=== PATIENT | female | born 1960 | race African-American/Black ===

== ENCOUNTER 2019-08-17 11:27 | Inpatient (IN) | payer MEDICARE, OTHER ==
--- NOTE | 2019-08-17 12:10 | RAD ---
RADIOGRAPH CHEST 1 VIEW: DATE: 08/17/2019 HISTORY: 59-year-old female with altered mental status. Concern for aspiration. Hyperglycemia. FINDINGS: The visualized lung lehman are clear. The cardiomediastinal silhouette and hilar shadows are normal. The lateral costophrenic angles are sharp. The osseous structures appear normal. There is no pneumothorax. IMPRESSION: Negative.
[2019-08-17] MEDS ORDERED: Ondansetron PF 4 MG/2 ML Vial ONE (12:14)
[2019-08-17] MEDS ORDERED: Insulin Regular 300 UNITS/3 ML VIAL ONE ×3 (12:14→12:45)
[2019-08-17] MEDS ORDERED: Insulin Regular 300 UNITS/3 ML VIAL SC SCH (12:30)
[2019-08-17 12:45] LABS: Bilirubin Negative (Negative); Blood, Urine 3+ (Negative); Clarity Clear (Clear); Glucose, Urine (Dipstick) Greater than 1000 mg/dL (Negative); Leukocyte Negative Leu/uL (Negative); Nitrite Negative (Negative); Protein, Urine (Dipstick) 10 mg/dL (Neg-Trace); RBC/HPF Greater than 50 HPF (0-3); Squamous Epithelial 0-3 HPF (0-3); Urobilinogen Normal mg/dL (Less than 2)
[2019-08-17 12:52] LABS: Mean Corpuscular HGB CONC 31.6 g/dL (32.0-36.0); Mean Corpuscular Hemoglobin 21.8 pg (27.0-31.0); Mean Corpuscular Volume 68.8 fL (78.0-98.0); Platelet Count 276 thou/uL (130-400); RBC Distribution Width 19.4 % (11.5-14.5); Red Blood Cell (RBC) Count 5.06 mill/uL (4.20-5.40); White Blood Cell (WBC) Count 8.2 thou/uL (4.8-10.8)
[2019-08-17 12:56] LABS: Bacteria/HPF 1+ HPF (None Seen)
[2019-08-17 13:00] LABS: ALT (SGPT) 10 U/L (8-55); AST (SGOT) 10 U/L (5-34); Albumin 4.1 g/dL (3.5-5.0); Alkaline Phosphatase 126 U/L (40-110); Anion Gap 19 mmol/L (10-20); BUN (Urea Nitrogen) 13 mg/dL (9.8-20.1); Bilirubin, Total 0.3 mg/dL (0.2-1.2); Calc. Creatinine Clearance 0 mL/min (70-130); Calcium 8.7 mg/dL (7.8-10.44); Carbon Dioxide 27 mmol/L (22-29); Chloride 99 mmol/L (98-107); Estimated GFR-MDRD 45; Globulin 3.8 g/dL (2.4-3.5); Lipase 6 U/L (8-78); Magnesium 2.2 mg/dL (1.6-2.6); Phosphorus 4.1 mg/dL (2.3-4.7); Potassium 4.5 mmol/L (3.5-5.1); Protein, Total 7.9 g/dL (6.0-8.3); Sodium 140 mmol/L (136-145)
[2019-08-17 13:04] LABS: Glucose 623 mg/dL (70-105)
[2019-08-17 13:08] LABS: #Lymphocytes 1.4 thou/uL (1.20-3.40); #Monocytes 0.4 thou/uL (0.11-0.59); #Neutrophils 6.4 thou/uL (1.40-6.50); %Basophils 0.4 % (0.0-1.0); %Eosinophils 0.3 % (0.0-10.0); %Lymphocytes 16.7 % (21.0-51.0); %Neutrophils 77.5 % (42.0-75.0); Hypochromia SLIGHT = 6-15 cells (100X) (0-5/hpf); Large Platelets SLIGHT; Lymphocytes 8 % (21-51); MDiff Complete? YES; Microcytosis SLIGHT = 6-15 cells (100X) (0-5/hpf); Monocytes 7 % (0-10); Neutrophil 85 % (42-75); Platelet Morphology Comment Appears Adequate; Polychromasia SLIGHT = 2-3 cells (100X) (0-2/hpf)
[2019-08-17 13:22] LABS: Actual Bicarbonate (HCO3a) 22.7 mEq/L (22-28); Analyzer IN Cardio ER; Base Excess (BEa) -1.5 mEq/L (-2.0 to +3.0); CO2 Tension 36.3 mmHg (35.0-45.0); Calcium, Ionized 1.08 mmol/L (1.12-1.30); Carboxyhemoglobin (COHb) 0.4 gm% (0.0-3.0); Hemoglobin (Hb) 11.5 g/dL (12.0-16.0); O2 Tension (PaO2) 90.2 mmHg (80.0-100.0); Potassium - ABG Lab 4.04 mmol/L (3.70-5.30); pH, Arterial 7.41 (7.35-7.45)
[2019-08-17 13:23] LABS: ALV-art Gradient 14.155 (0-20); Puncture Site L.R.
[2019-08-17] MEDS ORDERED: Metoclopramide HCl 10 MG/2 ML VIAL ONE (13:53)
[2019-08-17] MEDS ORDERED: Acetaminophen 325 MG TAB PO PRN (14:55)
[2019-08-17] MEDS ORDERED: Senokot S 8.6-50 MG TAB PO PRN (14:55)
[2019-08-17] MEDS ORDERED: Dextrose 50% Abboject 50 ML SYRINGE SLOW IVP PRN (15:00)
[2019-08-17] MEDS ORDERED: Dextrose 5% in Water 1,000 ML IV PRN (15:00)
[2019-08-17] MEDS ORDERED: Ondansetron PF 4 MG/2 ML Vial IVP PRN (15:06)
[2019-08-17 15:45] LABS: Hemoglobin A1c Greater than 14.0 % (4.0-6.0)
--- NOTE | 2019-08-17 15:54 | HP ---
PRIMARY CARE PHYSICIAN: Dr. Polo in [place]. CHIEF COMPLAINT: High blood sugar, malaise, nausea, and vomiting. HISTORY OF PRESENT ILLNESS: Ms. Leon is a 59-year-old female, who reported to the emergency room today after being brought by ambulance for malaise x2 weeks, nausea and vomiting x1 week. The patient reports that she was seen in the ER in [place] on Sunday, blood glucose was 639, was just discharged with a viral infection and sent home. EMS reports her glucose today is in the 580s. Reports that she has recently started the metformin and has been on it for about a month and also complaining of a dry mouth and chills. Denies any fever. Denies any abdominal pain. Reports that her nausea is currently gone. Reports that she denied any diarrhea or constipation. Past medical history of hypertension, chronic bronchitis, hyperlipidemia, and then recent diagnosis of diabetes type 2. LABORATORY DATA: The patient's lab values; lipase 6, creatinine 1.43, glucose 623, beta hydroxybutyrate 1.97, GAP was 19. Sodium, potassium, chloride, and carbon dioxide are within normal limits. Urine with more than a 1000 glucose, ketones, blood, 4 to 6 white blood cells, and 1+ bacteria. This has been sent off for culture. The patient was given some Reglan, two doses of Novolin R insulin subcu, some 8 mg of Zofran, and 2 L of fluid and will be admitted to the medical unit for further management. PAST MEDICAL HISTORY: See HPI. PAST SURGICAL HISTORY: Eye surgery and . PSYCHIATRIC HISTORY: None. SOCIAL HISTORY: Lives at home with her family. Denies alcohol or drug use. No smoking history. FAMILY HISTORY: The patient reports family history of diabetes, hypertension, and cardiac disease. REVIEW OF SYSTEMS: The patient reviews chills. Reports nausea and vomiting. Reports intermittent abdominal pain which is resolved. Reports polydipsia. Reports general malaise. All systems are reviewed and are negative unless mentioned in the HPI. PHYSICAL EXAMINATION: VITAL SIGNS: Blood pressure 132/52, pulse is 86, respirations are 14, temperature is 98.4, and pO2 sats are 100% on room air. CONSTITUTIONAL: She is alert and oriented to person, place, and time. Appears nontoxic. HEENT: Head is atraumatic and normocephalic. Eyes, pupils are equally round and reactive to light. Extraocular muscles are intact. ENT; mucous membranes are dry. Teeth with poor dentition. NECK: Trachea is midline. No tenderness. RESPIRATORY/CHEST: Breath sounds are clear. No signs of respiratory distress. CARDIOVASCULAR: Heart rate, regular heart rate and rhythm. Heart sounds are normal. ABDOMEN: Nontender. Bowel sounds are heard. BACK: Normal range of motion. No CVA tenderness. EXTREMITIES: Upper extremity, normal range of motion. Motor strength is normal. Radial pulses are normal. Lower extremity, normal range of motion. Motor strength is normal. Pedal pulses are normal. No edema is noted. NEUROLOGIC: Alert. The patient is oriented to person, place, and time. Speech is normal. SKIN: Warm, dry, and normal in color. ALLERGIES: PENICILLINS. CURRENT MEDICATIONS: 1. Metformin 500 mg x2 b.i.d. 2. Glipizide 5 mg p.o. once a day. 3. Spironazide 25/25 once a day. 4. Atorvastatin 20 mg once a day. 5. Amlodipine 10 mg p.o. once a day. 6. Losartan 100 mg p.o. once a day. 7. Ferrous sulfate 325 mg p.o. once a day. ASSESSMENT/PLAN: 1. Hyperglycemia, 2 L of fluid were given in the ER. We will continue hydration, normal saline at 75 mL per hour, Accu-Chek before meals at bedtime; sliding scale, moderate for coverage, can change that to mild once blood sugars are under 200. Add Zofran as needed for nausea, [QAMARKER] has not been checked. The patient at home is on metformin and glipizide. We can consider restarting this once blood sugar is under better control. 2. History of hypertension. We will restart home medications. We will trend. 3. Hyperlipidemia. Restart home medications. 4. History of anemia. This appears stable. 5. Deep venous thrombosis and gastrointestinal prophylaxis have been started. 6. Hospital course dependent on clinical findings. Job ID: [id number]
[2019-08-17 16:20] VITALS: BMI 40.6
[2019-08-17] MEDS: HumaLOG 300 UNITS/3 ML VIAL SC PRN (17:17)
[2019-08-17] MEDS: Sodium Chloride 0.9% 1,000 ML IV SCH (17:20)
[2019-08-17] MEDS: Famotidine 20 MG TAB PO SCH (20:06)
[2019-08-17] MEDS: Insulin Glargine 15 UNITS in Pre-Filled Syringe 1 EACH SC SCH (21:22)
[2019-08-18] MEDS: Sodium Chloride 0.9% 1,000 ML IV SCH ×2 (04:30→18:05)
[2019-08-18 05:35] LABS: #Basophils 0.1 thou/uL (0.0-0.2); #Eosinphils 0.1 thou/uL (0.0-0.7); #Lymphocytes 2.3 thou/uL (1.20-3.40); #Monocytes 0.5 thou/uL (0.11-0.59); #Neutrophils 3.9 thou/uL (1.40-6.50); %Basophils 1.1 % (0.0-1.0); %Eosinophils 0.9 % (0.0-10.0); %Lymphocytes 33.5 % (21.0-51.0); %Monocytes 7.8 % (0.0-10.0); %Neutrophils 56.8 % (42.0-75.0); Hemoglobin 9.1 g/dL (12.0-16.0); Mean Corpuscular HGB CONC 30.9 g/dL (32.0-36.0); Mean Corpuscular Hemoglobin 21.5 pg (27.0-31.0); Mean Corpuscular Volume 69.6 fL (78.0-98.0); Mean Platelet Volume 7.8 fL (7.4-10.4); Platelet Count 218 thou/uL (130-400); RBC Distribution Width 18.9 % (11.5-14.5); Red Blood Cell (RBC) Count 4.23 mill/uL (4.20-5.40); White Blood Cell (WBC) Count 6.9 thou/uL (4.8-10.8)
[2019-08-18 05:54] LABS: ALT (SGPT) 9 U/L (8-55); AST (SGOT) 12 U/L (5-34); Albumin 3.4 g/dL (3.5-5.0); Alkaline Phosphatase 94 U/L (40-110); Anion Gap 11 mmol/L (10-20); BUN (Urea Nitrogen) 8 mg/dL (9.8-20.1); Bilirubin, Total 0.3 mg/dL (0.2-1.2); Calc. Creatinine Clearance 85 mL/min (70-130); Calcium 7.7 mg/dL (7.8-10.44); Carbon Dioxide 29 mmol/L (22-29); Chloride 106 mmol/L (98-107); Estimated GFR-MDRD 66; Globulin 3.2 g/dL (2.4-3.5); Glucose 164 mg/dL (70-105); Potassium 3.6 mmol/L (3.5-5.1); Protein, Total 6.6 g/dL (6.0-8.3); Sodium 142 mmol/L (136-145)
[2019-08-18] MEDS: Insulin Glargine 15 UNITS in Pre-Filled Syringe 1 EACH SC SCH ×3 (09:07→20:53)
[2019-08-18] MEDS: Losartan 25 MG TAB PO SCH (09:08)
[2019-08-18] MEDS: Famotidine 20 MG TAB PO SCH ×2 (09:08→20:51)
[2019-08-18 11:37] LABS: Bacteria/HPF Rare-Few HPF (None Seen); RBC/HPF Greater than 50 HPF (0-3); Renal Epithelial 0-3 HPF (None Seen); Transitional Epithelial 0-3 HPF (None Seen)
[2019-08-18] MEDS: HumaLOG 300 UNITS/3 ML VIAL SC PRN ×2 (12:09→16:42)
--- NOTE | 2019-08-18 12:10 | PDOC.HOSPP ---
- Subjective Encounter Date: 08/18/19 Encounter Time: 12:08 Subjective: confusing HX, claims blood in urine but sounds like vaginal bleeding post 2 procedures for vaginal bleeding - Objective Vital Signs & Weight: Vital Signs (12 hours) Temp Pulse Resp BP Pulse Ox 08/18/19 10:54 97.8 F 81 16 135/78 97 08/18/19 08:30 99 08/18/19 07:28 98.1 F 74 16 140/82 99 08/18/19 03:49 98.2 F 72 16 125/81 100 Weight Weight 201 lb 6.4 oz Result Diagrams: 08/18/19 04:55 08/18/19 04:55 Additional Labs: Accuchecks 08/18/19 08/17/19 08/17/19 05:34 20:47 16:02 POC Glucose 158 H 249 H 488 H 08/17/19 13:36 POC Glucose 518 H Hospitalist ROS - Medication Medications: Active Medications Generic Name Dose Route Start Last Admin Trade Name Freq PRN Reason Stop Dose Admin Famotidine 20 mg 08/17/19 21:00 08/18/19 09:08 Pepcid PO 20 mg BID AZALEA Administration Sodium Chloride 1,000 mls @ 75 mls/hr 08/17/19 15:00 08/18/19 04:30 Normal Saline 0.9% IV 1,000 mls .[id number] AZALEA Administration Insulin Glargine 15 units/ 0.15 mls @ 0 mls/hr 08/17/19 21:00 08/17/19 21:22 Miscellaneous Medication SC 0.15 mls HS AZALEA Administration Insulin Glargine 15 units/ 0.15 mls @ 0 mls/hr 08/18/19 09:00 08/18/19 09:07 Miscellaneous Medication SC 0.15 mls QAM AZALEA Administration Insulin Human Lispro 0 units 08/17/19 15:00 08/17/19 17:17 Humalog SC 10 unit .MODERATE SLIDING SC PRN Administration Moderate Correctional Scale Losartan Potassium 100 mg 08/18/19 09:00 08/18/19 09:08 Cozaar PO 100 mg DAILY AZALEA Administration Sodium Chloride 10 ml 08/17/19 14:55 08/18/19 09:09 Flush - Normal Saline IVF 10 ml Q12HR PRN Administration Saline Flush - Exam General Appearance: awake alert Neck: no JVD Heart: RRR, no murmur Respiratory: CTAB, no wheezes Gastrointestinal: soft, normal bowel sounds Extremities: 1+ LE edema Hosp A/P (1) Nausea & vomiting Code(s): R11.2 - NAUSEA WITH VOMITING, UNSPECIFIED Status: Acute Qualifiers: Vomiting Intractability: unspecified (2) Hematuria Code(s): R31.9 - HEMATURIA, UNSPECIFIED Status: Acute Qualifiers: Hematuria type: unspecified type Qualified Code(s): R31.9 - Hematuria, unspecified (3) DM (diabetes mellitus), type 2, uncontrolled Code(s): E11.65 - TYPE 2 DIABETES MELLITUS WITH HYPERGLYCEMIA Status: Acute Qualifiers: Glycemic state: with hyperglycemia Qualified Code(s): E11.65 - Type 2 diabetes mellitus with hyperglycemia (4) Hypertension Code(s): I10 - ESSENTIAL (PRIMARY) HYPERTENSION Status: Chronic Qualifiers: Hypertension type: essential hypertension Qualified Code(s): I10 - Essential (primary) hypertension - Plan cont accu/ss insulin needs good pelvic exam-SPORTS PHOTOGRAPHER consult
--- NOTE | 2019-08-18 15:24 | ULT ---
ULTRASOUND PELVIC ULTRASOUND TRANSVAGINAL DOPPLER DUPLEX: DATE: 08/18/2019 HISTORY: 59-year-old female with postmenopausal bleeding with anemia. TECHNIQUE: Transabdominal transducer and endovaginal transducer used to visualize intrapelvic contents with gee scale, color-flow, and spectral analysis. FINDINGS: Poor visualization of uterine body and fundus because of body habitus and enlargement of uterus. Uterus measures approximately 10.5 x 6.5 x 6 cm. Endometrial stripe poorly visualized. At mid body, it measures approximate 0.5 cm. At uterine fundus, the hod carrier has made a measurement of 2.8 cm (28 mm) is, but it is uncertain w hether this is actually the endometrial stripe or uterine fibroid, or endometrial tumor mass, or artifact. Right ovary: Not visualized. Left ovary: 2.4 x 1.7 x 1.8 cm with blood flow. No cyst. No free fluid in the cul-de-sac. Cervix: Endocervical canal is filled with heterogeneously moderately hyperechoic and hypoechoic mater ial, and thickened to 0.5 cm caliber. IMPRESSION: 1) enlarged uterus.. 2) poor visualization of uterine body and fundus. 3) probable blood clots within the endocervical canal. 4) right ovary not visualized.
--- NOTE | 2019-08-18 16:08 | PDOC.EVN ---
Event Note - Event Note Event Note: based on pelvic US report and blood clot soaked towel sent back with patient, problem is not hematuria bur Recurrent vag bleeding. Dr Salter in consult
[2019-08-18] MEDS: medroxyPROGESTERone Acetate 5 MG TAB PO SCH (20:52)
[2019-08-18] MEDS: Insulin Regular 300 UNITS/3 ML VIAL SC PRN (20:53)
--- NOTE | 2019-08-18 21:19 | CON ---
DATE OF CONSULTATION: 08/18/2019 TIME OF SERVICE: 2030 hours. REASON FOR CONSULTATION: Postmenopausal bleeding. ADDITIONAL ADMITTING PHYSICIAN: Mayra Garcia MD CONSULTING PHYSICIAN: Chadd Salter MD HISTORY OF PRESENT ILLNESS: Ms. Leon is a 59-year-old 8, para 8, who is status post BTL and has a long history of intermittent postmenopausal bleeding. She has been evaluated by Mayra Garcia prior to his in [place] in 2016, with endometrial biopsies x2 that were benign. She reports that she had D and C (possible hysteroscopy) by Dr. 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 She states that she was told it was not cancer and that her bleeding should not come back. She reports that she has had bleeding off and on, requiring 1-2 pads a day since approximately the 13 of August. She denies syncope. She is admitted with hyperglycemia. 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 MEDICAL HISTORY: Diabetes, hyperlipidemia, hypertension. SOCIAL HISTORY: Denies tobacco, alcohol, or IV drug abuse. FAMILY HISTORY: Noncontributory. REVIEW OF SYSTEMS: Noncontributory. MEDICATIONS: 1. Metformin. 2. Glipizide. 3. Spironazide. 4. Atorvastatin. 5. Amlodipine. 6. Losartan. 7. Ferrous sulfate. ALLERGIES: PENICILLINS. PHYSICAL EXAMINATION: GENERAL: Black female, no acute distress. VITAL SIGNS: Temperature 98.7, pulse 84, respirations 19, blood pressure 121/77. HEENT: Within normal limits. ABDOMEN: Soft and nontender. Pelvic exam is deferred. The patient is 4 feet 10 inches tall and greater than 200 pounds. No proper bed for pelvic exam is available in the hospital. LABORATORY DATA: Hematocrit is 29.4 with a normal white count. Base met is relatively within normal limits except for elevated glucoses. Cath UA was ordered by myself with greater than 50 rbc's per high-power field, 28 to 46 wbc's. The patient had urine culture, clean-catch performed on admission, which was greater than E coli sensitive to everything except ampicillin and ampicillin sulbactam. Ultrasound was performed with vaginal technique with the uterus measuring 10 x 6 x 6 cm. Endometrial stripe was poorly visualized. Radiologist read it as measuring 0.5 cm in the mid body of fundus. It might be up to 28 mm, but this may be an endometrial mass or artifact from vaginal bleeding. The right ovary is not visualized. Left adnexa was normal size. No free fluid was noted. In the cervical canal, there was hypoechoic material in 5 mm thickness consistent with passing blood. IMPRESSION: Probable urinary tract infection with hyperglycemia. Postmenopausal bleeding with morbid obesity with unlikely etiology being malignancy or premalignant condition considering recent sampling with benign findings. PLAN: 1. We will start patient on Provera 10 mg b.i.d. 2. We will schedule patient to have hysteroscopy with D and C by OB hospitalist in 1-2 days. Cystoscopy would not seem to be indicated with positive culture and positive blood. If blood persists, would consider first Urology evaluation. Exam under anesthesia will be performed at the time of hysteroscopy. 3. This plan will be communicated with Dr. Garcia, will defer treatment of positive urine culture to Internal Medicine Hospital Service. Job ID: [id number]
[2019-08-19] MEDS ORDERED: Morphine 2 MG/ML SYRINGE SLOW IVP SCH (04:45)
[2019-08-19] MEDS: HumaLOG 300 UNITS/3 ML VIAL SC PRN ×2 (05:12→18:13)
[2019-08-19] MEDS: Sodium Chloride 0.9% 1,000 ML IV SCH ×2 (06:10→20:10)
[2019-08-19] MEDS: medroxyPROGESTERone Acetate 5 MG TAB PO SCH ×2 (08:10→20:12)
[2019-08-19] MEDS: Insulin Glargine 15 UNITS in Pre-Filled Syringe 1 EACH SC SCH ×2 (08:10→20:13)
[2019-08-19] MEDS: Famotidine 20 MG TAB PO SCH ×2 (08:11→20:12)
[2019-08-19] MEDS: Losartan 25 MG TAB PO SCH (08:11)
--- NOTE | 2019-08-19 08:50 | PRG ---
DATE OF SERVICE: 08/19/2019 Ms. Leon is resting comfortably this morning. Bleeding is minimal by report. Progress note is noted in the chart from Internal Medicine hospitalist, so uncertain is if they are treating the patient for a UTI. Discussed with the patient plan. We will plan to proceed with hysteroscopy, D and C on Sunday, 08/20. Dr. Valladares will be aware of this. We will follow up those results at that time. Job ID: [id number]
[2019-08-19] MEDS ORDERED: Morphine 2 MG/ML SYRINGE SLOW IVP PRN (09:00)
--- NOTE | 2019-08-19 09:40 | PDOC.HOSPP ---
- Subjective Encounter Date: 08/19/19 Encounter Time: 09:38 Subjective: still with vaginal bleeding - Objective Vital Signs & Weight: Vital Signs (12 hours) Temp Pulse Resp BP BP Pulse Ox 08/19/19 08:00 100 08/19/19 07:58 98.7 F 72 16 106/69 100 08/19/19 05:05 110/65 Weight Admit Weight 201 lb 6.4 oz Weight 201 lb 6.4 oz I&O: 08/18/19 08/19/19 08/20/19 06:59 06:59 06:59 Intake Total 1150 240 Balance 1150 240 Result Diagrams: 08/18/19 04:55 08/18/19 04:55 Additional Labs: Accuchecks 08/19/19 08/18/19 08/18/19 04:32 19:51 16:04 POC Glucose 327 H 335 H 212 H 08/18/19 11:54 POC Glucose 346 H Hospitalist ROS - Medication Medications: Active Medications Generic Name Dose Route Start Last Admin Trade Name Freq PRN Reason Stop Dose Admin Acetaminophen 650 mg 08/17/19 14:55 08/19/19 03:50 Tylenol PO 650 mg Q4H PRN Administration Headache/Fever/Mild Pain (1-3) Famotidine 20 mg 08/17/19 21:00 08/19/19 08:11 Pepcid PO 20 mg BID AZALEA Administration Sodium Chloride 1,000 mls @ 75 mls/hr 08/17/19 15:00 08/19/19 06:10 Normal Saline 0.9% IV Not Given .[id number] AZALEA Insulin Glargine 15 units/ 0.15 mls @ 0 mls/hr 08/17/19 21:00 08/18/19 20:53 Miscellaneous Medication SC 0.15 mls HS AZALEA Administration Insulin Glargine 15 units/ 0.15 mls @ 0 mls/hr 08/18/19 09:00 08/19/19 08:10 Miscellaneous Medication SC 0.15 mls QAM AZALEA Administration Levofloxacin 500 mg/ Device 100 mls @ 100 mls/hr 08/18/19 17:30 08/18/19 18: 06 IVPB 100 mls ONCALL-OR AZALEA Administration Insulin Human Lispro 0 units 08/17/19 15:00 08/19/19 05:12 Humalog SC 8 unit .MODERATE SLIDING SC PRN Administration Moderate Correctional Scale Insulin Human Regular 0 units 08/17/19 15:00 08/18/19 20:53 Humulin R SC 4 unit .BEDTIME SLIDING SC PRN Administration Bedtime Correctional Scale Losartan Potassium 100 mg 08/18/19 09:00 08/19/19 08:11 Cozaar PO 100 mg DAILY AZALEA Administration Medroxyprogesterone Acetate 10 mg 08/18/19 21:00 08/19/19 08:10 Provera PO 10 mg BID AZALEA Administration Ondansetron HCl 4 mg 08/17/19 15:06 08/19/19 03:50 Zofran IVP 4 mg Q6H PRN Administration Nausea/Vomiting Sodium Chloride 10 ml 08/17/19 14:55 08/18/19 09:09 Flush - Normal Saline IVF 10 ml Q12HR PRN Administration Saline Flush - Exam Neck: no JVD Heart: RRR, no murmur Respiratory: CTAB Gastrointestinal: soft, normal bowel sounds Extremities: 1+ LE edema Hosp A/P (1) Nausea & vomiting Code(s): R11.2 - NAUSEA WITH VOMITING, UNSPECIFIED Status: Resolved Qualifiers: Vomiting Intractability: unspecified (2) Hematuria Code(s): R31.9 - HEMATURIA, UNSPECIFIED Status: Acute Qualifiers: Hematuria type: unspecified type Qualified Code(s): R31.9 - Hematuria, unspecified (3) DM (diabetes mellitus), type 2, uncontrolled Code(s): E11.65 - TYPE 2 DIABETES MELLITUS WITH HYPERGLYCEMIA Status: Acute Qualifiers: Glycemic state: with hyperglycemia Qualified Code(s): E11.65 - Type 2 diabetes mellitus with hyperglycemia (4) Hypertension Code(s): I10 - ESSENTIAL (PRIMARY) HYPERTENSION Status: Chronic Qualifiers: Hypertension type: essential hypertension Qualified Code(s): I10 - Essential (primary) hypertension (5) Vaginal bleeding Code(s): N93.9 - ABNORMAL UTERINE AND VAGINAL BLEEDING, UNSPECIFIED Status: Acute - Plan cont accu/ss insulin abn pelvic US, to have hysteroscopy tomorrow
[2019-08-19] MEDS: Insulin Regular 300 UNITS/3 ML VIAL SC PRN ×2 (11:40→20:14)
--- NOTE | 2019-08-19 14:59 | PDOC.EVN ---
Event Note - Event Note Event Note: Discussed with Dr. Salter this AM. Hysteroscopy scheduled for tommorrow at [address] Valladares. Pt. aware, reviewed info with her. All questions answered. Consent on chart. NPO post MN, order written
[2019-08-19] MEDS: Atorvastatin Calcium 20 MG TAB PO SCH (20:12)
[2019-08-19] MEDS ORDERED: cefTRIAXone\\ROCEPHIN 2 GM in Sodium Chloride 0.9% 100 ML IVPB SCH (22:30)
[2019-08-20 01:11] LABS: #Eosinphils 0.1 thou/uL (0.0-0.7); #Lymphocytes 2.1 thou/uL (1.20-3.40); #Monocytes 0.5 thou/uL (0.11-0.59); #Neutrophils 4.4 thou/uL (1.40-6.50); %Basophils 0.5 % (0.0-1.0); %Eosinophils 1.5 % (0.0-10.0); %Lymphocytes 28.8 % (21.0-51.0); %Monocytes 7.2 % (0.0-10.0); Hemoglobin 8.5 g/dL (12.0-16.0); Mean Corpuscular Hemoglobin 22.4 pg (27.0-31.0); Mean Corpuscular Volume 70.1 fL (78.0-98.0); Mean Platelet Volume 7.7 fL (7.4-10.4); Platelet Count 194 thou/uL (130-400); RBC Distribution Width 19.3 % (11.5-14.5); White Blood Cell (WBC) Count 7.1 thou/uL (4.8-10.8)
[2019-08-20 01:24] LABS: Anion Gap 9 mmol/L (10-20); BUN (Urea Nitrogen) 8 mg/dL (9.8-20.1); Calc. Creatinine Clearance 92 mL/min (70-130); Carbon Dioxide 26 mmol/L (22-29); Chloride 107 mmol/L (98-107); Estimated GFR-MDRD 73; Glucose 197 mg/dL (70-105); Sodium 138 mmol/L (136-145)
[2019-08-20 05:40] LABS: #Eosinphils 0.1 thou/uL (0.0-0.7); #Monocytes 0.5 thou/uL (0.11-0.59); #Neutrophils 4.1 thou/uL (1.40-6.50); %Basophils 0.7 % (0.0-1.0); %Eosinophils 2.2 % (0.0-10.0); %Lymphocytes 29.3 % (21.0-51.0); %Monocytes 7.2 % (0.0-10.0); %Neutrophils 60.7 % (42.0-75.0); Hemoglobin 8.4 g/dL (12.0-16.0); Mean Corpuscular HGB CONC 32.1 g/dL (32.0-36.0); Mean Corpuscular Hemoglobin 22.4 pg (27.0-31.0); Mean Platelet Volume 8.4 fL (7.4-10.4); Platelet Count 189 thou/uL (130-400); RBC Distribution Width 19.6 % (11.5-14.5); Red Blood Cell (RBC) Count 3.73 mill/uL (4.20-5.40); White Blood Cell (WBC) Count 6.8 thou/uL (4.8-10.8)
[2019-08-20 05:54] LABS: Anion Gap 8 mmol/L (10-20); BUN (Urea Nitrogen) 8 mg/dL (9.8-20.1); Calc. Creatinine Clearance 100 mL/min (70-130); Carbon Dioxide 26 mmol/L (22-29); Chloride 107 mmol/L (98-107); Estimated GFR-MDRD 81; Glucose 208 mg/dL (70-105); Potassium 3.6 mmol/L (3.5-5.1); Sodium 137 mmol/L (136-145)
[2019-08-20] MEDS: Famotidine 20 MG TAB PO SCH ×2 (08:23→20:30)
[2019-08-20] MEDS: Insulin Glargine 15 UNITS in Pre-Filled Syringe 1 EACH SC SCH ×2 (08:23→20:31)
[2019-08-20] MEDS: medroxyPROGESTERone Acetate 5 MG TAB PO SCH ×2 (08:24→20:31)
[2019-08-20] MEDS: Losartan 25 MG TAB PO SCH (08:24)
[2019-08-20] MEDS: Sodium Chloride 0.9% 1,000 ML IV SCH ×2 (10:25→20:31)
[2019-08-20] MEDS ORDERED: Ketorolac Tromethamine 30 MG/ML VIAL ONE (10:33)
[2019-08-20] MEDS ORDERED: Succinylcholine Chloride 20 MG/ML 10 ml SYRINGE FS ONE (10:33)
[2019-08-20] MEDS ORDERED: PROPOFOL 200 MG/20 ML VIAL ONE (10:33)
[2019-08-20] MEDS ORDERED: Lidocaine 1% PF 5 ML VIAL ONE (10:33)
[2019-08-20] MEDS ORDERED: Ondansetron PF 4 MG/2 ML Vial ONE ×2 (10:33→12:30)
[2019-08-20] MEDS ORDERED: Levofloxacin 500 mg/D5W 100 ml Premix Bag ONE (12:22)
[2019-08-20] MEDS ORDERED: Fentanyl 100 MCG/2 ML VIAL ONE (12:29)
[2019-08-20] MEDS ORDERED: Dexamethasone 20 MG/5 ML VIAL ONE (12:30)
[2019-08-20] MEDS ORDERED: PROPOFOL 20 ML ONE (13:01)
[2019-08-20] MEDS ORDERED: Promethazine HCl 25 MG/ML VIAL SLOW IVP PRN (13:47)
[2019-08-20] MEDS ORDERED: HYDROmorphone 2 MG/ML VIAL SLOW IVP PRN (13:47)
[2019-08-20] MEDS ORDERED: Promethazine HCl 25 MG/ML VIAL IM PRN (13:47)
[2019-08-20] MEDS ORDERED: PACU-Morphine 4MG/ML VIAL SLOW IVP PRN (13:47)
[2019-08-20] MEDS ORDERED: Morphine Sulfate 2 MG/ML SYRINGE SLOW IVP PRN (13:47)
[2019-08-20] MEDS ORDERED: Ondansetron HCl/PF 4 MG/2 ML Vial IVP PRN (13:47)
--- NOTE | 2019-08-20 15:49 | PDOC.HOSPP ---
- Subjective Encounter Date: 08/20/19 Encounter Time: 15:48 Subjective: no further vaginal bleeding - Objective Vital Signs & Weight: Vital Signs (12 hours) Temp Pulse Resp BP BP Pulse Ox 08/20/19 14:45 98.1 F 69 18 157/78 H 100 08/20/19 08:17 98.5 F 74 18 125/77 100 08/20/19 08:00 100 Weight Admit Weight 201 lb 6.4 oz Weight 201 lb 6.4 oz I&O: 08/19/19 08/20/19 08/21/19 06:59 06:59 06:59 Intake Total 1150 1497 Balance 1150 1497 Result Diagrams: 08/20/19 05:14 08/20/19 05:14 Additional Labs: Accuchecks 08/19/19 08/19/19 19:56 16:28 POC Glucose 268 H 325 H Hospitalist ROS - Medication Medications: Active Medications Generic Name Dose Route Start Last Admin Trade Name Freq PRN Reason Stop Dose Admin Acetaminophen 650 mg 08/17/19 14:55 08/19/19 03:50 Tylenol PO 650 mg Q4H PRN Administration Headache/Fever/Mild Pain (1-3) Atorvastatin Calcium 20 mg 08/19/19 21:00 08/19/19 20:12 Lipitor PO 20 mg HS AZALEA Administration Famotidine 20 mg 08/17/19 21:00 08/20/19 08:23 Pepcid PO Not Given BID AZALEA Sodium Chloride 1,000 mls @ 75 mls/hr 08/17/19 15:00 08/20/19 10:25 Normal Saline 0.9% IV Not Given .[id number] AZALEA Insulin Glargine 15 units/ 0.15 mls @ 0 mls/hr 08/17/19 21:00 08/19/19 20:13 Miscellaneous Medication SC 0.15 mls HS AZALEA Administration Insulin Glargine 15 units/ 0.15 mls @ 0 mls/hr 08/18/19 09:00 08/20/19 08:23 Miscellaneous Medication SC Not Given QAM AZALEA Levofloxacin 500 mg/ Device 100 mls @ 100 mls/hr 08/18/19 17:30 08/18/19 18: 06 IVPB 100 mls ONCALL-OR AZALEA Administration Levofloxacin 500 mg/ Device 100 mls @ 100 mls/hr 08/19/19 23:00 08/19/19 22: 52 IVPB 100 mls Q24HR AZALEA Administration Insulin Human Lispro 0 units 08/17/19 15:00 08/19/19 18:13 Humalog SC 8 unit .MODERATE SLIDING SC PRN Administration Moderate Correctional Scale Insulin Human Regular 0 units 08/17/19 15:00 08/19/19 20:14 Humulin R SC 3 unit .BEDTIME SLIDING SC PRN Administration Bedtime Correctional Scale Losartan Potassium 100 mg 08/18/19 09:00 08/20/19 08:24 Cozaar PO Not Given DAILY [facility] Medroxyprogesterone Acetate 10 mg 08/18/19 21:00 08/20/19 08:24 Provera PO Not Given BID [facility] Morphine Sulfate 2 mg 08/19/19 09:00 08/20/19 05:25 Morphine SLOW IVP 2 mg Q4H PRN Administration Pain Ondansetron HCl 4 mg 08/17/19 15:06 08/19/19 03:50 Zofran IVP 4 mg Q6H PRN Administration Nausea/Vomiting Sodium Chloride 10 ml 08/17/19 14:55 08/18/19 09:09 Flush - Normal Saline IVF 10 ml Q12HR PRN Administration Saline Flush - Exam General Appearance: awake alert Neck: no JVD Heart: RRR, no murmur Respiratory: negative: CTAB Gastrointestinal: soft, normal bowel sounds Extremities: 1+ LE edema Hosp A/P (1) Nausea & vomiting Code(s): R11.2 - NAUSEA WITH VOMITING, UNSPECIFIED Status: Resolved Qualifiers: Vomiting Intractability: unspecified (2) Hematuria Code(s): R31.9 - HEMATURIA, UNSPECIFIED Status: Acute Qualifiers: Hematuria type: unspecified type Qualified Code(s): R31.9 - Hematuria, unspecified (3) DM (diabetes mellitus), type 2, uncontrolled Code(s): E11.65 - TYPE 2 DIABETES MELLITUS WITH HYPERGLYCEMIA Status: Acute Qualifiers: Glycemic state: with hyperglycemia Qualified Code(s): E11.65 - Type 2 diabetes mellitus with hyperglycemia (4) Hypertension Code(s): I10 - ESSENTIAL (PRIMARY) HYPERTENSION Status: Chronic Qualifiers: Hypertension type: essential hypertension Qualified Code(s): I10 - Essential (primary) hypertension (5) Vaginal bleeding Code(s): N93.9 - ABNORMAL UTERINE AND VAGINAL BLEEDING, UNSPECIFIED Status: Acute - Plan post hysteroscopy- no report as yet Hg > 8 onlevaquin for YTI cont ACCU/ SS /LA insulin
[2019-08-20] MEDS: HumaLOG 300 UNITS/3 ML VIAL SC PRN ×2 (17:27→20:31)
--- NOTE | 2019-08-20 20:00 | OP ---
DATE OF PROCEDURE: 08/20/2019 PREOPERATIVE DIAGNOSIS: Postmenopausal bleeding. Uterine mass as seen by ultrasound with suspect of intrauterine endometrial component. POSTOPERATIVE DIAGNOSIS: Postmenopausal bleeding. Uterine mass as seen by ultrasound with suspect of intrauterine endometrial component. PROCEDURE PERFORMED: Diagnostic hysteroscopy with D and C. BLOOD LOSS: Less than 100 mL. COUNTS: Correct. COMPLICATIONS: None. SPECIMENS: Endometrial curettings to Pathology. FINDINGS: A fairly normal appearing endometrial cavity appropriately atrophic. There was an unusual sessile appearing possible lesion at the fundus that may have been the source of bleeding as there was a blood clot that seemed to be adhered to this area. DESCRIPTION OF PROCEDURE: Ms. Mayelin Leon was taken to the operating room, where she was placed under general anesthesia and prepared and draped in normal sterile fashion in [facility], in a dorsal lithotomy position. She was prepared and draped in normal sterile fashion. Attention was placed vaginally, where with the use of an operative speculum, the cervix was identified and grasped anteriorly with a single-tooth tenaculum. The cervix was sounded to 9 cm and found to be anteverted. The cervix was minimally dilated to accommodate a 0-degree hysteroscope with normal saline as the filling medium. The hysteroscope passed without difficulty into the uterine cavity. Immediately visible was a small clot that looked adherent to the fundal portion of the uterus. There were no polyps or any obvious lesions visible. At the fundus of the uterus, there was an area that appeared a little different than the rest, white, but with a striated appearance, no necrotic features. No visible vascularity or obvious features of concern. At this point, both tubal ostia were seen on the left and right. At this point, the hysteroscopic portion of the procedure was completed. A sharp curetting was performed with attention at the fundal region of the uterus. These endometrial curettings were collected and sent to Pathology for review. Once this was done, the single-tooth tenaculum was removed from the anterior lip of the cervix. This was noted to be hemostatic. The operative speculum was removed and the procedure was completed. The patient was taken out of lithotomy position and taken to recovery room in stable condition upon extubation. Job ID: [id number]
[2019-08-20] MEDS: Atorvastatin Calcium 20 MG TAB PO SCH (20:30)
[2019-08-21] MEDS: HumaLOG 300 UNITS/3 ML VIAL SC PRN (05:28)
[2019-08-21 06:09] LABS: #Eosinphils 0.1 thou/uL (0.0-0.7); #Lymphocytes 1.6 thou/uL (1.20-3.40); #Monocytes 0.5 thou/uL (0.11-0.59); #Neutrophils 4.8 thou/uL (1.40-6.50); %Basophils 0.4 % (0.0-1.0); %Eosinophils 1.4 % (0.0-10.0); %Lymphocytes 22.2 % (21.0-51.0); %Monocytes 7.4 % (0.0-10.0); %Neutrophils 68.7 % (42.0-75.0); Hemoglobin 8.6 g/dL (12.0-16.0); Mean Corpuscular HGB CONC 31.7 g/dL (32.0-36.0); Mean Corpuscular Hemoglobin 22.2 pg (27.0-31.0); Mean Corpuscular Volume 69.8 fL (78.0-98.0); Mean Platelet Volume 8.3 fL (7.4-10.4); Platelet Count 195 thou/uL (130-400); Red Blood Cell (RBC) Count 3.88 mill/uL (4.20-5.40); White Blood Cell (WBC) Count 7.1 thou/uL (4.8-10.8)
[2019-08-21 06:27] LABS: Anion Gap 9 mmol/L (10-20); BUN (Urea Nitrogen) 6 mg/dL (9.8-20.1); Calc. Creatinine Clearance 108 mL/min (70-130); Carbon Dioxide 25 mmol/L (22-29); Chloride 108 mmol/L (98-107); Estimated GFR-MDRD 88; Glucose 187 mg/dL (70-105); Potassium 4.2 mmol/L (3.5-5.1); Sodium 138 mmol/L (136-145)
--- NOTE | 2019-08-21 08:10 | PRG ---
DATE OF SERVICE: 08/21/2019 Ms. 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 Yesterday, the patient had a hysteroscopy and D and C for diagnosis. This morning, she reports she is feeling well and has no complaints and is not bleeding. We discussed where she would like to follow up for her results and she, although, lives out of town would like to come here and follow up with [facility] [place] for pathology results. I will be putting that information in her discharge planning. Otherwise, we will be signing off at this time. Job ID: [id number]
[2019-08-21] MEDS: Famotidine 20 MG TAB PO SCH (08:18)
[2019-08-21] MEDS: Insulin Glargine 15 UNITS in Pre-Filled Syringe 1 EACH SC SCH (08:18)
[2019-08-21] MEDS: medroxyPROGESTERone Acetate 5 MG TAB PO SCH (08:18)
[2019-08-21] MEDS: Losartan 25 MG TAB PO SCH (08:20)
--- NOTE | 2019-08-21 08:28 | DIS ---
DATE OF ADMISSION: 08/17/2019 DATE OF DISCHARGE: 08/21/2019 PRIMARY CARE PROVIDER: Dr. Omar Polo. FINAL DIAGNOSES: 1. Vaginal bleeding. 2. Diabetes mellitus, type 2. 3. Uncontrolled hypertension. 4. Dyslipidemia. 5. Urinary tract infection. 6. Anemia due to blood loss. DISCHARGE MEDICATIONS: 1. Provera 10 mg p.o. b.i.d. 2. Amlodipine 10 mg a day. 3. Atorvastatin 20 mg a day. 4. Cozaar 100 mg a day. 5. Levaquin 500 mg a day x7 days. 6. Lantus insulin 15 units subcu q.12 hours. ALLERGIES: TO PENICILLIN. DIET: Diabetic. PENDING AT THE TIME OF DISCHARGE: Pathology of endometrial scrapings. CODE STATUS: Full code status. HOSPITAL STATUS: The patient admitted to the [facility] through [facility] with diagnosis of gross hematuria, nausea, vomiting, and high blood sugar, blood sugars were noted to be in the 600 range, and a consult was obtained with gynecological hospitalist for confirmation whether the blood was from her urine or vaginal area. It was confirmed quickly that the bleeding was vaginal. She had a pelvic ultrasound which revealed enlarged uterus, clots in the endocervical canal. Her initial hemoglobin was 11.0, it dropped down to the 8.5 to 9 level and remained stable. Her urine culture did grow Escherichia coli, which resistant to ampicillin, but sensitive to cephalosporins. She was started on Omnicef. Subsequently, she had a hysteroscopy by Dr. Sammy Valladares. Scrapings of the uterus and a cervical biopsy were obtained, which were pending. The patient was started on insulin. Her blood sugars came down from 500 to 600 level, currently running 200 to 213. Her hemoglobin A1c was greater than 14. CONSULTATIONS: Gynecology, Dr. Chadd Salter. PROCEDURES: Hysteroscopy, Dr. Sammy Valladares. The patient is being discharged for followup with her primary care doctor for her diabetes. The Gynecologic Service here will follow up on her past specimen. She will also need to be referred to her clerk funeral detail for continuing care for her dysfunctional uterine bleeding and her Provera. Job ID: [id number]
[2019-08-21 10:52] VITALS: BP 159/84; TEMP 98
--- NOTE | 2019-08-22 06:04 | PDOC.EVN ---
Event Note - Event Note Event Note: OBGYN PATHOLOGY CHECK (Chart Check): Tissue samples negative. Will need OBGYN outpatient follow up
== END 2019-08-21 11:00 | disposition home or self-care (01) | DRG 744 ==
LOC: ERS 11:27 → T4-B 13:58
PROVIDERS: ADMIT Internal Medicine; ATTEND Internal Medicine
PROC: 0UDB8ZZ Extraction of Endometrium, Via Natural or Artificial Opening Endoscopic (ICD-10-PCS; principal; 2019-08-17)
DX: N95.0 Postmenopausal bleeding (principal); Z68.41 Body mass index [BMI] 40.0-44.9, adult; N39.0 Urinary tract infection, site not specified; D62 Acute posthemorrhagic anemia; N17.9 Acute kidney failure, unspecified; E11.65 Type 2 diabetes mellitus with hyperglycemia; R40.2412 Glasgow coma scale score 13-15, at arrival to emergency department; E78.5 Hyperlipidemia, unspecified; I10 Essential (primary) hypertension; E66.01 Morbid (severe) obesity due to excess calories; D50.0 Iron deficiency anemia secondary to blood loss (chronic); R31.0 Gross hematuria; B96.20 Unspecified Escherichia coli [E. coli] as the cause of diseases classified elsewhere
CPT/HCPCS: 36415; 36416; 71045; 76856; 80048; 80053; 81003; 81015; 82010; 82805; 83036; 83690; 83735; 84100; 84484; 85025; 87077; 87086; 87186; 88305; 93005; 96361; 96365; 96375; J1100; J1815; J1885; J1956; J2001; J2270; J2405; J2704; J2765; J3010

== ENCOUNTER 2020-11-09 06:08 | Inpatient (IN) | payer MEDICARE, OTHER ==
[2020-11-09] MEDS ORDERED: Succinylcholine 200 MG/10 ml SYRINGE FS ONE (06:38)
[2020-11-09] MEDS ORDERED: Fentanyl 100 MCG/2 ML VIAL ONE (07:10)
[2020-11-09] MEDS ORDERED: Fentanyl CADD 100 ML IV SCH (07:15)
[2020-11-09 07:24] LABS: Actual Bicarbonate (HCO3a) 9.5 mEq/L (22-28); Analyzer IN Cardio ER; Base Excess (BEa) -15.4 mEq/L (-2.0 to +3.0); Calcium, Ionized (arterial) 1.27 mmol/L (1.12-1.30); Carboxyhemoglobin (COHb) 0.3 gm% (0.0-3.0); Potassium - ABG Lab 3.45 mmol/L (3.70-5.30); pH, Arterial 7.26 (7.35-7.45)
[2020-11-09 07:34] LABS: ALV-art Gradient 142.175 mmHg (0-20); CO2 Tension 21.7 mmHg (35.0-45.0); O2 Tension (PaO2), arterial 543.7 mmHg (> 80.0); Puncture Site LRA
[2020-11-09 07:35] LABS: Base Excess-Venous -12.7 mmol/L (-2.0 to 3.0); Bicarbonate (HCO3v) 16.3 mmol/L (22.0-28.0); CO2 Tension (PvCO2) 47.4 mmHg (40.0-50.0); Chloride 123 mmol/L (98-107); Hemoglobin - Calc 16.2 g/dL (12.0-16.0); Potassium 4.6 mmol/L (3.5-5.1); Sodium 156 mmol/L (138-145); T. Carbon Dioxide 17.7 mmol/L (22.0-28.0); vO2 Saturation-calc 95.2 % (60.0-85.0)
[2020-11-09 07:38] LABS: Bilirubin Moderate (Negative); Blood, Urine Moderate (Negative); Glucose, Urine (Dipstick) >=1000 mg/dL (Negative); Ketone, Urine Trace mg/dL (Negative); Leukocyte Negative (Negative); Nitrite Negative (Negative); Protein, Urine (Dipstick) Negative (Neg-Trace); Specific Gravity, Urine 1.015 (1.005-1.030); Urobilinogen 0.2 mg/dL (Less than 2)
[2020-11-09 07:47] LABS: Clarity Cloudy (Clear)
[2020-11-09 07:52] LABS: ALT (SGPT) 19 U/L (8-55); AST (SGOT) 23 U/L (5-34); Albumin 4.2 g/dL (3.5-5.0); Alkaline Phosphatase 142 U/L (40-110); Anion Gap 41 mmol/L (10-20); BUN (Urea Nitrogen) 74 mg/dL (9.8-20.1); Bilirubin, Total 0.4 mg/dL (0.2-1.2); Calc. Creatinine Clearance 0 mL/min (70-130); Carbon Dioxide 12 mmol/L (22-29); Chloride 114 mmol/L (98-107); Globulin 3.9 g/dL (2.4-3.5); Glucose 1376 mg/dL (70-105); Magnesium 3.9 mg/dL (1.6-2.6); Potassium 4.3 mmol/L (3.5-5.1); Protein, Total 8.1 g/dL (6.0-8.3); Sodium 163 mmol/L (136-145)
[2020-11-09 07:53] LABS: WBC/HPF 0-3 HPF (0-3)
[2020-11-09 07:54] LABS: Bacteria/HPF Rare-Few HPF (None Seen); Yeast-Budding 3+ HPF (None Seen)
--- NOTE | 2020-11-09 07:57 | RAD ---
Exam: Chest one view HISTORY:Hyperglycemia. Status post intubation. Comparison: 08/17/2019 FINDINGS: Lines and tubes: There is evidence of endotracheal and nasogastric tube. Cardiac silhouette: Normal Aorta: Unremarkable Pulmonary vessels: Normal Costophrenic angles: Clear LUNGS: No masses or consolidation. Pneumothorax: None Osseous abnormalities: None IMPRESSION: No acute cardiopulmonary process. Interval placement of endotracheal and nasogastric tube s, appropriately position
[2020-11-09 08:09] LABS: CKMB 6.5 ng/mL (0-6.6)
[2020-11-09 08:10] LABS: Phosphorus 8.2 mg/dL (2.3-4.7)
[2020-11-09] MEDS ORDERED: HUMULIN R 100 UNITS in Sodium Chloride 0.9% 100 ML IVPB SCH (08:15)
[2020-11-09 08:20] LABS: #Eosinphils 0.1 thou/uL (0.0-0.7); #Lymphocytes 1.2 thou/uL (1.20-3.40); #Monocytes 0.3 thou/uL (0.11-0.59); %Eosinophils 0.4 % (0.0-10.0); %Lymphocytes 7.3 % (21.0-51.0); %Neutrophils 90.3 % (42.0-75.0); Hemoglobin 15.2 g/dL (12.0-16.0); Mean Corpuscular HGB CONC 30.4 g/dL (32.0-36.0); Mean Corpuscular Hemoglobin 25.9 pg (27.0-31.0); Mean Platelet Volume 13.4 fL (7.4-10.4); Platelet Count 195 thou/uL (130-400); RBC Distribution Width 14.8 % (11.5-14.5); Red Blood Cell (RBC) Count 5.87 mill/uL (4.20-5.40); White Blood Cell (WBC) Count 16.6 thou/uL (4.8-10.8)
--- NOTE | 2020-11-09 08:42 | PDOC.FPRHP ---
- History of Present Illness Chief Complaint: AMS History of Present Illness: This is a 60F presenting via EMS after her called them, reportedly because she was "acting funny". Per ED report, the pt was obtunded on EMS arrival. She is currently intubated. On evaluation, GCS of 9: no verbal response, positive withdrawal from pain, and spontaneous eye opening. ED Course: S/p initiation of DKA protocol, mIVF of NS at 500mL/h, and insulin drip at 9u/hr. - Allergies/Adverse Reactions Allergies Allergy/AdvReac Type Severity Reaction Status Date / Time Penicillins Allergy Verified 08/17/19 16:28 - Home Medications Medication Instructions Recorded Confirmed Type Atorvastatin Calcium 20 mg PO DAILY 08/17/19 11/09/20 History Losartan [Cozaar] 100 mg PO DAILY 08/17/19 11/09/20 History Insulin Glargine [Lantus Vial] 15 units SC HS #1 vial 08/21/19 11/09/20 Rx Insulin Glargine [Lantus Vial] 15 units SC QAM vial 08/21/19 11/09/20 Rx Amlodipine [Norvasc] 10 mg PO DAILY 11/09/20 11/09/20 History Dulaglutide [Trulicity] 0.75 mg SC Q7D 11/09/20 11/09/20 History Gabapentin 300 mg PO TID 11/09/20 11/09/20 History Spironolactone 50 mg PO DAILY 11/09/20 11/09/20 History glipiZIDE [Glucotrol XL] 5 mg PO DAILY 11/09/20 11/09/20 History metFORMIN [Glucophage] 1,000 mg PO BID 11/09/20 11/09/20 History - History PMHx: Per chart review, HLD, HTN, anemia, T2DM. Will corroborate with PSHx: Will contact to obtain details FHx: Same as above Social: Same as above - Review of Systems ROS unobtainable: due to endotracheal tube - Vital signs BP: 104/57, MAP: 73, Pulse: 60, Resp: 19, Temp: 95.4 (Criticore Temp), O2 sat: 100 on (Ventilator), End-Tidal CO2: 20 - Physical Exam Constitutional: NAD -HEENT: Pupils pinpoint and unreactive. No EOMI Heart: RRR, normal S1/S2, no murmurs/rubs/gallops Lungs: CTAB, no respiratory distress Abdomen: soft, no masses/distention Musculoskeletal: normal structure -Musculoskeletal: Spontaneous movements of arms/legs but none in response to commands. Withdraws from pain. Skin: good turgor, capillary refill <2 seconds FMR H&P: Results - Labs Result Diagrams: 11/09/20 08:08 11/09/20 09:44 Lab results: ABG: bicarb 9.5, pH 7.26, pCO2 21.7, pO2 543.7 VBG: pH 7.144, pCO2 47, pO2 99 Beta-HB 8.05 WBC 16.6 thou/uL (4.8-10.8) H 11/09/20 08:08 Hgb 15.2 g/dL (12.0-16.0) 11/09/20 08:08 Hct 49.9 % (36.0-47.0) H 11/09/20 08:08 MCV 85.0 fL (78.0-98.0) 11/09/20 08:08 Plt Count 195 thou/uL (130-400) 11/09/20 08:08 Neutrophils % 90.3 % (42.0-75.0) H 11/09/20 08:08 ABG pH 7.26 (7.35-7.45) L 11/09/20 07:15 ABG pCO2 21.7 mmHg (35.0-45.0) L* 11/09/20 07:15 ABG pO2 543.7 mmHg (> 80.0) H* 11/09/20 07:15 VBG pCO2 47.4 mmHg (40.0-50.0) 11/09/20 07:29 VBG pO2 99.4 mmHg (35.0-45.0) H 11/09/20 07:29 Sodium 163 mmol/L (136-145) H* 11/09/20 07:02 Potassium 4.3 mmol/L (3.5-5.1) 11/09/20 07:02 Chloride 114 mmol/L (98-107) H 11/09/20 07:02 Carbon Dioxide 12 mmol/L (22-29) L 11/09/20 07:02 BUN 74 mg/dL (9.8-20.1) H 11/09/20 07:02 Creatinine 5.26 mg/dL (0.6-1.1) H 11/09/20 07:02 Glucose 1376 mg/dL (70-105) H* 11/09/20 07:02 Lactic Acid 6.5 mmol/L (0.5-2.2) H* 11/09/20 08:08 Calcium 10.0 mg/dL (7.8-10.44) 11/09/20 07:02 Total Bilirubin 0.4 mg/dL (0.2-1.2) 11/09/20 07:02 AST 23 U/L (5-34) 11/09/20 07:02 ALT 19 U/L (8-55) 11/09/20 07:02 Alkaline Phosphatase 142 U/L (40-110) H 11/09/20 07:02 CK-MB (CK-2) 6.5 ng/mL (0-6.6) 11/09/20 07:02 Serum Total Protein 8.1 g/dL (6.0-8.3) 11/09/20 07:02 Albumin 4.2 g/dL (3.5-5.0) 11/09/20 07:02 Urine Ketones Trace mg/dL (Negative) A 11/09/20 07:11 Urine Blood Moderate (Negative) A 11/09/20 07:11 Urine Nitrite Negative (Negative) 11/09/20 07:11 Ur Leukocyte Esterase Negative (Negative) 11/09/20 07:11 Urine RBC 4-6 HPF (0-3) A 11/09/20 07:11 Urine WBC 0-3 HPF (0-3) 11/09/20 07:11 Urine Bacteria Rare-Few HPF (None Seen) 11/09/20 07:11 - Radiology Interpretation Chest x-ray Status: report reviewed by me (No acute cardiopulmonary process. ET tube in place) FMR H&P: A/P - Plan This is a 60F admitted for DKA. Acute encephalopathy likely 2/2 metabolic acidosis / DKA - Reportedly, pt obtunded on EMS arrival * Pt intubated 11/09. Admit to CCU - Glucose 1376 on arrival, BHB 8.05 - ABG, VBG on 11/09 c/w metabolic acidosis with resp compensation * ABG pH 7.26, pCO2 22, pO2 544, HCO3 9.5 * VBG pH 7.144, pCO2 47, pO2 99, HCO3 16 - Corrected Na 183, K 4.3, AG 57 - UA + for glucose >1000, trace ketones, 3+ yeast - DKA protocol initiated * Insulin gtt * Aggressive IVF * Electrolyte replacement * Q1h accu-checks, Q4h BMP - Nephro, Dr. Dover, consulted 11/09. Appreciate recs - A1c pending - Central line placement pending SIRS - LA 6.5 > trend - Hypothermic, elevated WBC - No clear source of infxn - Aggressive fluid resuscitation through DKA protocol - Vanc, Cefepime started in ED. Continue on transfer VÍCTOR - BUN 74. Cr 5.26 * On chart review, baseline Cr 0.9 - CrCl 16 - Aggressive fluid resuscitation. Monitor changes with BMPs Prolonged QT - EKG shows QTc 527 - Electrolyte imbalance a contributing factor - Avoid QT prolonging meds Elevated troponins - Resolved: 0.098 > 0.085 - CK-MB nml - EKG shows possible ant infarct of indeterminate age Hypothermia - T 95.2F, not rectal. Rectal T 98.3F - Bear hugger being used. Continue to monitor Urinary Yeast Infxn - 3+ yeast on UA, likely 2/2 uncontrolled DM - Started on fluconazole HTN - PMH per chart review - Call to verify hx and meds - Monitor vitals and address BP as needed HLD - PMH per chart review - Call to verify hx and meds Anemia - PMH per chart review - Hgb 15.2 on arrival, potentially 2/2 hemoconcentration from hypovolemia - Monitor with daily CBCs, especially in setting of aggressive fluid resuscitation - Goal is Hgb Lines: PIV, ET tube 11/09, kim catheter. Central line placement pending Antimicrobials: Vanc, Cefepime, Fluconazole IVF: per DKA protocol Diet: NPO GI Ppx: Protonix DVT Ppx: SCDs, Heparin Code: Full pending confirmation with PCP: Unknown Dispo: admit to CCU. Will likely place central line today. Continue DKA protocol. Follow nephro recs. Contact her to confirm PMH/meds, code status. FMR H&P: Upper Level - Pertinent history Patient is 60 yo F w/ PMHx of T2DM, HTN, anemia, and HLD presenting with for altered mental status. Not much history was able to be obtained since patient was intubated upon my arrival and not in room. - Pertinent findings VS: BP: 113/55, MAP: 76, Pulse: 64, Resp: 21, Temp: 96.1 (Criticore Temp), O2 sat: 100 on (Ventilator), End-Tidal CO2: 20, Time: 11/09/2020 09:45. PEx: Gen: intubated and sedated Neuro: GCS 9T (4E, 4M, 1V) HEENT: PERRLA Heart: RRR, no murmur Lungs: CTAB Extremities: warm, dry, no edema, DP pulses 2+ Abdomen: nondistended, bowel sounds active - Plan Date/Time: 11/09/20 0842 60 yo F admitted to CCU for DKA, lactic acidosis, and sepsis: Neuro - Acute encephalopathy likely 2/2 DKA: GCS 9T, intubated/sedated due to mental status on arrival CV - Hx of HTN: currently borderline hypotensive. Hold home BP meds. Consider central line if BPs decrease - Indeterminate troponin: trended, decreased Resp - Metabolic acidosis 2/2 w/ partial compensated respiratory alkalosis: respiratory rate improved w/ intubation - screening covid neg - intubated due to mental status. - ABG in AM GI/Nutrition - Diet: NPO, strict - GI ppx: protonix Renal/Fluids/Electrolytes - electrolyte replacement protocol - DKA protocol Endo - DKA: DKA protocol, patient profoundly hypernatremic after correction for blood glucose, continue aggressive rehydration w/ DKA protocol. BMP q4h. Glucose checks q1h. - Lactic acidosis: trend lactate ID/Heme - Sepsis, unknown source: treat w/ empiric abx as detailed below, elevated WBC, hypothermia, continue mirlande hugger - Candiduria: empirically treat, UA showing budding yeast - Hx of anemia: trend CBC - Heparin 5000 units SC TID for DVT ppx Abx - fluconazole 200mg IV loading dose followed by 100mg daily for candiduria - cefepime 2g given, continue 500 mg daily for renal dosing - vancomycin 1g given in ER, pharmacy to dose Code: FULL, needs to be confirmed with . IVF: DKA protocol DVT ppx: heparin GI ppx: protonix Tubes/Lines: PIV, ET tube (11/09), Kim (11/09) IVivian, PGY2, have evaluated this patient and agree with findings/plan as outlined by customer experience intern resident. Pertinent changes/additions are listed above. Addendum - Attending - Attending Attestation Date/Time: 11/09/20 2292 I personally evaluated the patient and discussed the management with Dr. Harika henderson the Er at time of admission. I agree with the History, Examination, Assessment and Plan documented above with any addition or exceptions noted below.
[2020-11-09 09:09] LABS: Platelet Morphology Comment Appears Adequate; RBC Morphology Normal
[2020-11-09] MEDS ORDERED: NS 0.9% w/ 20 MEQ KCL 1,000 ML IV PRN ×2 (09:34)
[2020-11-09] MEDS ORDERED: Electrolyte Replacement Protocol 1 EACH IVPB SCH (09:34)
[2020-11-09] MEDS ORDERED: D5 1/2 NS w/20 mEq KCL 1,000 ML IV PRN (09:34)
[2020-11-09] MEDS ORDERED: Dextrose 5 %-0.45 % NaCl 1,000 ML IV PRN (09:34)
[2020-11-09] MEDS ORDERED: Sodium Chloride 0.9% 1,000 ML IV PRN ×4 (09:34)
[2020-11-09] MEDS ORDERED: Ventilator Sedation Protocol 1 EACH FS SCH (09:45)
[2020-11-09] MEDS ORDERED: Cefepime 1 GM VIAL ONE (09:48)
[2020-11-09] MEDS ORDERED: Vancomycin 1 GM/200 ML BAG ONE (09:48)
[2020-11-09] MEDS ORDERED: Propofol BOLUS 1,000 MG/100 ML VIAL IV PRN (10:00)
[2020-11-09] MEDS ORDERED: DISCONTINUE PREVIOUS NARCOTIC PAIN MEDICATIONS AND BENZODIAZEPINES FS SCH (10:00)
[2020-11-09] MEDS ORDERED: Fentanyl BOLUS 250 ML IVPB PRN (10:00)
[2020-11-09] MEDS ORDERED: Morphine 2 MG/ML VIAL SLOW IVP PRN (10:00)
--- NOTE | 2020-11-09 10:18 | CON ---
DATE OF CONSULTATION: 11/09/2020 HISTORY OF PRESENT ILLNESS: Ms. Leon is a 60-year-old black female, admitted for DKA. According to her , the patient has not been feeling well. She was getting more confused at home. When she came at the ER, she was noted to be obtunded and was in acute respiratory failure. She was subsequently intubated and placed on ventilator support. She was also found to be severely hyperglycemic with DKA, and DKA protocol was started. We are being consulted for her acute kidney injury as well as hypernatremia. Further review of the chart here the patient shows to have increased fluid intake. Occasional nausea, but no overt vomiting. Based on the history, there was no associated fever or chills with this patient. REVIEW OF SYSTEMS: Not obtainable since the patient is intubated on ventilator support. HOME MEDICATIONS: Included, 1. Amlodipine 10 mg daily. 2. Atorvastatin 20 mg q.h.s. 3. Losartan 100 mg daily. 4. Glargine insulin 15 units at night and 15 units in the daytime. 5. Levaquin 500 mg daily x7 days. 6. Provera 10 mg p.o. b.i.d. PAST MEDICAL HISTORY: 1. Type 2 diabetes mellitus. 2. Hypertension. 3. Hyperlipidemia. PAST SURGICAL HISTORY: Includes a diagnostic hysteroscopy with D and C, status post eye surgery, status post section. SOCIAL HISTORY: The patient lives in [facility]. , lives with her , several children. Sedentary lifestyle. Currently, no smoking or alcohol intake. No drug abuse. No blood transfusion. ALLERGIES: PENICILLIN. TRAUMA: None. IMMUNIZATIONS: Up to date. HOSPITALIZATIONS: Please see past medical history. FAMILY HISTORY: No family history of ESRD. PHYSICAL EXAMINATION: VITAL SIGNS: Blood pressure is 110/70, heart rate 70. GENERAL: The patient is sedated, intubated, on ventilator support, obese. SKIN: Adequate turgor. HEENT: She has pinkish conjunctivae. Anicteric sclerae. No neck mass. No carotid bruits. No JVD. CHEST: No deformities. LUNGS: Clear breath sounds. No wheezing. No crackles. HEART: Normal sinus rhythm. No murmurs, no gallops, no rubs. ABDOMEN: Globular, soft, nontender. No masses. EXTREMITIES: No edema. No deformities. NEUROLOGICAL: The patient is sedated, intubated, on ventilator support. LABORATORY DATA: On November 09, 2020, 8:08 a.m., white count 16.6, hemoglobin 15.2. Sodium 163, potassium 4.3, chloride 114, carbon dioxide 12, BUN 74, creatinine 5.26, glucose 1376. Urinalysis was relatively benign. No pigmented granular cast. Chest x-ray, no CHF. ASSESSMENT AND PLAN: 1. Acute kidney injury with underlying diabetic ketoacidosis. Consider the possibility of a hemodynamically mediated renal dysfunction. Agree with aggressive volume repletion. The patient is being treated for diabetic ketoacidosis. I do not find any indication for any emergent dialysis with this patient. The patient is not volume overloaded and/or is not hyperkalemic. If no improvement in the next 24 to 48 hours, we can always consider dialysis with this patient. 2. Hypernatremia. Currently, on a DKA protocol. We will adjust fluid depending on what the serum sodium will be in the next few hours. Currently, she is on normal saline, which is relatively still hypotonic in comparison with her serum sodium of 163. 3. Diabetic ketoacidosis, currently on insulin drip and following a DKA protocol. Overall prognosis remains guarded. Thank you for the consult. We will continue to follow. Job ID: [id number]
[2020-11-09 10:20] LABS: Troponin I 0.085 ng/mL (< 0.028)
[2020-11-09 10:48] LABS: SARS-CoV-2 NAA Rapid Test Not Detected (NotDetected)
[2020-11-09 10:49] LABS: Magnesium 3.4 mg/dL (1.6-2.6)
[2020-11-09 10:52] LABS: BUN (Urea Nitrogen) 70 mg/dL (9.8-20.1); Calc. Creatinine Clearance 0 mL/min (70-130); Carbon Dioxide Less than 8 mmol/L (22-29); Chloride 125 mmol/L (98-107); Potassium 3.7 mmol/L (3.5-5.1); Sodium 162 mmol/L (136-145)
[2020-11-09] MEDS ORDERED: Heparin 1,000 UNITS/ML VIAL SLOW IVP SCH (11:15)
[2020-11-09 11:33] LABS: Lactic Acid 5.8 mmol/L (0.5-2.2)
[2020-11-09] MEDS ORDERED: VANCOMYCIN 1.75 GM/350 ML BAG 1.75 GM in Premix Bag 1 BAG IVPB SCH (11:45)
[2020-11-09] MEDS ORDERED: Fluconazole In NaCl,Iso-Osm 200 MG in Premix Bag 1 BAG IVPB SCH (11:45)
[2020-11-09 11:47] LABS: Glucose 1178 mg/dL (70-105)
[2020-11-09 13:30] LABS: Hemoglobin A1c Greater than 14.0 % (4.0-6.0)
[2020-11-09 13:41] LABS: Troponin I 0.123 ng/mL (< 0.028)
[2020-11-09 14:07] LABS: Anion Gap 29 mmol/L (10-20); BUN (Urea Nitrogen) 68 mg/dL (9.8-20.1); Calc. Creatinine Clearance 0 mL/min (70-130); Calcium 8.5 mg/dL (7.8-10.44); Carbon Dioxide 9 mmol/L (22-29); Chloride 134 mmol/L (98-107); Potassium 3.2 mmol/L (3.5-5.1); Sodium 169 mmol/L (136-145)
[2020-11-09 14:10] LABS: Glucose 763 mg/dL (70-105)
[2020-11-09] MEDS ORDERED: Sodium Bicarb 50 MEQ/50 ML Abboject 8.4% SYRINGE ONE ×2 (14:49→16:57)
[2020-11-09] MEDS: Heparin 5,000 UNITS/ML VIAL SC SCH ×2 (15:53→20:49)
[2020-11-09] MEDS ORDERED: Lactated Ringer's 1,000 ML IV SCH (16:45)
[2020-11-09 18:15] LABS: Anion Gap 24 mmol/L (10-20); BUN (Urea Nitrogen) 70 mg/dL (9.8-20.1); Calc. Creatinine Clearance 0 mL/min (70-130); Calcium 8.2 mg/dL (7.8-10.44); Carbon Dioxide 9 mmol/L (22-29); Chloride 135 mmol/L (98-107); Glucose 690 mg/dL (70-105); Potassium 3.3 mmol/L (3.5-5.1); Sodium 165 mmol/L (136-145)
[2020-11-09 19:39] LABS: Glucose 700 mg/dL (70-105)
[2020-11-09] MEDS: HUMULIN R 100 UNITS in Sodium Chloride 0.9% 100 ML IVPB SCH (20:48)
[2020-11-09] MEDS: Potassium Chloride 20 MEQ in Lactated Ringer's 1,000 ML IV SCH (20:49)
[2020-11-09 21:45] LABS: Glucose 546 mg/dL (70-105)
[2020-11-09] MEDS ORDERED: Potassium Chloride 40 MEQ in Sodium Chloride 0.9% 250 ML 250 ML IVPB SCH (22:00)
[2020-11-09 22:45] LABS: Anion Gap 20 mmol/L (10-20); BUN (Urea Nitrogen) 66 mg/dL (9.8-20.1); Calc. Creatinine Clearance 16 mL/min (70-130); Calcium 7.9 mg/dL (7.8-10.44); Carbon Dioxide 16 mmol/L (22-29); Chloride 135 mmol/L (98-107); Glucose 441 mg/dL (70-105); Potassium 2.9 mmol/L (3.5-5.1); Sodium 168 mmol/L (136-145)
[2020-11-09] MEDS ORDERED: Norepinephrine 8 MG/0.9% NS 250 ML ONE (23:20)
[2020-11-09] MEDS: Norepinephrine 8 MG/0.9% NS 250 ML IVPB SCH (23:30)
[2020-11-09] MEDS ORDERED: Potassium Bicarbonate/Cit Ac 20 MEQ TAB PER TUBE SCH (23:45)
[2020-11-10 00:43] LABS: Glucose 302 mg/dL (70-105)
[2020-11-10] MEDS ORDERED: Sodium Bicarbonate 150 MEQ in Dextrose 5% in Water 1,000 ML IV SCH (01:00)
[2020-11-10] MEDS ORDERED: Potassium Bicarbonate/Cit Ac 20 MEQ TAB PER TUBE SCH (01:00)
[2020-11-10] MEDS ORDERED: Fentanyl CADD 100 ML ONE ×2 (01:46→16:32)
[2020-11-10] MEDS: Fentanyl CADD 100 ML IV SCH (01:48)
[2020-11-10 02:23] LABS: Anion Gap 25 mmol/L (10-20); BUN (Urea Nitrogen) 69 mg/dL (9.8-20.1); Calc. Creatinine Clearance 17 mL/min (70-130); Calcium 7.8 mg/dL (7.8-10.44); Carbon Dioxide 18 mmol/L (22-29); Chloride 133 mmol/L (98-107); Glucose 261 mg/dL (70-105); Potassium 3.5 mmol/L (3.5-5.1); Sodium 172 mmol/L (136-145)
[2020-11-10] MEDS: Potassium Chloride 20 MEQ in Lactated Ringer's 1,000 ML IV SCH (02:32)
[2020-11-10] MEDS ORDERED: Dextrose 5% in Water 1,000 ML IV SCH ×2 (02:45→05:16)
[2020-11-10] MEDS ORDERED: Potassium Chloride 20 MEQ in Premix Bag 1 BAG IVPB SCH (03:00)
[2020-11-10 04:40] LABS: Phosphorus 1.2 mg/dL (2.3-4.7)
[2020-11-10 04:48] LABS: Band 10 % (5-11); Eosinophils 1 % (0-10); Hemoglobin 12.3 g/dL (12.0-16.0); Lymphocytes 13 % (21-51); MDiff Complete? YES; Mean Corpuscular Hemoglobin 26.4 pg (27.0-31.0); Mean Platelet Volume 12.8 fL (7.4-10.4); Monocytes 16 % (0-10); Neutrophil 60 % (42-75); Platelet Count 129 thou/uL (130-400); Platelet Morphology Comment Appears Adequate; RBC Distribution Width 14.5 % (11.5-14.5); RBC Morphology Normal; Red Blood Cell (RBC) Count 4.67 mill/uL (4.20-5.40); White Blood Cell (WBC) Count 15.5 thou/uL (4.8-10.8)
[2020-11-10 05:05] LABS: Potassium 3.5 mmol/L (3.5-5.1); Sodium 169 mmol/L (136-145)
[2020-11-10 05:06] LABS: Anion Gap 21 mmol/L (10-20); BUN (Urea Nitrogen) 69 mg/dL (9.8-20.1); Calc. Creatinine Clearance 17 mL/min (70-130); Calcium 7.7 mg/dL (7.8-10.44); Carbon Dioxide 19 mmol/L (22-29); Chloride 133 mmol/L (98-107); Glucose 204 mg/dL (70-105)
[2020-11-10] MEDS: Norepinephrine 8 MG/0.9% NS 250 ML IVPB SCH ×3 (05:36→16:41)
[2020-11-10] MEDS ORDERED: Potassium Phosphate 15 MMOL in Sodium Chloride 0.9% 250 ML 250 ML IVPB SCH ×2 (05:45→07:45)
[2020-11-10 07:05] LABS: Anion Gap 18 mmol/L (10-20); BUN (Urea Nitrogen) 65 mg/dL (9.8-20.1); Calc. Creatinine Clearance 16 mL/min (70-130); Calcium 7.5 mg/dL (7.8-10.44); Carbon Dioxide 21 mmol/L (22-29); Chloride 134 mmol/L (98-107); Glucose 162 mg/dL (70-105); Phosphorus 1.2 mg/dL (2.3-4.7); Potassium 3.7 mmol/L (3.5-5.1); Sodium 169 mmol/L (136-145)
--- NOTE | 2020-11-10 07:27 | PDOC.FM ---
- Subjective Subjective: Patient overnight received central line due to MAP drop to 50. Levophed started. Intubated and on fentanyl. - Objective MAR Reviewed: Yes Vital Signs & Weight: Vital Signs (12 hours) Temp Pulse Resp BP Pulse Ox 11/10/20 06:00 98.4 F 23 H 11/10/20 04:00 20 11/10/20 03:11 74 99/50 L 11/10/20 02:00 20 11/10/20 00:00 98.5 F 20 11/09/20 22:29 73 108/54 L 11/09/20 22:00 20 11/09/20 20:00 98.7 F 20 100 11/09/20 19:55 65 Weight Weight 91.7 kg Most Recent Monitor Data Heart Rate from ECG 80 NIBP 119/60 NIBP BP-Mean 79 Respiration from ECG 20 SpO2 97 I&O: 11/09/20 11/10/20 11/11/20 06:59 06:59 06:59 Intake Total 2802.5 Output Total 470 Balance 2332.5 Result Diagrams: 11/10/20 04:05 11/10/20 11:01 Phys Exam - Physical Examination Constitutional: NAD HEENT: PERRLA Respiratory: no wheezing, clear to auscultation bilateral Cardiovascular: RRR, no significant murmur Gastrointestinal: soft (withdraws to abdomen palpation of LLQ), positive bowel sounds Musculoskeletal: no edema, pulses present Neurological: moves all 4 limbs Skin: no rash Dx/Plan - Plan Plan: 60 yo F admitted to CCU for DKA, lactic acidosis, and sepsis: Neuro - Acute encephalopathy likely 2/2 DKA: GCS 9T, intubated and on fentanyl. CV - Wean levophed to MAP of 65 - Hx of HTN: hold home BP meds - Indeterminate troponin: trended, decreased Resp - Metabolic acidosis 2/2 w/ partial compensated respiratory alkalosis: respiratory rate improved w/ intubation - Vent : SIMV RR 12, Peep 5, FiO2 30%, Pressure support 10, TV 500, Peak pressure 25 - screening covid neg - intubated due to mental status. - Pulm consulted: appreciate recs. GI/Nutrition - Diet: NPO, strict - GI ppx: protonix - OG tube in place Renal/Fluids/Electrolytes - Hypernatremia: decrease sodium at rate of 0.5 mEq/hr - electrolyte replacement protocol: KPhos for low phosphorus - DKA protocol with the following changes: D5W at 130mL/hr due to free water deficit of 9.5 L. - Insulin gtt at 4 currently - continue to monitor urine output: <10cc/hr - BMP q2h and magnesium/phosphorus draw at 11 am I/Os: total in = 2.8 L, total out 470 mL mostly from black/watery gastric drainage. Fluid balance +2.3 L. Endo - DKA: improving, AG now 17. Continue insulin gtt - Lactic acidosis: lactate downtrended ID/Heme - Sepsis, unknown source: treat w/ empiric abx as detailed below, elevated WBC, hypothermia resolved - Candiduria: empirically treat, UA showing budding yeast - Hx of anemia: trend CBC - Heparin 5000 units SC TID for DVT ppx Abx - fluconazole 200mg IV loading dose given followed by 100mg daily for candiduria - cefepime 2g given, continue 500 mg daily for renal dosing - vancomycin 1g given in ER, pharmacy to dose - Blood & urine cultures pending Code: FULL, needs to be confirmed with . IVF: DKA protocol DVT ppx: heparin GI ppx: protonix Tubes/Lines: PIV, ET & OG tube (11/09), Mendez (11/09), R fem line (11/10) Discussed plan with Dr. Beyer, attending and Dr. Ramirez, Pulm. Addendum - Attending - Attending Attestation Date/Time: 11/10/20 1228 I personally evaluated the patient and discussed the management with Dr. Ellis. I agree with the History, Examination, Assessment and Plan documented above with any addition or exceptions noted below.
[2020-11-10] MEDS: HUMULIN R 100 UNITS in Sodium Chloride 0.9% 100 ML IVPB SCH (08:12)
[2020-11-10] MEDS: Pantoprazole 40 MG VIAL IVP SCH (08:43)
[2020-11-10] MEDS: Heparin 5,000 UNITS/ML VIAL SC SCH ×3 (08:43→22:29)
--- NOTE | 2020-11-10 08:49 | CON ---
DATE OF CONSULTATION: 11/10/2020 35 minutes of critical care time. REASON FOR CONSULTATION: Severe hypernatremia, respiratory failure requiring mechanical ventilation, hypotension. HISTORY OF THE PRESENT ILLNESS: Mayelin Leon is a 60-year-old female who was brought to the ER last night because she was "acting funny." On arrival, she was obtunded. She was intubated, I believe, secondary to poor mental status. She was found to be in DKA and also severely hypernatremic. She has been treated with an insulin drip and her blood sugar is now down to near normal. Unfortunately, her sodium remains quite high. PAST MEDICAL HISTORY: Hyperlipidemia, hypertension, anemia, type 2 diabetes mellitus. PAST SURGICAL HISTORY: She has had a colonoscopy. ALLERGIES: PENICILLIN. SOCIAL HISTORY: Lives in the [place] area. Does not smoke. Does not consume alcohol. Does not use illicit drugs. REVIEW OF SYSTEMS: Cannot be obtained. She is currently intubated and on mechanical ventilation. PHYSICAL EXAMINATION: VITAL SIGNS: Temperature 99.6, pulse 86, blood pressure 155/83, O2 saturation 98%. She is currently on Levophed drip at 20 mcg/minute. Her total intake since admission to the ICU has been 2802, output 470. HEENT: Unremarkable except for being intubated. NECK: No JVD. LUNGS: Clear to auscultation. CARDIAC: S1 and S2. Regular without murmur. ABDOMEN: Soft and nontender to palpation. EXTREMITIES: No clubbing, cyanosis, edema. NEUROLOGIC: She will open her eyes. She follows commands by squeezing with the right hand and moving her feet. She did not have any force when trying to squeeze with the left hand. Her x-ray shows clear lung lehman with a proper endotracheal tube placement. LABORATORY DATA: White blood cell count 15.5, hematocrit 37.3, and platelet count 129. PH is 7.14, pCO2 of 47, PO2 of 99, that is venous gas. Sodium 169, potassium 3.7, chloride 134, CO2 of 21, BUN 65, creatinine 5.6, glucose 162. Urinalysis showed glucosuria and ketones. Beta-hydroxybutyrate was 8.1. COVID test negative. ASSESSMENT: 1. Severe hypernatremia, probably related to severe free water deficit/volume depletion. 2. Diabetic ketoacidosis. 3. Altered mental status. 4. Hypotension, probably related to volume depletion. PLAN: The patient has at least 9 L free water deficit. She has been appropriately resuscitated with normal saline. She is being started on free water and D5W at about 130 mL/hour. This will replace her sodium at a rate of 0.5 mEq/hour. Her sodium will be monitored closely as not to decrease more than 6 mEq over 12 hours. We can wean the Levophed off as the volume status improves. She is on empiric antibiotics and cultures will be followed. Insulin be used to control her blood sugars. She is on heparin for DVT prophylaxis and Protonix for GI prophylaxis. Job ID: [id number]
[2020-11-10] MEDS: Fluconazole In NaCl,Iso-Osm 100 MG in Admixture Fee 1 EACH IVPB SCH (08:53)
[2020-11-10] MEDS ORDERED: FLU VACC QS2020-21(6MOS UP)/PF 60 MCG/0.5 ML SYRINGE IM ONE (09:00)
[2020-11-10 09:21] LABS: ALT (SGPT) 39 U/L (8-55); AST (SGOT) 127 U/L (5-34); Albumin 2.5 g/dL (3.5-5.0); Alkaline Phosphatase 104 U/L (40-110); Anion Gap 17 mmol/L (10-20); BUN (Urea Nitrogen) 66 mg/dL (9.8-20.1); Bilirubin, Total 0.3 mg/dL (0.2-1.2); Calc. Creatinine Clearance 16 mL/min (70-130); Calcium 7.3 mg/dL (7.8-10.44); Carbon Dioxide 21 mmol/L (22-29); Chloride 132 mmol/L (98-107); Globulin 2.9 g/dL (2.4-3.5); Glucose 170 mg/dL (70-105); Potassium 3.9 mmol/L (3.5-5.1); Protein, Total 5.4 g/dL (6.0-8.3); Sodium 166 mmol/L (136-145)
[2020-11-10] MEDS: Dextrose 5% in Water 1,000 ML IV SCH (09:26)
[2020-11-10 09:39] LABS: Lactic Acid 3.8 mmol/L (0.5-2.2)
[2020-11-10] MEDS: Cefepime 0.5 GM, Admixture Fee 1 EACH in Sodium Chloride 0.9% 100 ML IVPB SCH (09:45)
--- NOTE | 2020-11-10 09:50 | PRG ---
DATE OF SERVICE: 11/10/2020 SUBJECTIVE: Ms. Leon is a 60-year-old black female, who was admitted for DKA. At that time, she was noted to be in acute kidney injury. The presumptive diagnosis was that she may have a hemodynamically mediated renal dysfunction. Empiric volume repletion has been done. In addition, she was also noted to be hypernatremic. IV fluids are continually being changed, and currently, is on D5 water at 130 mL/hour. Serum sodium is minimally improved from a peak of 169 to a most recent value of 166. The concern is that the patient remains essentially anuric in the last 24 hours. I will be reviewing another urinalysis and urine chemistries with this patient. If I see evidence of acute tubular necrosis, we may need to consider initiating dialysis with this patient. For the moment, her potassium is acceptable and she is oxygenating well. OBJECTIVE: VITAL SIGNS: Blood pressure is 155/83, heart rate 86, respiratory rate 24, O2 saturation 98%, and temperature 99.6. GENERAL: The patient is sedated, intubated, on ventilator support, obese. SKIN: Adequate turgor. HEENT: She has pinkish conjunctivae. Anicteric sclerae. No neck mass. No carotid bruits. No JVD. CHEST: No deformities. LUNGS: Decreased breath sounds. HEART: Normal sinus rhythm. No murmur. No gallops. No rubs. ABDOMEN: Globular, soft, nontender. No masses. EXTREMITIES: No edema. No deformities. MEDICATIONS: Of November 10, 2020, were reviewed. LABORATORIES: Of November 10, 2020; white count 15.5, hemoglobin 12.3. Sodium 166, potassium 3.9, chloride 132, carbon dioxide 21, BUN 66, creatinine 5.28, GFR 10 mL/minute, calcium 7.3, AST 127, ALT 39, albumin is 2.5. Serologies, COVID-19 PCR negative. ASSESSMENT AND PLAN: 1. Acute kidney injury-on a presumptive basis of hemodynamically mediated renal dysfunction. Urinalysis yesterday was relatively benign with no evidence of pigmented granular casts to suggest acute tubular necrosis. However, the concern is she remains on the anuric side after IV hydration. We will review another urinalysis and urine chemistries with this patient. I have also ordered a renal ultrasound. We will start this patient also on albumin infusion 25 g IV q.6 for 4 doses. Depending on the results of the repeat urinalysis, we may end up initiating dialysis with this patient. For the moment, continue current management. 2. Hypernatremia, currently on D5 water and slowly improving. Job ID: [id number]
[2020-11-10] MEDS: Lorazepam 2 MG/ML VIAL SLOW IVP PRN ×2 (10:08→14:49)
--- NOTE | 2020-11-10 10:08 | ULT ---
Exam: Bilateral renal ultrasound HISTORY: Renal failure COMPARISON: None FINDINGS: Right kidney: Suboptimal evaluation the right kidney due to body habitus and bowel gas Right kidney measurements: Right kidney cannot be measured adequately Left kidney: Suboptimal evaluation of the left kidney due to body habitus and bowel gas Left kidney measurements: Left kidney cannot be measured adequately Urinary bladder: 76 ml. Normal mucosa. There is fluid in the bladder despite there being a Mendez cath eter IMPRESSION: Suboptimal evaluation
[2020-11-10 11:36] LABS: Bilirubin Negative (Negative); Blood, Urine 2+ (Negative); Clarity Extra Turbid (Clear); Glucose, Urine (Dipstick) Normal (Negative); Ketone, Urine Trace mg/dL (Negative); Leukocyte 250 Leu/uL (Negative); Nitrite Negative (Negative); Protein, Urine (Dipstick) 100 mg/dL (Neg-Trace); Specific Gravity, Urine 1.023 (1.002-1.036); Urobilinogen Normal mg/dL (Less than 2)
[2020-11-10 11:45] LABS: Magnesium 1.7 mg/dL (1.6-2.6); Phosphorus 3.9 mg/dL (2.3-4.7)
[2020-11-10 11:46] LABS: Squamous Epithelial 0-3 HPF (0-3)
[2020-11-10 11:47] LABS: Bacteria/HPF 2+ HPF (None Seen); Yeast-Budding 4+ HPF (None Seen)
[2020-11-10 12:16] LABS: Vancomycin, Random 28.3 ug/mL (See Comment)
[2020-11-10 12:33] LABS: Anion Gap 21 mmol/L (10-20); BUN (Urea Nitrogen) 66 mg/dL (9.8-20.1); Calc. Creatinine Clearance 17 mL/min (70-130); Carbon Dioxide 17 mmol/L (22-29); Chloride 132 mmol/L (98-107); Glucose 157 mg/dL (70-105); Potassium 4.2 mmol/L (3.5-5.1); Sodium 166 mmol/L (136-145)
[2020-11-10] MEDS ORDERED: Magnesium 2 GM/50 ML 2 GM in Premix Bag 1 BAG IVPB SCH (13:00)
[2020-11-10] MEDS ORDERED: Vancomycin 1 GM in Premix Bag 1 BAG IVPB SCH (13:00)
[2020-11-10 16:32] LABS: Anion Gap 21 mmol/L (10-20); BUN (Urea Nitrogen) 69 mg/dL (9.8-20.1); Calc. Creatinine Clearance 17 mL/min (70-130); Calcium 6.9 mg/dL (7.8-10.44); Carbon Dioxide 17 mmol/L (22-29); Glucose 187 mg/dL (70-105); Potassium 4.4 mmol/L (3.5-5.1)
[2020-11-10 16:34] LABS: Chloride 129 mmol/L (98-107); Sodium 163 mmol/L (136-145)
[2020-11-10 16:56] LABS: Anion Gap 23 mmol/L (10-20); BUN (Urea Nitrogen) 70 mg/dL (9.8-20.1); Calc. Creatinine Clearance 17 mL/min (70-130); Calcium 6.7 mg/dL (7.8-10.44); Carbon Dioxide 16 mmol/L (22-29); Chloride 128 mmol/L (98-107); Glucose 219 mg/dL (70-105); Potassium 4.5 mmol/L (3.5-5.1); Sodium 162 mmol/L (136-145)
--- NOTE | 2020-11-10 17:46 | PQF ---
CLINICAL DOCUMENTATION CLARIFICATION FORM: Dear Bradley vicente Date: 11/20/201719 Please exercise your independent, professional judgment in responding to the clarification form. Clinical indicators are provided on the bottom of this form for your review. Please check appropriate box(es): [ ] Acute Respiratory Failure. [ ] with hypoxia [ ] with hypercapnia [ ] Acute on chronic respiratory failure [ ] with hypoxia [ ] with hypercapnia [ ] Acute Respiratory Failure Due to : [ ] Chronic Respiratory failure only [ ] with hypoxia [ ] with hypercapnia [ ] Hypoxia [x] Other diagnosis : patient was intubated for acute encephalopathy and protection of her airway. [ ] Unable to determine Present on Admission [ ] Yes [ ] No [ ] Unable to determine For continuity of documentation, please document condition throughout progress notes and discharge summary. Thank You. To be completed by CDI/Coding staff for physician review: CLINICAL INDICATORS - SIGNS / SYMPTOMS / LABS/ RESULTS AND LOCATION IN MR 100% ventilator, temp 95.2 rectal Resp 25, bp 85/58// The patient is obtunded upon arrival to the ER, Final Dx: DKA, VÍCTOR, Respiratory Failure (ED Report) 11/[address], metabolic acidosis with Resp compensation ( H&P/Benavides) 11/09 11/09 ABG pCO2 21.7 11/09 ABG pO2 543.7 RISKS FACTORS / RESULTS AND LOCATION IN MR Sepsis, DKA (H&P/Benavides) 11/09 TREATMENT / RESULTS AND LOCATION IN MR Mechanical Ventilation (11/09 present) Pulmonology consult ( James)11/10 Thank you! CDS Signature: Harriet Mensah RN Phone #: [phone] Date: 11/10/208 This is a permanent part of the Medical Record [facility]
[2020-11-10] MEDS ORDERED: Albumin 5% 0 ML ONE (18:10)
[2020-11-10 20:57] LABS: Anion Gap 23 mmol/L (10-20); BUN (Urea Nitrogen) 71 mg/dL (9.8-20.1); Calc. Creatinine Clearance 17 mL/min (70-130); Calcium 6.3 mg/dL (7.8-10.44); Carbon Dioxide 14 mmol/L (22-29); Chloride 124 mmol/L (98-107); Glucose 357 mg/dL (70-105); Potassium 4.6 mmol/L (3.5-5.1); Sodium 156 mmol/L (136-145)
[2020-11-11 00:26] LABS: Anion Gap 23 mmol/L (10-20); BUN (Urea Nitrogen) 75 mg/dL (9.8-20.1); Calc. Creatinine Clearance 16 mL/min (70-130); Calcium 6.3 mg/dL (7.8-10.44); Carbon Dioxide 15 mmol/L (22-29); Chloride 125 mmol/L (98-107); Glucose 240 mg/dL (70-105); Potassium 4.2 mmol/L (3.5-5.1); Sodium 159 mmol/L (136-145)
[2020-11-11] MEDS: Dextrose 5% in Water 1,000 ML IV SCH ×2 (01:58→21:48)
[2020-11-11 04:17] LABS: Lactic Acid 3.4 mmol/L (0.5-2.2)
[2020-11-11 04:20] LABS: Band 29 % (5-11); Hemoglobin 11.1 g/dL (12.0-16.0); Lymphocytes 12 % (21-51); MDiff Complete? YES; Mean Corpuscular HGB CONC 32.5 g/dL (32.0-36.0); Mean Corpuscular Volume 79.8 fL (78.0-98.0); Mean Platelet Volume 9.8 fL (7.4-10.4); Metamyelocyte 3 % (0-0); Monocytes 6 % (0-10); Myelocyte 1 % (0-0); Neutrophil 49 % (42-75); Platelet Count 79 thou/uL (130-400); Platelet Morphology Comment Appears Decreased; RBC Distribution Width 14.7 % (11.5-14.5); Red Blood Cell (RBC) Count 4.29 mill/uL (4.20-5.40)
[2020-11-11 04:29] LABS: Anion Gap 21 mmol/L (10-20); BUN (Urea Nitrogen) 76 mg/dL (9.8-20.1); Calc. Creatinine Clearance 15 mL/min (70-130); Calcium 6.6 mg/dL (7.8-10.44); Carbon Dioxide 16 mmol/L (22-29); Chloride 124 mmol/L (98-107); Glucose 130 mg/dL (70-105); Potassium 4.1 mmol/L (3.5-5.1); Sodium 157 mmol/L (136-145)
[2020-11-11] MEDS ORDERED: Dextrose 5 %-0.45 % NaCl 1,000 ML IV SCH (04:45)
[2020-11-11] MEDS: HUMULIN R 100 UNITS in Sodium Chloride 0.9% 100 ML IVPB SCH (05:02)
--- NOTE | 2020-11-11 06:19 | PDOC.FM ---
- Subjective Subjective: Overnight, pt developed some vaginal bleeding and diarrhea. RN titrated insulin gtt off due to glucose. Sodium decreased slightly more rapidly than desired so D5w was stopped and D5 1/2 NS was started at 70mL/hr As a result, pt's urine output has decreased some - Objective MAR Reviewed: Yes Vital Signs & Weight: Vital Signs (12 hours) Temp Pulse Resp BP 11/11/20 06:00 20 11/11/20 04:00 25 H 11/11/20 02:56 87 102/58 L 11/11/20 02:00 24 H 11/11/20 00:00 99.1 F 24 H 11/10/20 22:23 89 106/57 L 11/10/20 22:00 26 H 11/10/20 19:00 99.2 F 11/10/20 18:39 95 116/58 L Weight Admit Weight 93.599 kg Weight 99.8 kg Most Recent Monitor Data Heart Rate from ECG 86 NIBP 128/93 NIBP BP-Mean 104 Respiration from ECG 22 SpO2 99 I&O: 11/09/20 11/10/20 11/11/20 06:59 06:59 06:59 Intake Total 2802.5 3821.7 Output Total 470 1147 Balance 2332.5 2674.7 Result Diagrams: 11/12/20 04:40 11/12/20 04:40 Phys Exam - Physical Examination Constitutional: NAD (does not follow commands, opens eyes to pain) HEENT: PERRLA Respiratory: no wheezing, clear to auscultation bilateral Cardiovascular: RRR, no significant murmur Gastrointestinal: soft (reacts to abdomen palpation) Musculoskeletal: no edema, pulses present Dx/Plan - Plan Plan: 60 yo F admitted to CCU for DKA, lactic acidosis, and sepsis: Neuro - Acute encephalopathy likely 2/2 DKA: GCS 7T (2E, 1V, 4M), intubated and on fentanyl. CV - Wean levophed to MAP of 65: Levophed now at 3 - Hx of HTN: hold home BP meds Resp - Metabolic acidosis 2/2 w/ partial compensated respiratory alkalosis: respiratory rate improved w/ intubation - Vent : SIMV RR 12, Peep 5, FiO2 26%, Pressure support 10, TV 500 - screening covid neg - Pulm consulted: appreciate recs. GI/Nutrition - Abdominal pain s/p colonoscopy: will proceed w/ CT w/ oral contrast today. - New onset diarrhea: liquid stools, rectal tube placed, cultures sent - Diet: NPO, strict - GI ppx: protonix - OG tube in place - black colored gastric contents 800mL out from OG tube; pause suctioning, Gastric sample sent for occult blood Renal/Fluids/Electrolytes - Hypernatremia: decrease sodium at rate of 0.5 mEq/hr - Insulin gtt discontinued, started moderate SSI - continue to monitor urine output - CMP at 1100 Endo - DKA: improving, AG now 17. D/C insulin gtt, start moderate SSI - Lactic acidosis: lactate downtrended, 3.4 this AM ID/Heme - Sepsis, unknown source: treat w/ empiric abx as detailed below, elevated WBC, hypothermia resolved - Diarrhea: cultures, viral tests, O&P sent. Rectal tube placed. CT abd/pelvis w/ oral contrast today - Candiduria: empirically treat, UA showing budding yeast - Hx of anemia: trend CBC - Vaginal bleeding: HIT score 4, 100% sensitivity with a score over 2. - D/c heparin, Fibrinogen, D-dimer, PTT, PT, INR and CMP ordered. Abx - fluconazole 200mg IV loading dose given followed by 100mg daily for candiduria - cefepime 2g given, continue 500 mg daily for renal dosing - vancomycin 1g given in ER, pharmacy to dose - Blood cultures NGTD - Urine culture showing yeast, sensitivity pending Code: FULL, confirmed w/ family yesterday. IVF: D5 1/2 NS at 70mls/hr DVT ppx: SCDs only, concern for HIT GI ppx: protonix Tubes/Lines: PIV, ET & OG tube (11/09), Mendez (11/09), R fem line (11/10), Rectal tube (11/10) Discussed plan with Dr. Beyer, attending and Dr. Ramirez, Pulm. Addendum - Attending - Attending Attestation Date/Time: 11/12/20713 I personally evaluated the patient and discussed the management with Dr. Ellis yesterday. I agree with the History, Examination, Assessment and Plan documented above with any addition or exceptions noted below.
[2020-11-11] MEDS ORDERED: Fentanyl CADD 100 ML ONE (06:30)
[2020-11-11] MEDS: Fentanyl CADD 100 ML IV SCH (06:43)
[2020-11-11 07:16] LABS: Anion Gap 25 mmol/L (10-20); BUN (Urea Nitrogen) 74 mg/dL (9.8-20.1); Calc. Creatinine Clearance 17 mL/min (70-130); Calcium 6.4 mg/dL (7.8-10.44); Carbon Dioxide 15 mmol/L (22-29); Chloride 121 mmol/L (98-107); Glucose 189 mg/dL (70-105); Potassium 5.3 mmol/L (3.5-5.1); Sodium 156 mmol/L (136-145)
[2020-11-11] MEDS ORDERED: Dextrose 50% Abboject 50 ML SYRINGE SLOW IVP PRN (08:30)
[2020-11-11] MEDS ORDERED: Dextrose 5% in Water 1,000 ML IV PRN (08:30)
[2020-11-11] MEDS ORDERED: HumaLOG 300 UNITS/3 ML VIAL SC PRN (08:30)
[2020-11-11 08:56] LABS: INR-International Normal Ratio 1.5; PTT 56.3 sec (22.9-36.1); Prothrombin Time 18.1 sec (12.0-14.7)
--- NOTE | 2020-11-11 08:56 | PRG ---
DATE OF SERVICE: 11/11/2020 35 minutes critical care time SUBJECTIVE: The patient remains intubated on mechanical ventilation. There have been no acute changes overnight. OBJECTIVE: VITAL SIGNS: Temperature 100, pulse 87, blood pressure 125/55, O2 saturation 99%. Levophed has been weaned down to 4 mcg. She is not quite as arousable as she should be, but she is on a fentanyl drip. Total intake for the last 24 hours 3821, output 1147. HEENT: Unremarkable. NECK: No JVD. LUNGS: Diminished breath sounds at bases. CARDIOVASCULAR: S1, S2. Regular. ABDOMEN: Mildly tender to superficial palpation. EXTREMITIES: No clubbing or cyanosis. Trace edema. LABORATORY DATA: White blood cell count 9, hematocrit 34.3, and platelet count 79 down from 195 at admission. She has 45% neutrophils, 29% bands. Sodium 156, potassium 5.3, chloride 121, CO2 of 15, BUN 74, creatinine 5.6, glucose 189. Chest x-ray today has not been done yet. ASSESSMENT: 1. Acute hypoxic respiratory failure, requiring mechanical ventilation. 2. Diabetic ketoacidosis, recent colonoscopy. 3. Probable sepsis syndrome. 4. Severe hypernatremia at the time of admission. PLAN: 1. Hypernatremia is being corrected at the appropriate rate. 2. The patient is being weaned off the insulin drip. We will check a CT of her abdomen today. 3. Follow up with ABG and chest x-ray. 4. We will follow. Job ID: [id number]
[2020-11-11] MEDS: Cefepime 0.5 GM, Admixture Fee 1 EACH in Sodium Chloride 0.9% 100 ML IVPB SCH (08:58)
[2020-11-11 09:04] LABS: D-Dimer Test 5.2 *mcg/mL (0.27-0.43)
[2020-11-11 09:38] LABS: Vancomycin, Random 21.4 ug/mL (See Comment)
[2020-11-11] MEDS ORDERED: SODIUM CHLORIDE 0.9% IVPB SCH (09:45)
[2020-11-11] MEDS ORDERED: ARGATROBAN IVPB SCH (09:45)
[2020-11-11] MEDS: Fluconazole In NaCl,Iso-Osm 100 MG in Admixture Fee 1 EACH IVPB SCH (10:03)
[2020-11-11] MEDS: Pantoprazole 40 MG VIAL IVP SCH (10:09)
[2020-11-11] MEDS ORDERED: Argatroban (ESRD) 250 MG in Sodium Chloride 0.9% 250 ML 250 ML IVPB SCH (10:15)
[2020-11-11] MEDS ORDERED: Argatroban (Non -ESRD) 250 MG in Sodium Chloride 0.9% 250 ML 250 ML IVPB SCH (10:15)
--- NOTE | 2020-11-11 11:05 | PRG ---
DATE OF SERVICE: 11/11/2020 SUBJECTIVE: Ms. Leon is a 60-year-old black female who was seen by the Renal Service for acute kidney injury. At that time, we felt she may have hemodynamically-mediated renal dysfunction. Renal function seems to be stabilizing, but relatively unimproved. Urine output is still much decreased. She is on the oliguric side. We will be giving another albumin infusion with this patient to see if I could further enhance or improve her renal function. OBJECTIVE: VITAL SIGNS: Blood pressure is 100/50, heart rate 78, respiratory rate 26. GENERAL: The patient is sedated, intubated on ventilator support, obese. HEENT: Pinkish conjunctivae. Anicteric sclerae. NECK: No neck mass. No carotid bruits. No JVD. CHEST: No deformities. LUNGS: Decreased breath sounds. HEART: Normal sinus rhythm. No murmur. No gallops. No rubs. ABDOMEN: Globular, soft, nontender. No masses. EXTREMITIES: No edema. No deformities. MEDICATIONS: On November 11, 2020, were reviewed. LABORATORY DATA: On November 11, 2020; white count 9, hemoglobin 11.1. Sodium 156, potassium 5.3, chloride 121, carbon dioxide 15, BUN 74, creatinine 5.66. Calcium 6.4. ASSESSMENT AND PLAN: 1. Acute kidney injury-consider hemodynamically-mediated renal dysfunction. Renal function is relatively unimproved, but not any worse. No indication for any dialytic intervention. Continue to observe. Continue albumin infusion at 25 g IV q.6 hours for another 4 doses. 2. Diabetic ketoacidosis, clinically improving. 3. Hypernatremia, much improved with current hypotonic solution. Job ID: [id number]
[2020-11-11 11:48] LABS: ALT (SGPT) 53 U/L (8-55); AST (SGOT) 168 U/L (5-34); Albumin 2.4 g/dL (3.5-5.0); Alkaline Phosphatase 104 U/L (40-110); Anion Gap 30 mmol/L (10-20); BUN (Urea Nitrogen) 79 mg/dL (9.8-20.1); Bilirubin, Total 0.6 mg/dL (0.2-1.2); Calc. Creatinine Clearance 15 mL/min (70-130); Calcium 6.1 mg/dL (7.8-10.44); Carbon Dioxide 10 mmol/L (22-29); Chloride 117 mmol/L (98-107); Globulin 2.7 g/dL (2.4-3.5); Glucose 303 mg/dL (70-105); Protein, Total 5.1 g/dL (6.0-8.3); Sodium 150 mmol/L (136-145)
[2020-11-11 11:53] LABS: Potassium 7.2 mmol/L (3.5-5.1)
--- NOTE | 2020-11-11 12:07 | CT ---
ABDOMEN CT WITHOUT CONTRAST PELVIC CT WITHOUT CONTRAST: HISTORY: Abdominal pain. Status post colonoscopy. COMPARISON: None. FINDINGS: Abdomen CT: Lung bases:Bibasilar opacities may represent atelectasis, pneumonia or aspiration. Heart size: Normal heart size. No significant pericardial fluid. Aorta: Normal caliber. No periaortic fat stranding. Solid organs: Limited evaluation of the solid organs by the absence of intravenous contrast. Grossly no solid organ abnormality. Lymph nodes: No gastrohepatic, retrocrural or periportal lymphadenopathy. Gallbladder: No CT evidence of cholecystitis. Mesentery: No mass, lymphadenopathy, free air or free fluid. Kidneys: Bilaterally, no hydronephrosis, nephrolithiasis or perinephric fat stranding. Bilateral uret ers have a normal caliber. No hydroureter, periureteral fat stranding or ureterolithiasis. Alimentary canal: There is a nasogastric tube terminating in the stomach. There appears to be old con trast in the esophagus. Gastric mucosa is unremarkable. Multiple normal caliber small bowel loops without evidence of mucosal abnormality. There does appear to be mucosal thickening and irregular muc osal appearance involving the distal ileum/terminal ileum. Ileocecal junction appears to be normal. Normal caliber appendix. There is fecal material and contrast in a nondistended, nondilated colon. Th ere is mild mucosal thickening of the colon which is felt to be due to inadequate distention. Occasional diverticulum, without evidence of diverticulitis. CT PELVIS: No mass, adenopathy, free air or free fluid. 6 exophytic partially calcified mass emanating from the left uterine fundus compatible with a serosal leiomyoma measuring 2.5 x 3.8 cm. There is also a hypodense mass occupying the majority of the uterus which may represent a leiomyoma measuring 5.6 x 6 .4 cm. Urinary bladder: Decompressed due to Mendez catheterization. Osseous structures: No lytic or blastic lesions. IMPRESSION: 1. Mild mucosal prominence involving the distal ileum and terminal ileum. Correlate for an infectious or inflammatory etiology. 2. Probable multiple uterine leiomyomas, incompletely evaluated. CHIEF OPERATOR consultation and pelvic MRI is r ecommended. 2. Bibasilar lung consolidation due to atelectasis, pneumonia or aspiration. Transcribed Date/Time: 11/11/2020 12:33 PM
[2020-11-11] MEDS: Dextrose 5 %-0.45 % NaCl 1,000 ML IV SCH ×3 (12:34→22:32)
[2020-11-11] MEDS: Norepinephrine 8 MG/0.9% NS 250 ML IVPB SCH ×2 (12:35→16:44)
[2020-11-11] MEDS: Albumin 25% 25 GM/100 ML BOT IVPB SCH ×3 (12:42→23:09)
[2020-11-11] MEDS: HumaLOG 300 UNITS/3 ML VIAL SC PRN ×2 (12:43→17:30)
[2020-11-11] MEDS ORDERED: Sodium Chloride 0.9% 1,000 ML IV SCH (12:45)
[2020-11-11] MEDS ORDERED: Calcium Gluc 4.6 MEQ/10 ML (100 MG/ML) SLOW IVP SCH ×2 (13:00→17:30)
[2020-11-11] MEDS ORDERED: Hydrocortisone Sod Succ/PF 100 mg/2 ml Vial IVP SCH (13:45)
[2020-11-11 13:50] LABS: BUN (Urea Nitrogen) 77 mg/dL (9.8-20.1); Calc. Creatinine Clearance 15 mL/min (70-130); Calcium 5.8 mg/dL (7.8-10.44); Carbon Dioxide Less than 8 mmol/L (22-29); Chloride 119 mmol/L (98-107); Glucose 287 mg/dL (70-105); Potassium 7.4 mmol/L (3.5-5.1); Sodium 150 mmol/L (136-145)
[2020-11-11 14:03] LABS: HBSAg Index 0.21 S/CO (0-0.99); Hep B Surf Ag Non-Reactive S/CO (NonReactive)
--- NOTE | 2020-11-11 14:14 | RAD ---
EXAM: Single view of the chest HISTORY: Central line placement COMPARISON: 11/09/2020 FINDINGS: Single view of the chest shows a normal sized cardiomediastinal silhouette. Bilateral pulmo nary vascular prominence is seen. There is a left subclavian central venous catheter with its tip in the superior vena cava. The endotracheal tube and NG tube are unchanged in position. No pneumothor ax is identified. There is no evidence of consolidation, mass, or pleural effusion. Degenerative changes are seen in the spine. IMPRESSION: Status post central line placement without evidence of complication.
--- NOTE | 2020-11-11 14:16 | PDOC.BPN ---
- Brief Progress Note Patient potassium 7.2. Called lab, sample not hemolyzed. Called Dr. Dover of nephrology. Recommended to give 1 amp calcium gluconate and to call surgery for placement of femoral dialysis catheter in preparation for dialysis. Consulted Dr. Williamson of Gen Surg for placement of dialysis access. Due to R femoral central line already in place, Dr. Williamson placed left subclavian central line, removed the R femoral line and replaced femoral line with the trialysis catheter. Stat labs repeated. Potassium 7.3. Due to emergent nature of the patient's condition, consent was implied. Called to update on patient status, placement of line and initiation of dialysis. agrees with plan of care and gave consent; however, RN was unable to witness consent. Discussed plan of care w/ design consultant Take Out Waitress Dr. Franco. She started stress dose hydrocortisone and added vasopressin for patient since the levophed was titrated up to 35. She also recommended starting anearobic coverage with metronidazole. We can give one more dose vancomycin after dialysis, but we are less likely dealing with a gram-positive skin/soft tissue organism. CT abd w/ PO contrast did not show any perforation s/p colonoscopy, although there were some very mild changes in the distal/terminal ileum not consistent with patient's abdominal pain on her left side.
[2020-11-11] MEDS ORDERED: metroNIDAZOLE 500 MG in Premix Bag 1 BAG IVPB SCH (14:30)
--- NOTE | 2020-11-11 15:08 | OP ---
DATE OF PROCEDURE: 11/11/2020 PREOPERATIVE DIAGNOSES: 1. Acute renal failure. 2. Acute respiratory failure. 3. Acute hyperkalemia. POSTOPERATIVE DIAGNOSES: 1. Acute renal failure. 2. Acute respiratory failure. 3. Acute hyperkalemia. PROCEDURES PERFORMED: 1. Placement of left subclavian triple-lumen central venous catheter. 2. Placement of right femoral triple-lumen Trialysis catheter for hemodialysis. INDICATIONS FOR PROCEDURE: A 60-year-old woman admitted in intensive care unit on mechanical ventilator support in acute renal and respiratory failure. The patient was found today with a potassium of 7. I was asked to place a dialysis catheter for hemodialysis. Additional intravenous access is needed for therapeutic interventions. DESCRIPTION OF PROCEDURE: Informed consent was obtained from the patient's power of attorney law clerk. The patient was placed in supine position. Left chest wall was sterilely prepped and draped in the usual fashion. The skin below the left clavicle was anesthetized with 1% lidocaine. Left subclavian vein was cannulated with an 18-gauge introducer needle, returning dark venous blood. Guidewire was passed through the needle and placed in the left subclavian vein without resistance. Needle was withdrawn over the guidewire. A stab incision was made adjacent to the guidewire using an 11 scalpel. A dilator was passed over the guidewire, dilating the subcutaneous tissues. Dilator was removed and a triple-lumen central venous catheter was advanced over the guidewire and placed in the left subclavian vein without resistance, stopping at the 18-cm wang. Guidewire was removed. Dark venous blood aspirated from all 3 ports, which were individually flushed with saline. Catheter was secured to anterior chest wall using 3-0 silk suture at 2 points. Sterile dressings were applied. The patient tolerated this procedure without any apparent complications. Chest x-ray will be ordered for line placement and to rule out pneumothorax. Attention was then directed to the right groin where there was recently placed femoral arterial catheter. The patient was in DIC and decision was made therefore to guidewire exchange the femoral access for Trialysis catheter. To achieve this, the right groin was sterilely prepped and draped in the usual fashion including the line. Stay sutures were excised. Guidewire was passed through the distal port and advanced into the right femoral vein without resistance. The triple-lumen access was removed over the guidewire. A dilator was passed over the guidewire, dilating the subcutaneous tissues. Dilator was removed and a triple-lumen Trialysis catheter was then advanced over the guidewire and placed in the right femoral vein without resistance down to the hub. Guidewire was removed. Dark venous blood was vigorously aspirated from all 3 ports, which were individually flushed first with saline followed by heparin. Catheter was secured to right groin using 3-0 nylon suture at 2 points. Sterile dressings were applied. The patient tolerated this procedure without any apparent complication and remained hemodynamically stable following completion of procedure. Job ID: [id number]
[2020-11-11] MEDS ORDERED: Heparin 10,000 UNITS/ 10 ML VIAL ONE (16:48)
[2020-11-11] MEDS: metroNIDAZOLE 500 MG in Premix Bag 1 BAG IVPB SCH (17:17)
[2020-11-11] MEDS: Lorazepam 2 MG/ML VIAL SLOW IVP PRN (18:30)
[2020-11-11] MEDS: Hydrocortisone Sod Succ/PF 100 mg/2 ml Vial IVP SCH (21:02)
[2020-11-12 00:44] LABS: ALT (SGPT) 290 U/L (8-55); AST (SGOT) 941 U/L (5-34); Albumin 3.3 g/dL (3.5-5.0); Alkaline Phosphatase 86 U/L (40-110); Anion Gap 24 mmol/L (10-20); BUN (Urea Nitrogen) 60 mg/dL (9.8-20.1); Bilirubin, Total 0.9 mg/dL (0.2-1.2); Calc. Creatinine Clearance 20 mL/min (70-130); Calcium 6.7 mg/dL (7.8-10.44); Carbon Dioxide 16 mmol/L (22-29); Chloride 110 mmol/L (98-107); Globulin 2.3 g/dL (2.4-3.5); Glucose 205 mg/dL (70-105); Potassium 6.3 mmol/L (3.5-5.1); Protein, Total 5.6 g/dL (6.0-8.3); Sodium 144 mmol/L (136-145)
[2020-11-12] MEDS ORDERED: Calcium Gluconate 4.6 MEQ in Sodium Chloride 0.9% 100 ML IVPB SCH (00:58)
[2020-11-12] MEDS ORDERED: Dextrose 50% Abboject 50 ML SYRINGE SLOW IVP SCH (01:15)
[2020-11-12] MEDS ORDERED: Insulin Regular 300 UNITS/3 ML VIAL IVP SCH (01:15)
[2020-11-12] MEDS: Hydrocortisone Sod Succ/PF 100 mg/2 ml Vial IVP SCH ×4 (01:17→20:06)
[2020-11-12] MEDS: Dextrose 5 %-0.45 % NaCl 1,000 ML IV SCH ×4 (04:48→22:53)
[2020-11-12] MEDS: Albumin 25% 25 GM/100 ML BOT IVPB SCH (05:02)
[2020-11-12] MEDS: metroNIDAZOLE 500 MG in Premix Bag 1 BAG IVPB SCH ×3 (05:03→22:09)
[2020-11-12 05:11] LABS: ALT (SGPT) 305 U/L (8-55); AST (SGOT) 830 U/L (5-34); Albumin 3.4 g/dL (3.5-5.0); Alkaline Phosphatase 93 U/L (40-110); Anion Gap 27 mmol/L (10-20); BUN (Urea Nitrogen) 65 mg/dL (9.8-20.1); Bilirubin, Total 1.1 mg/dL (0.2-1.2); Calc. Creatinine Clearance 19 mL/min (70-130); Calcium 6.8 mg/dL (7.8-10.44); Carbon Dioxide 13 mmol/L (22-29); Chloride 109 mmol/L (98-107); Globulin 2.3 g/dL (2.4-3.5); Glucose 290 mg/dL (70-105); Potassium 5.6 mmol/L (3.5-5.1); Protein, Total 5.7 g/dL (6.0-8.3); Sodium 143 mmol/L (136-145)
[2020-11-12] MEDS: HumaLOG 300 UNITS/3 ML VIAL SC PRN (05:12)
[2020-11-12 05:34] LABS: Band 25 % (5-11); Hemoglobin 9.1 g/dL (12.0-16.0); Lymphocytes 7 % (21-51); MDiff Complete? YES; Mean Corpuscular HGB CONC 32.5 g/dL (32.0-36.0); Mean Corpuscular Hemoglobin 24.7 pg (27.0-31.0); Mean Corpuscular Volume 76.2 fL (78.0-98.0); Mean Platelet Volume 13.6 fL (7.4-10.4); Metamyelocyte 4 % (0-0); Monocytes 3 % (0-10); Myelocyte 3 % (0-0); Neutrophil 58 % (42-75); Platelet Count 43 thou/uL (130-400); Platelet Morphology Comment Appears Decreased; RBC Distribution Width 14.3 % (11.5-14.5); Red Blood Cell (RBC) Count 3.66 mill/uL (4.20-5.40); White Blood Cell (WBC) Count 5.9 thou/uL (4.8-10.8)
--- NOTE | 2020-11-12 06:37 | PDOC.FM ---
- Subjective Subjective: Overnight patient had high potassium of 6.3. Given kayexylate, insulin, D50. Improved to 5.6 this AM. Concern patient had abnormal discharge or diarrhea from vagina. Otherwise, pressors are off since pt had art line placed and patient's BP is stable with MAP well above 65. - Objective MAR Reviewed: Yes Vital Signs & Weight: Vital Signs (12 hours) Pulse Resp BP Pulse Ox 11/12/20 06:32 76 120/61 98 11/12/20 06:00 27 H 11/12/20 04:00 24 H 11/12/20 03:01 76 170/75 H 11/12/20 02:00 19 11/12/20 00:02 73 101/54 L 11/12/20 00:00 19 11/11/20 22:00 18 11/11/20 20:00 16 99 11/11/20 18:48 88 98/56 L Weight Admit Weight 93.599 kg Weight 102.193 kg Most Recent Monitor Data Heart Rate from ECG 73 NIBP 120/61 NIBP BP-Mean 80 Respiration from ECG 19 SpO2 98 I&O: 11/10/20 11/11/20 11/12/20 06:59 06:59 06:59 Intake Total 2802.5 3821.7 2940 Output Total 470 1147 2420 Balance 2332.5 2674.7 520 Result Diagrams: 11/12/20 08:52 11/12/20 04:40 Radiology Reviewed by me: Yes (worsened CXR in LLL, decreased lung volumes) Radiology: awaiting official read from radiology Phys Exam - Physical Examination Constitutional: NAD (GCS 9T (4E-1V-4M)) HEENT: PERRLA Respiratory: no wheezing (coarse rhonchi over R lung lehman compared to L) Cardiovascular: RRR, no significant murmur Gastrointestinal: soft, non-tender, no distention continued diarrhea from rectal tube, rectal tube in place Skin: no rash Deviation from normal: only vaginal bleeding appeared to be coming from vagina Dx/Plan - Plan Plan: 60 yo F admitted to CCU for DKA, lactic acidosis, and sepsis: Neuro - Acute encephalopathy likely 2/2 DKA: GCS 9T (4E, 1V, 4M) off sedation. CV - currently off pressors - L femoral art line in place (11/11) - Hx of HTN: hold home BP meds Resp - Metabolic acidosis 11/02 w/ partial compensated respiratory alkalosis - ABG this AM: 7.42/CO2 20/O2 72/base excess -10 - Vent : SIMV RR 12--> 8 (after ABG), Peep 5, FiO2 26%-> 32% (after ABG), Pressure support 12, TV 500 - patient is taking spontaneous breaths with TV of 586 mL and breathing at a rate of 26 - screening covid neg - Pulm consulted: appreciate recs. GI/Nutrition - Abdominal pain s/p colonoscopy: minimal findings in distal/terminal ileum, pt not as reactive to abdominal palpation today. - New onset diarrhea: liquid stools, rectal tube placed. - Diet: NPO, strict. Discussed with dietary options for nutrition given 1L of gastric contents out. Consider TPN; should not affect dialysis per dietary. - GI ppx: protonix - OG tube in place - negative gastric occult blood - positive fecal occult blood. Renal/Fluids/Electrolytes - Hypernatremia: improved - continue to monitor urine output Endo - DKA: improving, moderate SSI. Repeat beta-hydroxybutyrate 3.13 today. - Lactic acidosis: lactate ID/Heme - Sepsis, unknown source: treat w/ empiric abx as detailed below - Diarrhea: cultures, viral tests, O&P sent. So far negative except +lactoferrin and + FOBT. Rectal tube placed. - Candiduria: treated w/ fluconazole - Microcytic anemia: ordered anemia labs, 2 point drop in hemoglobin from yesterday. Argatroban can cause decrease in hemoglobin and hematocrit. - Vaginal bleeding, setting of uterine mass: etiology fibroid vs endometrial cancer vs other. 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 Platelets decreased again today <50 - Repeat DIC labs also ordered today to trend. Abx - added anaerobic coverage of YOON 500mg q8hr yesterday - fluconazole 200mg IV loading dose given followed by 100mg daily for candiduria - cefepime 2g given, continue 500 mg daily for renal dosing - vancomycin 1g given in ER, pharmacy to dose- will d/c today. - Blood cultures NGTD - Urine culture showing yeast 75-100k cfu Code: FULL, confirmed w/ family. IVF: NS DVT ppx: SCDs, argatroban GI ppx: protonix Tubes/Lines: PIV, ET & OG tube (11/09), Mendez (11/09), R fem trialysis cath & L subclavian CVC (11/11), Rectal tube (11/10), L fem Art line (11/11) Discussed plan with Dr. Beyer, attending. Addendum - Attending - Attending Attestation Date/Time: 11/12/20 [id number] I personally evaluated the patient and discussed the management with Dr. Ellis. I agree with the History, Examination, Assessment and Plan documented above with any addition or exceptions noted below.
[2020-11-12 06:41] LABS: Base Excess (BEa) -9.9 mEq/L (-2.0 to +3.0); Calcium, Ionized (arterial) 0.84 mmol/L (1.12-1.30); Carboxyhemoglobin (COHb) 0.1 gm% (0.0-3.0); Hemoglobin (Hb) 9.1 g/dL (12.0-16.0); Potassium - ABG Lab 5.08 mmol/L (3.70-5.30); pH, Arterial 7.42 (7.35-7.45)
[2020-11-12 06:42] LABS: CO2 Tension 20.5 mmHg (35.0-45.0)
[2020-11-12 06:44] LABS: Puncture Site Arterial Line
[2020-11-12 06:45] LABS: ALV-art Gradient 87.755 mmHg (0-20)
--- NOTE | 2020-11-12 06:49 | OP ---
DATE OF PROCEDURE: 11/11/2020 INDICATION: hemodynamically unstable. ATTENDING PHYSICIAN: Dr. Williamson, present. CONSENT: Obtained prior to the procedure. Indication, risks, benefits were explained at length. PROCEDURE SUMMARY: Time-out was performed. The area was prepped and draped. Sterile gloves were applied. Left inguinal region was prepped using chlorhexidine scrub and draped in a sterile fashion. Femoral artery was identified. Palpating the femoral pulse throughout the procedure. The introducer needle was inserted in the femoral artery. Arterial blood was withdrawn. Syringe was removed and the guidewire was advanced through the needle into the femoral artery. The needle was exchanged over the wire, arterial catheter. The wire was removed. Catheter was secured to skin using sutures. The patient tolerated the procedure without any hemodynamic compromise. At the time of procedure completion, the catheter was connected to rn cardiac rehab, calibrated, appropriate waveform, blood pressure. ESTIMATED BLOOD LOSS: 2 mL. Job ID: [id number] MTDD
--- NOTE | 2020-11-12 09:02 | RAD ---
PORTABLE CHEST: Date: 11/12/2020 HISTORY: Pneumonia follow-up. COMPARISON: 11/09/2020. FINDINGS: ET tube and NG tube again noted. There is a new central line via the left subclavian with tip overlyi ng the upper SVC. Hazy bibasilar infiltrates, more prominent today. Some of this may represent atelectasis. Heart is mo re prominent, but is accentuated by this projection and position. Overall poor inspiration degrades e valuation. IMPRESSION: New hazy atelectasis or infiltrate in the right mid and lower lung when compared to yesterday's exam. POS: AGW
--- NOTE | 2020-11-12 09:15 | PRG ---
DATE OF SERVICE: 11/12/2020 35 minutes critical care time. SUBJECTIVE: The patient remains intubated on mechanical ventilation. She is not very responsive to stimulation. Sedation looks like it has not been on for several hours. OBJECTIVE: VITAL SIGNS: Temperature 99, pulse 69, blood pressure 116/55, intake 2540, output 2420. HEENT: Pupils look reactive. Oropharynx intubated. NECK: No JVD. LUNGS: Fairly clear anteriorly. CARDIOVASCULAR: S1, S2. Regular. ABDOMEN: Soft. EXTREMITIES: Edematous. IMAGING STUDIES: Her chest x-ray shows hilar infiltrate on the right. ET tube is in good position. LABORATORY DATA: Sodium 143, potassium 5.6, chloride 109, CO2 13, BUN 65, creatinine 4.9, glucose 290, AST 830, ALT 305. PH 7.42, pCO2 20, PO2 of 72 on SIMV rate of 12, tidal volume 500, PEEP of 5, pressure support 12, FiO2 26%. White blood cell count 5.9, hematocrit 27.9, and platelet count 43. ASSESSMENT: 1. Acute respiratory failure requiring mechanical ventilation. 2. Diabetic ketoacidosis, which seems to be resolved. 3. Acute renal failure. 4. Severe hyponatremia at time of admission, probably indicative of profound volume depletion. 5. Acute tubular necrosis. 6. Elevated LFTs, probably indicative of shock liver. Plan: We will start TPN. The patient is having diarrhea, so I am hesitant to give her tube feeds at this time. She has had C difficile testing, which was negative. 7. Developing thrombocytopenia and anemia. 8. Altered mental status. PLAN: 1. Check CT of the head. 2. Start TPN. 3. Would have lab check her smear to make sure she does not have schistocytes and we are not dealing with some kind of hemolysis syndrome such as TTP or hemolytic uremic syndrome. 4. Hemodialysis indicated. 5. Not weanable from the ventilator at this time. Job ID: [id number]
[2020-11-12 09:18] LABS: Fibrinogen 560 mg/dL (253-463)
[2020-11-12 09:19] LABS: INR-International Normal Ratio 1.8; PTT 37.6 sec (22.9-36.1); Platelet Count 42 thou/uL (130-400)
[2020-11-12] MEDS: Pantoprazole 40 MG VIAL IVP SCH (09:21)
[2020-11-12] MEDS: Cefepime 0.5 GM, Admixture Fee 1 EACH in Sodium Chloride 0.9% 100 ML IVPB SCH (09:24)
[2020-11-12 09:27] LABS: D-Dimer Test 12.22 *mcg/mL (0.27-0.43); Vancomycin, Random 16.8 ug/mL (See Comment)
[2020-11-12 09:30] LABS: Iron 36 ug/dL (50-170); Iron Binding Capacity, Total 86 mcg/dL (265-497); Transferrin, Serum 69 mg/dL (180-382)
[2020-11-12] MEDS: Fluconazole In NaCl,Iso-Osm 100 MG in Admixture Fee 1 EACH IVPB SCH (09:42)
[2020-11-12 09:52] LABS: Ferritin 1088.15 ng/mL (10-291)
[2020-11-12 09:54] LABS: Vitamin B12 Greater than 2000 pg/mL (211-911)
[2020-11-12 09:56] LABS: Hemoglobin 8.6 g/dL (12.0-16.0); Mean Corpuscular Hemoglobin 25.2 pg (27.0-31.0); Mean Corpuscular Volume 76.2 fL (78.0-98.0); Mean Platelet Volume 14.4 fL (7.4-10.4); Platelet Count 42 thou/uL (130-400); RBC Distribution Width 14.3 % (11.5-14.5); White Blood Cell (WBC) Count 6.1 thou/uL (4.8-10.8)
[2020-11-12 11:27] LABS: Band 36 % (5-11); Dohle Bodies SLIGHT; FSP-Qualitative ABNORMAL (Normal); Lymphocytes 16 % (21-51); MDiff Complete? YES; Microcytosis SLIGHT = 6-15 cells (100X) (0-5/hpf); Monocytes 5 % (0-10); Neutrophil 43 % (42-75); Nucleated RBC 1 % (0); Platelet Morphology Comment Appears Decreased; Polychromasia SLIGHT = 2-3 cells (100X) (0-2/hpf); Toxic Granulation SLIGHT
[2020-11-12 11:28] LABS: FSP-Semiquantitative >=40 & <80 mcg/mL (Less than 5)
--- NOTE | 2020-11-12 11:59 | PRG ---
DATE OF SERVICE: 11/12/2020 SUBJECTIVE: Ms. Leon is a 60-year-old, black female who was initially admitted for DKA. She was also found to be in acute kidney injury. At that time, we felt that she may simply have hemodynamically-mediated renal dysfunction. However, renal function remained unimproved in spite of volume repletion. In addition, she was noted yesterday to be more hyperkalemic, and for that reason, we initiated dialysis. She did undergo a 2-hour hemodialysis with fluid removal at that time. We removed 1 L of fluid. In addition, potassium is improved from a peak value of 7.4 to most recent value of 5.6. She is currently undergoing a 3-hour hemodialysis. Attempt to remove around 2 L of fluid as tolerated by the patient. A chest x-ray done today, November 12, 2020, showed infiltrate in right mid lower lung field. OBJECTIVE: VITAL SIGNS: Blood pressure is 134/66, heart rate 78, respiratory rate 20, O2 saturation 99%, temperature 99.1. GENERAL: The patient is sedated, intubated on ventilator support, obese. SKIN: Adequate turgor. HEENT: She has slightly pale conjunctivae, anicteric sclerae. NECK: No neck mass. No carotid bruits. No JVD. CHEST: No deformities. LUNGS: Decreased breath sounds. HEART: Normal sinus rhythm. No murmur. No gallops. No rubs. ABDOMEN: Globular, soft, nontender. No masses. EXTREMITIES: Positive for edema, but no deformities. MEDICATIONS: From November 12, 2020, was reviewed. LABORATORY DATA: November 12, 2020; white count 6.1, hemoglobin 8.6. Sodium 143, potassium 5.6, chloride 109, carbon dioxide 13, BUN 65, creatinine 4.9, GFR 11 mL/minute, calcium 6.8. AST 830, ALT 305. Ferritin 1088. LDH 1629. ASSESSMENT AND PLAN: 1. Acute kidney injury - initially we felt that this was a hemodynamically-mediated renal dysfunction. However, in spite of volume repletion, no improvement with the renal function. My suspicion she may have a superimposed acute tubular necrosis. We will continue daily dialysis. She is undergoing 3-hour hemodialysis today. In a.m., we will do a 4-hour hemodialysis and then place her on regular 3 times a week hemodialysis. 2. Borderline anemia. We will continue to observe. 3. Hyperkalemia, much improved. Most recent potassium 5.6. She is undergoing 3-hour hemodialysis. I do anticipate some normalization of her potassium. 4. Diabetic ketoacidosis, much improved. Overall prognosis remains guarded. Job ID: [id number]
--- NOTE | 2020-11-12 12:18 | PDOC.BPN ---
- Brief Progress Note Encounter Date: 11/12/20 Encounter Time: 12:15 Repeat coag panel showing elevated PT, INR, aPTT and increased D-dimer from yesterday. Fibrin degradation products also elevated concerning for DIC. Platelets now at 42. Meanwhile, HIT antibodies pending and patient has some dusky discoloration to her left toes. She has DP pulse 2+ bilaterally, skin is warm/dry. Patient is not getting any heparin with dialysis. Therefore, in order to avoid complications of potential thrombosis, we will reinitiate argatroban treatment.
[2020-11-12] MEDS ORDERED: SODIUM CHLORIDE 0.9% IVPB SCH (13:00)
[2020-11-12] MEDS ORDERED: ARGATROBAN IVPB SCH (13:00)
[2020-11-12] MEDS: HUMULIN R 100 UNITS in Sodium Chloride 0.9% 100 ML IVPB SCH ×2 (14:05→22:45)
[2020-11-12] MEDS: CALCIUM GLUCONATE IV SCH (14:06)
[2020-11-12] MEDS: [UNRECOGNIZED DRUG - OTHER] IV SCH (14:06)
[2020-11-12] MEDS: FAT EMULSION IV SCH (14:06)
[2020-11-12] MEDS: SODIUM ACETATE IV SCH (14:06)
--- NOTE | 2020-11-12 16:48 | CT ---
EXAM: CT brain without contrast HISTORY: Altered mental status COMPARISON: 04/25/2015 TECHNIQUE: Multiple contiguous axial images were obtained and a CT of the brain without contrast. FINDINGS: The brain is normal in morphology and attenuation without focal lesions or confluent areas of infarction. There is no evidence of hydrocephalus, intracranial hemorrhage, or extra-axial fluid collection. The calvarium and overlying soft tissues are unremarkable. The visualized paranasal sinuses and masto id air cells are well aerated. IMPRESSION: No evidence of acute intracranial abnormality
[2020-11-13 00:28] LABS: Anion Gap 17 mmol/L (10-20); BUN (Urea Nitrogen) 42 mg/dL (9.8-20.1); Calc. Creatinine Clearance 26 mL/min (70-130); Calcium 7.5 mg/dL (7.8-10.44); Carbon Dioxide 24 mmol/L (22-29); Chloride 102 mmol/L (98-107); Glucose 231 mg/dL (70-105); Potassium 3.3 mmol/L (3.5-5.1); Sodium 140 mmol/L (136-145)
--- NOTE | 2020-11-13 01:02 | PDOC.BPN ---
- Brief Progress Note Encounter Date: 11/13/20 Encounter Time: 12:55 BMP reveals AG 14. K 3.3 - will not replete at this time as she has severe kidney disease. D/C Insulin Drip. Give Lantus 20 U. Will check BG frequently as Lantus 20 U might not be adequate to prevent recurrent DKA. TPN continued.
[2020-11-13] MEDS ORDERED: Insulin Glargine 20 UNITS in Pre-Filled Syringe 1 EACH SC SCH (01:30)
[2020-11-13] MEDS: Hydrocortisone Sod Succ/PF 100 mg/2 ml Vial IVP SCH ×4 (02:02→20:35)
[2020-11-13 04:09] LABS: INR-International Normal Ratio 1.3; PTT 33.9 sec (22.9-36.1); Prothrombin Time 16.6 sec (12.0-14.7)
[2020-11-13 04:29] LABS: Anion Gap 21 mmol/L (10-20); Carbon Dioxide 22 mmol/L (22-29); Chloride 98 mmol/L (98-107); Potassium 3.8 mmol/L (3.5-5.1); Sodium 137 mmol/L (136-145)
[2020-11-13 04:30] LABS: ALT (SGPT) 269 U/L (8-55); AST (SGOT) 402 U/L (5-34); Albumin 3.2 g/dL (3.5-5.0); Alkaline Phosphatase 100 U/L (40-110); BUN (Urea Nitrogen) 50 mg/dL (9.8-20.1); Bilirubin, Total 0.9 mg/dL (0.2-1.2); Calc. Creatinine Clearance 25 mL/min (70-130); Calcium 7.7 mg/dL (7.8-10.44); Cholesterol 53 mg/dl (< 200 Desired); Globulin 2.4 g/dL (2.4-3.5); Glucose 340 mg/dL (70-105); HDL Cholesterol Less than 8 mg/dL (>60 Neg Risk); Magnesium 1.7 mg/dL (1.6-2.6); Protein, Total 5.6 g/dL (6.0-8.3); Triglycerides 176 mg/dL (Less than 150)
[2020-11-13 04:38] LABS: Phosphorus 1.9 mg/dL (2.3-4.7)
[2020-11-13 05:26] LABS: Hemoglobin 8.9 g/dL (12.0-16.0); Mean Corpuscular HGB CONC 33.2 g/dL (32.0-36.0); Mean Corpuscular Hemoglobin 25.3 pg (27.0-31.0); Mean Corpuscular Volume 76.3 fL (78.0-98.0); Platelet Count 37 thou/uL (130-400); RBC Distribution Width 13.9 % (11.5-14.5); White Blood Cell (WBC) Count 5.8 thou/uL (4.8-10.8)
[2020-11-13 05:27] LABS: Band 16 % (5-11); Lymphocytes 6 % (21-51); MDiff Complete? YES; Monocytes 10 % (0-10); Neutrophil 68 % (42-75); Platelet Morphology Comment Appears Decreased
[2020-11-13] MEDS: metroNIDAZOLE 500 MG in Premix Bag 1 BAG IVPB SCH ×3 (06:42→22:30)
[2020-11-13 07:16] LABS: Actual Bicarbonate (HCO3a) 18.6 mEq/L (22-28); Calcium, Ionized (arterial) 0.96 mmol/L (1.12-1.30); Carboxyhemoglobin (COHb) 0.3 gm% (0.0-3.0); Hemoglobin (Hb) 9.1 g/dL (12.0-16.0); O2 Tension (PaO2), arterial 95.5 mmHg (> 80.0); Potassium - ABG Lab 3.53 mmol/L (3.70-5.30); pH, Arterial 7.54 (7.35-7.45)
[2020-11-13 07:21] LABS: CO2 Tension 22.4 mmHg (35.0-45.0); Puncture Site Arterial Line
--- NOTE | 2020-11-13 08:01 | PDOC.FM ---
- Subjective Subjective: OVernight anion gap decreased to 14 and insulin drip was stopped, lantus 20u started. This morning nurse reports BG in 500s on accucheck. Nursing also resports bloody foul smelling discharge from vagina. - Objective Vital Signs & Weight: Vital Signs (12 hours) Pulse Pulse Ox 11/13/20 07:19 74 11/13/20 02:31 71 11/12/20 22:03 77 11/12/20 20:00 100 Weight Admit Weight 93.599 kg Weight 101.2 kg Most Recent Monitor Data Heart Rate from ECG 74 NIBP 158/62 NIBP BP-Mean 94 Respiration from ECG 28 SpO2 99 I&O: 11/12/20 11/13/20 11/14/20 06:59 06:59 06:59 Intake Total 2940 0 Output Total 2420 0 Balance 520 0 Result Diagrams: 11/13/20 03:40 11/13/20 03:40 Phys Exam - Physical Examination Constitutional: NAD HEENT: moist MMs, sclera anicteric diffuse bilat course breath sounds, no wheezing Cardiovascular: RRR, no significant murmur Gastrointestinal: soft, non-tender Musculoskeletal: no edema, pulses present sedated Skin: no rash, normal turgor Dx/Plan - Plan Plan: 60 yo F admitted to CCU for DKA, lactic acidosis, and sepsis: Neuro - Acute encephalopathy likely 2/2 DKA: GCS 9T (4E, 1V, 4M) off sedation. CV - currently off pressors - L femoral art line in place (11/11) - Hx of HTN: hold home BP meds Resp - Metabolic acidosis 2/2 w/ partial compensated respiratory alkalosis - Vent : SIMV RR 12--> 8 (after ABG), Peep 5, FiO2 26%-> 32% (after ABG), Pressure support 12, TV 500 - patient is taking spontaneous breaths with TV of 586 mL and breathing at a rate of 26 - screening covid neg - Pulm consulted: appreciate recs. GI/Nutrition - Abdominal pain s/p colonoscopy: minimal findings in distal/terminal ileum, pt not as reactive to abdominal palpation today. - New onset diarrhea: liquid stools, rectal tube placed. - Diet: NPO, strict. TPN started 11/12, pt on insulin drip - GI ppx: protonix - OG tube in place - negative gastric occult blood - positive fecal occult blood. Renal/Fluids/Electrolytes - Hypernatremia: resolved - continue to monitor urine output -nephro on board, dialysis per their mgmt Endo - DKA: improving, moderate SSI. Repeat beta-hydroxybutyrate 3.13 on 11/12. Gap decreased to 14 at midnight and insulin drip was stopped. Opened back up to 17 and BG in 500s this AM. * Restart insulin drip. Will likely need to continue until TPN is stopped. - Lactic acidosis: lactate ID/Heme - Sepsis, unknown source: treat w/ empiric abx as detailed below - Diarrhea: cultures, viral tests, O&P sent. So far negative except +lactoferrin and + FOBT. Rectal tube placed. - Candiduria: treated w/ fluconazole - Microcytic anemia: ordered anemia labs, 2 point drop in hemoglobin from yesterday. Argatroban can cause decrease in hemoglobin and hematocrit. - Vaginal bleeding, setting of uterine mass: etiology fibroid vs endometrial cancer vs other. 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 Platelets decreased again today <50 - Repeat DIC labs also ordered today to trend. - Pt already on appropriate antimicrobials for potential vaginal infection Abx - flagyl 500mg - fluconazole 200mg IV loading dose given followed by 100mg daily for candiduria - cefepime 2g given, continue 500 mg daily for renal dosing - vancomycin DCd, 11/09-11/12 - Blood cultures NGTD - Urine culture showing yeast 75-100k cfu Code: FULL, confirmed w/ family. IVF: NS DVT ppx: SCDs, argatroban GI ppx: protonix Tubes/Lines: PIV, ET & OG tube (11/09), Mendez (11/09), R fem trialysis cath & L subclavian CVC (11/11), Rectal tube (11/10), L fem Art line (11/11)
[2020-11-13] MEDS: Pantoprazole 40 MG VIAL IVP SCH (08:43)
--- NOTE | 2020-11-13 11:14 | RAD ---
CHEST 1 VIEW: Date: 11/13/2020 HISTORY: Follow-up pneumonia. COMPARISON: 11/12/2020. FINDINGS: NG tube, endotracheal tube, and left central lines are noted in place. Heart size is borderline. Insp iration is poor. There are some minimal linear and parenchymal changes in the left base. The hazy [place] changes in the right mid and lower chest seen on yesterday's study have improved. No significant new process. IMPRESSION: 1. Overall poor inspiration with borderline cardiomegaly. 2. Minimal horizontal linear and parenchymal change in the left base, probably some subsegmental ate lectasis. No evidence for confluent lobar pneumonia. Continue short-term follow-up. POS: RRE
[2020-11-13] MEDS: Lorazepam 2 MG/ML VIAL SLOW IVP PRN (11:20)
[2020-11-13] MEDS: Propofol 1,000 MG/100 ML VIAL IV PRN ×2 (11:27→18:22)
[2020-11-13] MEDS: Norepinephrine 8 MG/0.9% NS 250 ML IVPB SCH ×2 (12:02→18:19)
--- NOTE | 2020-11-13 12:27 | PRG ---
DATE OF SERVICE: 11/13/2020 SERVICE: Renal Medicine. SUBJECTIVE: Ms. Leon is a 60-year-old black female, who was initially admitted for DKA and was seen by the Renal Service for her acute kidney injury. We were treating her for a possible prerenal azotemia. However, this was unimproved in spite of volume repletion. In addition, she developed severe hyperkalemia. For that reason, hemodialysis has been initiated. My feeling she may have a superimposed acute tubular necrosis. She remains unimproved. Her mentation has not been improving. CT scan of the head was done, which showed no acute intracranial abnormality. She continues to remain intubated. She is currently undergoing hemodialysis today. OBJECTIVE: VITAL SIGNS: Blood pressure 131/65, heart rate 66, respiratory rate 25, O2 saturation 100%. GENERAL: The patient is unresponsive, intubated on ventilator support. SKIN: Adequate turgor. HEENT: Slightly pale conjunctivae. Anicteric sclerae. NECK: No neck mass. No carotid bruits. No JVD. CHEST: No deformities. LUNGS: Decreased breath sounds. HEART: Normal sinus rhythm. No murmurs, gallops, or rubs. ABDOMEN: Globular, soft, nontender. No masses. EXTREMITIES: Trace edema. MEDICATIONS: November 13, 2020, was reviewed. LABORATORY DATA: November 13, 2020; white count 5.8, hemoglobin 8.9. Sodium 137, potassium 3.8, chloride 98, carbon dioxide 22, BUN 50, creatinine 3.82, glucose 340, calcium 7.7, AST 402, ALT 269, phosphorus is 1.9. ASSESSMENT AND PLAN: 1. Acute kidney injury-most likely superimposed acute tubular necrosis, continuing hemodialysis regimen. We will do a 3-hour hemodialysis with fluid removal only as tolerated by the patient. 2. Mild hypophosphatemia. We will continue to observe recheck another phosphorus level in a.m. 3. Mental status change-most likely from metabolic encephalopathy. CT scan of the brain showed no acute intracranial abnormality. 4. Diabetic ketoacidosis much improved. 5. Hyperkalemia, resolved with hemodialysis. Overall, prognosis remains guarded. Job ID: [id number]
[2020-11-13] MEDS: HUMULIN R 100 UNITS in Sodium Chloride 0.9% 100 ML IVPB SCH ×2 (12:53→16:16)
--- NOTE | 2020-11-13 13:28 | PRG ---
DATE OF SERVICE: 11/13/2020 Please see the note from Dr. Snow, for which I agree. The patient was seen, evaluated, discussed, and examined with the residents by bedside. This is a 60-year-old with COPD, who came in with DKA and assumed septic shock, eventually was intubated and has been fairly stable since. Initially needed pressors, but is off pressors. Her platelets have dropped somewhat. May be she has developed a little bit of vaginitis despite antifungals and metronidazole. Sounds like all blood cultures have been negative so far, so she is stable on the ventilator. FiO2 was increased to 32%, is the only issue. Appreciate pulmonary's input obviously on her as well and critical care's input as well. I anticipate no major changes in the next 24 hours in her care plan. Job ID: [id number]
[2020-11-13 15:35] LABS: Anion Gap 21 mmol/L (10-20); BUN (Urea Nitrogen) 32 mg/dL (9.8-20.1); Calc. Creatinine Clearance 36 mL/min (70-130); Calcium 8.2 mg/dL (7.8-10.44); Carbon Dioxide 23 mmol/L (22-29); Chloride 100 mmol/L (98-107); Glucose 169 mg/dL (70-105); Potassium 3.1 mmol/L (3.5-5.1); Sodium 141 mmol/L (136-145)
[2020-11-13] MEDS: [UNRECOGNIZED DRUG - OTHER] IV SCH (15:54)
[2020-11-13] MEDS: FAT EMULSION IV SCH (15:54)
[2020-11-13] MEDS: CALCIUM GLUCONATE IV SCH (15:54)
[2020-11-13] MEDS: SODIUM ACETATE IV SCH (15:54)
[2020-11-13] MEDS: Cefepime 0.5 GM, Admixture Fee 1 EACH in Sodium Chloride 0.9% 100 ML IVPB SCH (16:17)
[2020-11-13] MEDS ORDERED: Heparin 10,000 UNITS/ 10 ML VIAL ONE (16:52)
[2020-11-13] MEDS: Fluconazole In NaCl,Iso-Osm 100 MG in Admixture Fee 1 EACH IVPB SCH (17:00)
--- NOTE | 2020-11-13 18:13 | PDOC.PULCC ---
CCU Progress Note: Subj/Obj - Subjective Date: 11/13/20 Time: 16:00 Subjective: 24 hour unable to assess on mechanical ventilator, remains critically ill and requires dialysis for VÍCTOR, improved chest xray, mental status changes precludes spontaneous ventilation at this point, work up for HIT on going, has DIC - Objective Allergies/Adverse Reactions: Allergies Allergy/AdvReac Type Severity Reaction Status Date / Time Penicillins Allergy Verified 08/17/19 16:28 Medications: Current Medications Clotrimazole (Clotrimazole 2% 3 Day Vag Cr 22.2 Gm Tube) 2 gm VAG HS [facility] Stop: 11/15/20 21:01 Dextrose/Water (Dextrose 50% Abboject 50 Ml Syringe) 25 gm SLOW IVP PRN PRN PRN Reason: Hypoglycemia Glucagon (Glucagon 1 Mg/Ml Vial) 1 mg IM PRN PRN PRN Reason: Hypoglycemia Hydrocortisone Sodium Succinate (Hydrocortisone Sod Succ/Pf 100 Mg/2 Ml Vial) 50 mg IVP 0200,0800,1400,2000 [facility] Last Admin: 11/13/20 14:56 Dose: 50 mg Documented by: Fentanyl (Fentanyl Cadd) 100 mls @ 0 mls/hr IV INF [facility]; Protocol Stop: 12/09/20 10:00 Last Admin: 11/11/20 06:43 Dose: 100 mls Documented by: Fentanyl Citrate (Fentanyl Bolus) 250 mls @ 0 mls/hr IVPB PRN PRN PRN Reason: Breakthrough pain/agitation Stop: 12/09/20 10:00 Norepinephrine Bitartrate (Levophed) 250 mls @ 0 mls/hr IVPB INF [facility]; Protocol Last Admin: 11/13/20 12:02 Dose: 250 mls Documented by: Vasopressin 20 unit/ Sodium (Chloride) 51 mls @ 6 mls/hr IV INF [facility] Last Admin: 11/11/20 16:56 Dose: 51 mls Documented by: Metronidazole 500 mg/ Device 100 mls @ 100 mls/hr IVPB Q8HR [facility] Last Admin: 11/13/20 14:55 Dose: 100 mls Documented by: Cefepime HCl 0.5 gm/Miscellaneous Medication 1 each/ Sodium Chloride 100 mls @ 0 mls/hr IVPB 1600 [facility] Last Admin: 11/13/20 16:17 Dose: 100 mls Documented by: Fat Emulsion Intravenous 250 ml/ Sodium Acetate 100 meq/Calcium Gluconate 20 meq/Multivitamins 10 ml/ Chromium/Copper/Manganese/Zinc 10 ml/Insulin Human Regular 12 units / Dextrose/Water/ Sterile Water/ Amino Acids 2,363.5983 mls @ 98.483 mls/hr IV 1400 [facility] Last Admin: 11/13/20 15:54 Dose: 2,363.5983 mls Documented by: Fluconazole/Sodium Chloride 100 mg/ Miscellaneous Medication 50 mls @ 100 mls/hr IVPB 1700 [facility] Argatroban 250 mg/ Sodium (Chloride) 250 mls @ 11.976 mls/hr IVPB INF [facility] Last Admin: 11/13/20 12:53 Dose: 250 mls Documented by: Insulin Human Regular 100 (units/ Sodium Chloride) 101 mls @ 0 mls/hr IVPB INF [facility]; Protocol Last Admin: 11/13/20 16:16 Dose: 101 mls Documented by: Lorazepam (Lorazepam 2 Mg/Ml Vial) 2 mg SLOW IVP Q1H PRN PRN Reason: Breakthrough agitation Stop: 12/09/20 10:00 Last Admin: 11/13/20 11:20 Dose: 2 mg Documented by: Morphine Sulfate (Morphine 2 Mg/Ml Vial) 2 mg SLOW IVP Q1H PRN PRN Reason: Breakthrough Pain/Agitation Stop: 12/09/20 10:00 Last Admin: 11/13/20 11:20 Dose: 2 mg Documented by: Discontinue Previous Narcotic Pain Medications And Benzodiazepines 1 each FS .ONE [facility] Stop: 12/09/20 10:00 Pantoprazole Sodium (Pantoprazole 40 Mg Vial) 40 mg IVP DAILY [facility] Last Admin: 11/13/20 08:43 Dose: 40 mg Documented by: Propofol (Propofol 1,000 Mg/100 Ml Vial) 1,000 mg IV INF PRN; Protocol PRN Reason: TO ACHIEVE GOAL RASS Stop: 12/09/20 10:00 Last Admin: 11/13/20 11:27 Dose: 1,000 mg Documented by: Propofol (Propofol Bolus 1,000 Mg/100 Ml Vial) 20 mg IV Q5MIN PRN PRN Reason: BREAKTHROUGH AGITATION Stop: 12/09/20 10:00 Sodium Chloride (Flush - Normal Saline 10 Ml Syringe) 10 ml IVF PRN PRN PRN Reason: Saline Flush MAR Reviewed: Yes Vital Signs and I&O: Vital Signs Temp 99.1 F 11/11/20 00:00 Pulse 73 11/13/20 14:49 Resp 27 H 11/12/20 06:00 BP 106/63 11/12/20 14:19 Pulse Ox 100 11/12/20 20:00 Intake & Output 11/12/20 11/13/20 11/13/20 18:59 06:59 18:59 Intake Total 395.2 0 200 Output Total 0 0 Balance 395.2 0 200 Weight 225 lb 4.745 oz 223 lb 1.725 oz Intake: Intake, IV Amount 395.2 200 Cefepime 0.5 gm Admixture 100 Fee 1 each In Sodium Chloride 0.9% 100 ml @ 0 mls/hr IVPB 1600 [facility] Rx#: [id number] Fat Emulsion 250 ml 295.2 Sodium Acetate 2 mEq/ml 100 meq Calcium Gluconate 20 meq Multivitamins, Adult 10 ml Multitrace-4 10 ml Insulin Regular 12 units In Dextrose 70% in Water 429 ml In Sterile Water Injection 571 ml In Premasol 10% 1,000 ml @ 98.483 mls/hr IV 1400 [facility] Rx#:[id number] Fentanyl BOLUS 250 ml @ 0 As Directed IVPB PRN PRN Rx#:[id number] Fentanyl CADD 100 ml @ 0 Per Protocol IV INF [facility] Rx#:[id number] metroNIDAZOLE 500 mg In 100 100 Premix Bag 1 bag @ 100 mls/hr IVPB Q8HR [facility] Rx#: [id number] Oral 0 Output: Output, Mendez 0 0 Emesis 0 0 Other: Voiding Method Indwelling Catheter Indwelling Catheter Indwelling Catheter Spontaneous Breathing Test: other (AC Vt 450 rate 6 peep 5 32%) Lines (incl Aterial, CVC, PICC+Insertion date): left Subclavian cvc right femoral dialysis CCU Progress Note: Exam - Physical Exam HEENT: PERRLA, moist MMs Deviation from normal: oral ETT, oral Gastric tube with high volume output Neck: no JVD Cardiovascular: RRR Respiratory: decreased breath sounds Focused Respiratory Location: decreased breath sounds: Right, Left, Lower Gastrointestinal: soft, non-tender Musculoskeletal: edema present Neurological: non-focal Deviation from normal: altered mental status Deviation from normal: on sedation Deviation from normal: cyanosis left foot, warm CCU Progress Note: Data - Labs Result Diagrams: 11/13/20 03:40 11/13/20 15:02 Lab results: Laboratory Results 11/11/20 11/12/20 11/12/20 21:37 00:15 04:37 WBC RBC Hgb Hct MCV MCH MCHC RDW Plt Count MPV Neutrophils % (Manual) Band Neuts % (Manual) Lymphocytes % (Manual) Monocytes % (Manual) Metamyelocytes % (Man) Myelocytes % Nucleated RBCs # (Man) Diff Path Review Toxic Granulation Dohle Bodies Plt Morphology Comment Polychromasia Microcytosis PT INR APTT Fibrinogen Fibrin Degrad Products Fibrin Degrad Prod, Qt D-Dimer Specimen Type Puncture Site Bicarbonate Actual ABG pH ABG pCO2 ABG pO2 ABG O2 Sat (Measured) ABG O2 Content ABG Base Excess ABG Hematocrit ABG Hemoglobin ABG Oxyhemoglobin ABG Carboxyhemoglobin ABG Methemoglobin ABG Deoxyhemoglobin Trevor Test A-a O2 Gradient Ionized Calcium Mode of Support % Minute Volume Mechanical Rate Spontaneous Rate Inspired O2 Tidal Volume Spontaneous Tidal Vol Peak Inspir Pressure Pressure Support PEEP or CPAP Sodium 144 Potassium 6.3 H Chloride 110 H Carbon Dioxide 16 L Anion Gap 24 H BUN 60 H Creatinine 4.63 H Estimated GFR (MDRD) 12 Glucose 205 H POC Glucose 142 H 260 H Calcium 6.7 L Phosphorus Magnesium Iron TIBC Transferrin Ferritin Total Bilirubin 0.9 AST 941 H ALT 290 H Alkaline Phosphatase 86 Lactate Dehydrogenase Serum Total Protein 5.6 L Albumin 3.3 L Globulin 2.3 L Albumin/Globulin Ratio 1.4 Prealbumin Triglycerides Cholesterol LDL Cholesterol, Calc HDL Cholesterol Heart Disease Risk Ratio Vitamin B12 Random Vancomycin B-Hydroxybutyrate 11/12/20 11/12/20 11/12/20 04:40 04:40 04:40 WBC 5.9 RBC 3.66 L Hgb 9.1 L Hct 27.9 L MCV 76.2 L MCH 24.7 L MCHC 32.5 RDW 14.3 Plt Count 43 L MPV 13.6 H Neutrophils % (Manual) 58 Band Neuts % (Manual) 25 H Lymphocytes % (Manual) 7 L Monocytes % (Manual) 3 Metamyelocytes % (Man) 4 H Myelocytes % 3 H Nucleated RBCs # (Man) Diff Path Review Toxic Granulation Dohle Bodies Plt Morphology Comment Appears Decreased L Polychromasia Microcytosis PT INR APTT Fibrinogen Fibrin Degrad Products Fibrin Degrad Prod, Qt D-Dimer Specimen Type Puncture Site Bicarbonate Actual ABG pH ABG pCO2 ABG pO2 ABG O2 Sat (Measured) ABG O2 Content ABG Base Excess ABG Hematocrit ABG Hemoglobin ABG Oxyhemoglobin ABG Carboxyhemoglobin ABG Methemoglobin ABG Deoxyhemoglobin Trevor Test A-a O2 Gradient Ionized Calcium Mode of Support % Minute Volume Mechanical Rate Spontaneous Rate Inspired O2 Tidal Volume Spontaneous Tidal Vol Peak Inspir Pressure Pressure Support PEEP or CPAP Sodium 143 Potassium 5.6 H Chloride 109 H Carbon Dioxide 13 L Anion Gap 27 H BUN 65 H Creatinine 4.90 H Estimated GFR (MDRD) 11 Glucose 290 H POC Glucose Calcium 6.8 L Phosphorus Magnesium Iron TIBC Transferrin Ferritin Total Bilirubin 1.1 AST 830 H ALT 305 H Alkaline Phosphatase 93 Lactate Dehydrogenase Serum Total Protein 5.7 L Albumin 3.4 L Globulin 2.3 L Albumin/Globulin Ratio 1.5 Prealbumin Triglycerides Cholesterol LDL Cholesterol, Calc HDL Cholesterol Heart Disease Risk Ratio Vitamin B12 Random Vancomycin B-Hydroxybutyrate 3.13 H 11/12/20 11/12/20 11/12/20 06:38 08:31 08:52 WBC RBC Hgb Hct MCV MCH MCHC RDW Plt Count MPV Neutrophils % (Manual) Band Neuts % (Manual) Lymphocytes % (Manual) Monocytes % (Manual) Metamyelocytes % (Man) Myelocytes % Nucleated RBCs # (Man) Diff Path Review Toxic Granulation Dohle Bodies Plt Morphology Comment Polychromasia Microcytosis PT INR APTT Fibrinogen Fibrin Degrad Products Fibrin Degrad Prod, Qt D-Dimer Specimen Type ABG Puncture Site Arterial Line Bicarbonate Actual 13.0 L ABG pH 7.42 ABG pCO2 20.5 L* ABG pO2 72.0 ABG O2 Sat (Measured) 93.2 L ABG O2 Content 12.0 L ABG Base Excess -9.9 L ABG Hematocrit 27.0 L ABG Hemoglobin 9.1 L ABG Oxyhemoglobin 92.8 L ABG Carboxyhemoglobin 0.1 ABG Methemoglobin 0.30 ABG Deoxyhemoglobin 6.8 H Trevor Test POSITIVE A-a O2 Gradient 87.755 H Ionized Calcium 0.84 L Mode of Support SIMV/VC % Minute Volume 13.5 Mechanical Rate 12 Spontaneous Rate 23 Inspired O2 26 Tidal Volume 500 Spontaneous Tidal Vol 586 Peak Inspir Pressure 28 Pressure Support 12 PEEP or CPAP 5.0 Sodium 142 Potassium 5.08 Chloride 112 H Carbon Dioxide Anion Gap BUN Creatinine Estimated GFR (MDRD) Glucose POC Glucose 248 H Calcium Phosphorus Magnesium Iron TIBC Transferrin Ferritin Total Bilirubin AST ALT Alkaline Phosphatase Lactate Dehydrogenase Serum Total Protein Albumin Globulin Albumin/Globulin Ratio Prealbumin Triglycerides Cholesterol LDL Cholesterol, Calc HDL Cholesterol Heart Disease Risk Ratio Vitamin B12 Random Vancomycin 16.8 B-Hydroxybutyrate 11/12/20 11/12/20 11/12/20 08:52 08:52 08:52 WBC RBC Hgb Hct MCV MCH MCHC RDW Plt Count 42 L MPV Neutrophils % (Manual) Band Neuts % (Manual) Lymphocytes % (Manual) Monocytes % (Manual) Metamyelocytes % (Man) Myelocytes % Nucleated RBCs # (Man) Diff Path Review Toxic Granulation Dohle Bodies Plt Morphology Comment Polychromasia Microcytosis PT 21.0 H INR 1.8 APTT 37.6 H Fibrinogen 560 H Fibrin Degrad Products ABNORMAL H Fibrin Degrad Prod, Qt >=40 & <80 H D-Dimer 12.22 H Specimen Type Puncture Site Bicarbonate Actual ABG pH ABG pCO2 ABG pO2 ABG O2 Sat (Measured) ABG O2 Content ABG Base Excess ABG Hematocrit ABG Hemoglobin ABG Oxyhemoglobin ABG Carboxyhemoglobin ABG Methemoglobin ABG Deoxyhemoglobin Trevor Test A-a O2 Gradient Ionized Calcium Mode of Support % Minute Volume Mechanical Rate Spontaneous Rate Inspired O2 Tidal Volume Spontaneous Tidal Vol Peak Inspir Pressure Pressure Support PEEP or CPAP Sodium Potassium Chloride Carbon Dioxide Anion Gap BUN Creatinine Estimated GFR (MDRD) Glucose POC Glucose Calcium Phosphorus Magnesium Iron 36 L TIBC 86 L Transferrin 69 L Ferritin 1088.15 H Total Bilirubin AST ALT Alkaline Phosphatase Lactate Dehydrogenase Serum Total Protein Albumin Globulin Albumin/Globulin Ratio Prealbumin Triglycerides Cholesterol LDL Cholesterol, Calc HDL Cholesterol Heart Disease Risk Ratio Vitamin B12 Greater than 2000 H Random Vancomycin B-Hydroxybutyrate 11/12/20 11/12/20 11/12/20 08:52 08:52 13:23 WBC 6.1 RBC 3.40 L Hgb 8.6 L Hct 26.0 L MCV 76.2 L MCH 25.2 L MCHC 33.0 RDW 14.3 Plt Count 42 L MPV 14.4 H Neutrophils % (Manual) 43 Band Neuts % (Manual) 36 H Lymphocytes % (Manual) 16 L Monocytes % (Manual) 5 Metamyelocytes % (Man) Myelocytes % Nucleated RBCs # (Man) 1 H Diff Path Review Toxic Granulation SLIGHT Dohle Bodies SLIGHT Plt Morphology Comment Appears Decreased L Polychromasia SLIGHT = 2-3 cells Microcytosis SLIGHT = 6-15 cells PT INR APTT Fibrinogen Fibrin Degrad Products Fibrin Degrad Prod, Qt D-Dimer Specimen Type Puncture Site Bicarbonate Actual ABG pH ABG pCO2 ABG pO2 ABG O2 Sat (Measured) ABG O2 Content ABG Base Excess ABG Hematocrit ABG Hemoglobin ABG Oxyhemoglobin ABG Carboxyhemoglobin ABG Methemoglobin ABG Deoxyhemoglobin Trevor Test A-a O2 Gradient Ionized Calcium Mode of Support % Minute Volume Mechanical Rate Spontaneous Rate Inspired O2 Tidal Volume Spontaneous Tidal Vol Peak Inspir Pressure Pressure Support PEEP or CPAP Sodium Potassium Chloride Carbon Dioxide Anion Gap BUN Creatinine Estimated GFR (MDRD) Glucose POC Glucose 139 H Calcium Phosphorus Magnesium Iron TIBC Transferrin Ferritin Total Bilirubin AST ALT Alkaline Phosphatase Lactate Dehydrogenase 1629 H Serum Total Protein Albumin Globulin Albumin/Globulin Ratio Prealbumin Triglycerides Cholesterol LDL Cholesterol, Calc HDL Cholesterol Heart Disease Risk Ratio Vitamin B12 Random Vancomycin B-Hydroxybutyrate 11/12/20 11/12/20 11/12/20 15:44 17:00 18:41 WBC RBC Hgb Hct MCV MCH MCHC RDW Plt Count MPV Neutrophils % (Manual) Band Neuts % (Manual) Lymphocytes % (Manual) Monocytes % (Manual) Metamyelocytes % (Man) Myelocytes % Nucleated RBCs # (Man) Diff Path Review Toxic Granulation Dohle Bodies Plt Morphology Comment Polychromasia Microcytosis PT INR APTT Fibrinogen Fibrin Degrad Products Fibrin Degrad Prod, Qt D-Dimer Specimen Type Puncture Site Bicarbonate Actual ABG pH ABG pCO2 ABG pO2 ABG O2 Sat (Measured) ABG O2 Content ABG Base Excess ABG Hematocrit ABG Hemoglobin ABG Oxyhemoglobin ABG Carboxyhemoglobin ABG Methemoglobin ABG Deoxyhemoglobin Trevor Test A-a O2 Gradient Ionized Calcium Mode of Support % Minute Volume Mechanical Rate Spontaneous Rate Inspired O2 Tidal Volume Spontaneous Tidal Vol Peak Inspir Pressure Pressure Support PEEP or CPAP Sodium Potassium Chloride Carbon Dioxide Anion Gap BUN Creatinine Estimated GFR (MDRD) Glucose POC Glucose 268 H 272 H 295 H Calcium Phosphorus Magnesium Iron TIBC Transferrin Ferritin Total Bilirubin AST ALT Alkaline Phosphatase Lactate Dehydrogenase Serum Total Protein Albumin Globulin Albumin/Globulin Ratio Prealbumin Triglycerides Cholesterol LDL Cholesterol, Calc HDL Cholesterol Heart Disease Risk Ratio Vitamin B12 Random Vancomycin B-Hydroxybutyrate 11/12/20 11/12/20 11/12/20 19:41 20:44 21:51 WBC RBC Hgb Hct MCV MCH MCHC RDW Plt Count MPV Neutrophils % (Manual) Band Neuts % (Manual) Lymphocytes % (Manual) Monocytes % (Manual) Metamyelocytes % (Man) Myelocytes % Nucleated RBCs # (Man) Diff Path Review Toxic Granulation Dohle Bodies Plt Morphology Comment Polychromasia Microcytosis PT INR APTT Fibrinogen Fibrin Degrad Products Fibrin Degrad Prod, Qt D-Dimer Specimen Type Puncture Site Bicarbonate Actual ABG pH ABG pCO2 ABG pO2 ABG O2 Sat (Measured) ABG O2 Content ABG Base Excess ABG Hematocrit ABG Hemoglobin ABG Oxyhemoglobin ABG Carboxyhemoglobin ABG Methemoglobin ABG Deoxyhemoglobin Trevor Test A-a O2 Gradient Ionized Calcium Mode of Support % Minute Volume Mechanical Rate Spontaneous Rate Inspired O2 Tidal Volume Spontaneous Tidal Vol Peak Inspir Pressure Pressure Support PEEP or CPAP Sodium Potassium Chloride Carbon Dioxide Anion Gap BUN Creatinine Estimated GFR (MDRD) Glucose POC Glucose 260 H 260 H 229 H Calcium Phosphorus Magnesium Iron TIBC Transferrin Ferritin Total Bilirubin AST ALT Alkaline Phosphatase Lactate Dehydrogenase Serum Total Protein Albumin Globulin Albumin/Globulin Ratio Prealbumin Triglycerides Cholesterol LDL Cholesterol, Calc HDL Cholesterol Heart Disease Risk Ratio Vitamin B12 Random Vancomycin B-Hydroxybutyrate 11/12/20 11/12/20 11/13/20 22:40 23:48 00:40 WBC RBC Hgb Hct MCV MCH MCHC RDW Plt Count MPV Neutrophils % (Manual) Band Neuts % (Manual) Lymphocytes % (Manual) Monocytes % (Manual) Metamyelocytes % (Man) Myelocytes % Nucleated RBCs # (Man) Diff Path Review Toxic Granulation Dohle Bodies Plt Morphology Comment Polychromasia Microcytosis PT INR APTT Fibrinogen Fibrin Degrad Products Fibrin Degrad Prod, Qt D-Dimer Specimen Type Puncture Site Bicarbonate Actual ABG pH ABG pCO2 ABG pO2 ABG O2 Sat (Measured) ABG O2 Content ABG Base Excess ABG Hematocrit ABG Hemoglobin ABG Oxyhemoglobin ABG Carboxyhemoglobin ABG Methemoglobin ABG Deoxyhemoglobin Trevor Test A-a O2 Gradient Ionized Calcium Mode of Support % Minute Volume Mechanical Rate Spontaneous Rate Inspired O2 Tidal Volume Spontaneous Tidal Vol Peak Inspir Pressure Pressure Support PEEP or CPAP Sodium 140 Potassium 3.3 L Chloride 102 Carbon Dioxide 24 Anion Gap 17 BUN 42 H Creatinine 3.68 H Estimated GFR (MDRD) 15 Glucose 231 H POC Glucose 233 H 210 H Calcium 7.5 L Phosphorus Magnesium Iron TIBC Transferrin Ferritin Total Bilirubin AST ALT Alkaline Phosphatase Lactate Dehydrogenase Serum Total Protein Albumin Globulin Albumin/Globulin Ratio Prealbumin Triglycerides Cholesterol LDL Cholesterol, Calc HDL Cholesterol Heart Disease Risk Ratio Vitamin B12 Random Vancomycin B-Hydroxybutyrate 11/13/20 11/13/20 11/13/20 01:43 03:40 03:40 WBC RBC Hgb Hct MCV MCH MCHC RDW Plt Count MPV Neutrophils % (Manual) Band Neuts % (Manual) Lymphocytes % (Manual) Monocytes % (Manual) Metamyelocytes % (Man) Myelocytes % Nucleated RBCs # (Man) Diff Path Review Toxic Granulation Dohle Bodies Plt Morphology Comment Polychromasia Microcytosis PT INR APTT Fibrinogen Fibrin Degrad Products Fibrin Degrad Prod, Qt D-Dimer Specimen Type Puncture Site Bicarbonate Actual ABG pH ABG pCO2 ABG pO2 ABG O2 Sat (Measured) ABG O2 Content ABG Base Excess ABG Hematocrit ABG Hemoglobin ABG Oxyhemoglobin ABG Carboxyhemoglobin ABG Methemoglobin ABG Deoxyhemoglobin Trevor Test A-a O2 Gradient Ionized Calcium Mode of Support % Minute Volume Mechanical Rate Spontaneous Rate Inspired O2 Tidal Volume Spontaneous Tidal Vol Peak Inspir Pressure Pressure Support PEEP or CPAP Sodium 137 Potassium 3.8 Chloride 98 Carbon Dioxide 22 Anion Gap 21 H BUN 50 H Creatinine 3.82 H Estimated GFR (MDRD) 15 Glucose 340 H POC Glucose 198 H Calcium 7.7 L Phosphorus 1.9 L Magnesium 1.7 Iron TIBC Transferrin Ferritin Total Bilirubin 0.9 AST 402 H ALT 269 H Alkaline Phosphatase 100 Lactate Dehydrogenase Serum Total Protein 5.6 L Albumin 3.2 L Globulin 2.4 Albumin/Globulin Ratio 1.3 Prealbumin Triglycerides 176 H Cholesterol 53 LDL Cholesterol, Calc TNP HDL Cholesterol Less than 8 Heart Disease Risk Ratio TNP Vitamin B12 Random Vancomycin B-Hydroxybutyrate 11/13/20 11/13/20 11/13/20 03:40 03:40 03:40 WBC 5.8 RBC 3.50 L Hgb 8.9 L Hct 26.7 L MCV 76.3 L MCH 25.3 L MCHC 33.2 RDW 13.9 Plt Count 37 L MPV 14.0 H Neutrophils % (Manual) 68 Band Neuts % (Manual) 16 H Lymphocytes % (Manual) 6 L Monocytes % (Manual) 10 Metamyelocytes % (Man) Myelocytes % Nucleated RBCs # (Man) Diff Path Review Toxic Granulation Dohle Bodies Plt Morphology Comment Appears Decreased L Polychromasia Microcytosis PT 16.6 H INR 1.3 APTT 33.9 Fibrinogen Fibrin Degrad Products Fibrin Degrad Prod, Qt D-Dimer Specimen Type Puncture Site Bicarbonate Actual ABG pH ABG pCO2 ABG pO2 ABG O2 Sat (Measured) ABG O2 Content ABG Base Excess ABG Hematocrit ABG Hemoglobin ABG Oxyhemoglobin ABG Carboxyhemoglobin ABG Methemoglobin ABG Deoxyhemoglobin Trevor Test A-a O2 Gradient Ionized Calcium Mode of Support % Minute Volume Mechanical Rate Spontaneous Rate Inspired O2 Tidal Volume Spontaneous Tidal Vol Peak Inspir Pressure Pressure Support PEEP or CPAP Sodium Potassium Chloride Carbon Dioxide Anion Gap BUN Creatinine Estimated GFR (MDRD) Glucose POC Glucose Calcium Phosphorus Magnesium Iron TIBC Transferrin Ferritin Total Bilirubin AST ALT Alkaline Phosphatase Lactate Dehydrogenase Serum Total Protein Albumin Globulin Albumin/Globulin Ratio Prealbumin 5.0 L Triglycerides Cholesterol LDL Cholesterol, Calc HDL Cholesterol Heart Disease Risk Ratio Vitamin B12 Random Vancomycin B-Hydroxybutyrate 11/13/20 11/13/20 11/13/20 07:09 11:51 14:59 WBC RBC Hgb Hct MCV MCH MCHC RDW Plt Count MPV Neutrophils % (Manual) Band Neuts % (Manual) Lymphocytes % (Manual) Monocytes % (Manual) Metamyelocytes % (Man) Myelocytes % Nucleated RBCs # (Man) Diff Path Review Toxic Granulation Dohle Bodies Plt Morphology Comment Polychromasia Microcytosis PT INR APTT Fibrinogen Fibrin Degrad Products Fibrin Degrad Prod, Qt D-Dimer Specimen Type ARTERIAL Puncture Site Arterial Line Bicarbonate Actual 18.6 L ABG pH 7.54 H ABG pCO2 22.4 L* ABG pO2 95.5 H ABG O2 Sat (Measured) 97.5 ABG O2 Content 12.6 L ABG Base Excess -3.0 L ABG Hematocrit 27.0 L ABG Hemoglobin 9.1 L ABG Oxyhemoglobin 96.9 ABG Carboxyhemoglobin 0.3 ABG Methemoglobin 0.30 ABG Deoxyhemoglobin 2.5 Trevor Test Not Reportable A-a O2 Gradient 104.660 H Ionized Calcium 0.96 L Mode of Support SIMV % Minute Volume 11.4 Mechanical Rate 8 Spontaneous Rate 28 Inspired O2 32 Tidal Volume 500 Spontaneous Tidal Vol 356 Peak Inspir Pressure Pressure Support 12 PEEP or CPAP 5.0 Sodium 129 L Potassium 3.53 L Chloride 99 Carbon Dioxide Anion Gap BUN Creatinine Estimated GFR (MDRD) Glucose POC Glucose 326 H 181 H Calcium Phosphorus Magnesium Iron TIBC Transferrin Ferritin Total Bilirubin AST ALT Alkaline Phosphatase Lactate Dehydrogenase Serum Total Protein Albumin Globulin Albumin/Globulin Ratio Prealbumin Triglycerides Cholesterol LDL Cholesterol, Calc HDL Cholesterol Heart Disease Risk Ratio Vitamin B12 Random Vancomycin B-Hydroxybutyrate 11/13/20 11/13/20 11/13/20 15:02 16:48 17:44 WBC RBC Hgb Hct MCV MCH MCHC RDW Plt Count MPV Neutrophils % (Manual) Band Neuts % (Manual) Lymphocytes % (Manual) Monocytes % (Manual) Metamyelocytes % (Man) Myelocytes % Nucleated RBCs # (Man) Diff Path Review Toxic Granulation Dohle Bodies Plt Morphology Comment Polychromasia Microcytosis PT INR APTT Fibrinogen Fibrin Degrad Products Fibrin Degrad Prod, Qt D-Dimer Specimen Type Puncture Site Bicarbonate Actual ABG pH ABG pCO2 ABG pO2 ABG O2 Sat (Measured) ABG O2 Content ABG Base Excess ABG Hematocrit ABG Hemoglobin ABG Oxyhemoglobin ABG Carboxyhemoglobin ABG Methemoglobin ABG Deoxyhemoglobin Trevor Test A-a O2 Gradient Ionized Calcium Mode of Support % Minute Volume Mechanical Rate Spontaneous Rate Inspired O2 Tidal Volume Spontaneous Tidal Vol Peak Inspir Pressure Pressure Support PEEP or CPAP Sodium 141 Potassium 3.1 L Chloride 100 Carbon Dioxide 23 Anion Gap 21 H BUN 32 H Creatinine 2.69 H Estimated GFR (MDRD) 22 Glucose 169 H POC Glucose 159 H 160 H Calcium 8.2 Phosphorus Magnesium Iron TIBC Transferrin Ferritin Total Bilirubin AST ALT Alkaline Phosphatase Lactate Dehydrogenase Serum Total Protein Albumin Globulin Albumin/Globulin Ratio Prealbumin Triglycerides Cholesterol LDL Cholesterol, Calc HDL Cholesterol Heart Disease Risk Ratio Vitamin B12 Random Vancomycin B-Hydroxybutyrate - ABG Interpretation ABG Results: POC Bicarbonate Calc 16.3 mmol/L (22.0-28.0) L 11/09/20 07:29 ABG pH 7.54 (7.35-7.45) H 11/13/20 07:09 ABG pCO2 22.4 mmHg (35.0-45.0) L* 11/13/20 07:09 ABG Base Excess -3.0 mEq/L (-2.0 to +3.0) L 11/13/20 07:09 - Radiology Interpretation Chest x-ray Additional comments: no acute infiltrates, lines and tubes in place CCU Progress Note: A/P - Time Spent with Patient Time with Patient: greater than 50 minutes - Plan Plan: Assess: Hypoxemic resp failure, airway protection with altered mentation, on sedation VÍCTOR requiring dialysis Thrombocytopenia, Hit dilshad pending and DIC positive results No acute bleeding Obesity Cyanosis of the left toes Plan Continue argatroban until we know status of HIT dilshad, then determine necessity Sedation holiday once electrolytes and renal status improved Wean ventilator as tolerated Monitor for further thrombotic events or bleeding Glycemic control per primary team Stress ulcer ppx
[2020-11-13 18:23] LABS: Potassium 3.3 mmol/L (3.5-5.1)
[2020-11-13] MEDS: Clotrimazole 2% 3 Day Vag Cr 22.2 GM TUBE VAG SCH (20:36)
[2020-11-14] MEDS: Propofol 1,000 MG/100 ML VIAL IV PRN ×4 (02:15→21:35)
[2020-11-14] MEDS: Hydrocortisone Sod Succ/PF 100 mg/2 ml Vial IVP SCH ×4 (02:51→20:11)
[2020-11-14 05:15] LABS: Platelet Count 23 thou/uL (130-400)
[2020-11-14 05:20] LABS: Phosphorus 1.6 mg/dL (2.3-4.7)
[2020-11-14 05:22] LABS: ALT (SGPT) 335 U/L (8-55); AST (SGOT) 377 U/L (5-34); Alkaline Phosphatase 117 U/L (40-110); Anion Gap 18 mmol/L (10-20); BUN (Urea Nitrogen) 51 mg/dL (9.8-20.1); Bilirubin, Total 0.5 mg/dL (0.2-1.2); Calc. Creatinine Clearance 27 mL/min (70-130); Calcium 7.8 mg/dL (7.8-10.44); Carbon Dioxide 21 mmol/L (22-29); Chloride 99 mmol/L (98-107); Cholesterol 58 mg/dl (< 200 Desired); Globulin 2.7 g/dL (2.4-3.5); Glucose 292 mg/dL (70-105); HDL Cholesterol Less than 8 mg/dL (>60 Neg Risk); Magnesium 1.6 mg/dL (1.6-2.6); Potassium 3.4 mmol/L (3.5-5.1); Protein, Total 5.7 g/dL (6.0-8.3); Sodium 135 mmol/L (136-145); Triglycerides 150 mg/dL (Less than 150)
[2020-11-14] MEDS ORDERED: Potassium Phosphate 30 MMOL in Sodium Chloride 0.9% 500 ML IVPB SCH (05:30)
[2020-11-14 05:32] LABS: Cardiac Risk 7.4 (Less than 4.5); LDL Cholesterol, Calculated 19 mg/dL
[2020-11-14] MEDS ORDERED: Potassium Phosphate 15 MMOL in Sodium Chloride 0.9% 250 ML 250 ML IVPB SCH (05:45)
[2020-11-14] MEDS: metroNIDAZOLE 500 MG in Premix Bag 1 BAG IVPB SCH ×3 (05:45→22:51)
[2020-11-14 06:41] LABS: Band 18 % (5-11); Hemoglobin 10.2 g/dL (12.0-16.0); Lymphocytes 18 % (21-51); MDiff Complete? YES; Mean Corpuscular Hemoglobin 24.9 pg (27.0-31.0); Mean Corpuscular Volume 75.7 fL (78.0-98.0); Mean Platelet Volume 14.4 fL (7.4-10.4); Monocytes 5 % (0-10); Neutrophil 59 % (42-75); Nucleated RBC 1 % (0); Platelet Morphology Comment Appears Decreased; White Blood Cell (WBC) Count 10.7 thou/uL (4.8-10.8)
[2020-11-14 07:11] LABS: Prothrombin Time 81.3 sec (12.0-14.7)
[2020-11-14] MEDS: Norepinephrine 8 MG/0.9% NS 250 ML IVPB SCH (07:15)
[2020-11-14 07:31] LABS: INR-International Normal Ratio 9.9
--- NOTE | 2020-11-14 07:37 | PDOC.FM ---
- Subjective Subjective: No acute events overnight. pt remains intubated - Objective Vital Signs & Weight: Vital Signs (12 hours) Pulse BP Pulse Ox 11/14/20 02:39 59 L 137/75 11/13/20 22:21 64 103/61 11/13/20 20:00 100 Weight Admit Weight 93.599 kg Weight 101.3 kg Most Recent Monitor Data Heart Rate from ECG 59 NIBP 129/79 NIBP BP-Mean 95 Respiration from ECG 27 SpO2 100 I&O: 11/13/20 11/14/20 11/15/20 06:59 06:59 06:59 Intake Total 395.2 3509.7 Output Total 0 20 Balance 395.2 3489.7 Result Diagrams: 11/14/20 04:01 11/14/20 04:01 Phys Exam - Physical Examination Constitutional: NAD HEENT: moist MMs Neck: no JVD, supple Respiratory: no wheezing bilat diffuse course breath sounds Cardiovascular: RRR, no significant murmur Gastrointestinal: soft no bowel sounds Musculoskeletal: no edema, pulses present sedated Skin: no rash, normal turgor Dx/Plan - Plan Plan: 60 yo F admitted to CCU for DKA, lactic acidosis, and sepsis: Neuro - Acute encephalopathy likely 2/2 DKA - CT brain unremarkable - sedated on propofol CV - was off pressors then levophed restarted once propofol was started for BP maintenance - L femoral art line in place (11/11) - Hx of HTN: hold home BP meds Resp - Metabolic acidosis 2/2 w/ partial compensated respiratory alkalosis - Vent : Peep 5, FiO2 32% - screening covid neg - Pulm consulted: appreciate recs. GI/Nutrition - Abdominal pain s/p colonoscopy: minimal findings in distal/terminal ileum - New onset diarrhea: liquid stools, rectal tube placed. - Diet: NPO, strict. TPN started 11/12, pt on insulin drip - GI ppx: protonix - OG tube in place - negative gastric occult blood - positive fecal occult blood. Rectal tube had to be placed 3x, possible traumatic placement Renal/Fluids/Electrolytes - Hypernatremia: resolved - continue to monitor urine output -nephro on board, dialysis per their mgmt Endo - DKA: improving, moderate SSI. Repeat beta-hydroxybutyrate 3.13 on 11/12. * continue insulin drip. Will likely need to continue until TPN is stopped. * will call pharmacy for assistance with insulin titration in TPN bag - Lactic acidosis: lactate ID - Sepsis, unknown source: treat w/ empiric abx as detailed below - Diarrhea: cultures, viral tests, O&P sent. So far negative except +lactoferrin and + FOBT. Rectal tube placed. - Candiduria: treated w/ fluconazole - Vaginal bleeding, setting of uterine mass: etiology fibroid vs endometrial cancer vs other. - Pt already on appropriate antimicrobials for potential vaginal infection, 3 day topical antifungal started 11/13 Heme - Microcytic anemia: ordered anemia labs, 2 point drop in hemoglobin from yesterday. Argatroban can cause decrease in hemoglobin and hematocrit. - Thrombocytopenia: DIC is likely culprit, Patient on agatroban given concern for HIT. Platelets decreased again today to 23. Pending HIT labs Antimicrobials - flagyl 500mg - fluconazole 200mg IV loading dose given followed by 100mg daily for candiduria - cefepime 2g given, continue 500 mg daily for renal dosing - clotrimazole: topical/vaginal 3 day course started 11/13 - vancomycin DCd, 11/09-11/12 - Blood cultures NGTD - Urine culture showing yeast 75-100k cfu Code: FULL, confirmed w/ family. IVF: NS DVT ppx: SCDs, argatroban GI ppx: protonix Tubes/Lines: PIV, ET & OG tube (11/09), Mendez (11/09), R fem trialysis cath & L subclavian CVC (11/11), Rectal tube (11/10), L fem Art line (11/11)
[2020-11-14 07:39] LABS: Actual Bicarbonate (HCO3a) 13.7 mEq/L (22-28); Base Excess (BEa) -8.1 mEq/L (-2.0 to +3.0); Calcium, Ionized (arterial) 0.81 mmol/L (1.12-1.30); Carboxyhemoglobin (COHb) 0.4 gm% (0.0-3.0); Hemoglobin (Hb) 7.5 g/dL (12.0-16.0); O2 Tension (PaO2), arterial 106.4 mmHg (> 80.0); Potassium - ABG Lab 2.06 mmol/L (3.70-5.30); pH, Arterial 7.51 (7.35-7.45)
[2020-11-14 07:50] LABS: CO2 Tension 17.5 mmHg (35.0-45.0)
[2020-11-14 07:51] LABS: ALV-art Gradient 99.885 mmHg (0-20); Puncture Site Arterial Line
[2020-11-14 08:10] LABS: Prothrombin Time 85.5 sec (12.0-14.7)
[2020-11-14 08:11] LABS: PTT 110.4 sec (22.9-36.1)
[2020-11-14 08:16] LABS: INR-International Normal Ratio 10.5
[2020-11-14] MEDS: Pantoprazole 40 MG VIAL IVP SCH (09:56)
--- NOTE | 2020-11-14 09:59 | PDOC.EVN ---
Event Note - Event Note Event Note: INR/PT/PTT elevated this AM. Platelets 23. Pt has no known new bleeding. Plan: -hold argatroban -pharmacy called and took verbal orders to start argatroban protocol for restarting and following drug-monitoring lab draws
[2020-11-14] MEDS ORDERED: Argatroban (Non -ESRD) 250 MG in Sodium Chloride 0.9% 250 ML 250 ML IVPB SCH (10:00)
--- NOTE | 2020-11-14 10:30 | RAD ---
Exam: Chest one view HISTORY:Ventilated patient. Respiratory distress. Pneumonia Comparison: 11/13/2020 FINDINGS: Lines and tubes: Endotracheal tube, nasogastric tube and left-sided vascular catheter are again demon strated Cardiac silhouette: Normal Aorta: Unremarkable Pulmonary vessels: Normal Costophrenic angles: Clear LUNGS: Previously noted subsegmental atelectasis does remain, the left lung base. Pneumothorax: None Osseous abnormalities: None IMPRESSION: No significant interval change.
[2020-11-14] MEDS: HUMULIN R 100 UNITS in Sodium Chloride 0.9% 100 ML IVPB SCH (10:48)
--- NOTE | 2020-11-14 11:43 | PRG ---
DATE OF SERVICE: 11/14/2020 SUBJECTIVE: Ms. Leon is a 60-year-old black female, followed up by the [facility]al Service for her acute kidney injury as well as for the hypernatremia. Due to issues of volume overload and hyperkalemia, the patient was initiated on dialysis. She has been tolerating dialysis. She underwent a 3-hour hemodialysis yesterday. No acute events noted last night. Mentation remains unimproved with this patient. CT scan of the brain showed no acute intracranial abnormality. Please note, she is on empiric IV antibiotics. OBJECTIVE: VITAL SIGNS: Blood pressure 144/63, heart rate 73, O2 saturation is at 99%. GENERAL: The patient is unresponsive, intubated on ventilator support, obese. SKIN: Adequate turgor. HEENT: She has slightly pale conjunctivae. Anicteric sclerae. NECK: No neck mass. No carotid bruits. No JVD. CHEST: No deformities. LUNGS: Decreased breath sounds. HEART: Normal sinus rhythm. No murmur. No gallops. No rubs. ABDOMEN: Globular, soft, nontender. EXTREMITIES: Trace edema. MEDICATIONS: Medications of November 14, 2020, reviewed. LABORATORY DATA: Laboratories of November 14, 2020; white count 10.7, hemoglobin 10.2. Sodium 135, potassium 3.4, chloride 99, carbon dioxide 21, BUN 51, creatinine 3.52, glucose 292, calcium 7.8, AST 377, ALT 335. Phosphorus 1.6. ASSESSMENT AND PLAN: 1. Acute kidney injury. Most likely has superimposed acute tubular necrosis. The patient undergoing hemodialysis. No indication for any dialysis today. 2. Mild hypophosphatemia. We will simply observe this. Dialysis is on hold today. If phosphorus further worsens, we can consider phosphate replacement with this patient. 3. Decreased mentation-secondary to a presumed metabolic encephalopathy. 4. Pneumonia, on empiric IV antibiotics. Overall prognosis remains guarded. Job ID: [id number]
--- NOTE | 2020-11-14 12:01 | CON ---
DATE OF CONSULTATION: Please see the note from Dr. Snow, for which I agreed. The patient was seen, evaluated, discussed, and examined with the residents by bedside. issue on her overnight, looks like she is developing DIC. Not obviously actively bleeding. There is a little bit of vaginal bleeding and a little bit of blood per rectum. Hemoglobin is down to 8.9 that is pretty stable from the last few days, platelets are at 37, which is down somewhat, although again is on a drastic change. INR is up to 10.5 this morning. Fibrinogen is all high. D-dimer 12.2, though obviously in DIC. Blood gas this morning looked fine. Sugar is not bad. Phosphorus is still just a little bit low. Renal is following. LFTs are elevated as well. So basically, supportive care, she has a little bit of cyanotic toes on her left foot, so she is still on anticoagulation. Levophed was added yesterday after blood pressure drop. We are trying to get her sugar a little bit better controlled with the insulin in her TPN. Exam is fairly unchanged. Still intubated with coarse breath sounds, very poor prognosis obviously and will definitely let family know that holding off on FFP until we can determine if she is actively bleeding or not, but did sound like per critical care doctor, we are stopping her anticoagulant and HIT antibody. Lab panel still pending as well. Job ID: [id number]
[2020-11-14 14:01] LABS: Prothrombin Time 47.5 sec (12.0-14.7)
[2020-11-14 14:02] LABS: PTT 88.4 sec (22.9-36.1)
--- NOTE | 2020-11-14 14:55 | PDOC.PULCC ---
CCU Progress Note: Subj/Obj - Subjective Date: 11/14/20 Time: 13:31 Subjective: Remains critically ill on mechanical ventilation and sedated. She had onset of sinus bradycardia today on propofol, EKG was performed and requested that propofol be decreased. Met with youngest son at the bedside with family practice resident and explained clinical issues - Objective Allergies/Adverse Reactions: Allergies Allergy/AdvReac Type Severity Reaction Status Date / Time Penicillins Allergy Verified 08/17/19 16:28 Medications: Current Medications Clotrimazole (Clotrimazole 2% 3 Day Vag Cr 22.2 Gm Tube) 2 gm VAG HS [facility] Stop: 11/15/20 21:01 Last Admin: 11/13/20 20:36 Dose: 2 gm Documented by: Dextrose/Water (Dextrose 50% Abboject 50 Ml Syringe) 25 gm SLOW IVP PRN PRN PRN Reason: Hypoglycemia Glucagon (Glucagon 1 Mg/Ml Vial) 1 mg IM PRN PRN PRN Reason: Hypoglycemia Hydrocortisone Sodium Succinate (Hydrocortisone Sod Succ/Pf 100 Mg/2 Ml Vial) 50 mg IVP 0200,0800,1400,2000 [facility] Last Admin: 11/14/20 13:50 Dose: 50 mg Documented by: Fentanyl (Fentanyl Cadd) 100 mls @ 0 mls/hr IV INF [facility]; Protocol Stop: 12/09/20 10:00 Last Admin: 11/11/20 06:43 Dose: 100 mls Documented by: Fentanyl Citrate (Fentanyl Bolus) 250 mls @ 0 mls/hr IVPB PRN PRN PRN Reason: Breakthrough pain/agitation Stop: 12/09/20 10:00 Norepinephrine Bitartrate (Levophed) 250 mls @ 0 mls/hr IVPB INF [facility]; Protocol Last Admin: 11/14/20 07:15 Dose: 250 mls Documented by: Vasopressin 20 unit/ Sodium (Chloride) 51 mls @ 6 mls/hr IV INF [facility] Last Admin: 11/11/20 16:56 Dose: 51 mls Documented by: Metronidazole 500 mg/ Device 100 mls @ 100 mls/hr IVPB Q8HR [facility] Last Admin: 11/14/20 14:07 Dose: 100 mls Documented by: Cefepime HCl 0.5 gm/Miscellaneous Medication 1 each/ Sodium Chloride 100 mls @ 0 mls/hr IVPB 1600 [facility] Last Admin: 11/13/20 16:17 Dose: 100 mls Documented by: Fat Emulsion Intravenous 250 ml/ Sodium Acetate 100 meq/Calcium Gluconate 20 meq/Multivitamins 10 ml/ Chromium/Copper/Manganese/Zinc 10 ml/Insulin Human Regular 12 units / Dextrose/Water/ Sterile Water/ Amino Acids 2,363.5983 mls @ 98.483 mls/hr IV 1400 [facility] Last Admin: 11/13/20 15:54 Dose: 2,363.5983 mls Documented by: Fluconazole/Sodium Chloride 100 mg/ Miscellaneous Medication 50 mls @ 100 mls/hr IVPB 1700 [facility] Last Admin: 11/13/20 17:00 Dose: 50 mls Documented by: Insulin Human Regular 100 (units/ Sodium Chloride) 101 mls @ 0 mls/hr IVPB INF [facility]; Protocol Last Admin: 11/14/20 10:48 Dose: 101 mls Documented by: Argatroban 250 mg/ Sodium (Chloride) 252.5 mls @ 0 mls/hr IVPB INF [facility]; Prot ocol Lorazepam (Lorazepam 2 Mg/Ml Vial) 2 mg SLOW IVP Q1H PRN PRN Reason: Breakthrough agitation Stop: 12/09/20 10:00 Last Admin: 11/13/20 11:20 Dose: 2 mg Documented by: Morphine Sulfate (Morphine 2 Mg/Ml Vial) 2 mg SLOW IVP Q1H PRN PRN Reason: Breakthrough Pain/Agitation Stop: 12/09/20 10:00 Last Admin: 11/13/20 11:20 Dose: 2 mg Documented by: Discontinue Previous Narcotic Pain Medications And Benzodiazepines 1 each FS .ONE [facility] Stop: 12/09/20 10:00 Pantoprazole Sodium (Pantoprazole 40 Mg Vial) 40 mg IVP DAILY [facility] Last Admin: 11/14/20 09:56 Dose: 40 mg Documented by: Propofol (Propofol 1,000 Mg/100 Ml Vial) 1,000 mg IV INF PRN; Protocol PRN Reason: TO ACHIEVE GOAL RASS Stop: 12/09/20 10:00 Last Admin: 11/14/20 14:01 Dose: 1,000 mg Documented by: Propofol (Propofol Bolus 1,000 Mg/100 Ml Vial) 20 mg IV Q5MIN PRN PRN Reason: BREAKTHROUGH AGITATION Stop: 12/09/20 10:00 Sodium Chloride (Flush - Normal Saline 10 Ml Syringe) 10 ml IVF PRN PRN PRN Reason: Saline Flush MAR Reviewed: Yes Vital Signs and I&O: Vital Signs Temp 99.1 F 11/11/20 00:00 Pulse 57 L 11/14/20 14:20 Resp 27 H 11/12/20 06:00 BP 137/75 11/14/20 02:39 Pulse Ox 100 11/13/20 20:00 Intake & Output 11/13/20 11/14/20 11/14/20 18:59 06:59 18:59 Intake Total 1471 8.7 Output Total 20 0 58 Balance 1451 2038.7 -58 Weight 223 lb 5.252 oz Intake: Intake, IV Amount 1471 8.7 Argatroban (ESRD) 250 mg 37 138 In Sodium Chloride 0.9% 250 ML 247.5 ml @ 2 MCG/ KG/MIN 11.976 mls/hr IVPB INF [facility] Rx#:[id number] Cefepime 0.5 gm Admixture 100 Fee 1 each In Sodium Chloride 0.9% 100 ml @ 0 mls/hr IVPB 1600 [facility] Rx#: [id number] Fat Emulsion 250 ml 1084 1126 Sodium Acetate 2 mEq/ml 100 meq Calcium Gluconate 20 meq Multivitamins, Adult 10 ml Multitrace-4 10 ml Insulin Regular 12 units In Dextrose 70% in Water 429 ml In Sterile Water Injection 571 ml In Premasol 10% 1,000 ml @ 98.483 mls/hr IV 1400 [facility] Rx#:[id number] Fentanyl BOLUS 250 ml @ 0 As Directed IVPB PRN PRN Rx#:[id number] Fentanyl CADD 100 ml @ 0 Per Protocol IV INF [facility] Rx#:[id number] Humulin R 100 units In 93.7 Sodium Chloride 0.9% 100 ml @ Titrate IVPB INF [facility] Rx#:[id number] Norepinephrine 8 MG/0.9% 226 NS 250 ml @ Titrate IVPB INF [facility] Rx#:[id number] Propofol 1000 mg (See 100 166 Protocol) IV INF PRN Rx#: [id number] metroNIDAZOLE 500 mg In 150 289 Premix Bag 1 bag @ 100 mls/hr IVPB Q8HR [facility] Rx#: [id number] Oral 0 Output: Output, Mendez 20 0 33 Stool 0 25 Emesis 0 0 Other: Voiding Method Indwelling Catheter Indwelling Catheter Spontaneous Breathing Test: other (Ventilator settings assist control volume control 420 rate of 12 PEEP 5 ,32%) CCU Progress Note: Exam - Physical Exam HEENT: PERRLA, oral pharynx no lesions Deviation from normal: Oral endotracheal tube orogastric tube with brown bilious exudate Neck: no nodes Cardiovascular: RRR Deviation from normal: Bradycardia on propofol Respiratory: rales Focused Respiratory Location: decreased breath sounds: Right, Lower Gastrointestinal: soft Deviation from normal: Distended with high gastric output Musculoskeletal: edema present Deviation from normal: Sedated and nonresponsive CCU Progress Note: Data - Labs Result Diagrams: 11/14/20 04:01 11/14/20 04:01 Lab results: Laboratory Results 11/12/20 11/12/20 11/12/20 15:44 17:00 18:41 WBC RBC Hgb Hct MCV MCH MCHC RDW Plt Count MPV Neutrophils % (Manual) Band Neuts % (Manual) Lymphocytes % (Manual) Monocytes % (Manual) Lymphocytes # Nucleated RBCs # (Man) Plt Morphology Comment PT INR APTT Specimen Type Puncture Site Bicarbonate Actual ABG pH ABG pCO2 ABG pO2 ABG O2 Sat (Measured) ABG O2 Content ABG Base Excess ABG Hematocrit ABG Hemoglobin ABG Oxyhemoglobin ABG Carboxyhemoglobin ABG Methemoglobin ABG Deoxyhemoglobin Trevor Test A-a O2 Gradient Ionized Calcium Mode of Support % Minute Volume Mechanical Rate Spontaneous Rate Inspired O2 Tidal Volume Spontaneous Tidal Vol Pressure Support PEEP or CPAP Sodium Potassium Chloride Carbon Dioxide Anion Gap BUN Creatinine Estimated GFR (MDRD) Glucose POC Glucose 268 H 272 H 295 H Calcium Phosphorus Magnesium Total Bilirubin AST ALT Alkaline Phosphatase Serum Total Protein Albumin Globulin Albumin/Globulin Ratio Prealbumin Triglycerides Cholesterol LDL Cholesterol, Calc HDL Cholesterol Heart Disease Risk Ratio 11/12/20 11/12/20 11/12/20 19:41 20:44 21:51 WBC RBC Hgb Hct MCV MCH MCHC RDW Plt Count MPV Neutrophils % (Manual) Band Neuts % (Manual) Lymphocytes % (Manual) Monocytes % (Manual) Lymphocytes # Nucleated RBCs # (Man) Plt Morphology Comment PT INR APTT Specimen Type Puncture Site Bicarbonate Actual ABG pH ABG pCO2 ABG pO2 ABG O2 Sat (Measured) ABG O2 Content ABG Base Excess ABG Hematocrit ABG Hemoglobin ABG Oxyhemoglobin ABG Carboxyhemoglobin ABG Methemoglobin ABG Deoxyhemoglobin Trevor Test A-a O2 Gradient Ionized Calcium Mode of Support % Minute Volume Mechanical Rate Spontaneous Rate Inspired O2 Tidal Volume Spontaneous Tidal Vol Pressure Support PEEP or CPAP Sodium Potassium Chloride Carbon Dioxide Anion Gap BUN Creatinine Estimated GFR (MDRD) Glucose POC Glucose 260 H 260 H 229 H Calcium Phosphorus Magnesium Total Bilirubin AST ALT Alkaline Phosphatase Serum Total Protein Albumin Globulin Albumin/Globulin Ratio Prealbumin Triglycerides Cholesterol LDL Cholesterol, Calc HDL Cholesterol Heart Disease Risk Ratio 11/12/20 11/12/20 11/13/20 22:40 23:48 00:40 WBC RBC Hgb Hct MCV MCH MCHC RDW Plt Count MPV Neutrophils % (Manual) Band Neuts % (Manual) Lymphocytes % (Manual) Monocytes % (Manual) Lymphocytes # Nucleated RBCs # (Man) Plt Morphology Comment PT INR APTT Specimen Type Puncture Site Bicarbonate Actual ABG pH ABG pCO2 ABG pO2 ABG O2 Sat (Measured) ABG O2 Content ABG Base Excess ABG Hematocrit ABG Hemoglobin ABG Oxyhemoglobin ABG Carboxyhemoglobin ABG Methemoglobin ABG Deoxyhemoglobin Trevor Test A-a O2 Gradient Ionized Calcium Mode of Support % Minute Volume Mechanical Rate Spontaneous Rate Inspired O2 Tidal Volume Spontaneous Tidal Vol Pressure Support PEEP or CPAP Sodium 140 Potassium 3.3 L Chloride 102 Carbon Dioxide 24 Anion Gap 17 BUN 42 H Creatinine 3.68 H Estimated GFR (MDRD) 15 Glucose 231 H POC Glucose 233 H 210 H Calcium 7.5 L Phosphorus Magnesium Total Bilirubin AST ALT Alkaline Phosphatase Serum Total Protein Albumin Globulin Albumin/Globulin Ratio Prealbumin Triglycerides Cholesterol LDL Cholesterol, Calc HDL Cholesterol Heart Disease Risk Ratio 11/13/20 11/13/20 11/13/20 01:43 03:40 03:40 WBC RBC Hgb Hct MCV MCH MCHC RDW Plt Count MPV Neutrophils % (Manual) Band Neuts % (Manual) Lymphocytes % (Manual) Monocytes % (Manual) Lymphocytes # Nucleated RBCs # (Man) Plt Morphology Comment PT INR APTT Specimen Type Puncture Site Bicarbonate Actual ABG pH ABG pCO2 ABG pO2 ABG O2 Sat (Measured) ABG O2 Content ABG Base Excess ABG Hematocrit ABG Hemoglobin ABG Oxyhemoglobin ABG Carboxyhemoglobin ABG Methemoglobin ABG Deoxyhemoglobin Trevor Test A-a O2 Gradient Ionized Calcium Mode of Support % Minute Volume Mechanical Rate Spontaneous Rate Inspired O2 Tidal Volume Spontaneous Tidal Vol Pressure Support PEEP or CPAP Sodium 137 Potassium 3.8 Chloride 98 Carbon Dioxide 22 Anion Gap 21 H BUN 50 H Creatinine 3.82 H Estimated GFR (MDRD) 15 Glucose 340 H POC Glucose 198 H Calcium 7.7 L Phosphorus 1.9 L Magnesium 1.7 Total Bilirubin 0.9 AST 402 H ALT 269 H Alkaline Phosphatase 100 Serum Total Protein 5.6 L Albumin 3.2 L Globulin 2.4 Albumin/Globulin Ratio 1.3 Prealbumin Triglycerides 176 H Cholesterol 53 LDL Cholesterol, Calc TNP HDL Cholesterol Less than 8 Heart Disease Risk Ratio TNP 11/13/20 11/13/20 11/13/20 03:40 03:40 03:40 WBC 5.8 RBC 3.50 L Hgb 8.9 L Hct 26.7 L MCV 76.3 L MCH 25.3 L MCHC 33.2 RDW 13.9 Plt Count 37 L MPV 14.0 H Neutrophils % (Manual) 68 Band Neuts % (Manual) 16 H Lymphocytes % (Manual) 6 L Monocytes % (Manual) 10 Lymphocytes # Nucleated RBCs # (Man) Plt Morphology Comment Appears Decreased L PT 16.6 H INR 1.3 APTT 33.9 Specimen Type Puncture Site Bicarbonate Actual ABG pH ABG pCO2 ABG pO2 ABG O2 Sat (Measured) ABG O2 Content ABG Base Excess ABG Hematocrit ABG Hemoglobin ABG Oxyhemoglobin ABG Carboxyhemoglobin ABG Methemoglobin ABG Deoxyhemoglobin Trevor Test A-a O2 Gradient Ionized Calcium Mode of Support % Minute Volume Mechanical Rate Spontaneous Rate Inspired O2 Tidal Volume Spontaneous Tidal Vol Pressure Support PEEP or CPAP Sodium Potassium Chloride Carbon Dioxide Anion Gap BUN Creatinine Estimated GFR (MDRD) Glucose POC Glucose Calcium Phosphorus Magnesium Total Bilirubin AST ALT Alkaline Phosphatase Serum Total Protein Albumin Globulin Albumin/Globulin Ratio Prealbumin 5.0 L Triglycerides Cholesterol LDL Cholesterol, Calc HDL Cholesterol Heart Disease Risk Ratio 11/13/20 11/13/20 11/13/20 07:09 11:51 14:59 WBC RBC Hgb Hct MCV MCH MCHC RDW Plt Count MPV Neutrophils % (Manual) Band Neuts % (Manual) Lymphocytes % (Manual) Monocytes % (Manual) Lymphocytes # Nucleated RBCs # (Man) Plt Morphology Comment PT INR APTT Specimen Type ARTERIAL Puncture Site Arterial Line Bicarbonate Actual 18.6 L ABG pH 7.54 H ABG pCO2 22.4 L* ABG pO2 95.5 H ABG O2 Sat (Measured) 97.5 ABG O2 Content 12.6 L ABG Base Excess -3.0 L ABG Hematocrit 27.0 L ABG Hemoglobin 9.1 L ABG Oxyhemoglobin 96.9 ABG Carboxyhemoglobin 0.3 ABG Methemoglobin 0.30 ABG Deoxyhemoglobin 2.5 Trevor Test Not Reportable A-a O2 Gradient 104.660 H Ionized Calcium 0.96 L Mode of Support SIMV % Minute Volume 11.4 Mechanical Rate 8 Spontaneous Rate 28 Inspired O2 32 Tidal Volume 500 Spontaneous Tidal Vol 356 Pressure Support 12 PEEP or CPAP 5.0 Sodium 129 L Potassium 3.53 L Chloride 99 Carbon Dioxide Anion Gap BUN Creatinine Estimated GFR (MDRD) Glucose POC Glucose 326 H 181 H Calcium Phosphorus Magnesium Total Bilirubin AST ALT Alkaline Phosphatase Serum Total Protein Albumin Globulin Albumin/Globulin Ratio Prealbumin Triglycerides Cholesterol LDL Cholesterol, Calc HDL Cholesterol Heart Disease Risk Ratio 11/13/20 11/13/20 11/13/20 15:02 16:48 17:44 WBC RBC Hgb Hct MCV MCH MCHC RDW Plt Count MPV Neutrophils % (Manual) Band Neuts % (Manual) Lymphocytes % (Manual) Monocytes % (Manual) Lymphocytes # Nucleated RBCs # (Man) Plt Morphology Comment PT INR APTT Specimen Type Puncture Site Bicarbonate Actual ABG pH ABG pCO2 ABG pO2 ABG O2 Sat (Measured) ABG O2 Content ABG Base Excess ABG Hematocrit ABG Hemoglobin ABG Oxyhemoglobin ABG Carboxyhemoglobin ABG Methemoglobin ABG Deoxyhemoglobin Trevor Test A-a O2 Gradient Ionized Calcium Mode of Support % Minute Volume Mechanical Rate Spontaneous Rate Inspired O2 Tidal Volume Spontaneous Tidal Vol Pressure Support PEEP or CPAP Sodium 141 Potassium 3.1 L Chloride 100 Carbon Dioxide 23 Anion Gap 21 H BUN 32 H Creatinine 2.69 H Estimated GFR (MDRD) 22 Glucose 169 H POC Glucose 159 H 160 H Calcium 8.2 Phosphorus Magnesium Total Bilirubin AST ALT Alkaline Phosphatase Serum Total Protein Albumin Globulin Albumin/Globulin Ratio Prealbumin Triglycerides Cholesterol LDL Cholesterol, Calc HDL Cholesterol Heart Disease Risk Ratio 11/13/20 11/13/20 11/13/20 17:59 18:25 20:59 WBC RBC Hgb Hct MCV MCH MCHC RDW Plt Count MPV Neutrophils % (Manual) Band Neuts % (Manual) Lymphocytes % (Manual) Monocytes % (Manual) Lymphocytes # Nucleated RBCs # (Man) Plt Morphology Comment PT INR APTT Specimen Type Puncture Site Bicarbonate Actual ABG pH ABG pCO2 ABG pO2 ABG O2 Sat (Measured) ABG O2 Content ABG Base Excess ABG Hematocrit ABG Hemoglobin ABG Oxyhemoglobin ABG Carboxyhemoglobin ABG Methemoglobin ABG Deoxyhemoglobin Trevor Test A-a O2 Gradient Ionized Calcium Mode of Support % Minute Volume Mechanical Rate Spontaneous Rate Inspired O2 Tidal Volume Spontaneous Tidal Vol Pressure Support PEEP or CPAP Sodium Potassium 3.3 L Chloride Carbon Dioxide Anion Gap BUN Creatinine Estimated GFR (MDRD) Glucose POC Glucose 128 H 126 H Calcium Phosphorus Magnesium Total Bilirubin AST ALT Alkaline Phosphatase Serum Total Protein Albumin Globulin Albumin/Globulin Ratio Prealbumin Triglycerides Cholesterol LDL Cholesterol, Calc HDL Cholesterol Heart Disease Risk Ratio 11/13/20 11/13/20 11/13/20 21:49 22:35 23:33 WBC RBC Hgb Hct MCV MCH MCHC RDW Plt Count MPV Neutrophils % (Manual) Band Neuts % (Manual) Lymphocytes % (Manual) Monocytes % (Manual) Lymphocytes # Nucleated RBCs # (Man) Plt Morphology Comment PT INR APTT Specimen Type Puncture Site Bicarbonate Actual ABG pH ABG pCO2 ABG pO2 ABG O2 Sat (Measured) ABG O2 Content ABG Base Excess ABG Hematocrit ABG Hemoglobin ABG Oxyhemoglobin ABG Carboxyhemoglobin ABG Methemoglobin ABG Deoxyhemoglobin Trevor Test A-a O2 Gradient Ionized Calcium Mode of Support % Minute Volume Mechanical Rate Spontaneous Rate Inspired O2 Tidal Volume Spontaneous Tidal Vol Pressure Support PEEP or CPAP Sodium Potassium Chloride Carbon Dioxide Anion Gap BUN Creatinine Estimated GFR (MDRD) Glucose POC Glucose 154 H 151 H 190 H Calcium Phosphorus Magnesium Total Bilirubin AST ALT Alkaline Phosphatase Serum Total Protein Albumin Globulin Albumin/Globulin Ratio Prealbumin Triglycerides Cholesterol LDL Cholesterol, Calc HDL Cholesterol Heart Disease Risk Ratio 11/14/20 11/14/20 11/14/20 00:44 01:41 02:48 WBC RBC Hgb Hct MCV MCH MCHC RDW Plt Count MPV Neutrophils % (Manual) Band Neuts % (Manual) Lymphocytes % (Manual) Monocytes % (Manual) Lymphocytes # Nucleated RBCs # (Man) Plt Morphology Comment PT INR APTT Specimen Type Puncture Site Bicarbonate Actual ABG pH ABG pCO2 ABG pO2 ABG O2 Sat (Measured) ABG O2 Content ABG Base Excess ABG Hematocrit ABG Hemoglobin ABG Oxyhemoglobin ABG Carboxyhemoglobin ABG Methemoglobin ABG Deoxyhemoglobin Trevor Test A-a O2 Gradient Ionized Calcium Mode of Support % Minute Volume Mechanical Rate Spontaneous Rate Inspired O2 Tidal Volume Spontaneous Tidal Vol Pressure Support PEEP or CPAP Sodium Potassium Chloride Carbon Dioxide Anion Gap BUN Creatinine Estimated GFR (MDRD) Glucose POC Glucose 238 H 264 H 283 H Calcium Phosphorus Magnesium Total Bilirubin AST ALT Alkaline Phosphatase Serum Total Protein Albumin Globulin Albumin/Globulin Ratio Prealbumin Triglycerides Cholesterol LDL Cholesterol, Calc HDL Cholesterol Heart Disease Risk Ratio 11/14/20 11/14/20 11/14/20 03:43 04:01 04:01 WBC 10.7 RBC 4.10 L Hgb 10.2 L Hct 31.0 L MCV 75.7 L MCH 24.9 L MCHC 33.0 RDW 14.0 Plt Count 23 L* MPV 14.4 H Neutrophils % (Manual) 59 Band Neuts % (Manual) 18 H Lymphocytes % (Manual) 18 L Monocytes % (Manual) 5 Lymphocytes # Not Reportable Nucleated RBCs # (Man) 1 H Plt Morphology Comment Appears Decreased L PT INR APTT Specimen Type Puncture Site Bicarbonate Actual ABG pH ABG pCO2 ABG pO2 ABG O2 Sat (Measured) ABG O2 Content ABG Base Excess ABG Hematocrit ABG Hemoglobin ABG Oxyhemoglobin ABG Carboxyhemoglobin ABG Methemoglobin ABG Deoxyhemoglobin Trevor Test A-a O2 Gradient Ionized Calcium Mode of Support % Minute Volume Mechanical Rate Spontaneous Rate Inspired O2 Tidal Volume Spontaneous Tidal Vol Pressure Support PEEP or CPAP Sodium 135 L Potassium 3.4 L Chloride 99 Carbon Dioxide 21 L Anion Gap 18 BUN 51 H Creatinine 3.52 H Estimated GFR (MDRD) 16 Glucose 292 H POC Glucose 282 H Calcium 7.8 Phosphorus Magnesium 1.6 Total Bilirubin 0.5 AST 377 H ALT 335 H Alkaline Phosphatase 117 H Serum Total Protein 5.7 L Albumin 3.0 L Globulin 2.7 Albumin/Globulin Ratio 1.1 L Prealbumin Triglycerides 150 Cholesterol 58 LDL Cholesterol, Calc 19 HDL Cholesterol Less than 8 Heart Disease Risk Ratio 7.4 11/14/20 11/14/20 11/14/20 04:01 04:01 04:01 WBC RBC Hgb Hct MCV MCH MCHC RDW Plt Count MPV Neutrophils % (Manual) Band Neuts % (Manual) Lymphocytes % (Manual) Monocytes % (Manual) Lymphocytes # Nucleated RBCs # (Man) Plt Morphology Comment PT 81.3 H INR 9.9 H* APTT 130.0 H* Specimen Type Puncture Site Bicarbonate Actual ABG pH ABG pCO2 ABG pO2 ABG O2 Sat (Measured) ABG O2 Content ABG Base Excess ABG Hematocrit ABG Hemoglobin ABG Oxyhemoglobin ABG Carboxyhemoglobin ABG Methemoglobin ABG Deoxyhemoglobin Trevor Test A-a O2 Gradient Ionized Calcium Mode of Support % Minute Volume Mechanical Rate Spontaneous Rate Inspired O2 Tidal Volume Spontaneous Tidal Vol Pressure Support PEEP or CPAP Sodium Potassium Chloride Carbon Dioxide Anion Gap BUN Creatinine Estimated GFR (MDRD) Glucose POC Glucose Calcium Phosphorus 1.6 L Magnesium Total Bilirubin AST ALT Alkaline Phosphatase Serum Total Protein Albumin Globulin Albumin/Globulin Ratio Prealbumin 7.0 L Triglycerides Cholesterol LDL Cholesterol, Calc HDL Cholesterol Heart Disease Risk Ratio 11/14/20 11/14/20 11/14/20 04:57 05:48 06:35 WBC RBC Hgb Hct MCV MCH MCHC RDW Plt Count MPV Neutrophils % (Manual) Band Neuts % (Manual) Lymphocytes % (Manual) Monocytes % (Manual) Lymphocytes # Nucleated RBCs # (Man) Plt Morphology Comment PT INR APTT Specimen Type Puncture Site Bicarbonate Actual ABG pH ABG pCO2 ABG pO2 ABG O2 Sat (Measured) ABG O2 Content ABG Base Excess ABG Hematocrit ABG Hemoglobin ABG Oxyhemoglobin ABG Carboxyhemoglobin ABG Methemoglobin ABG Deoxyhemoglobin Trevor Test A-a O2 Gradient Ionized Calcium Mode of Support % Minute Volume Mechanical Rate Spontaneous Rate Inspired O2 Tidal Volume Spontaneous Tidal Vol Pressure Support PEEP or CPAP Sodium Potassium Chloride Carbon Dioxide Anion Gap BUN Creatinine Estimated GFR (MDRD) Glucose POC Glucose 267 H 247 H 251 H Calcium Phosphorus Magnesium Total Bilirubin AST ALT Alkaline Phosphatase Serum Total Protein Albumin Globulin Albumin/Globulin Ratio Prealbumin Triglycerides Cholesterol LDL Cholesterol, Calc HDL Cholesterol Heart Disease Risk Ratio 11/14/20 11/14/20 11/14/20 07:25 07:41 07:53 WBC RBC Hgb Hct MCV MCH MCHC RDW Plt Count MPV Neutrophils % (Manual) Band Neuts % (Manual) Lymphocytes % (Manual) Monocytes % (Manual) Lymphocytes # Nucleated RBCs # (Man) Plt Morphology Comment PT 85.5 H INR 10.5 H* APTT 110.4 H Specimen Type ARTERIAL Puncture Site Arterial Line Bicarbonate Actual 13.7 L ABG pH 7.51 H ABG pCO2 17.5 L* ABG pO2 106.4 H ABG O2 Sat (Measured) 97.8 ABG O2 Content 10.5 L ABG Base Excess -8.1 L ABG Hematocrit 22.0 L ABG Hemoglobin 7.5 L ABG Oxyhemoglobin 97.1 ABG Carboxyhemoglobin 0.4 ABG Methemoglobin 0.30 ABG Deoxyhemoglobin 2.2 Trevor Test Not Reportable A-a O2 Gradient 99.885 H Ionized Calcium 0.81 L Mode of Support AC % Minute Volume 12.5 Mechanical Rate 12 Spontaneous Rate 12 Inspired O2 32 Tidal Volume 420 Spontaneous Tidal Vol Pressure Support PEEP or CPAP 5.0 Sodium 136 Potassium 2.06 L Chloride 116 H Carbon Dioxide Anion Gap BUN Creatinine Estimated GFR (MDRD) Glucose POC Glucose 207 H Calcium Phosphorus Magnesium Total Bilirubin AST ALT Alkaline Phosphatase Serum Total Protein Albumin Globulin Albumin/Globulin Ratio Prealbumin Triglycerides Cholesterol LDL Cholesterol, Calc HDL Cholesterol Heart Disease Risk Ratio 11/14/20 11/14/20 11/14/20 09:02 10:39 11:47 WBC RBC Hgb Hct MCV MCH MCHC RDW Plt Count MPV Neutrophils % (Manual) Band Neuts % (Manual) Lymphocytes % (Manual) Monocytes % (Manual) Lymphocytes # Nucleated RBCs # (Man) Plt Morphology Comment PT INR APTT Specimen Type Puncture Site Bicarbonate Actual ABG pH ABG pCO2 ABG pO2 ABG O2 Sat (Measured) ABG O2 Content ABG Base Excess ABG Hematocrit ABG Hemoglobin ABG Oxyhemoglobin ABG Carboxyhemoglobin ABG Methemoglobin ABG Deoxyhemoglobin Trevor Test A-a O2 Gradient Ionized Calcium Mode of Support % Minute Volume Mechanical Rate Spontaneous Rate Inspired O2 Tidal Volume Spontaneous Tidal Vol Pressure Support PEEP or CPAP Sodium Potassium Chloride Carbon Dioxide Anion Gap BUN Creatinine Estimated GFR (MDRD) Glucose POC Glucose 172 H 124 H 119 H Calcium Phosphorus Magnesium Total Bilirubin AST ALT Alkaline Phosphatase Serum Total Protein Albumin Globulin Albumin/Globulin Ratio Prealbumin Triglycerides Cholesterol LDL Cholesterol, Calc HDL Cholesterol Heart Disease Risk Ratio 11/14/20 11/14/20 11/14/20 12:38 13:30 14:21 WBC RBC Hgb Hct MCV MCH MCHC RDW Plt Count MPV Neutrophils % (Manual) Band Neuts % (Manual) Lymphocytes % (Manual) Monocytes % (Manual) Lymphocytes # Nucleated RBCs # (Man) Plt Morphology Comment PT 47.5 H INR 5.0 H* APTT 88.4 H Specimen Type Puncture Site Bicarbonate Actual ABG pH ABG pCO2 ABG pO2 ABG O2 Sat (Measured) ABG O2 Content ABG Base Excess ABG Hematocrit ABG Hemoglobin ABG Oxyhemoglobin ABG Carboxyhemoglobin ABG Methemoglobin ABG Deoxyhemoglobin Trevor Test A-a O2 Gradient Ionized Calcium Mode of Support % Minute Volume Mechanical Rate Spontaneous Rate Inspired O2 Tidal Volume Spontaneous Tidal Vol Pressure Support PEEP or CPAP Sodium Potassium Chloride Carbon Dioxide Anion Gap BUN Creatinine Estimated GFR (MDRD) Glucose POC Glucose 135 H 128 H Calcium Phosphorus Magnesium Total Bilirubin AST ALT Alkaline Phosphatase Serum Total Protein Albumin Globulin Albumin/Globulin Ratio Prealbumin Triglycerides Cholesterol LDL Cholesterol, Calc HDL Cholesterol Heart Disease Risk Ratio - ABG Interpretation ABG Results: POC Bicarbonate Calc 16.3 mmol/L (22.0-28.0) L 11/09/20 07:29 ABG pH 7.51 (7.35-7.45) H 11/14/20 07:25 ABG pCO2 17.5 mmHg (35.0-45.0) L* 11/14/20 07:25 ABG Base Excess -8.1 mEq/L (-2.0 to +3.0) L 11/14/20 07:25 Interpretation: respiratory alkalosis - EKG Data Rate: bradycardia CCU Progress Note: A/P - Plan Plan: Acute respiratory failure with pulmonary edema improving with acute respiratory alkalosis Acute kidney injury Hyperkalemia per renal s continue current antibiotics for colitis continue current antibiotics for colitis ervice Ileus and gastroparesis likely due to diabetes Sepsis due to Possible colonic infection being treated with triple antibiotics Thrombocytopenia being treated for H IT syndrome, on argatroban, awaiting studies DIC Altered mental status multifactorial delirium Anemia EKG Reduced per profound Change vent setting to spontaneous mode with a backup SIMV, pressure support 15 gives a tidal volume of approximately 400, respiratory rate 21, 32% gives her sat of 100% Suggest the primary team consider starting Reglan 10 mg IV every 6 hours for gastroparesis, I did curbside with gastroenterology about this Continue current antibiotics for colitis Possible extubation 11/15 Critical care time 45 minutes
[2020-11-14] MEDS: FAT EMULSION IV SCH (15:02)
[2020-11-14] MEDS: [UNRECOGNIZED DRUG - OTHER] IV SCH (15:02)
[2020-11-14] MEDS: CALCIUM GLUCONATE IV SCH (15:02)
[2020-11-14] MEDS: SODIUM ACETATE IV SCH (15:02)
[2020-11-14] MEDS: Cefepime 0.5 GM, Admixture Fee 1 EACH in Sodium Chloride 0.9% 100 ML IVPB SCH (16:04)
[2020-11-14 16:36] LABS: Heparin-Induced Ab (HITA) 0.129 OD (0.000-0.400)
[2020-11-14] MEDS: Fluconazole In NaCl,Iso-Osm 100 MG in Admixture Fee 1 EACH IVPB SCH (16:39)
[2020-11-14 17:53] LABS: Magnesium 1.5 mg/dL (1.6-2.6); Potassium 4.1 mmol/L (3.5-5.1)
[2020-11-14 17:56] LABS: Phosphorus 3.6 mg/dL (2.3-4.7)
[2020-11-14 19:21] LABS: PTT 70.6 sec (22.9-36.1); Prothrombin Time 58.6 sec (12.0-14.7)
[2020-11-14 19:32] LABS: INR-International Normal Ratio 6.5
[2020-11-14] MEDS: Dextrose 5 %-0.45 % NaCl 1,000 ML IV SCH (19:43)
[2020-11-14] MEDS: Metoclopramide HCl 10 MG/2 ML VIAL IVP SCH (20:11)
[2020-11-14] MEDS: Clotrimazole 2% 3 Day Vag Cr 22.2 GM TUBE VAG SCH (20:12)
[2020-11-15] MEDS: Metoclopramide HCl 10 MG/2 ML VIAL IVP SCH ×4 (00:09→17:09)
[2020-11-15] MEDS ORDERED: Hydrocortisone Sod Succ/PF 100 mg/2 ml Vial ONE ×2 (09:24→10:10)
[2020-11-15] MEDS ORDERED: Pantoprazole 40 MG VIAL ONE ×2 (09:24→10:10)
--- NOTE | 2020-11-15 11:20 | RAD ---
Portable frontal chest radiograph: 11/15/2020 COMPARISON: 11/14/2020 HISTORY: Pneumonia FINDINGS: Stable prominence of the cardiac silhouette. Stable endotracheal tube, nasogastric tube, an d left-sided vascular catheter. There is hazy opacity in the left base suggesting partial consolidation/collapse of the left lower lobe with probable small volume left pleural effusion, not s ignificantly changed. IMPRESSION: No significant interval change.
--- NOTE | 2020-11-15 12:14 | PRG ---
DATE OF SERVICE: 11/15/2020 This is 35 minutes of critical care time. SUBJECTIVE: This patient remains intubated on mechanical ventilation. She remains very encephalopathic. PHYSICAL EXAMINATION: VITAL SIGNS: Her pulse is 79, blood pressure 164/73, O2 saturation 100%, and last recorded temperature 96.1. GENERAL: She is obtunded. HEENT: Otherwise unremarkable. NECK: No JVD. LUNGS: Clear anteriorly. CARDIAC: S1 and S2, regular. ABDOMEN: Soft and obese. EXTREMITIES: Edematous. Of note, the patient remains on argatroban for possible HIT syndrome. She is on norepinephrine drip intermittently. LABORATORY DATA: Labs pending. Chest x-ray reviewed personally by myself shows cardiomegaly, perhaps a layering effusion on the left. ASSESSMENT: 1. Acute respiratory failure, requiring mechanical ventilation. 2. Thrombocytopenia-with improving platelet count today-her white blood cell count 15.8, hematocrit 28.6, and platelet count is up to 56. 3. Acute tubular necrosis with acute renal failure. 4. Severe hypernatremia at the time of admission, probably reflective of profound volume depletion. 5. Elevated LFTs at the time of admission, consistent with shock liver. 6. Diabetes mellitus-the patient currently on TPN for nutritional support. PLAN: 1. Continue the insulin drip for management of the hyperglycemia. 2. Wean the hydrocortisone to just a daily dose as that will affect her blood sugars immensely. 3. Discontinue vasopressin from NOV. 4. Discontinue art-line. Job ID: [id number]
--- NOTE | 2020-11-15 12:14 | PRG ---
DATE OF SERVICE: 11/15/2020 SUBJECTIVE: Ms. Leon is a 60-year-old black female, initially admitted for DKA. We were consulted for her acute kidney injury and her hypernatremia. During the next several day, she became hyperkalemic and volume overloaded. For that reason, we initiated hemodialysis with this patient. She is currently undergoing dialysis today. She is still not waking up. CT scan of the head showed no acute intracranial abnormality. PHYSICAL EXAMINATION: VITAL SIGNS: Blood pressure 180/70, heart rate 70. GENERAL: She is noted to be unresponsive, intubated on ventilator support. SKIN: Adequate turgor. HEENT: Pinkish conjunctivae. Anicteric sclerae. No neck mass. No carotid bruits. No JVD. CHEST: No deformities. LUNGS: Decreased breath sounds. HEART: Normal sinus rhythm. No murmurs, no gallops, no rubs. ABDOMEN: Globular, soft, nontender. No masses. EXTREMITIES: Trace edema. LABORATORY DATA: Of November 15, 2020, reviewed. MEDICATION: Of November 15, 2020, reviewed. ASSESSMENT AND PLAN: 1. Acute kidney injury - superimposed acute tubular necrosis, continuing 3 times a week hemodialysis. We will plan to do a 3-hour hemodialysis today with about 3.5 L fluid removal. Due to the slightly lower potassium with this patient, we are using currently a 4.0 potassium bath with dialysis. 2. Decreased mentation, consider metabolic encephalopathy. If needed, consider an EEG with this patient. 3. DKA, much improved. Overall prognosis remains guarded. Job ID: [id number]
[2020-11-15] MEDS: Hydrocortisone Sod Succ/PF 100 mg/2 ml Vial IVP SCH ×2 (14:35→19:49)
[2020-11-15] MEDS: metroNIDAZOLE 500 MG in Premix Bag 1 BAG IVPB SCH ×3 (14:35→22:11)
[2020-11-15] MEDS: Pantoprazole 40 MG VIAL IVP SCH (14:36)
[2020-11-15] MEDS: SODIUM ACETATE IV SCH (14:48)
[2020-11-15] MEDS: CALCIUM GLUCONATE IV SCH (14:48)
[2020-11-15] MEDS: [UNRECOGNIZED DRUG - OTHER] IV SCH (14:48)
[2020-11-15] MEDS: FAT EMULSION IV SCH (14:48)
[2020-11-15] MEDS: Cefepime 0.5 GM, Admixture Fee 1 EACH in Sodium Chloride 0.9% 100 ML IVPB SCH (15:41)
[2020-11-15] MEDS: Propofol 1,000 MG/100 ML VIAL IV PRN (16:04)
[2020-11-15] MEDS: Fluconazole In NaCl,Iso-Osm 100 MG in Admixture Fee 1 EACH IVPB SCH (16:33)
[2020-11-15] MEDS ORDERED: Heparin 10,000 UNITS/ 10 ML VIAL ONE (16:54)
[2020-11-15 17:57] LABS: ALT (SGPT) 221 U/L (8-55); AST (SGOT) 130 U/L (5-34); Albumin 2.7 g/dL (3.5-5.0); Alkaline Phosphatase 96 U/L (40-110); Anion Gap 22 mmol/L (10-20); BUN (Urea Nitrogen) 93 mg/dL (9.8-20.1); Bilirubin, Total 0.3 mg/dL (0.2-1.2); Calc. Creatinine Clearance 21 mL/min (70-130); Calcium 7.8 mg/dL (7.8-10.44); Carbon Dioxide 18 mmol/L (22-29); Chloride 95 mmol/L (98-107); Cholesterol 72 mg/dl (< 200 Desired); Globulin 2.5 g/dL (2.4-3.5); Glucose 128 mg/dL (70-105); HDL Cholesterol 9 mg/dL (>60 Neg Risk); LDL Cholesterol, Calculated 26 mg/dL; Magnesium 1.7 mg/dL (1.6-2.6); Potassium 2.9 mmol/L (3.5-5.1); Protein, Total 5.2 g/dL (6.0-8.3); Sodium 132 mmol/L (136-145); Triglycerides 184 mg/dL (Less than 150)
[2020-11-15 19:22] LABS: Hemoglobin 9.5 g/dL (12.0-16.0); Mean Corpuscular HGB CONC 33.2 g/dL (32.0-36.0); Mean Corpuscular Volume 75.3 fL (78.0-98.0); Mean Platelet Volume 12.8 fL (7.4-10.4); Platelet Count 57 thou/uL (130-400); RBC Distribution Width 13.6 % (11.5-14.5); White Blood Cell (WBC) Count 15.8 thou/uL (4.8-10.8)
[2020-11-15 19:39] LABS: Band 23 % (5-11); Hypochromia SLIGHT = 6-15 cells (100X) (0-5/hpf); Lymphocytes 19 % (21-51); MDiff Complete? YES; Metamyelocyte 1 % (0-0); Microcytosis SLIGHT = 6-15 cells (100X) (0-5/hpf); Monocytes 11 % (0-10); Neutrophil 43 % (42-75); Platelet Morphology Comment Appears Decreased; Polychromasia SLIGHT = 2-3 cells (100X) (0-2/hpf); Reactive Lymphocytes 3 % (0-10); Target Cells SLIGHT = 2-5 cells (100X) (0-1/hpf)
[2020-11-15] MEDS: Clotrimazole 2% 3 Day Vag Cr 22.2 GM TUBE VAG SCH (20:42)
[2020-11-15 20:46] LABS: INR-International Normal Ratio 1.7; PTT 46.3 sec (22.9-36.1); Prothrombin Time 20.4 sec (12.0-14.7)
[2020-11-15 21:34] LABS: Phosphorus 3.1 mg/dL (2.3-4.7)
[2020-11-16] MEDS: Metoclopramide HCl 10 MG/2 ML VIAL IVP SCH ×4 (00:30→15:41)
[2020-11-16] MEDS: HUMULIN R 100 UNITS in Sodium Chloride 0.9% 100 ML IVPB SCH (02:18)
[2020-11-16] MEDS: Propofol 1,000 MG/100 ML VIAL IV PRN ×3 (02:18→23:24)
--- NOTE | 2020-11-16 06:16 | PDOC.FM ---
- Subjective Subjective: Patient intubated and sedated. Per RN, followed commands off sedation. She did not command for me. - Objective MAR Reviewed: Yes Vital Signs & Weight: Vital Signs (12 hours) Temp Pulse Resp Pulse Ox 11/16/20 04:00 99.2 F 24 H 11/16/20 02:20 70 11/16/20 02:00 23 H 11/16/20 00:00 99.2 F 28 H 11/15/20 22:54 62 11/15/20 22:00 26 H 11/15/20 20:00 99.5 F 28 H 99 11/15/20 19:01 73 Weight Admit Weight 93.599 kg Weight 99.1 kg Most Recent Monitor Data Heart Rate from ECG 71 NIBP 166/64 NIBP BP-Mean 98 Respiration from ECG 23 SpO2 100 I&O: 11/14/20 11/15/20 11/16/20 06:59 06:59 06:59 Intake Total 3509.7 1735.2 1878 Output Total 370 508 157 Balance 3139.7 1227.2 1721 Result Diagrams: 11/16/20 05:52 11/16/20 05:52 Radiology Reviewed by me: Yes Phys Exam - Physical Examination Constitutional: NAD HEENT: PERRLA Respiratory: no wheezing, clear to auscultation bilateral Cardiovascular: RRR, no significant murmur Gastrointestinal: soft, no distention Musculoskeletal: edema present (2+ pitting d/l in LE/UEs) Skin: no rash (wound care bandages bilateral on heels. ) Dx/Plan - Plan Plan: 60 yo F admitted to CCU for DKA, lactic acidosis, and sepsis: Neuro - Acute encephalopathy likely /2 DKA - wean sedation as much as possible today, keep sedation as light as possible CV - off pressors, d/c art line on 11/15 - Hx of HTN: hold home BP meds Resp - originally intubated for mental status - Vent: SIMV TV 420, Pressure support 15, Peep 5, FiO2 decreased by myself today since satting well, now at 26%. - Pulm consulted: appreciate recs. GI/Nutrition - Diarrhea: resolved, stool studies neg. - Diet: Tube feeds (Nepro/diabetic), D/C TPN after today's bag. - GI ppx: protonix - OG tube in place - continue reglan for suspected gastroparesis in setting of uncontrolled diabetes. Renal/Fluids/Electrolytes - continue to monitor urine output - nephro on board, dialysis per their mgmt Endo - DKA: resolved - d/c insulin drip, start aggressive SSI - Lactic acidosis: resolved ID - Sepsis, unknown source: d/c cefepime 11/17 giving 7 total days of treatment - Candiduria: treated w/ fluconazole - Vaginal bleeding, setting of uterine mass: etiology fibroid vs endometrial cancer vs other. - Pt already on appropriate antimicrobials for potential vaginal infection, consider workup if and when patient's acute problems resolve Heme - Microcytic anemia - Thrombocytopenia: improving - s/p Empiric treatment for HIT with argatroban. HIT antibodies wnl so this is unlikely. - Consulted heme/onc Dr. Perkins and discussed the patient's case due to our concern for another hematologic process such as TTP/HUS or DIC. He recommends continued treatment of her primary illness. He agrees with our workup and mgmt. Appreciate recs. Antimicrobials - flagyl 500mg - fluconazole 200mg IV loading dose given followed by 100mg daily for candiduria - cefepime 2g given, continue 500 mg daily for renal dosing, day 7 today, d/c tomorrow - vancomycin DCd, 11/09-11/12 - final Blood cultures NG x5 days - final Urine culture showing yeast 75-100k cfu Code: FULL, confirmed w/ family. IVF: NS DVT ppx: SCDs only GI ppx: protonix Tubes/Lines: PIV, ET & OG tube (11/09), Mendez (11/09), R fem trialysis cath & L sub clavian CVC (11/11) Discussed plan with Dr. Adamson Addendum - Attending - Attending Attestation Date/Time: 11/16/20 [id number] I personally evaluated the patient and discussed the management with Dr. Ellis. I agree with the History, Examination, Assessment and Plan documented above with any addition or exceptions noted below. HIT results negative. Discussed with heme who agreed with d/c argatroban yesterday (when [employer] was down). Wean vent and sedation as tolerated. Plan to move toward extubation. Complete antibiotic course.
[2020-11-16 06:19] LABS: INR-International Normal Ratio 1.4; PTT 31.6 sec (22.9-36.1); Prothrombin Time 17.1 sec (12.0-14.7)
[2020-11-16] MEDS: metroNIDAZOLE 500 MG in Premix Bag 1 BAG IVPB SCH ×3 (06:24→21:10)
[2020-11-16 06:27] LABS: Phosphorus 2.5 mg/dL (2.3-4.7)
[2020-11-16 06:32] LABS: ALT (SGPT) 136 U/L (8-55); AST (SGOT) 63 U/L (5-34); Albumin 2.4 g/dL (3.5-5.0); Alkaline Phosphatase 86 U/L (40-110); Anion Gap 17 mmol/L (10-20); BUN (Urea Nitrogen) 64 mg/dL (9.8-20.1); Bilirubin, Total 0.3 mg/dL (0.2-1.2); Calc. Creatinine Clearance 26 mL/min (70-130); Calcium 7.4 mg/dL (7.8-10.44); Carbon Dioxide 22 mmol/L (22-29); Chloride 97 mmol/L (98-107); Cholesterol 70 mg/dl (< 200 Desired); Globulin 2.3 g/dL (2.4-3.5); Glucose 181 mg/dL (70-105); HDL Cholesterol 10 mg/dL (>60 Neg Risk); LDL Cholesterol, Calculated 16 mg/dL; Magnesium 1.5 mg/dL (1.6-2.6); Potassium 3.1 mmol/L (3.5-5.1); Protein, Total 4.7 g/dL (6.0-8.3); Sodium 133 mmol/L (136-145); Triglycerides 220 mg/dL (Less than 150)
[2020-11-16 07:13] LABS: Norovirus GI Negative (Negative); Norovirus GII Negative (Negative)
[2020-11-16 07:54] LABS: Hemoglobin 8.7 g/dL (12.0-16.0); Mean Corpuscular HGB CONC 33.7 g/dL (32.0-36.0); Mean Corpuscular Hemoglobin 25.2 pg (27.0-31.0); Mean Corpuscular Volume 74.7 fL (78.0-98.0); Platelet Count 64 thou/uL (130-400); RBC Distribution Width 13.5 % (11.5-14.5); Red Blood Cell (RBC) Count 3.44 mill/uL (4.20-5.40); White Blood Cell (WBC) Count 18.7 thou/uL (4.8-10.8)
--- NOTE | 2020-11-16 08:03 | RAD ---
XR Chest 1 View Portable HISTORY: Follow-up of pneumonia. COMPARISON: Prior day's exam. FINDINGS: The endotracheal tube is at the level of the alex and could be retracted by approximately 2 to 3 cm. NG tube is below the hemidiaphragm. The heart size is enlarged pulmonary vessels appear engorged overall lung changes appear fairly simil ar to the previous exams. IMPRESSION: 1. Stable parenchymal lung change with pulmonary vascular engorgement and increased bibasilar lung ch anges. 2. Endotracheal tube which is at the level the alex and could be retracted by 2 to 3 cm for more op timal placement.
[2020-11-16 08:24] LABS: Band 27 % (5-11); Lymphocytes 13 % (21-51); MDiff Complete? YES; Metamyelocyte 2 % (0-0); Microcytosis SLIGHT = 6-15 cells (100X) (0-5/hpf); Monocytes 7 % (0-10); Neutrophil 50 % (42-75); Platelet Morphology Comment Appears Decreased; Polychromasia SLIGHT = 2-3 cells (100X) (0-2/hpf); Reactive Lymphocytes 1 % (0-10); Toxic Granulation SLIGHT
--- NOTE | 2020-11-16 08:53 | PRG ---
DATE OF SERVICE: 11/16/2020 30 minutes of critical care time. SUBJECTIVE: The patient remains intubated on mechanical ventilation. For the first time today, she wakes up. I think she does follow some commands this morning but not follow for me. OBJECTIVE: VITAL SIGNS: Temperature 99.2, pulse 76, blood pressure 134/54. Intake 3813, output 157 plus 3000 removed by dialysis. HEENT: Unremarkable. NECK: No JVD. CHEST: Clear anteriorly. CARDIAC: S1, S2. Regular. ABDOMEN: Soft. EXTREMITIES: Mildly edematous throughout. She has some discoloration of her left first and second toes. Her chest x-ray shows clear diaphragms, ET tube in good position. There may be some pulmonary edema present. LABORATORY DATA: Sodium 133, potassium 3.1, chloride 97, CO2 of 22, BUN 64, creatinine 3.5, and glucose 181. White blood cell count 18.7, hematocrit 25.7, and platelet count 64. ASSESSMENT: 1. Acute hypoxic respiratory failure requiring mechanical ventilation. 2. Acute kidney injury, which is probably secondary to acute tubular necrosis. 3. Slowly improving thrombocytopenia. 4. Status post diabetic ketoacidosis. 5. Severe hyponatremia at the time of admission. 6. Elevated LFTs, which have also improved. PLAN: 1. Antibiotics will be stopped after the 7th day. She has been weaned off the Levophed successfully so that order will be discontinued from the NOV. We will lighten sedation in hopes of getting her extubated. 2. Continue dialysis intermittently. 3. Her platelet count is slowly increasing. I am not sure about the inciting events of all this, but fortunately it is all getting better. Job ID: [id number]
[2020-11-16] MEDS ORDERED: HumaLOG 300 UNITS/3 ML VIAL SC PRN (09:00)
[2020-11-16] MEDS: Hydrocortisone Sod Succ/PF 100 mg/2 ml Vial IVP SCH (09:53)
[2020-11-16] MEDS: Pantoprazole 40 MG VIAL IVP SCH (09:53)
[2020-11-16] MEDS: HumaLOG 300 UNITS/3 ML VIAL SC PRN ×3 (10:03→15:40)
[2020-11-16] MEDS ORDERED: Magnesium 2 GM/50 ML 2 GM in Premix Bag 1 BAG IVPB SCH (11:15)
[2020-11-16] MEDS: Cefepime 0.5 GM, Admixture Fee 1 EACH in Sodium Chloride 0.9% 100 ML IVPB SCH (16:20)
[2020-11-16] MEDS: Fluconazole In NaCl,Iso-Osm 100 MG in Admixture Fee 1 EACH IVPB SCH (16:20)
--- NOTE | 2020-11-16 16:31 | CON ---
DATE OF CONSULTATION: 11/16/2020 REASON FOR CONSULTATION: Thrombocytopenia associated with a coagulopathy. HISTORY OF PRESENT ILLNESS: The patient is a 60-year-old woman, who was admitted to the hospital on November 09 with altered mental status and was found to be in diabetic ketoacidosis. She was volume depleted and hemodynamically unstable. She was treated with aggressive fluid resuscitation, empiric antibiotics, and short course of pressors. Urine has grown Tejal, but blood cultures have remained negative. On admission, the CBC showed a white blood cell count of 16.6, hemoglobin of 15.2, and platelet count 195,000. With fluid resuscitation, the hemoglobin fell within three days to 9.1. The platelet count fell on November 10 to 129; November 11, 79; and November 12, 43,000. The patient was treated with prophylactic heparinization on admission and, as a consequence of the falling platelet count, HIT was entertained, and argatroban anticoagulation was initiated around the 14 of November. The INR and PTT were normal prior to argatroban initiation. Subsequent to argatroban, INR and PTT expectedly became significantly prolonged and remained so until argatroban discontinuation late on November 14. The platelet count went to a low of 23,000 on the 14 of November and has now increased today to 64,000. The patient has become hemodynamically stable, but is in acute renal failure, requiring dialysis. She was on pressors for a period of time, now discontinued. The left lower extremity shows some evidence of small vessel ischemia with several black toes. Antiplatelet antibodies have been sent and are within normal range. At this time, I am asked to see the patient to provide further management recommendations and to entertain the possibility of a primary hematologic disorder. ALLERGIES: THERE IS A HISTORY OF PENICILLIN ALLERGY ACCORDING TO THE CHART. MEDICATIONS: See chart and it was reviewed by the undersigned. PAST SURGICAL HISTORY: It is unclear whether she has ever had a surgical procedure, but she has undergone colonoscopy in the past. PAST MEDICAL HISTORY: There is history of hyperlipidemia, hypertension, and type 2 diabetes mellitus. SOCIAL HISTORY: The patient does not smoke and does not consume alcohol. She lives with her . REVIEW OF SYSTEMS: Unobtainable. She is currently intubated and sedated on mechanical ventilation. PHYSICAL EXAMINATION: VITAL SIGNS: Blood pressure 112/61, pulse 81 and regular, respiratory rate 25, O2 saturation 99 on the respirator. GENERAL: She is unresponsive to verbal and physical stimuli, well sedated. HEENT: There does appear to be some evidence of dysconjugate gaze with a lateral gaze preference in each eye. The pupils are small bilaterally. NECK: Supple. LUNGS: Clear. CARDIOVASCULAR: Regular rate and rhythm without murmur, rub, gallop, or click. ABDOMEN: No tenderness, organomegaly, masses, bruits, or ascites. EXTREMITIES: No clubbing, cyanosis, or edema. The left lower extremity reveals several black toes, but pedal pulses are preserved. LYMPH: No adenopathy. MUSCULOSKELETAL: No active arthritis. NEUROLOGICAL: No focal findings. LABORATORY DATA: See history of present illness. Current chemistries show sodium 133, potassium 3.1, chloride 97, and carbon dioxide 22. The creatinine is 3.58 and BUN 64, status post dialysis today. Her random blood sugar is 181. The albumin is 2.4 and calcium 7.4. AST and ALT are 63 and 136, respectively. An LDH on admission was 1629. Peripheral smear was reviewed. Platelet count looks low normal without clumps. There is no evidence of microangiopathy. IMAGING: A brain CT without contrast shows no evidence of significant intracranial abnormality. A CT scan of the abdomen and pelvis on admission shows no significant abnormalities except for multiple uterine fibroids. There was some evidence of bibasilar lung consolidation, possibly secondary to pneumonia. IMPRESSION: 1. Thrombocytopenia, likely secondary to possible sepsis and hemodynamic instability associated with acute renal failure. 2. At this point, I see no definite evidence of heparin-induced thrombocytopenia or other primary hematologic disorder such as thrombotic thrombocytopenic purpura. I have reviewed the peripheral smear, and there is no evidence of microangiopathic hemolytic anemia. RECOMMENDATIONS: I reviewed the patient's case and also discussed the case with the residency service. The course of the thrombocytopenia is most consistent with the underlying multiorgan system failure. The development of the thrombocytopenia was quite rapid in a patient not exposed previously to heparin and heparin-induced antibodies are negative. That test is less reliable than the serotonin release assay, which is commonly unavailable in real time such that decisions can be made. In addition, I see no evidence of a primary hematologic disorder such as TTP as there is no evidence of microangiopathic hemolytic anemia and the platelet count is spontaneously improving. There is evidence of small vessel ischemia in the left lower extremity, and it is possible that anticoagulation could be a consideration in this setting. This could be discussed with other consultants as I would likely observe her for now. Thanks very much for allowing me to provide my recommendations. Job ID: [id number] ABELINO
[2020-11-16] MEDS ORDERED: Heparin 10,000 UNITS/ 10 ML VIAL ONE (16:57)
[2020-11-16] MEDS ORDERED: Insulin Glargine 10 UNITS in Pre-Filled Syringe 1 EACH SC SCH (21:00)
[2020-11-17] MEDS: HumaLOG 300 UNITS/3 ML VIAL SC PRN ×4 (00:27→12:47)
[2020-11-17] MEDS: Metoclopramide HCl 10 MG/2 ML VIAL IVP SCH ×2 (01:14→05:01)
[2020-11-17 04:17] LABS: ALT (SGPT) 101 U/L (8-55); AST (SGOT) 46 U/L (5-34); Albumin 2.5 g/dL (3.5-5.0); Alkaline Phosphatase 105 U/L (40-110); Anion Gap 21 mmol/L (10-20); BUN (Urea Nitrogen) 56 mg/dL (9.8-20.1); Bilirubin, Total 0.4 mg/dL (0.2-1.2); Calc. Creatinine Clearance 26 mL/min (70-130); Calcium 7.2 mg/dL (7.8-10.44); Carbon Dioxide 20 mmol/L (22-29); Chloride 97 mmol/L (98-107); Globulin 2.7 g/dL (2.4-3.5); Glucose 264 mg/dL (70-105); Magnesium 2.2 mg/dL (1.6-2.6); Potassium 3.1 mmol/L (3.5-5.1); Protein, Total 5.2 g/dL (6.0-8.3); Sodium 135 mmol/L (136-145)
[2020-11-17 04:40] LABS: Band 19 % (5-11); Eosinophils 1 % (0-10); Large Platelets SLIGHT; Lymphocytes 17 % (21-51); MDiff Complete? YES; Mean Corpuscular HGB CONC 35.6 g/dL (32.0-36.0); Mean Corpuscular Hemoglobin 26.7 pg (27.0-31.0); Mean Corpuscular Volume 75.2 fL (78.0-98.0); Monocytes 4 % (0-10); Myelocyte 1 % (0-0); Neutrophil 58 % (42-75); Platelet Count 75 thou/uL (130-400); Platelet Morphology Comment Appears Decreased; RBC Distribution Width 13.5 % (11.5-14.5); Red Blood Cell (RBC) Count 3.37 mill/uL (4.20-5.40); Toxic Granulation SLIGHT; White Blood Cell (WBC) Count 22.5 thou/uL (4.8-10.8)
[2020-11-17] MEDS: metroNIDAZOLE 500 MG in Premix Bag 1 BAG IVPB SCH ×3 (05:01→21:17)
--- NOTE | 2020-11-17 05:30 | PDOC.FM ---
- Subjective Subjective: Patient intubated and does not open her eyes nor follow command for me on 15 of propofol. Stable overnight. Restarted lantus last night. - Objective MAR Reviewed: Yes Vital Signs & Weight: Vital Signs (12 hours) Temp Pulse Resp Pulse Ox 11/17/20 04:00 99.7 F H 29 H 11/17/20 02:44 84 11/17/20 02:00 32 H 11/17/20 00:00 99.3 F 24 H 11/16/20 22:36 79 11/16/20 22:00 32 H 11/16/20 20:00 33 H 99 11/16/20 19:28 75 11/16/20 19:00 97.7 F 11/16/20 18:00 29 H Weight Admit Weight 93.599 kg Weight 99.1 kg Most Recent Monitor Data Heart Rate from ECG 85 NIBP 114/43 NIBP BP-Mean 73 Respiration from ECG 32 SpO2 100 I&O: 11/15/20 11/16/20 11/17/20 06:59 06:59 06:59 Intake Total 1735.2 3813.4 1902 Output Total 508 157 43 Balance 1227.2 3656.4 1859 Result Diagrams: 11/17/20 03:18 11/17/20 03:18 Radiology Reviewed by me: Yes (STABLE) Phys Exam - Physical Examination Constitutional: NAD HEENT: PERRLA Respiratory: no wheezing, clear to auscultation bilateral Cardiovascular: RRR, no significant murmur Gastrointestinal: soft, no distention Musculoskeletal: edema present (similar to prev exam) Deviation from normal: SKIN: left darkened toes, stage 2 buttocks ulcers on ph otos Dx/Plan - Plan Plan: 60 yo F admitted to CCU for DKA, lactic acidosis, and sepsis: Neuro - continue light sedation, monitor response during sedation vacations - Pt's GCS is her barrier to being extubated. CV - Hx of HTN: hold home BP meds - cardiac monitoring Resp - stable. - Vent: SIMV TV 420, Pressure support 15, Peep 5, FiO2 26%. - Pulm consulted: appreciate recs. GI/Nutrition - Diarrhea: has recurred after initiating tube feeds. Initially concerned for gastroparesis given amount of gastric output. Gastric drainage has resolved so reglan has been held. Stool studies negative with previous diarrhea, given amount of antibiotics patient has been on, we may consider repeating C. Diff. - Diet: Tube feeds (Nepro/diabetic) - GI ppx: protonix, consider giving per tube - OG tube in place Renal/Fluids/Electrolytes - Nephro on board, dialysis per their mgmt - replete electrolytes prn Endo - DKA, Lactic acidosis: resolved - Restart lantus 15 U BID this AM - aggressive SSI - blood sugars are difficult to control in this patient. She seems quite brittle and could easily go back into DKA. ID - Sepsis: completed 7 day course of cefepime. - Candiduria: continue fluconazole for total of 14 days. - Vaginal bleeding, setting of uterine mass: etiology fibroid vs endometrial cancer vs other. 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 HIT antibodies wnl so this is unlikely. - Consulted heme/onc Dr. Perkins, Appreciate recs. Antimicrobials - flagyl 500mg, day 6 of 7 - fluconazole day 6 of 14 - cefepime x7 days, completed. - vancomycin DCd, 11/09-11/12 - final Blood cultures NG x5 days - final Urine culture showing yeast 75-100k cfu Code: FULL, confirmed w/ family. IVF: NS DVT ppx: SCDs only GI ppx: protonix Tubes/Lines: PIV, ET & OG tube (11/09), Mendez (11/09), R fem trialysis cath & L subclavian CVC (11/11) Discussed plan with Dr. Adamson Addendum - Attending - Attending Attestation Date/Time: 11/17/20 4614 I personally evaluated the patient and discussed the management with Dr. Ellis. I agree with the History, Examination, Assessment and Plan documented above with any addition or exceptions noted below. AHRF 2/2 DKA, improving, with VÍCTOR on dialysis, necrotic left pedal digits. Sedation vacation. Evaluate for extubation. Monitor mental status.
[2020-11-17] MEDS ORDERED: Insulin Glargine 15 UNITS in Pre-Filled Syringe 1 EACH SC SCH (05:45)
[2020-11-17] MEDS: Propofol 1,000 MG/100 ML VIAL IV PRN (06:24)
--- NOTE | 2020-11-17 08:00 | RAD ---
Portable frontal chest radiograph: 11/17/2020 COMPARISON: 11/16/2020 HISTORY: Pneumonia FINDINGS: Stable endotracheal tube, nasogastric tube, and left vascular catheter. No pneumothorax is seen. Mild bilateral perihilar interstitial prominence, left greater than right. Mild nonspecific left perihilar airspace disease. Increased density within the medial left base may signify partial co nsolidation/collapse or small volume left pleural fluid. IMPRESSION: No significant interval change.
[2020-11-17] MEDS: Pantoprazole 40 MG VIAL IVP SCH (09:23)
--- NOTE | 2020-11-17 09:25 | PRG ---
DATE OF SERVICE: 11/17/2020 35 minutes critical time. SUBJECTIVE: The patient remains intubated on mechanical ventilation. She will open her eyes to voice, but will not follow any commands for me. OBJECTIVE: VITAL SIGNS: Her temperature is 99.7 and that has been her maximum temperature. Pulse 85, blood pressure 120/45, O2 saturation 99%. She is currently on SIMV rate 6, tidal volume 450, with a pressure support of 12, and a PEEP of 5 and FiO2 of 26%. HEENT EXAM: Unremarkable. NECK: No adenopathy or JVD. CHEST: Clear. CARDIAC: S1 and S2, regular. ABDOMEN: Soft, obese, nontender. EXTREMITIES: She has a right groin dialysis catheter. She has left subclavian triple-lumen. She has generalized mild edema throughout. LABORATORY DATA: Sodium 135, potassium 3.1, chloride 97, CO2 of 20, BUN 56, creatinine 3.5, glucose 264. White blood cell count 22.5, hematocrit 25.3, and platelet count 75. IMAGING STUDIES: Chest x-ray shows no change. ASSESSMENT: 1. Acute hypoxic respiratory failure, requiring mechanical ventilation. 2. Acute kidney injury. 3. Improving thrombocytopenia. 4. Elevated blood sugars. 5. Severe hypernatremia at the time of admission. 6. Elevated liver function tests, which have also improved. PLAN: 1. I will ask the nurse to give the patient a sedation vacation this morning, so we can accurately reflect the patient's neurologic status. 2. Continue dialysis. 3. I do not think she will be difficult to wean once we get her to wake up, but that has been an issue. Job ID: [id number]
[2020-11-17] MEDS ORDERED: Potassium Chloride 20 MEQ in Premix Bag 1 BAG IVPB SCH (12:15)
[2020-11-17 12:47] LABS: Anion Gap 19 mmol/L (10-20); BUN (Urea Nitrogen) 70 mg/dL (9.8-20.1); Calc. Creatinine Clearance 22 mL/min (70-130); Calcium 6.9 mg/dL (7.8-10.44); Carbon Dioxide 22 mmol/L (22-29); Chloride 99 mmol/L (98-107); Glucose 204 mg/dL (70-105); Sodium 137 mmol/L (136-145)
--- NOTE | 2020-11-17 12:52 | PRG ---
DATE OF SERVICE: 11/17/2020 SUBJECTIVE: Ms. Leon is a 60-year-old black female, followed up by the Renal Service for her acute kidney injury and volume overload. She has been receiving daily dialysis in the last few days due to the volume. Our plan now is to place her on three times a week hemodialysis. No indication for any dialytic intervention today. The patient still remains unresponsive. She actually is currently on sedation and the plan is to wean off sedation. No acute events noted last night. The patient has been seen by Hematology for thrombocytopenia, which is multifactorial in etiology. OBJECTIVE: VITAL SIGNS: Blood pressure 126/48, heart rate 92, respiratory rate 24, O2 saturation 100%. GENERAL: The patient is sedated, intubated on ventilator support. Obese. SKIN: Adequate turgor. HEENT: She has a slightly pale conjunctivae. Anicteric sclerae. No neck mass. No carotid bruits. No JVD. CHEST: No deformities. LUNGS: Decreased breath sounds. HEART: Normal sinus rhythm. No murmurs, gallops, or rubs. ABDOMEN: Globular, soft, nontender. No masses. EXTREMITIES: No edema. No deformities. MEDICATIONS: On November 17, 2020, reviewed. LABORATORY DATA: On November 17, 2020, white count 22.5, hemoglobin 9. Sodium 135, potassium 3.1, chloride 97, carbon dioxide 20, BUN 56, creatinine 3.5, calcium 7.2. ASSESSMENT AND PLAN: 1. Acute kidney injury/chronic renal failure. Continuing hemodialysis regimen. We will convert patient to three times a week hemodialysis with fluid removal only as tolerated. 2. Multiorgan dysfunction/respiratory failure. Continue supportive care. Pulmonary is following. Sedation will be tapered show to see if the patient can be weaned off from her ventilator. 3. Mild hypokalemia. KCl 20 mEq IV x1 dose will be given. Overall prognosis remains guarded. Job ID: [id number] [facility]
[2020-11-17 12:55] LABS: Potassium 2.9 mmol/L (3.5-5.1)
[2020-11-17 14:39] LABS: Hematocrit 24.4 % (34.0-46.6); RBC Folate Test Component 1184 ng/mL (>498)
--- NOTE | 2020-11-17 15:25 | EKG ---
Test Reason : Blood Pressure : / mmHG Vent. Rate : 057 BPM Atrial Rate : 057 BPM P-R Int : 132 ms QRS Dur : 090 ms QT Int : 570 ms P-R-T Axes : 059 -14 204 degrees QTc Int : 554 ms Sinus bradycardia Low voltage QRS Prolonged QT Abnormal ECG When compared with ECG of 09-NOV-2020 06:26, (Unconfirmed) T wave inversion now evident in Inferior leads T wave inversion now evident in Anterolateral leads Confirmed by KOLBY MELVIN (2) on 11/17/2020 3:25:25 PM Referred By: GLEN OLGUIN Confirmed By:KLOBY MELVIN
--- NOTE | 2020-11-17 16:55 | PDOC.EEG ---
Neurology EEG Report - Report Report: This EEG was performed using 24 channel [employer] video EEG machine with 24 disc electrodes. This was an extended 2 hours 7 minutes of inpatient video EEG recording. Digital analysis of the EEG was done for spike and seizure detection which revealed no abnormalities. Background: The posterior background rhythm is not observed. Hyperventilation: Not performed. Photic Stimulation: No significant response. Sleep: No stage change is observed. EEG Diagnosis: Low amplitude generalized irregular delta activity seen throughout the recording. Absence of posterior background rhythm. Clinical Interpretation: This EEG is consistent with severe generalized nonspecific cerebral dysfunction. No electrographic seizures captured during the recording.
[2020-11-17] MEDS: Fluconazole In NaCl,Iso-Osm 100 MG in Admixture Fee 1 EACH IVPB SCH (17:00)
[2020-11-17] MEDS: Insulin Glargine 20 UNITS in Pre-Filled Syringe 1 EACH SC SCH (21:17)
[2020-11-18] MEDS: HumaLOG 300 UNITS/3 ML VIAL SC PRN ×3 (00:57→09:02)
[2020-11-18] MEDS: metroNIDAZOLE 500 MG in Premix Bag 1 BAG IVPB SCH ×3 (05:22→21:36)
--- NOTE | 2020-11-18 05:33 | PDOC.FM ---
- Subjective Subjective: On precedex 0.2. Wakes up and follows commands for me today. GCS 11T. - Objective MAR Reviewed: Yes Vital Signs & Weight: Vital Signs (12 hours) Temp Pulse Resp BP Pulse Ox 11/18/20 04:00 100.7 F H 36 H 11/18/20 02:43 84 159/78 H 11/18/20 02:00 32 H 11/18/20 00:00 99.4 F 26 H 11/17/20 22:21 81 136/49 L 11/17/20 22:00 28 H 11/17/20 20:00 99.6 F 23 H 100 11/17/20 18:45 75 122/53 L 11/17/20 18:00 16 Weight Admit Weight 93.599 kg Weight 99.1 kg Most Recent Monitor Data Heart Rate from ECG 85 NIBP 150/59 NIBP BP-Mean 89 Respiration from ECG 35 SpO2 99 I&O: 11/16/20 11/17/20 11/18/20 06:59 06:59 06:59 Intake Total 3813.4 2446 1073.5 Output Total 157 46 94 Balance 3656.4 2400 979.5 Result Diagrams: 11/18/20 04:34 11/18/20 04:34 Radiology Reviewed by me: Yes (appears stable, wait on official read) Phys Exam - Physical Examination Constitutional: NAD HEENT: PERRLA Respiratory: no wheezing (increased coarse breath sounds bilaterally) Cardiovascular: RRR, no significant murmur Gastrointestinal: soft, non-tender, no distention Musculoskeletal: edema present Skin: no rash Dx/Plan - Plan Plan: 60 yo F admitted to CCU for DKA, lactic acidosis, and sepsis: Neuro - GCS 11T on precedex, plan to extubate today - EEG nonspecific severe cerebral dysfunction CV - Hx of HTN: hold home BP meds - cardiac monitoring Resp - stable. - Vent: SIMV TV 420, Pressure support 15, Peep 5, FiO2 26%. - Pulm consulted: appreciate recs. Plan to extubate today. GI/Nutrition - Diarrhea: has recurred after initiating tube feeds. Repeat Cdiff pending - Diet: Tube feeds (Nepro/diabetic) - GI ppx: protonix IV - OG tube in place Renal/Fluids/Electrolytes - Nephro on board, dialysis per their mgmt - replete electrolytes prn Endo - DKA, Lactic acidosis: resolved - lantus 20 U BID - aggressive SSI ID New fever overnight. Blood cultures, culture from lines, urine culture, and spu gina culture ordered. - Sepsis: completed 7 day course of cefepime. - Candiduria: continue fluconazole for total of 14 days. - Vaginal bleeding, setting of uterine mass: etiology fibroid vs endometrial cancer vs other. 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 HIT antibodies wnl so this is unlikely. - Consulted heme/onc Dr. Perkins, Appreciate recs. Antimicrobials - flagyl 500mg, day 7 of 7 - fluconazole day 7 of 14 - cefepime x7 days, completed. - vancomycin DCd, 11/09-11/12 - final Blood cultures NG x5 days - final Urine culture showing yeast 75-100k cfu Code: FULL, confirmed w/ family. IVF: NS DVT ppx: SCDs only GI ppx: protonix Tubes/Lines: PIV, ET & OG tube (11/09), Mendez (11/09), R fem trialysis cath & L subclavian CVC (11/11), rectal tube (11/17) Discussed plan with Dr. Adamson Addendum - Attending - Attending Attestation Date/Time: 11/18/20 9148 I personally evaluated the patient and discussed the management with Dr. Ellis. I agree with the History, Examination, Assessment and Plan documented above with any addition or exceptions noted below. I think can probably be extubated today. Continue dialysis as she is volume up. Workup fever.
[2020-11-18 05:50] LABS: ALT (SGPT) 72 U/L (8-55); AST (SGOT) 39 U/L (5-34); Albumin 2.5 g/dL (3.5-5.0); Alkaline Phosphatase 98 U/L (40-110); Anion Gap 19 mmol/L (10-20); BUN (Urea Nitrogen) 87 mg/dL (9.8-20.1); Bilirubin, Total 0.4 mg/dL (0.2-1.2); Calc. Creatinine Clearance 17 mL/min (70-130); Carbon Dioxide 21 mmol/L (22-29); Chloride 98 mmol/L (98-107); Globulin 2.9 g/dL (2.4-3.5); Glucose 264 mg/dL (70-105); Magnesium 2.3 mg/dL (1.6-2.6); Potassium 3.3 mmol/L (3.5-5.1); Protein, Total 5.4 g/dL (6.0-8.3); Sodium 135 mmol/L (136-145)
[2020-11-18] MEDS ORDERED: Acetaminophen 650 MG Suppository PR PRN (06:47)
[2020-11-18] MEDS: Acetaminophen 650 MG/20.3 ML UDCUP PER TUBE PRN (06:52)
[2020-11-18 07:03] LABS: Band 21 % (5-11); Eosinophils 1 % (0-10); Hemoglobin 8.6 g/dL (12.0-16.0); Large Platelets SLIGHT; Lymphocytes 8 % (21-51); MDiff Complete? YES; Mean Corpuscular HGB CONC 33.6 g/dL (32.0-36.0); Mean Corpuscular Volume 74.4 fL (78.0-98.0); Mean Platelet Volume 12.5 fL (7.4-10.4); Metamyelocyte 1 % (0-0); Monocytes 7 % (0-10); Myelocyte 2 % (0-0); Neutrophil 60 % (42-75); Platelet Count 137 thou/uL (130-400); RBC Distribution Width 13.8 % (11.5-14.5); Red Blood Cell (RBC) Count 3.42 mill/uL (4.20-5.40); White Blood Cell (WBC) Count 18.9 thou/uL (4.8-10.8)
[2020-11-18] MEDS: Pantoprazole 40 MG VIAL IVP SCH (08:55)
--- NOTE | 2020-11-18 08:58 | PRG ---
DATE OF SERVICE: 11/18/2020 SUBJECTIVE: Ms. Leon is awake, alert, follows commands today without limitation. OBJECTIVE: VITAL SIGNS: Her temperature is currently 101 and that has been her T-max, pulse 77, blood pressure 130/52. HEENT: Unremarkable. NECK: No JVD. LUNGS: Fairly clear anteriorly. CARDIAC: S1, S2. Regular. ABDOMEN: Soft. EXTREMITIES: Slightly edematous. IMAGING STUDIES: Chest x-ray is fairly clear. LABORATORY DATA: White count 18.9, hematocrit 25.5, and platelet count 137. Sodium 135, potassium 3.3, chloride 98, CO2 of 21, BUN 87, creatinine 5.4, glucose 264. ASSESSMENT: 1. Metabolic encephalopathy has improved. 2. Acute renal failure. 3. Acute hypoxic respiratory failure requiring mechanical ventilation. 4. Improved thrombocytopenia. 5. Severe hypernatremia at the time of admission, which is now resolved. PLAN: 1. The patient will be extubated. 2. We will discuss about further workup of fever. 3. Increase activity as tolerated. Job ID: [id number]
[2020-11-18] MEDS ORDERED: Insulin Glargine 15 UNITS in Pre-Filled Syringe 1 EACH SC SCH (09:00)
--- NOTE | 2020-11-18 09:39 | RAD ---
PORTABLE CHEST: DATE: 11/18/2020. PROVIDED CLINICAL HISTORY: Pneumonia. FINDINGS: Comparison 11/17/2020. Significant interval change with respect to the prior examination is not appar ent. IMPRESSION: As above. POS: MARNIE
[2020-11-18] MEDS: Insulin Glargine 20 UNITS in Pre-Filled Syringe 1 EACH SC SCH ×2 (09:41→20:54)
--- NOTE | 2020-11-18 12:43 | PRG ---
DATE OF SERVICE: 11/18/2020 SUBJECTIVE: Ms. Leon is a 60-year-old black female, being followed up by the Renal Service for her acute kidney injury on top of chronic renal failure/volume overload. Hemodialysis has been initiated with this patient due to her volume overload as well as hyperkalemia. She is planned to be undergoing hemodialysis this afternoon. Please note, she is now extubated. She is more responsive to verbal stimuli. OBJECTIVE: VITAL SIGNS: Blood pressure is 162/64, heart rate 75, respiratory rate 20, O2 saturation 100%, and temperature 99.1. GENERAL: The patient is sleepy, but arousable, comfortable. SKIN: Adequate turgor. HEENT: Slightly pale conjunctivae. Anicteric sclerae. NECK: No neck mass. No carotid bruits. No JVD. CHEST: No deformities. LUNGS: Clear breath sounds. HEART: Normal sinus rhythm. No murmur. No gallops. No rubs. ABDOMEN: Globular, soft, nontender. No masses. EXTREMITIES: No edema. MEDICATIONS: Medications of November 18, 2020, reviewed. LABORATORY DATA: Laboratories of November 18, 2020; white count 18.9, hemoglobin 8.6. Sodium 135, potassium 3.3, chloride 98, carbon dioxide 21, BUN 87, creatinine 5.36, calcium 7, AST 39, ALT 72, albumin 2.5. ASSESSMENT AND PLAN: 1. Mild hypokalemia. We will adjust potassium bath with dialysis. 2. Acute kidney injury on top of her chronic renal failure, continuing 3 times a week hemodialysis. My plan is to do a 3-hour hemodialysis with this patient. Fluid removal only as tolerated. 3. Borderline anemia. Continue to observe p.r.n. blood transfusion for hemoglobin less than 7. 4. Acute respiratory failure, much improved. She is currently extubated and off ventilator support. Pulmonary is following. Job ID: [id number]
--- NOTE | 2020-11-18 15:00 | CON ---
NEUROLOGY CONSULTATION DATE OF CONSULTATION: 11/18/2020 REASON FOR CONSULTATION: Altered mental status. HISTORY OF PRESENT ILLNESS: Ms. Leon is a 60-year-old female with medical history significant for hypertension, hyperlipidemia, anemia, type 2 diabetes mellitus, presented to the emergency room after the called the EMS because she was acting strange per ED. History is obtained from the review of the medical records. There are no family at bedside. Per records, she was found obtunded on EMS arrival. She was intubated, sedated, and transferred to the ICU for further management. In the emergency room, DKA protocol was initiated and then she was treated for metabolic acidosis secondary to DKA, sepsis, acute kidney injury, and urinary tract infection. The patient was admitted on 11/09/2020 and was managed in the ICU. Neurology was consulted because she was extremely lethargic in between periods when sedation was turned off and not waking up to evaluate for possible intracranial process. REVIEW OF SYSTEMS: Unobtainable due to the patient's mental status. ALLERGIES: PENICILLIN. HOME MEDICATIONS: 1. Atorvastatin. 2. Cozaar. 3. Lantus insulin. 4. Norvasc. 5. Trulicity. 6. Gabapentin. 7. Spironolactone. 8. Glipizide. 9. Metformin. PAST MEDICAL HISTORY: Hypertension, hyperlipidemia, anemia, type 2 diabetes mellitus. PAST SURGICAL HISTORY: No significant past surgical history. FAMILY HISTORY: No significant family history. SOCIAL HISTORY: , lives with her . Temp Pulse Resp BP Pulse Ox 11/18/20 04:00 100.7 F H 36 H 11/18/20 02:43 84 159/78 H 11/18/20 02:00 32 H 11/18/20 00:00 99.4 F 26 H 11/17/20 22:21 81 136/49 L 11/17/20 22:00 28 H 11/17/20 20:00 99.6 F 23 H 100 11/17/20 18:45 75 122/53 L 11/17/20 18:00 16 Weight Admit Weight 93.599 kg Weight 99.1 kg Most Recent Monitor Data Heart Rate from ECG 85 NIBP 150/59 NIBP BP-Mean 89 Respiration from ECG 35 SpO2 99 I&O: 11/16/20 11/17/20 11/18/20 06:59 06:59 06:59 Intake Total 3813.4 2446 1073.5 Output Total 157 46 94 Balance 3656.4 2400 979.5 PHYSICAL EXAMINATION: GENERAL: no acute distress. She has been recently extubated earlier this morning. Follows commands intermittently. CVS: Regular rate and rhythm. CHEST: Clear. ABDOMEN: Soft. NECK: Supple. NEUROLOGIC: Mental status; the patient is alert and oriented to person and place. Follows commands intermittently. Speech is clear. Cranial nerves 2 through 12 intact. Motor; muscle tone and bulk are normal. Spontaneous movement of all 4 extremities seen. Sensory; withdraws to nailbed pressure bilaterally. Cerebellar; did not cooperate with the testing. Gait; deferred due to patient's safety reason. DATA REVIEWED: I reviewed the labs. The head CT did not reveal any acute intracranial pathology. EEG did not reveal any seizure activity. ASSESSMENT AND PLAN: Ms. Mayelin Leon is a 60-year-old female, who was consulted because of continued altered mental status. Altered mental status seems to be multifactorial secondary to metabolic and infectious process. Head CT reviewed, which was negative for acute intracranial pathology. EEG reviewed, which was negative for seizure activity. The patient is successfully extubated today and is now alert and oriented to person and place and following commands. Continue neuro checks every 4 hours. Continue medical management per primary team and The patient seems to be improving. Plan discussed with the nursing staff. Thank you for the consult. Job ID: [id number] MTDD
[2020-11-18] MEDS: Acetylcysteine 10% 100 MG/ML 30 ml Vial INH SCH ×2 (15:01→18:54)
[2020-11-18] MEDS: Fluconazole In NaCl,Iso-Osm 100 MG in Admixture Fee 1 EACH IVPB SCH (16:44)
[2020-11-18] MEDS ORDERED: Heparin 10,000 UNITS/ 10 ML VIAL ONE (16:59)
[2020-11-18] MEDS ORDERED: Sodium Chloride 0.9% 1,000 ML IV SCH (17:45)
[2020-11-19] MEDS: Acetylcysteine 10% 100 MG/ML 30 ml Vial INH SCH ×3 (00:18→15:04)
[2020-11-19 04:10] LABS: #Eosinphils 0.1 thou/uL (0.0-0.7); #Lymphocytes 1.6 thou/uL (1.20-3.40); #Monocytes 0.8 thou/uL (0.11-0.59); #Neutrophils 13.7 thou/uL (1.40-6.50); %Eosinophils 0.7 % (0.0-10.0); %Lymphocytes 9.7 % (21.0-51.0); %Monocytes 4.8 % (0.0-10.0); %Neutrophils 84.9 % (42.0-75.0); Hemoglobin 7.9 g/dL (12.0-16.0); Mean Corpuscular HGB CONC 33.4 g/dL (32.0-36.0); Mean Corpuscular Volume 74.9 fL (78.0-98.0); Mean Platelet Volume 10.9 fL (7.4-10.4); Platelet Count 168 thou/uL (130-400); RBC Distribution Width 13.8 % (11.5-14.5); Red Blood Cell (RBC) Count 3.14 mill/uL (4.20-5.40); White Blood Cell (WBC) Count 16.1 thou/uL (4.8-10.8)
[2020-11-19 04:32] LABS: ALT (SGPT) 52 U/L (8-55); AST (SGOT) 35 U/L (5-34); Albumin 2.4 g/dL (3.5-5.0); Alkaline Phosphatase 79 U/L (40-110); Anion Gap 20 mmol/L (10-20); BUN (Urea Nitrogen) 61 mg/dL (9.8-20.1); Bilirubin, Total 0.5 mg/dL (0.2-1.2); Calc. Creatinine Clearance 20 mL/min (70-130); Calcium 6.8 mg/dL (7.8-10.44); Carbon Dioxide 20 mmol/L (22-29); Chloride 99 mmol/L (98-107); Globulin 2.9 g/dL (2.4-3.5); Glucose 184 mg/dL (70-105); Magnesium 2.1 mg/dL (1.6-2.6); Protein, Total 5.3 g/dL (6.0-8.3); Sodium 136 mmol/L (136-145)
--- NOTE | 2020-11-19 06:23 | PDOC.FM ---
- Subjective Subjective: Patient able to command today. Her voice is very weak and she does not seem motivated to get any words out for me this morning. Per RN, she was able to voice wants and needs clearly overnight. - Objective MAR Reviewed: Yes Vital Signs & Weight: Vital Signs (12 hours) Temp Pulse Resp Pulse Ox 11/19/20 06:10 100 11/19/20 04:00 98.4 F 11/19/20 00:18 84 23 H 97 11/19/20 00:00 97.9 F 11/18/20 20:00 98.4 F 11/18/20 18:54 104 H 27 H 100 Weight Admit Weight 93.599 kg Weight 99.1 kg Most Recent Monitor Data Heart Rate from ECG 85 NIBP 157/61 NIBP BP-Mean 93 Respiration from ECG 20 SpO2 100 I&O: 11/17/20 11/18/20 11/19/20 06:59 06:59 06:59 Intake Total 2446 1540.5 640 Output Total 46 114 205 Balance 2400 1426.5 435 Result Diagrams: 11/19/20 03:30 11/19/20 03:30 Phys Exam - Physical Examination Constitutional: NAD HEENT: PERRLA Respiratory: no wheezing, clear to auscultation bilateral Cardiovascular: RRR, no significant murmur Gastrointestinal: soft, no distention Musculoskeletal: edema present (trace) Neurological: moves all 4 limbs Skin: no rash (DTIs on heels b/l) Dx/Plan - Plan Plan: 60 yo F admitted to CCU for DKA, lactic acidosis, and sepsis: Neuro - improving mental status. CV - Hx of HTN: holding home BP meds. Will restart these once patient is cleared to take meds with sips by Speech. Hopefully she can do this today. - cardiac monitoring Resp - stable. Had weak cough yesterday so gave mucomyst nebs and duonebs to help s/p extubation. - Pulm consulted: appreciate recs. GI/Nutrition - Diarrhea: repeat CDiff negative. Patient had 6 BMs in past 24 hours. We may consider agents to reduce gut motility. Will discuss w/ attending today. - Diet: NPO, strict. Advance as tolerated. - GI ppx: protonix IV Renal/Fluids/Electrolytes - Nephro on board, dialysis per their mgmt - replete electrolytes prn Endo - DKA, Lactic acidosis: resolved - lantus 20 U BID. Continue lantus even when NPO. - aggressive SSI. Glucose q4h checks ID - Cultures from fever yesterday pending. - Sepsis: completed 7 day course of cefepime. - Candiduria: continue fluconazole for total of 14 days. - Vaginal bleeding, setting of uterine mass: etiology fibroid vs endometrial cancer vs other. 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 HIT antibodies wnl so this is unlikely. - Consulted heme/onc Dr. Perkins, Appreciate recs. Antimicrobials - fluconazole day 8 of 14 - cefepime x7 days, flagyl 7 days completed. - vancomycin DCd, 11/09-11/12 - final Blood cultures NG x5 days - final Urine culture showing yeast 75-100k cfu Code: FULL, confirmed w/ family. DIET: NPO, strict, ADAT IVF: NS DVT ppx: SCDs only GI ppx: protonix Tubes/Lines: PIV (11/09), Mendez (11/09), R fem trialysis cath & L subclavian CVC (11/11), rectal tube (11/17) Activity: UP TO CHAIR TODAY TOLERATED. PT/OT ORDERED. Encourage patient to be aggressive with her rehabilitation. Dispo: continue inpatient mgmt in CCU. Consider transfer to floor tomorrow if improving. Discussed plan with Dr. Persaud.
--- NOTE | 2020-11-19 08:24 | PRG ---
DATE OF SERVICE: 11/19/2020 SUBJECTIVE: The patient was extubated successfully yesterday, appears to be doing reasonably well. There have been no acute changes overnight. OBJECTIVE: VITAL SIGNS: Temperature 98.4, pulse 75, blood pressure 157/61, O2 saturation 100%. Intake was 1828, output 245 plus 3000 removed by dialysis. She has had a total of 9000 removed over the last 4 days. HEENT: Unremarkable. NECK: No JVD. LUNGS: Fairly clear anteriorly. CARDIOVASCULAR: S1, S2. Regular. ABDOMEN: Soft, nontender. EXTREMITIES: Edematous, especially in the hands. LABORATORY DATA: White blood cell count 16.1, hematocrit 23.5, platelet count 168. Sodium 136, potassium 3, chloride 99, CO2 of 20, BUN 61, creatinine 4.6, glucose 184. ASSESSMENT: 1. Status post respiratory failure requiring mechanical ventilation. 2. Improved encephalopathy. 3. Acute renal failure. 4. Resolved thrombocytopenia. 5. Severe hypernatremia at the time of admission which has resolved. PLAN: The patient can be transferred out to the floor. Hopefully, the diarrhea will get better now that the patient is off tube feeds. Hopefully, she will improve her swallowing to the point where she can take solid food orally. Job ID: [id number]
[2020-11-19] MEDS: Lactated Ringer's 1,000 ML IV SCH (09:27)
[2020-11-19] MEDS: Insulin Glargine 20 UNITS in Pre-Filled Syringe 1 EACH SC SCH (09:28)
[2020-11-19] MEDS ORDERED: Labetalol HCl 100 MG/20 ML VIAL SLOW IVP SCH (09:30)
[2020-11-19] MEDS: Pantoprazole 40 MG VIAL IVP SCH (10:46)
[2020-11-19] MEDS ORDERED: Potassium Chloride 40 MEQ in Sodium Chloride 0.9% 250 ML 250 ML IVPB SCH (12:00)
--- NOTE | 2020-11-19 12:08 | PRG ---
DATE OF SERVICE: 11/19/2020 SERVICE: Renal Medicine. SUBJECTIVE: Ms. Leon is a 60-year-old black female, who is being followed by the Renal Service for acute kidney injury, volume overload, and currently on maintenance hemodialysis. She is undergoing now 3 times a week hemodialysis with fluid removal. She also has decreased mentation for the last several days, but they were able to extubate her due to improving mentation. Neurology has evaluated this patient and the feeling is that the altered mental status is probably metabolic/infectious in etiology. The patient is currently extubated. OBJECTIVE: VITAL SIGNS: Blood pressure is 169/73, heart rate 78, respiratory rate 27, and O2 saturation 100%. GENERAL: The patient is arousable, can follow simple commands, obese, not in distress. SKIN: Adequate turgor. HEENT: Slightly pale conjunctivae. Anicteric sclerae. NECK: No neck mass. No carotid bruits. No JVD. CHEST: No deformities. LUNGS: Clear breath sounds. HEART: Normal sinus rhythm. No murmur. No gallops. No rubs. ABDOMEN: Globular, soft, nontender. No masses. EXTREMITIES: Trace edema. No deformities. MEDICATIONS: Of November 19, 2020, reviewed. LABORATORY DATA: Laboratories of November 19, 2020; white count 16.1, hemoglobin 7.9. Sodium 136, potassium 3, chloride 99, carbon dioxide 20, BUN 61, creatinine 4.64, and calcium 6.8. ASSESSMENT AND PLAN: 1. Acute kidney injury on top of her chronic renal failure. Continue supportive hemodialysis. Again, fluid removal only as tolerated by the patient. The patient is currently on maintenance IV LR at 125 mL/hour. No indication for any emergent hemodialysis today. 2. Hypokalemia. P.r.n. potassium replacement 40 mEq, IV KCl was ordered. Overall, prognosis remains guarded. 3. Agree with current management. Job ID: [id number]
--- NOTE | 2020-11-19 12:28 | PRG ---
DATE OF SERVICE: 11/19/2020 I have examined the patient. Discussed the case with Dr. Vivian Ellis. Ms. Leon is a very interesting and complicated patient, admitted with DKA and likely hyperosmolar syndrome with an admission sodium level of greater than 160. She was extubated yesterday, having been intubated several days ago for altered mental status. She is a bit more awake and alert this morning. We will continue to follow with the intensive care service. Job ID: [id number]
[2020-11-19] MEDS: HumaLOG 300 UNITS/3 ML VIAL SC PRN (13:52)
[2020-11-19] MEDS: Fluconazole In NaCl,Iso-Osm 100 MG in Admixture Fee 1 EACH IVPB SCH (16:50)
[2020-11-20] MEDS: Lactated Ringer's 1,000 ML IV SCH ×2 (00:22→10:57)
[2020-11-20] MEDS: Insulin Glargine 20 UNITS in Pre-Filled Syringe 1 EACH SC SCH ×3 (00:23→21:33)
[2020-11-20] MEDS: Acetaminophen 650 MG/20.3 ML UDCUP PER TUBE PRN (00:29)
--- NOTE | 2020-11-20 05:58 | PDOC.FM ---
- Subjective Subjective: Patient AxO x2 to person and time. Responds to pain in her feet on palpation. - Objective MAR Reviewed: Yes Vital Signs & Weight: Vital Signs (12 hours) Temp Pulse Resp BP Pulse Ox 11/20/20 05:15 99.0 F 82 21 H 156/69 H 99 11/20/20 00:29 99.9 F H 11/20/20 00:23 99.9 F H 77 22 H 172/63 H 95 11/19/20 20:41 99.1 F 79 24 H 167/72 H 98 Weight Admit Weight 93.599 kg Weight 103.2 kg Most Recent Monitor Data Heart Rate from ECG 78 NIBP 169/73 NIBP BP-Mean 105 Respiration from ECG 27 SpO2 100 I&O: 11/18/20 11/19/20 11/20/20 06:59 06:59 06:59 Intake Total 1540.5 1828 400 Output Total 114 245 275 Balance 1426.5 1583 125 Result Diagrams: 11/20/20 07:14 11/20/20 07:14 Phys Exam - Physical Examination Constitutional: NAD Respiratory: no wheezing (nonlabored breathing) Cardiovascular: RRR Gastrointestinal: soft, non-tender, no distention Neurological: moves all 4 limbs Skin: no rash (continued blackened toes on L) Dx/Plan - Plan Plan: 60 yo F admitted to CCU for DKA, lactic acidosis, and sepsis: Neuro - improving mental status. CV - Hx of HTN: restart home meds - cardiac monitoring Resp - stable. - Pulm consulted: appreciate recs. - incentive spirometry and up to chair GI/Nutrition - Diarrhea: repeat CDiff negative. Patient had 6 BMs in past 24 hours. We may consider agents to reduce gut motility. Will discuss w/ attending today. - Diet: puree, nectar thick diet. Renal high protein and CC. - GI ppx: protonix IV Renal/Fluids/Electrolytes - Nephro on board, dialysis per their mgmt - replete electrolytes prn Endo - DKA, Lactic acidosis: resolved - lantus 20 U BID. Continue lantus even when NPO. - aggressive SSI. Glucose q4h checks ID - Cultures from fever yesterday pending. - Sepsis: completed 7 day course of cefepime. - Candiduria: continue fluconazole for total of 14 days. - Vaginal bleeding, setting of uterine mass: etiology fibroid vs endometrial cancer vs other. 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 HIT antibodies wnl so this is unlikely. - Consulted heme/onc Dr. Perkins, Appreciate recs. Antimicrobials - fluconazole day 9 of 14 - cefepime x7 days, flagyl 7 days completed. - vancomycin DCd, 11/09-11/12 - final Blood cultures NG x5 days - final Urine culture showing yeast 75-100k cfu Code: FULL, confirmed w/ family. DIET: puree, nectar thick liquid. Renal high protein for dialysis, CC. IVF: SL DVT ppx: SCDs only GI ppx: protonix PO Tubes/Lines: PIV (11/09), Mendez (11/09), R fem trialysis cath (11/11) - D/C Mendez Activity: Up to chair. PT / OT /Speech. Dispo: inpatient, tele. Pending placement. PT/OT recommends SNU vs Rehab. Discussed plan with Dr. Issa. Addendum - Attending - Attending Attestation Date/Time: 11/20/20 9463 I personally evaluated the patient and discussed the management with Dr. Ellis. I agree with the History, Examination, Assessment and Plan documented above with any addition or exceptions noted below. Patient will have dialysis today. Mentation slowly improving. will continue to monitor. continuing fluconazole.
[2020-11-20 07:36] LABS: ALT (SGPT) 40 U/L (8-55); AST (SGOT) 34 U/L (5-34); Albumin 2.4 g/dL (3.5-5.0); Alkaline Phosphatase 68 U/L (40-110); Anion Gap 22 mmol/L (10-20); BUN (Urea Nitrogen) 68 mg/dL (9.8-20.1); Bilirubin, Total 0.4 mg/dL (0.2-1.2); Calc. Creatinine Clearance 18 mL/min (70-130); Calcium 6.7 mg/dL (7.8-10.44); Carbon Dioxide 14 mmol/L (22-29); Chloride 107 mmol/L (98-107); Glucose 163 mg/dL (70-105); Magnesium 2.1 mg/dL (1.6-2.6); Protein, Total 5.4 g/dL (6.0-8.3); Sodium 139 mmol/L (136-145)
[2020-11-20] MEDS ORDERED: Acetaminophen 650 MG/20.3 ML UDCUP PO PRN (07:45)
[2020-11-20 07:47] LABS: Mean Corpuscular HGB CONC 34.3 g/dL (32.0-36.0); Mean Corpuscular Hemoglobin 25.9 pg (27.0-31.0); Mean Corpuscular Volume 75.7 fL (78.0-98.0); Mean Platelet Volume 11.5 fL (7.4-10.4); Platelet Count 144 thou/uL (130-400); Red Blood Cell (RBC) Count 3.06 mill/uL (4.20-5.40); White Blood Cell (WBC) Count 11.8 thou/uL (4.8-10.8)
[2020-11-20 09:50] LABS: Band 9 % (5-11); Eosinophils 1 % (0-10); Hypochromia SLIGHT = 6-15 cells (100X) (0-5/hpf); Large Platelets SLIGHT; Lymphocytes 2 % (21-51); MDiff Complete? YES; Metamyelocyte 1 % (0-0); Monocytes 7 % (0-10); Neutrophil 80 % (42-75); Platelet Morphology Comment Appears Decreased; Polychromasia SLIGHT = 2-3 cells (100X) (0-2/hpf); Target Cells SLIGHT = 2-5 cells (100X) (0-1/hpf); Vacuoles SLIGHT
[2020-11-20] MEDS: Losartan 25 MG TAB PO SCH (10:27)
[2020-11-20] MEDS: Amlodipine 10 MG TAB PO SCH (10:27)
[2020-11-20] MEDS: Spironolactone 25 MG TAB PO SCH (10:28)
[2020-11-20] MEDS: Atorvastatin Calcium 20 MG TAB PO SCH (10:28)
[2020-11-20] MEDS ORDERED: Heparin 10,000 UNITS/ 10 ML VIAL ONE (10:45)
--- NOTE | 2020-11-20 11:38 | PRG ---
DATE OF SERVICE: 11/20/2020 SUBJECTIVE: Ms. Leon is a 60-year-old black female, followed up by the Renal Service for her acute kidney injury. She has been initiated with hemodialysis due to the worsening renal dysfunction and volume overload. This morning, she is complaining of some nausea. She denies any chest pain or shortness of breath. Her mentation is slightly improved this a.m. OBJECTIVE: VITAL SIGNS: Blood pressure 172/72, heart rate 82, respiratory rate 20, temperature 98.6, O2 saturation 100% on room air. GENERAL: The patient is awake, alert, not in overt distress, obese. SKIN: Adequate turgor. HEENT: She has slightly pale conjunctivae. Anicteric sclerae. No neck mass. No carotid bruits. No JVD. CHEST: No deformities. LUNGS: Clear breath sounds. HEART: Normal sinus rhythm. No murmur. No gallops. No rubs. ABDOMEN: Globular, soft, nontender. No masses. EXTREMITIES: Lower-no edema. Upper extremities positive for edema. MEDICATIONS: Medications of November 20, 2020, was reviewed. LABORATORY DATA: Laboratories of November 20, 2020, white count 11.8, hemoglobin is 8. Sodium 139, potassium 4, chloride 107, carbon dioxide 14, BUN 68, creatinine 5.46, GFR 10 mL/minute, calcium 6.7. AST 34, ALT 40, albumin 2.4. ASSESSMENT AND PLAN: 1. Acute kidney injury/chronic renal failure-continuing three times a week hemodialysis. Again, fluid removal only as tolerated by the patient. Using minimal to no heparin. Patient is scheduled for hemodialysis this afternoon. 2. Mental status change, multifactorial etiology, much improved. 3. Anemia. Start maintenance Epogen at 7500 units subcu every week. Addendum: Tolerated hemodialysis Job ID: [id number] MTDD
[2020-11-20] MEDS ORDERED: diphenhydrAMINE 50 MG/ML VIAL IVP SCH (14:15)
--- NOTE | 2020-11-20 15:16 | EKG ---
Test Reason : Blood Pressure : / mmHG Vent. Rate : 084 BPM Atrial Rate : 084 BPM P-R Int : 124 ms QRS Dur : 100 ms QT Int : 446 ms P-R-T Axes : 086 -43 051 degrees QTc Int : 527 ms Normal sinus rhythm Left axis deviation Possible Anterior infarct , age undetermined Prolonged QT Abnormal ECG Confirmed by JOSUÉ STRATTON M.D. ([id number]), acquisition editor BERNICE PROCTOR ([id number]) on 11/20/2020 3:15:22 PM Referred By: Confirmed By:JOSUÉ STRATTON M.D.
[2020-11-20] MEDS: Fluconazole In NaCl,Iso-Osm 100 MG in Admixture Fee 1 EACH IVPB SCH (17:40)
[2020-11-20] MEDS: EPOETIN ALFA-EPBX (ESRD) 4,000 UNIT/ML VIAL SC SCH (17:47)
[2020-11-21 06:13] LABS: Hemoglobin 7.5 g/dL (12.0-16.0); Mean Corpuscular Hemoglobin 24.4 pg (27.0-31.0); Mean Corpuscular Volume 76.2 fL (78.0-98.0); Mean Platelet Volume 10.3 fL (7.4-10.4); Platelet Count 170 thou/uL (130-400); RBC Distribution Width 14.1 % (11.5-14.5); Red Blood Cell (RBC) Count 3.09 mill/uL (4.20-5.40); White Blood Cell (WBC) Count 11.4 thou/uL (4.8-10.8)
[2020-11-21 06:14] LABS: Anion Gap 21 mmol/L (10-20); BUN (Urea Nitrogen) 49 mg/dL (9.8-20.1); Calc. Creatinine Clearance 24 mL/min (70-130); Calcium 6.8 mg/dL (7.8-10.44); Carbon Dioxide 16 mmol/L (22-29); Chloride 108 mmol/L (98-107); Glucose 133 mg/dL (70-105); Potassium 4.3 mmol/L (3.5-5.1); Sodium 141 mmol/L (136-145)
[2020-11-21 06:28] LABS: Band 4 % (5-11); Eosinophils 2 % (0-10); Hypochromia SLIGHT = 6-15 cells (100X) (0-5/hpf); Lymphocytes 9 % (21-51); MDiff Complete? YES; Microcytosis SLIGHT = 6-15 cells (100X) (0-5/hpf); Monocytes 10 % (0-10); Neutrophil 75 % (42-75); Platelet Morphology Comment Appears Adequate
--- NOTE | 2020-11-21 06:56 | PDOC.FM ---
- Subjective Subjective: No acute events overnight. Patient did not get her insulin last night, documented as patient refused. 3 BMs over the past day. We have left her Mendez catheter in place to assist w/ changes. No documentation of patient eating anything yesterday. - Objective MAR Reviewed: Yes Vital Signs & Weight: Vital Signs (12 hours) Temp Pulse Resp BP Pulse Ox 11/21/20 04:34 98.2 F 85 18 126/60 11/20/20 20:00 96 Weight Admit Weight 93.599 kg Weight 103.2 kg Most Recent Monitor Data Heart Rate from ECG 78 NIBP 169/73 NIBP BP-Mean 105 Respiration from ECG 27 SpO2 100 I&O: 11/19/20 11/20/20 11/21/20 06:59 06:59 06:59 Intake Total 2677 860 1840 Output Total 109 319 5608 Balance 1583 125 -0188 Result Diagrams: 11/21/20 05:53 11/21/20 05:56 Phys Exam - Physical Examination Constitutional: NAD HEENT: PERRLA (MUCOUS MEMBRANES VERY DRY) Respiratory: no wheezing (CLEAR TO AUSCULTATION BILATERALLY) Cardiovascular: RRR, no significant murmur Gastrointestinal: soft, no distention Musculoskeletal: edema present (TRACE) Skin: no rash (BLACKENED TOES ON LEFT FOOT) Dx/Plan - Plan Plan: 60 yo F admitted to CCU for DKA, lactic acidosis, and sepsis: Neuro - improving mental status. CV - Hx of HTN: continue home meds. - cardiac monitoring Resp - stable. - Pulm consulted: appreciate recs. - incentive spirometry and up to chair SCHEDULED GI/Nutrition - Diarrhea: monitor - Diet: puree, nectar thick diet. Renal high protein and CC. Consider switching to renal low protein if patient's UOP improves and if she no longer needs dialysis. - added Glucerna TID. - PATIENT NEEDS [employer] TO FEED HER ALL MEALS. - GI ppx: protonix PO Renal/Fluids/Electrolytes - Nephro on board, dialysis per their mgmt - replete electrolytes prn Endo - DKA, Lactic acidosis: resolved - lantus 20 U BID. Continue lantus even when NPO. COUNSELED PT THIS AM NOT TO REFUSE HER LANTUS. - aggressive SSI. Glucose q4h checks ID - Cultures from fever showing yeast in urine still. Continue fluconazole. - repeat blood cultures, NGTD - Sepsis: completed 7 day course of cefepime. - Candiduria: continue fluconazole for total of 14 days. - Vaginal bleeding, setting of uterine mass: etiology fibroid vs endometrial cancer vs other. Consider workup as patient continues to improve Heme - Microcytic anemia, iron deficient: Nephro started epogen - Thrombocytopenia: continues to improve - s/p Empiric treatment for HIT with argatroban. HIT antibodies wnl so this is unlikely. - Consulted heme/onc Dr. Perkins, Appreciate recs. Antimicrobials - fluconazole day 10 of 14 - cefepime x7 days, flagyl 7 days completed. - vancomycin DCd, 11/09-11/12 - final Blood cultures NG x5 days - final Urine culture showing yeast 75-100k cfu Code: FULL, confirmed w/ family. DIET: puree, nectar thick liquid. Renal high protein for dialysis, CC. Supp Glucerna IVF: SL DVT ppx: SCDs only GI ppx: protonix PO Activity: Up to chair. PT / OT /Speech. Dispo: inpatient, tele. Pending placement. PT/OT recommends SNU vs Rehab. Discussed plan with Dr. Issa. Addendum - Attending - Attending Attestation Date/Time: 11/21/20 7322 I personally evaluated the patient and discussed the management with Dr. Ellis. I agree with the History, Examination, Assessment and Plan documented above with any addition or exceptions noted below. Nursing is concerned about several black toes. Likely a result of her needing levophed in the ICU. Will ask surgery to eval. wound care has been consulted. Mentation is slowly improving. Continue dialysis per nephrology.
[2020-11-21] MEDS: Spironolactone 25 MG TAB PO SCH (08:20)
[2020-11-21] MEDS: Insulin Glargine 20 UNITS in Pre-Filled Syringe 1 EACH SC SCH ×2 (08:21→21:09)
[2020-11-21] MEDS: Atorvastatin Calcium 20 MG TAB PO SCH (08:21)
[2020-11-21] MEDS: Amlodipine 10 MG TAB PO SCH (08:21)
[2020-11-21] MEDS: Losartan 25 MG TAB PO SCH (08:22)
--- NOTE | 2020-11-21 11:07 | PRG ---
DATE OF SERVICE: 11/21/2020 TRANSITION OF CARE SUMMARY HOSPITAL COURSE: This 60-year-old female presented on 11/09/2020 for altered mental status and was intubated due to a GCS of 9. She was diagnosed with DKA and started on a DKA protocol. The patient's past medical history includes hyperlipidemia, hypertension, anemia, and type 2 diabetes, on insulin. She was hypothermic on admission and rewarmed. She was also found to be hypernatremic at 162, which was corrected for her blood glucose of 183. The patient also had an acute renal failure with a creatinine of 5.26. Nephrology was consulted and this was believed to be due to acute tubular necrosis due to dehydration and acute illness. When the could be contacted, it was found that the patient had a colonoscopy 2-3 weeks prior to admission and that since her colonoscopy she had had abdominal pain and had not eaten or taken her insulin in the past 2 weeks. The patient also was empirically treated for sepsis and found to have the urinary yeast infection, so was started on IV fluconazole. During her ICU stay, she was started on TPN and then transitioned to gastric tube feeds once her gastric output decreased. The patient did have diarrhea. She was tested for C. diff twice and was found to be negative. All other stool studies were negative, except for a FOBT which was positive and the lactoferrin, which was positive. Pulmonology assisted with her care while she was in the ICU. Due to elevated potassium and continued poor urine output, the patient was started on hemodialysis by Dr. Dover. The patient's respiratory status was overall good, but she remained intubated, because of her sedation and she was not commanding initially. However, the sedation was eventually lightened and the patient did command. She was extubated on 11/18/2020, which she tolerated well. Speech evaluated her and started to progress her diet. 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 Her heparin was stopped and she was also empirically treated with argatroban, heparin antibodies did resolve, within normal limits and all anticoagulation was held per Heme-Onc. Did believe her low platelets were due to her systemic illness and multi organ dysfunction. Her platelets had started to recover by time we transferred her out of the unit. Her COVID swab was negative. Hepatitis B nonreactive. The patient was then moved to the floor where she will likely need rehab versus SNF and have a long recovery. The patient also has anemia, which was monitored and she was started on Epogen on 11/20/2020 per Nephrology. DISPOSITION: Inpatient telemetry, pending placement. Needs acute physical therapy, occupational therapy, and continued speech therapy. Job ID: [id number] MTDD
--- NOTE | 2020-11-21 11:25 | PRG ---
DATE OF SERVICE: 11/21/2020 SUBJECTIVE: Ms. Leon is a 60-year-old black female, seen by Renal Service for her acute kidney injury. She was initiated on hemodialysis due to worsening renal dysfunction as well as some volume overload and hyperkalemia. Her mentation has been slowly improving over the last several days. The patient is tolerating current dialysis regimen. She did undergo dialysis yesterday without any difficulty. The patient denies any chest pain or shortness of breath. OBJECTIVE: VITAL SIGNS: Blood pressure is 167/69, heart rate 92, respiratory rate 22, temperature 98.5, O2 saturation 95%. GENERAL: The patient is sleepy, but arousable, not in distress, obese. SKIN: Adequate turgor. HEENT: Slightly pale conjunctivae. Anicteric sclerae. NECK: No neck mass. No carotid bruits. No JVD. CHEST: No deformities. LUNGS: Decreased breath sounds. HEART: Normal sinus rhythm. No murmurs, gallops, or rubs. ABDOMEN: Globular, soft, nontender. No masses. EXTREMITIES: Trace edema. MEDICATIONS: Medications of November 21, 2020, reviewed. LABORATORY DATA: Laboratories of November 21, 2020; white count 11.4, hemoglobin 7.5. Sodium 141, potassium 4.3, chloride 108, carbon dioxide 816, BUN 49, creatinine 4, glucose 133, calcium 6.8. ASSESSMENT AND PLAN: 1. Acute kidney injury-most likely superimposed acute tubular necrosis, continuing hemodialysis regimen. The patient has now been placed on 3 times a week dialysis regimen. Fluid removal only as tolerated. 2. Anemia-currently on weekly Epogen. P.r.n. blood transfusion for hemoglobin less than 7. 3. Mental status change-this is most likely multifactorial. 4. Continue current supportive care. 5. Urinary tract infection/fungal infection-currently on antifungal regimen. The patient is status post IV antibiotics. Overall, prognosis remains guarded. Recheck basic met and CBC in a.m. Job ID: [id number]
[2020-11-21] MEDS: HumaLOG 300 UNITS/3 ML VIAL SC PRN ×2 (11:42→16:37)
[2020-11-21] MEDS: Loperamide HCl 2 MG CAP PO PRN ×2 (13:55→19:08)
[2020-11-21] MEDS: Fluconazole In NaCl,Iso-Osm 100 MG in Admixture Fee 1 EACH IVPB SCH (16:28)
[2020-11-22] MEDS: Loperamide HCl 2 MG CAP PO PRN (00:51)
[2020-11-22 05:32] LABS: #Eosinphils 0.2 thou/uL (0.0-0.7); #Lymphocytes 1.1 thou/uL (1.20-3.40); #Monocytes 0.6 thou/uL (0.11-0.59); #Neutrophils 7.9 thou/uL (1.40-6.50); %Basophils 0.4 % (0.0-1.0); %Eosinophils 1.6 % (0.0-10.0); %Lymphocytes 10.9 % (21.0-51.0); %Monocytes 6.4 % (0.0-10.0); %Neutrophils 80.8 % (42.0-75.0); Hemoglobin 7.3 g/dL (12.0-16.0); Mean Corpuscular HGB CONC 34.3 g/dL (32.0-36.0); Mean Corpuscular Hemoglobin 25.5 pg (27.0-31.0); Mean Corpuscular Volume 74.3 fL (78.0-98.0); Mean Platelet Volume 10.2 fL (7.4-10.4); Platelet Count 245 thou/uL (130-400); RBC Distribution Width 14.1 % (11.5-14.5); Red Blood Cell (RBC) Count 2.85 mill/uL (4.20-5.40); White Blood Cell (WBC) Count 9.7 thou/uL (4.8-10.8)
[2020-11-22 05:46] LABS: Anion Gap 17 mmol/L (10-20); BUN (Urea Nitrogen) 63 mg/dL (9.8-20.1); Calc. Creatinine Clearance 22 mL/min (70-130); Calcium 6.9 mg/dL (7.8-10.44); Carbon Dioxide 23 mmol/L (22-29); Chloride 107 mmol/L (98-107); Glucose 166 mg/dL (70-105); Potassium 3.1 mmol/L (3.5-5.1); Sodium 144 mmol/L (136-145)
--- NOTE | 2020-11-22 07:16 | PDOC.FM ---
- Subjective Subjective: Pt denies any complaints this morning. This is my first time seeing the patient but mental status is consistent with report of previous visits. Denies any pain in her left foot/toes. Denies any shortness of breath. - Objective Vital Signs & Weight: Vital Signs (12 hours) Temp Pulse Resp BP Pulse Ox 11/22/20 03:30 97 11/22/20 02:51 98.6 F 80 16 114/58 L 97 11/21/20 20:00 97.6 F 87 20 148/72 H 97 Weight Admit Weight 93.599 kg Weight 103.2 kg Most Recent Monitor Data Heart Rate from ECG 78 NIBP 169/73 NIBP BP-Mean 105 Respiration from ECG 27 SpO2 100 I&O: 11/21/20 11/22/20 11/23/20 06:59 06:59 06:59 Intake Total 1010 770 Output Total 4605 2500 Balance -0125 -8900 Result Diagrams: 11/22/20 05:04 11/22/20 05:04 Phys Exam - Physical Examination Constitutional: NAD HEENT: moist MMs Neck: full ROM Respiratory: clear to auscultation bilateral Cardiovascular: RRR, no significant murmur Gastrointestinal: soft, non-tender Musculoskeletal: no edema, pulses present Neurological: non-focal, moves all 4 limbs Answers questions appropriately Deviation from normal: Flat affect Deviation from normal: dry necrosis of distal aspect of left toes 2-5 Dx/Plan - Plan Plan: Multifactorial metabolic encephalopathy - improving mental status. Dysphagia and Poor PO intake - speech consulted - Diet: puree, nectar thick diet. Renal high protein and CC. - Added Glucerna TID. - Needs assist with meals Acute Renal Failure with Superimposed ATN - Dialysis 3x week regimen - Hypokalemic to 3.1 this morning, due for dialysis today - can replace then - Dr. Dover, nephro, appreciate recs DKA resolved - lantus 20 U BID. Continue lantus even when NPO - aggressive SSI. Glucose ACHS Candiduria - Cultures from fever showing yeast in urine still. - continue fluconazole for total of 14 days. Hx of HTN: - continue home meds. - cardiac monitoring Vaginal bleeding, setting of uterine mass - bleeding has ceased - etiology fibroid vs endometrial cancer vs other - outpt workup as long as it remains mild Microcytic anemia, iron deficient - Nephro started epogen - Continue to trend CBC - Hgb 7.3, will transfuse <7 - No active bleeding Thrombocytopenia - Resolved - Consulted heme/onc Dr. Perkins, Appreciate recs, believes multifactorial and multisystem organ failure as etiology Antimicrobials - fluconazole day 11 of 14 - cefepime x7 days, flagyl 7 days completed. - vancomycin DCd, 11/09-11/12 - final Blood cultures no growth - final Urine culture showing yeast 75-100k cfu Code: FULL, confirmed w/ family. DIET: puree, nectar thick liquid. Renal high protein for dialysis, CC. Supp Glucerna IVF: SL DVT ppx: SCDs only GI ppx: protonix PO Activity: Up to chair. PT / OT /Speech. Dispo: inpatient, tele. Pending placement. PT/OT recommends SNU vs Rehab. Addendum - Attending - Attending Attestation Date/Time: 11/22/20 1440 I personally evaluated the patient and discussed the management with Dr. Curiel. I agree with the History, Examination, Assessment and Plan documented above with any addition or exceptions noted below. Left toes 1-4 appear to be undergoing dry gangrene 2/2 to underlying PVD and prolonged levophed use. Gen surg to see. Arranging placement.
[2020-11-22] MEDS: Spironolactone 25 MG TAB PO SCH (08:49)
[2020-11-22] MEDS: Amlodipine 10 MG TAB PO SCH (08:51)
[2020-11-22] MEDS: Lactinex Tablet PO SCH (08:51)
[2020-11-22] MEDS: Losartan 25 MG TAB PO SCH (08:52)
[2020-11-22] MEDS: Atorvastatin Calcium 20 MG TAB PO SCH (08:53)
[2020-11-22] MEDS: Insulin Glargine 20 UNITS in Pre-Filled Syringe 1 EACH SC SCH ×2 (09:05→23:35)
[2020-11-22] MEDS ORDERED: Potassium Chloride 20 MEQ TAB PO SCH (09:15)
--- NOTE | 2020-11-22 09:25 | PRG ---
DATE OF SERVICE: 11/22/2020 SUBJECTIVE: Ms. Leon is a 60-year-old black female, followed up by the Renal Service for acute kidney injury-the patient most likely has superimposed acute tubular necrosis. She is currently on maintenance hemodialysis 3 times a week. Her mentation is much improved over the last several days. CHF is also clinically improved. No new complaints today, still with decreased appetite. OBJECTIVE: VITAL SIGNS: Blood pressure 136/79, heart rate 65, respiratory rate 22, temperature 98.1, and O2 saturation is 95%. GENERAL: The patient is noted to be awake, alert, comfortable, not in overt distress. SKIN: Adequate turgor. HEENT: Slightly pale conjunctivae. Anicteric sclerae. NECK: No neck mass. No carotid bruits. No JVD. CHEST: No deformities. LUNGS: Decreased breath sounds. HEART: Normal sinus rhythm. No murmur. No gallops. No rubs. ABDOMEN: Globular. Soft. Nontender. No masses. EXTREMITIES: No edema. No deformities. MEDICATIONS: November 22, 2020, reviewed. LABORATORY DATA: November 22, 2020, white count 9.7 and hemoglobin 7.3. Sodium 144, potassium 3.1, chloride 107, carbon dioxide 23, BUN 63, creatinine 4.53, calcium 6.9. ASSESSMENT AND PLAN: 1. Acute kidney injury-secondary to a superimposed acute tubular necrosis, continuing 3 times a week hemodialysis. Again, fluid removal only as tolerated. 2. Anemia, continuing weekly Epogen regimen. 3. Mild hypokalemia. KCl 40 mEq one tablet now. 4. We will be rechecking a CBC . Job ID: [id number] [facility]
[2020-11-22] MEDS: Fluconazole In NaCl,Iso-Osm 100 MG in Admixture Fee 1 EACH IVPB SCH (16:36)
[2020-11-23 07:06] LABS: #Eosinphils 0.1 thou/uL (0.0-0.7); #Monocytes 0.6 thou/uL (0.11-0.59); #Neutrophils 6.6 thou/uL (1.40-6.50); %Basophils 0.4 % (0.0-1.0); %Eosinophils 1.1 % (0.0-10.0); %Lymphocytes 11.6 % (21.0-51.0); %Monocytes 7.4 % (0.0-10.0); %Neutrophils 79.5 % (42.0-75.0); Hemoglobin 7.7 g/dL (12.0-16.0); Mean Corpuscular Volume 76.6 fL (78.0-98.0); Mean Platelet Volume 9.8 fL (7.4-10.4); Platelet Count 245 thou/uL (130-400); RBC Distribution Width 14.6 % (11.5-14.5); Red Blood Cell (RBC) Count 2.97 mill/uL (4.20-5.40); White Blood Cell (WBC) Count 8.3 thou/uL (4.8-10.8)
[2020-11-23 07:23] LABS: Phosphorus 5.9 mg/dL (2.3-4.7)
[2020-11-23 07:26] LABS: Anion Gap 18 mmol/L (10-20); BUN (Urea Nitrogen) 63 mg/dL (9.8-20.1); Calc. Creatinine Clearance 23 mL/min (70-130); Calcium 6.9 mg/dL (7.8-10.44); Carbon Dioxide 22 mmol/L (22-29); Chloride 112 mmol/L (98-107); Glucose 119 mg/dL (70-105); Potassium 3.5 mmol/L (3.5-5.1); Sodium 148 mmol/L (136-145)
--- NOTE | 2020-11-23 07:42 | PDOC.FM ---
- Subjective Subjective: PO intake continues to be poor. Ate 25% of breakfast. Pt attributes to poor appetite. Mentation is stable currently. Getting dialysis today. No other complaints. - Objective Vital Signs & Weight: Vital Signs (12 hours) Temp Pulse Resp BP Pulse Ox 11/23/20 04:00 98.6 F 80 18 148/67 H 11/22/20 20:00 99.0 F 80 16 151/89 H 96 Weight Admit Weight 93.599 kg Weight 99.1 kg Most Recent Monitor Data Heart Rate from ECG 78 NIBP 169/73 NIBP BP-Mean 105 Respiration from ECG 27 SpO2 100 I&O: 11/22/20 11/23/20 11/24/20 06:59 06:59 06:59 Intake Total 770 290 Output Total 2500 2425 Balance -1730 -2135 Result Diagrams: 11/23/20 06:40 11/23/20 06:40 Phys Exam - Physical Examination Constitutional: NAD No respiratory distress Cardiovascular: RRR Gastrointestinal: soft, no distention Musculoskeletal: no edema Neurological: moves all 4 limbs Deviation from normal: Flat affect Deviation from normal: Dry necrosis of left toes 1-4 Dx/Plan - Plan Plan: Afib/Aflutter - resolved - 15 minute episode last night on tele that self converted, was asymptomatic - Will continue to monitor to assess whether this was an isolated incident - Continue to maintain appropriate volume and electrolytes - Possible KAIA component Multifactorial metabolic encephalopathy - improving mental status. Poor PO intake - speech consulted - [employer] consulted: puree, nectar thick diet. Renal high protein and CC. - Added Glucerna TID. - Needs assist with meals Acute Renal Failure with Superimposed ATN - Dialysis 3x week regimen - Slightly hypernatremic to 148, likely due to volume contraction with poor PO intake, encourage routine PO fluids - Dr. Dover, nephro, appreciate recs DKA resolved - lantus 20 U BID. Morning dose held due to poor PO intake - Will monitor sugars today and assess need for dose adjustment - Would prefer once per day dosing - aggressive SSI. Glucose ACHS Candiduria - Cultures from fever showing yeast in urine still. - continue fluconazole for total of 14 days. Hx of HTN: - continue home meds. - cardiac monitoring Vaginal bleeding, setting of uterine mass - bleeding has ceased - etiology fibroid vs endometrial cancer vs other - outpt workup as long as it remains mild Microcytic anemia, iron deficient - Nephro started epogen - Continue to trend CBC - Hgb 7.7, will transfuse <7 - No active bleeding Thrombocytopenia - Resolved - Consulted heme/onc Dr. Perkins, Appreciate recs, believes multifactorial and multisystem organ failure as etiology Antimicrobials - fluconazole day 12 of 14 - cefepime x7 days, flagyl 7 days completed. - vancomycin DCd, 11/09-11/12 - final Blood cultures no growth - final Urine culture showing yeast 75-100k cfu Code: FULL, confirmed w/ family. DIET: puree, nectar thick liquid. Renal high protein for dialysis, CC. Supp Glucerna IVF: SL DVT ppx: SCDs only GI ppx: protonix PO Activity: Up to chair. PT / OT /Speech. Dispo: inpatient, tele. Pending placement, choice letter to [facility]. Need to continue to improve PO intake. Dialysis today. Rate/rhythm monitoring. Addendum - Attending - Attending Attestation Date/Time: 11/23/20 3842 I personally evaluated the patient and discussed the management with Dr. Curiel I agree with the History, Examination, Assessment and Plan documented above with any addition or exceptions noted below. cardiology consult for new A-fib/flutter. working on outpt HD chair and placement. General surgery to see for fistula/tunneled IJ.
[2020-11-23] MEDS: Spironolactone 25 MG TAB PO SCH (08:00)
[2020-11-23] MEDS: Lactinex Tablet PO SCH (08:06)
[2020-11-23] MEDS: Insulin Glargine 20 UNITS in Pre-Filled Syringe 1 EACH SC SCH (08:06)
[2020-11-23] MEDS: Atorvastatin Calcium 20 MG TAB PO SCH (08:06)
[2020-11-23] MEDS: Losartan 25 MG TAB PO SCH (09:00)
[2020-11-23] MEDS: Amlodipine 10 MG TAB PO SCH (09:00)
--- NOTE | 2020-11-23 09:23 | PRG ---
DATE OF SERVICE: 11/23/2020 SUBJECTIVE: Ms. Leon is a 60-year-old black female, seen by Renal Service for her acute kidney injury as well as volume overload. She has been initiated on hemodialysis. She currently has a temporary femoral dialysis catheter. She is currently undergoing hemodialysis. No acute events noted last night. OBJECTIVE: VITAL SIGNS: Blood pressure 137/65, heart rate 92, respiratory rate 20, temperature 98.4, and O2 saturation 96%. GENERAL: The patient is sleepy, but arousable, not in distress. SKIN: Adequate turgor. HEENT: Pale conjunctivae. Anicteric sclerae. NECK: No neck mass. No carotid bruits. No JVD. CHEST: No deformities. LUNGS: Clear breath sounds. No wheezing. No crackles. HEART: Normal sinus rhythm. No murmurs, no gallops, no rubs. ABDOMEN: Globular, soft. Nontender. No masses. EXTREMITIES: No edema. No deformities. MEDICATIONS: Of November 23, 2020, were reviewed. LABORATORY DATA: Of November 23, 2020, white count 8.3, hemoglobin 7.7. Sodium 148, potassium 3.5, chloride 112, carbon dioxide 22, BUN 63, creatinine 4.06, calcium 6.9, phosphorus is 5.9. ASSESSMENT AND PLAN: 1. Hyperphosphatemia/hypocalcemia. Start PhosLo 667 mg one tablet t.i.d. with meals. 2. Acute kidney injury/chronic renal failure-no evidence of renal recovery. Continue regular hemodialysis on Sunday, , and Sunday. We may need to consult General Surgery, Dr. Cabrera and Dr. Bateman, for placement of a tunneled dialysis catheter. 3. Anemia. Continue weekly Epogen. P.r.n. blood transfusion. 4. We will recheck CBC and basic metabolic in a.m. Job ID: [id number]
[2020-11-23] MEDS ORDERED: Activase 2 MG VIAL CATH SCH (10:15)
[2020-11-23] MEDS ORDERED: Heparin 10,000 UNITS/ 10 ML VIAL ONE (10:54)
[2020-11-23] MEDS: Calcium Acetate 667 MG CAP PO SCH ×2 (12:00→18:09)
--- NOTE | 2020-11-23 13:12 | CON ---
DATE OF CONSULTATION: HISTORY OF PRESENT ILLNESS: Juanita Leon is a 60-year-old black female, morbidly obese, allergic to penicillin, with diabetes and hypertension, COVID negative on 11/09/2020, had groin dialysis catheter placed by Dr. Williamson on 11/11/2020. I have been asked by Dr. Dover to see her regarding placement of a cuffed tunneled dialysis catheter as her renal function is not recovering. Right antecubital IV was removed when I saw her. Hemoglobin A1c on admission was 14. The patient admitted by [facility] on 11/09/2020 from the emergency room when she presented with acute mental status changes, found to be in profound DKA with kidney disease. ALLERGIES: PENICILLIN. HABITS: Tobacco, none. Alcohol, none. MEDICATIONS: At home: 1. Gabapentin. 2. Metformin. 3. Glipizide. 4. Spironolactone. 5. Losartan. 6. Insulin. 7. Trulicity. 8. Calcium. 9. Atorvastatin. 10. Norvasc. PAST SURGICAL HISTORY: 1. . 2. Childbirth. PAST MEDICAL HISTORY: 1. Hypertension. 2. Type 2 diabetes mellitus. 3. Metabolic syndrome. 4. Morbid obesity. REVIEW OF SYSTEMS: Unremarkable. PAST SURGICAL HISTORY: 1. She has had a colonoscopy in the past. 2. In 08/2019, diagnostic hysteroscopy with D and C. PHYSICAL EXAMINATION: GENERAL: The patient is in the dialysis unit, 5 feet 5 inches, 218 pounds, and 36 BMI. The patient opens eyes to voice and answers questions. VITAL SIGNS: Temperature 98.4, heart rate 92, and blood pressure 137/65. LUNGS: Clear to auscultation. CARDIAC: Regular rate and rhythm without murmur or gallop. ABDOMEN: Soft, obese. EXTREMITIES: Edema. ASSESSMENT AND PLAN: 1. End-stage renal disease. Plan placement of cuffed tunneled dialysis catheter and central line and a right and left arm fistula pending vein mapping. Avoid IVs and blood draws above her wrist. Use Trialysis catheter in right groin for IV access and blood draws. 2. Metabolic syndrome. 3. Diabetes mellitus. 4. Hypertension. Job ID: [id number]
[2020-11-23 14:38] LABS: #Basophils 0.1 thou/uL (0.0-0.2); #Eosinphils 0.1 thou/uL (0.0-0.7); #Lymphocytes 1.4 thou/uL (1.20-3.40); #Monocytes 0.9 thou/uL (0.11-0.59); #Neutrophils 10.8 thou/uL (1.40-6.50); %Basophils 0.4 % (0.0-1.0); %Eosinophils 0.5 % (0.0-10.0); %Lymphocytes 10.4 % (21.0-51.0); %Monocytes 6.6 % (0.0-10.0); Hemoglobin 8.5 g/dL (12.0-16.0); Mean Corpuscular HGB CONC 32.4 g/dL (32.0-36.0); Mean Corpuscular Hemoglobin 24.8 pg (27.0-31.0); Mean Corpuscular Volume 76.3 fL (78.0-98.0); Mean Platelet Volume 9.8 fL (7.4-10.4); Platelet Count 273 thou/uL (130-400); RBC Distribution Width 14.7 % (11.5-14.5); Red Blood Cell (RBC) Count 3.45 mill/uL (4.20-5.40); White Blood Cell (WBC) Count 13.2 thou/uL (4.8-10.8)
--- NOTE | 2020-11-23 14:44 | CON ---
DATE OF CONSULTATION: HISTORY OF PRESENT ILLNESS: The patient is an unfortunate 60-year-old woman who presented with DKA and sepsis. She was noted to develop an irregular heart rhythm. The patient has no previous cardiac history. She was admitted with septic shock. She has been in the ICU for an extended period of time. The patient also has developed renal failure and has been undergoing dialysis. The patient denies having any chest discomfort or dyspnea. The patient denies having any palpitations. PAST MEDICAL HISTORY: 1. Diabetes mellitus. 2. Hypertension. 3. History of vaginal bleeding. PAST SURGICAL HISTORY: ALLERGIES: PENICILLIN SOCIAL HISTORY: Nonsmoker. MEDICATIONS: 1. Gabapentin 300 t.i.d. 2. Metformin 1000 b.i.d. 3. Glipizide 5 daily. 4. Spironolactone 50 daily. 5. Losartan 100 daily. 6. Norvasc 10 daily. 7. Lipitor 20 nightly. 8. Trulicity 0.7 mg subcu. 9. Insulin. PHYSICAL EXAMINATION: GENERAL: This is a confused woman. VITAL SIGNS: Blood pressure 137/65. NECK: No jugular venous distention. LUNGS: Clear to auscultation. HEART: Regular rate and rhythm. Normal S1 and S2. No murmurs. ABDOMEN : Distended. EXTREMITIES: Mild edema. LABORATORY DATA: Sodium 143, potassium 3.5, chloride 112, bicarbonate 22, BUN 63, creatinine 4.0, and glucose 119. White blood cell count 8.3, hemoglobin 7.7, hematocrit 22.8, and her platelets were 245. INR is 1.4. Her EKG revealed sinus rhythm with poor R-wave progression, prolonged QT interval. Telemetry monitoring revealed short runs of paroxysmal atrial fibrillation. IMPRESSION: 1. Atrial fibrillation and flutter. 2. Septic shock. 3. Diabetes mellitus. 4. Hypertension. 5. End-stage renal disease. 6. Vaginal bleeding. 7. Dyslipidemia. PLAN: This patient presents with short runs of atrial fibrillation and flutter. She appears to be with her altered mental status and history of vaginal bleed. She is a high risk for being on anticoagulation therapy. At this time, would treat the patient with a beta-arian. We will monitor this patient throughout her hospitalization. We will check the patient's echocardiogram. We will follow this patient with you through her hospitalization. Job ID: [id number] [facility]
[2020-11-23 15:37] LABS: ALT (SGPT) 25 U/L (8-55); AST (SGOT) 24 U/L (5-34); Albumin 3.1 g/dL (3.5-5.0); Alkaline Phosphatase 64 U/L (40-110); Anion Gap 17 mmol/L (10-20); BUN (Urea Nitrogen) 30 mg/dL (9.8-20.1); Bilirubin, Total 0.6 mg/dL (0.2-1.2); Calc. Creatinine Clearance 42 mL/min (70-130); Calcium 7.4 mg/dL (7.8-10.44); Carbon Dioxide 25 mmol/L (22-29); Chloride 105 mmol/L (98-107); Globulin 3.7 g/dL (2.4-3.5); Glucose 172 mg/dL (70-105); Magnesium 1.7 mg/dL (1.6-2.6); Phosphorus 3.1 mg/dL (2.3-4.7); Potassium 3.6 mmol/L (3.5-5.1); Protein, Total 6.8 g/dL (6.0-8.3); Sodium 143 mmol/L (136-145)
[2020-11-23] MEDS: Fluconazole In NaCl,Iso-Osm 100 MG in Admixture Fee 1 EACH IVPB SCH (17:39)
--- NOTE | 2020-11-23 17:46 | ULT ---
EXAM: BILATERAL UPPER EXTREMITY VEIN MAPPING FOR DIALYSIS ACCESS: 11/23/20 HISTORY: End-stage renal disease. COMPARISON: None. TECHNIQUE: Bhagat scale, color flow, Doppler imaging with spectral waveform analysis performed of the left and rig ht upper extremity venous system. RIGHT UPPER EXTREMITY BRACHIAL ARTERY: 0.40 mm RADIAL ARTERY: 0.20 mm ULNAR ARTERY: 0.20 mm CEPHALIC VEIN Proximal Arm: Thrombosed Mid Arm: Thrombosed Distal Arm: Thrombosed Antecubital Fossa: Thrombosed Proximal Forearm: 0.17 mm Mid Forearm: 0.12 mm Distal Forearm: 0.13 mm BASILIC VEIN Proximal Arm: Not seen Mid Arm: Not seen Distal Arm: 0.11 mm Antecubital Fossa: 0.15 mm Proximal Forearm: 0.11 mm Mid Forearm: 0.09 mm Distal Forearm: 0.06 mm LEFT UPPER EXTREMITY BRACHIAL ARTERY: 0.40 mm RADIAL ARTERY: 0.19 mm ULNAR ARTERY: 0.25 mm CEPHALIC VEIN The entire cephalic vein is either thrombosed or not seen. BASILIC VEIN Proximal Arm: 0.26 mm Mid Arm: 0.26 mm Distal Arm: 0.25 mm Antecubital Fossa: 0.21 mm Proximal Forearm: 0.08 mm Mid Forearm: 0.08 mm Distal Forearm: 0.08 mm IMPRESSION: Vein mapping as above. POS: PPP
[2020-11-23] MEDS: HumaLOG 300 UNITS/3 ML VIAL SC PRN (18:48)
[2020-11-23] MEDS ORDERED: Mag-Al 1200 mg/1200 mg/30 ML UDCUP PO SCH (20:00)
[2020-11-23] MEDS: Insulin Glargine 30 UNITS in Pre-Filled Syringe 1 EACH SC SCH (20:58)
--- NOTE | 2020-11-23 22:13 | EKG ---
Test Reason : Blood Pressure : / mmHG Vent. Rate : 094 BPM Atrial Rate : 094 BPM P-R Int : 120 ms QRS Dur : 090 ms QT Int : 382 ms P-R-T Axes : 083 004 148 degrees QTc Int : 477 ms Normal sinus rhythm Prolonged QT Abnormal ECG When compared with ECG of 14-NOV-2020 15:53, Vent. rate has increased BY 37 BPM T wave inversion no longer evident in Inferior leads QT has shortened Confirmed by Can VASQUEZ ([id number]) on 11/23/2020 10:13:34 PM Referred By: CHRISTOPHER Confirmed By:Can VASQUEZ
[2020-11-24 06:27] LABS: #Basophils 0.1 thou/uL (0.0-0.2); #Eosinphils 0.1 thou/uL (0.0-0.7); #Lymphocytes 1.4 thou/uL (1.20-3.40); #Monocytes 1.1 thou/uL (0.11-0.59); #Neutrophils 8.2 thou/uL (1.40-6.50); %Basophils 0.6 % (0.0-1.0); %Eosinophils 0.9 % (0.0-10.0); %Lymphocytes 13.1 % (21.0-51.0); %Monocytes 10.3 % (0.0-10.0); %Neutrophils 75.2 % (42.0-75.0); Hemoglobin 8.2 g/dL (12.0-16.0); Mean Corpuscular HGB CONC 33.2 g/dL (32.0-36.0); Mean Corpuscular Hemoglobin 25.2 pg (27.0-31.0); Mean Corpuscular Volume 75.8 fL (78.0-98.0); Mean Platelet Volume 9.5 fL (7.4-10.4); Platelet Count 249 thou/uL (130-400); RBC Distribution Width 14.6 % (11.5-14.5); Red Blood Cell (RBC) Count 3.26 mill/uL (4.20-5.40); White Blood Cell (WBC) Count 10.9 thou/uL (4.8-10.8)
[2020-11-24 06:45] LABS: Anion Gap 16 mmol/L (10-20); BUN (Urea Nitrogen) 45 mg/dL (9.8-20.1); Calc. Creatinine Clearance 28 mL/min (70-130); Calcium 7.1 mg/dL (7.8-10.44); Carbon Dioxide 25 mmol/L (22-29); Chloride 107 mmol/L (98-107); Glucose 114 mg/dL (70-105); Potassium 3.6 mmol/L (3.5-5.1); Sodium 144 mmol/L (136-145)
--- NOTE | 2020-11-24 07:08 | PDOC.FM ---
- Subjective Subjective: Pt's only complaint is nausea. States it is worse when eating. Denies any other complaints. Agrees to tunnel cath this morning. - Objective Vital Signs & Weight: Vital Signs (12 hours) Temp Pulse Resp BP Pulse Ox 11/24/20 04:38 97.8 F 87 20 127/58 L 100 11/24/20 00:00 97.8 F 78 20 120/57 L 100 11/23/20 20:05 99.2 F 95 20 136/61 100 11/23/20 20:00 100 Weight Admit Weight 93.599 kg Weight 97.8 kg Most Recent Monitor Data Heart Rate from ECG 78 NIBP 169/73 NIBP BP-Mean 105 Respiration from ECG 27 SpO2 100 I&O: 11/23/20 11/24/20 11/25/20 06:59 06:59 06:59 Intake Total 290 10 Output Total 2425 725 Balance -6806 -314 Result Diagrams: 11/24/20 06:16 11/24/20 06:16 Phys Exam - Physical Examination Constitutional: NAD HEENT: moist MMs Respiratory: clear to auscultation bilateral Cardiovascular: RRR, no significant murmur Gastrointestinal: soft, non-tender Musculoskeletal: no edema, pulses present Neurological: moves all 4 limbs Psychiatric: normal affect, A&O x 3 Deviation from normal: left toes 1-4 stable dry necrosis Dx/Plan - Plan Plan: Afib/Aflutter - brief, intermittent - Dr. Diaz added metoprolol - Tele monitoring shows NSR over past 24hr Multifactorial metabolic encephalopathy - mental status seems leveled out - pt does not like to converse much but is always able to follow commands - continues to have confusion with time which is understandable considering the length of her stay Poor PO intake - speech consulted - Nurse Practitioner consulted: puree, nectar thick diet. Renal high protein and CC. - Added Glucerna TID. - Needs assist with meals Acute Renal Failure with Superimposed ATN - Dialysis 3x week regimen, last dialysis yesterday - Dr. Dover, nephro, appreciate recs DKA resolved - lantus 30 U HS. - changed from BID dosing - aggressive SSI. Glucose ACHS Candiduria - Cultures from fever showing yeast in urine still. - continue fluconazole for total of 14 days. Hx of HTN: - continue home meds. - cardiac monitoring Vaginal bleeding, setting of uterine mass - bleeding has ceased - etiology fibroid vs endometrial cancer vs other - outpt workup as long as it remains mild Microcytic anemia, iron deficient - Nephro started epogen - Continue to trend CBC - Hgb 8.2, will transfuse <7 - No active bleeding Thrombocytopenia - Resolved - Consulted heme/onc Dr. Perkins, Appreciate recs, believes multifactorial and multisystem organ failure as etiology Antimicrobials - fluconazole day 13 of 14 - cefepime x7 days, flagyl 7 days completed. - vancomycin DCd, 11/09-11/12 - final Blood cultures no growth - final Urine culture showing yeast 75-100k cfu Code: FULL, confirmed w/ family. DIET: puree, nectar thick liquid. Renal high protein for dialysis, CC. Supp Glucerna IVF: SL DVT ppx: SCDs only GI ppx: protonix PO Activity: Up to chair. PT / OT /Speech. Dispo: inpatient, tele. Pending placement, choice letter to [facility]. Need to continue to improve PO intake. Continue tele monitoring for arrhythmia control. Tunnel cath today. Addendum - Attending - Attending Attestation Date/Time: 11/24/20 1042 I personally evaluated the patient and discussed the management with Dr. Curiel. I agree with the History, Examination, Assessment and Plan documented above with any addition or exceptions noted below.
[2020-11-24] MEDS ORDERED: Ondansetron PF 4 MG/2 ML Vial IVP PRN (08:06)
--- NOTE | 2020-11-24 08:11 | PRG ---
DATE OF SERVICE: 11/24/2020 Mayelin Leon is scheduled for a cuffed-tunneled hemodialysis catheter and a central line today. Ultrasound vein mapping reveals iatrogenic thrombosis of the cephalic vein in both arms. Basilic veins are possibly usable. The patient's vital signs are normal. Her electrolytes are acceptable. Plan today is placement of a hemodialysis catheter, central line, and left arm primary fistula. Questions answered. She consents. Job ID: [id number]
--- NOTE | 2020-11-24 08:59 | PRG ---
DATE OF SERVICE: 11/24/2020 SUBJECTIVE: Ms. Leon is a 60-year-old, black female, followed up by the Renal Service for acute kidney injury/chronic renal failure. She is undergoing hemodialysis on a regular schedule of Sunday, , Sunday. I do not find any evidence of renal recovery with this patient. Surgical consult was done with Dr. Cabrera for placement of a tunneled dialysis catheter and AV fistula placement. The patient voices no new complaints. She feels depressed today. OBJECTIVE: VITAL SIGNS: Blood pressure 144/67, heart rate 80, respiratory rate 16, temperature 98.7, O2 saturation 100%. GENERAL: Awake, alert, comfortable. Not in overt distress. SKIN: Adequate turgor. HEENT: Pale conjunctivae, anicteric sclerae. NECK: No neck mass. No carotid bruits. No JVD. CHEST: No deformities. LUNGS: Clear breath sounds. No wheezing. No crackles. HEART: Normal sinus rhythm. No murmurs, no gallops, no rubs. ABDOMEN: Globular, soft, nontender. No masses. EXTREMITIES: No edema. No deformities. MEDICATIONS: From November 24, 2000, was reviewed. LABORATORY DATA: From November 24, 2020; white count 10.9, hemoglobin 8.2. Sodium 144, potassium 3.6, chloride 107, carbon dioxide 25, BUN 45, creatinine 3.25. Calcium is 7.1. ASSESSMENT AND PLAN: 1. Chronic renal failure/acute kidney injury - the patient may have reached end-stage renal disease. Continue 3 times a week hemodialysis regimen for placement of a tunneled dialysis catheter and AV fistula. 2. Anemia. Continuing weekly Epogen. 3. Hypertension. Continue current BP medications. 4. Depression. Zoloft 50 mg tablet at bedtime. Recheck CBC and basic met in the a.m. Job ID: [id number]
[2020-11-24] MEDS: Amlodipine 10 MG TAB PO SCH (09:42)
[2020-11-24] MEDS: Spironolactone 25 MG TAB PO SCH (09:42)
[2020-11-24] MEDS: Losartan 25 MG TAB PO SCH (09:42)
[2020-11-24] MEDS ORDERED: Rocuronium Bromide 10 MG/ML (10ML VIAL) ONE (09:43)
[2020-11-24] MEDS ORDERED: Glycopyrrolate 0.2 MG/ML 5 ML SYRINGE ONE (09:43)
[2020-11-24] MEDS ORDERED: Ondansetron PF 4 MG/2 ML Vial ONE (09:43)
[2020-11-24] MEDS ORDERED: PROPOFOL 200 MG/20 ML VIAL ONE (09:43)
[2020-11-24] MEDS ORDERED: ePHEDrine 50 MG/ML VIAL ONE (09:43)
[2020-11-24] MEDS ORDERED: Lidocaine 1% PF 5 ML VIAL ONE (09:43)
[2020-11-24] MEDS: Lactinex Tablet PO SCH (09:49)
[2020-11-24] MEDS: Atorvastatin Calcium 20 MG TAB PO SCH (09:49)
[2020-11-24] MEDS ORDERED: Sodium Chloride 0.9% 30 ML ONE (09:54)
[2020-11-24] MEDS ORDERED: Bupivacaine PF 0.5% 30 ML VIAL ONE (09:54)
[2020-11-24] MEDS ORDERED: Heparin 10,000 UNITS/ 10 ML VIAL ONE (09:54)
[2020-11-24] MEDS ORDERED: Lidocaine 1% w/Epinephrine 1:100K 20 ML VIAL ONE (09:54)
[2020-11-24] MEDS ORDERED: Heparin 5,000 UNITS/ML VIAL ONE (09:54)
[2020-11-24] MEDS ORDERED: Protamine Sulfate 50 MG/5 ML VIAL ONE (10:09)
[2020-11-24] MEDS ORDERED: Sodium Chloride 0.9% 10 ML ONE (10:26)
[2020-11-24] MEDS ORDERED: Levofloxacin 500 mg/D5W 100 ml Premix Bag ONE (10:48)
[2020-11-24] MEDS ORDERED: Midazolam HCl 2 mg/2 ml Vial ONE (12:11)
[2020-11-24] MEDS ORDERED: Fentanyl 100 MCG/2 ML VIAL ONE (12:11)
[2020-11-24] MEDS ORDERED: SUGAMMADEX SODIUM 500 MG/5 ML VIAL ONE (14:33)
[2020-11-24] MEDS ORDERED: Promethazine HCl 25 MG/ML VIAL SLOW IVP PRN (14:44)
[2020-11-24] MEDS ORDERED: Ondansetron HCl/PF 4 MG/2 ML Vial IVP PRN (14:44)
[2020-11-24] MEDS ORDERED: Promethazine HCl 25 MG/ML VIAL IM PRN (14:44)
[2020-11-24] MEDS ORDERED: traMADol HCl 50 MG TAB PO PRN (15:06)
--- NOTE | 2020-11-24 15:23 | RAD ---
CHEST ONE VIEW: 11/24/20 HISTORY: Central line placement. COMPARISON: Radiograph 11/18/20. FINDINGS: The patient has been extubated and the enteric tube has been removed. Right IJ central venous cathete r tip projects through the inferior SVC. No pneumothorax. Pulmonary edema is slightly improved. IMPRESSION: Uncomplicated right IJ central venous catheter placement. POS: [facility]
[2020-11-24] MEDS: Fluconazole In NaCl,Iso-Osm 100 MG in Admixture Fee 1 EACH IVPB SCH (16:39)
[2020-11-24] MEDS: Calcium Acetate 667 MG CAP PO SCH ×2 (16:39→17:53)
[2020-11-24 19:02] LABS: HBSAg Index 0.24 S/CO (0-0.99); Hep B Core Total Ab Non-Reactive (NonReactive); Hep B Core Total Index 0.18 S/CO (0-0.79); Hep B Surf Ag Non-Reactive S/CO (NonReactive); Hep C IgG Ab Non-Reactive (NonReactive); Hep C Index 0.11 S/CO (0-0.79)
[2020-11-24 19:24] LABS: HBSAB Concentration 95.11 mIU/mL; Hep B Surf AB Reactive (NonReactive)
[2020-11-24] MEDS: Insulin Glargine 30 UNITS in Pre-Filled Syringe 1 EACH SC SCH (21:05)
[2020-11-25 05:57] LABS: #Basophils 0.1 thou/uL (0.0-0.2); #Eosinphils 0.1 thou/uL (0.0-0.7); #Lymphocytes 1.6 thou/uL (1.20-3.40); #Monocytes 0.6 thou/uL (0.11-0.59); %Basophils 1.3 % (0.0-1.0); %Eosinophils 1.3 % (0.0-10.0); %Lymphocytes 17.4 % (21.0-51.0); %Monocytes 6.3 % (0.0-10.0); %Neutrophils 73.8 % (42.0-75.0); Hemoglobin 7.1 g/dL (12.0-16.0); Mean Corpuscular Hemoglobin 24.4 pg (27.0-31.0); Mean Corpuscular Volume 76.3 fL (78.0-98.0); Mean Platelet Volume 8.7 fL (7.4-10.4); Platelet Count 185 thou/uL (130-400); RBC Distribution Width 14.4 % (11.5-14.5); Red Blood Cell (RBC) Count 2.89 mill/uL (4.20-5.40); White Blood Cell (WBC) Count 9.5 thou/uL (4.8-10.8)
[2020-11-25 06:07] LABS: Anion Gap 16 mmol/L (10-20); BUN (Urea Nitrogen) 54 mg/dL (9.8-20.1); Calc. Creatinine Clearance 25 mL/min (70-130); Calcium 6.9 mg/dL (7.8-10.44); Carbon Dioxide 26 mmol/L (22-29); Chloride 106 mmol/L (98-107); Glucose 109 mg/dL (70-105); Potassium 3.8 mmol/L (3.5-5.1); Sodium 144 mmol/L (136-145)
--- NOTE | 2020-11-25 06:31 | OP ---
DATE OF PROCEDURE: 11/24/2020 PREOPERATIVE DIAGNOSES: 1. Morbid obesity. 2. Diabetes. 3. Hypertension. 4. End-stage renal disease. 5. Poor IV access. 6. Thrombosed iatrogenic veins from hospitalization IV access. 7. Thrombosed cephalic veins. PROCEDURES PERFORMED: Right IJ cuffed tunneled dialysis catheter, left IJ central line, left upper arm dialysis graft tapered PTFE 4 mm to 7 mm brachial artery axillary vein. Axillary vein of good quality could be surgically revised in the future if necessary. Inadequate veins, forearm exploration, closure of wound, and left upper arm graft performed. ANESTHESIA: General, local 0.5% Marcaine 30 mL mixed with 1% Xylocaine with epinephrine 20 mL. DESCRIPTION OF PROCEDURE: The patient was taken to the operating room where in supine position, neck and chest and left upper extremity was prepared with ChloraPrep and draped in routine fashion. Local anesthetic was infiltrated in the skin and subcutaneous tissue about the operative site. Using an ultrasound guidance, the right and left internal jugular veins were cannulated with trocar catheters. Through the trocar catheter, J-wire was threaded, trocar catheter was removed. Skin incision site enlarged on both sides sharply and stab incision made in the right chest. Seldinger technique placed a left IJ central line securing with 3-0 nylon suture. Each port aspirated blood flushed with saline solution. Sterile dressing applied. On the right side, stab incision made over the right chest using the tunneling device. [employer] cuffed tunneled hemodialysis catheter tunneled between the 2 incisions, placed the fabric cuff beneath the thickened skin exit site. Catheter was secured with 2 interrupted sutures of 3-0 nylon. Sterile dressing applied. Smaller and medium size dilators were placed over the J-wire into the internal jugular vein, and removed. Dilator and Peel-Away sheath were placed over the J-wire into the superior vena cava and dilator and J-wire removed. Catheter placed with a Peel-Away sheath. The Peel-Away sheath was removed. Platysma was approximated with 4-0 Monocryl, skin with subdermal 4-0 Monocryl and Luis M. Cintron glue and sterile dressings applied. Fluoroscopic images revealed good line placement. Each port of the hemodialysis catheter aspirated blood, flushed with saline solution and heparinized saline solution, 1000 units of heparin per mL, indicating volume of the port. Attention was then turned to the left upper arm where a proximal volar forearm longitudinal incision made below the antecubital fossa and carried down to the skin and subcutaneous tissue and the cephalic vein dissected free and was too small, thus the incision closed by approximating subcutaneous tissues with 3-0 Monocryl, skin with subdermal 4-0 Monocryl and Luis M. Cintron glue applied. An incision was made longitudinally over the brachial artery just above the antecubital fossa on the left arm. Incision was made in the left axilla and the axillary vein dissected free. A Syeda Wick tunneler was used to tunnel our tapered PTFE graft 4 to 7, between the 2 incisions. The patient given 6000 units of heparin intravenously. Brachial artery had been dissected free and clamped proximally and distally. A longitudinal arteriotomy made sharply and 4 mm end of the PTFE graft anastomosed to the side of the brachial artery with continuous suture of 6-0 Prolene through a 2.5 cm arteriotomy. Continuous suture of 6-0 Prolene completing the anastomosis. Vascular clamps were released. There was good arterial flow in the graft. A clamp was placed across the graft. Attention turned to the axilla. Axillary vein controlled with Monte silastic vessel loops and longitudinal venotomy made for a 3.5 cm anastomosis with stay sutures of 6-0 Prolene placed. A 7 mm of the graft tailored for a cobra head anastomosis and end graft to side axillary vein anastomosis created with continuous suture of 6-0 Prolene completing anastomosis releasing vascular control, noting a good signal in the outflow. Good hemostasis was noted. The patient was given 50 mg of protamine intravenously by Anesthesia. Subcutaneous tissues were approximated with 3-0 Monocryl, skin with subdermal 4-0 Monocryl and Luis M. Cintron glue applied. The patient tolerated the procedure well. Job ID: [id number]
--- NOTE | 2020-11-25 07:17 | PDOC.FM ---
- Subjective Subjective: Pt states she is feeling better today. Feels like her appetite is slowly improving. States her tunnel cath procedure went well yesterday. No acute events overnight. - Objective Vital Signs & Weight: Vital Signs (12 hours) Temp Pulse Resp BP Pulse Ox 11/25/20 03:14 98.3 F 94 20 119/80 95 11/25/20 00:00 88 20 11/24/20 20:00 97.8 F 98 22 H 128/60 96 Weight Admit Weight 93.599 kg Weight 97.8 kg Most Recent Monitor Data Heart Rate from ECG 78 NIBP 169/73 NIBP BP-Mean 105 Respiration from ECG 27 SpO2 100 I&O: 11/24/20 11/25/20 11/26/20 06:59 06:59 06:59 Intake Total 10 440 Output Total 725 630 Balance -715 -190 Result Diagrams: 11/25/20 05:35 11/25/20 05:35 Phys Exam - Physical Examination Constitutional: NAD HEENT: moist MMs Respiratory: clear to auscultation bilateral Cardiovascular: RRR Gastrointestinal: soft, non-tender Musculoskeletal: no edema, pulses present Neurological: moves all 4 limbs Psychiatric: A&O x 3 Deviation from normal: Flat affect Deviation from normal: stable dry necrosis of left toes 1-4 Dx/Plan - Plan Plan: Afib/Aflutter - brief, intermittent - Dr. Diaz added metoprolol - Tele monitoring shows NSR Multifactorial metabolic encephalopathy vs Unspecified depressive mood disorder - mental status seems leveled out - pt does not like to converse much but is always able to follow commands - has started refusing meds intermittently - zoloft 50mg started Poor PO intake - speech consulted - Outboard Motor Mechanic consulted: puree, nectar thick diet. Renal high protein and CC. - Added Glucerna TID. - Needs assist with meals Acute Renal Failure with Superimposed ATN - Dialysis 3x week regimen, last dialysis yesterday - Dr. Dover, nephro, appreciate recs - Tunneled cath placed yesterday by Dr. Rick ZURITAA resolved - lantus 30 U HS. - aggressive SSI. Glucose ACHS Candiduria - Cultures from fever showing yeast in urine still. - Last day of fluconazole Hx of HTN: - continue home meds. - cardiac monitoring Vaginal bleeding, setting of uterine mass - bleeding has ceased - etiology fibroid vs endometrial cancer vs other - outpt workup as long as it remains mild Microcytic anemia, iron deficient - Nephro started epogen - Continue to trend CBC - Hgb 7.1, will transfuse <7 - Hgb drop likely 2/2 procedure yesterday Thrombocytopenia - Resolved - Consulted heme/onc Dr. Perkins, Appreciate recs, believes multifactorial and multisystem organ failure as etiology Levophed induced skin necrosis - Dry necrosis - Left distal toes 1-4 Antimicrobials - fluconazole day 14 of 14 - cefepime x7 days, flagyl 7 days completed. - vancomycin DCd, 11/09-11/12 - final Blood cultures no growth Code: FULL, confirmed w/ family. DIET: puree, nectar thick liquid. Renal high protein for dialysis, CC. Supp Glucerna IVF: SL DVT ppx: SCDs only GI ppx: protonix PO Activity: Up to chair. PT / OT /Speech. Dispo: inpatient, tele. Pending placement, choice letter to [facility]. Need to continue to improve PO intake. Continue tele monitoring for arrhythmia control. Continue dialysis per nephro recs, tunnel cath placed yesterday. Addendum - Attending - Attending Attestation Date/Time: 11/25/20 1151 I personally evaluated the patient and discussed the management with Dr. Curiel I agree with the History, Examination, Assessment and Plan documented above with any addition or exceptions noted below.
--- NOTE | 2020-11-25 08:49 | PRG ---
DATE OF SERVICE: 11/25/2020 SERVICE: Renal Medicine. SUBJECTIVE: Ms. Leon is a 60-year-old black female, followed up by the Renal Service for her chronic renal failure. She has been initiated on dialysis due to volume overload and progressive azotemia. She most likely has now ESRD. No new complaints today. She is feeling better. Yesterday, a cuffed hemodialysis catheter was placed by Dr. Cabrera. In addition, a left upper arm dialysis graft was also placed. She tolerated that procedure. However, this morning, she was slightly noted to be anemic with hemoglobin of 7.1. Patient denies any chest pain or shortness of breath. The patient is currently undergoing hemodialysis. We are using heparin-free dialysis. No complaints of chest pain or shortness of breath. OBJECTIVE: VITAL SIGNS: Blood pressure 119/80, heart rate 94, respiratory rate 20, temperature 98.2, O2 saturation 95%. GENERAL EXAM: Awake, alert, comfortable, not in distress, obese. SKIN: Adequate turgor. HEENT: Pale conjunctivae. Anicteric sclerae. NECK: No neck mass. No carotid bruits. No JVD. CHEST: No deformities. LUNGS: Clear breath sounds. HEART: Normal sinus rhythm. No murmur. No gallops. No rubs. ABDOMEN: Globular, soft, nontender. No masses. EXTREMITIES: No edema. No deformities. MEDICATIONS: Medications of November 25, 2020. LABORATORY DATA: November 25, 2020: White count 9.5, hemoglobin 7.1. Sodium 144, potassium 3.8, chloride 106, carbon dioxide 26, BUN is 54, creatinine 3.64, GFR 15 mL/minute, calcium 6.9. ASSESSMENT AND PLAN: 1. Anemia. We will transfuse 1 unit of packed RBC. Continue weekly Epogen. 2. End-stage renal disease/chronic renal failure, continuing hemodialysis regimen on Sunday, , Sunday. Fluid removal only as tolerated by the patient. Currently using no heparin with dialysis. 3. Metabolic encephalopathy, much improved. 4. Recheck again CBC, basic met in the a.m. Job ID: [id number]
--- NOTE | 2020-11-25 09:18 | PRG ---
DATE OF SERVICE: 11/25/2020 SUBJECTIVE: Mayelin Leon is doing well today. Her left upper arm graft has a good bruit. She has good left hand function. The patient is a little more conversive today. She is afebrile, 98.3 degrees. LABORATORY DATA: Hemoglobin 7.1 and white count 9. ASSESSMENT AND PLAN: End-stage renal disease. We would recommend removal of the central line prior to discharge from the hospital. Use hemodialysis catheter for dialysis access. Follow up with me in 3 to 4 weeks to assess the left arm graft. I will see her as needed this hospitalization, please call if necessary. Job ID: [id number]
[2020-11-25] MEDS ORDERED: Heparin 10,000 UNITS/ 10 ML VIAL ONE (10:27)
[2020-11-25] MEDS ORDERED: Metoprolol Tartrate 25 MG TAB PO SCH (12:45)
[2020-11-25] MEDS ORDERED: Tuberculin PPD 0.1 ML VIAL I-DERMAL SCH (13:30)
[2020-11-25] MEDS: Calcium Acetate 667 MG CAP PO SCH ×2 (13:33→18:30)
[2020-11-25] MEDS: Lactinex Tablet PO SCH (13:35)
[2020-11-25] MEDS: Metoclopramide HCl 10 MG/2 ML VIAL IVP SCH ×2 (13:36→20:36)
[2020-11-25] MEDS: Spironolactone 25 MG TAB PO SCH (13:37)
[2020-11-25] MEDS: Atorvastatin Calcium 20 MG TAB PO SCH (13:40)
[2020-11-25] MEDS: Losartan 25 MG TAB PO SCH (13:40)
[2020-11-25] MEDS: Amlodipine 10 MG TAB PO SCH (13:41)
[2020-11-25] MEDS: Fluconazole In NaCl,Iso-Osm 100 MG in Admixture Fee 1 EACH IVPB SCH (17:27)
[2020-11-25] MEDS: Insulin Glargine 30 UNITS in Pre-Filled Syringe 1 EACH SC SCH (20:37)
[2020-11-26 04:32] LABS: #Basophils 0.1 thou/uL (0.0-0.2); #Eosinphils 0.1 thou/uL (0.0-0.7); #Lymphocytes 1.8 thou/uL (1.20-3.40); #Monocytes 0.8 thou/uL (0.11-0.59); #Neutrophils 7.1 thou/uL (1.40-6.50); %Basophils 0.6 % (0.0-1.0); %Eosinophils 1.3 % (0.0-10.0); %Lymphocytes 18.6 % (21.0-51.0); %Monocytes 8.4 % (0.0-10.0); %Neutrophils 71.2 % (42.0-75.0); Hemoglobin 8.4 g/dL (12.0-16.0); Mean Corpuscular HGB CONC 33.7 g/dL (32.0-36.0); Mean Corpuscular Hemoglobin 26.2 pg (27.0-31.0); Mean Corpuscular Volume 77.7 fL (78.0-98.0); Mean Platelet Volume 9.1 fL (7.4-10.4); Platelet Count 160 thou/uL (130-400); RBC Distribution Width 14.9 % (11.5-14.5); White Blood Cell (WBC) Count 9.9 thou/uL (4.8-10.8)
[2020-11-26 04:54] LABS: Anion Gap 18 mmol/L (10-20); BUN (Urea Nitrogen) 33 mg/dL (9.8-20.1); Calc. Creatinine Clearance 31 mL/min (70-130); Carbon Dioxide 23 mmol/L (22-29); Chloride 103 mmol/L (98-107); Glucose 114 mg/dL (70-105); Sodium 140 mmol/L (136-145)
--- NOTE | 2020-11-26 05:52 | PRG ---
DATE OF SERVICE: 11/26/2020 SUBJECTIVE: Ms. Leon is a 60-year-old black female followed up by the Renal Service for her chronic renal failure. She has had progressive azotemia and volume overload. She is currently undergoing three times a week hemodialysis. During dialysis yesterday, she developed SVT. An attempt to give her Cardizem in office placed on hold due to the subsequent improvement of the heart rate. Since that time, the patient is doing better. We did shorten her dialysis at that time. No new complaints today. OBJECTIVE: VITAL SIGNS: Blood pressure is 127/61, heart rate 96, respiratory rate 20, temperature 99.1, O2 saturation 99%. GENERAL: Patient is noted to be sleeping but arousable and comfortable. SKIN: Adequate turgor. HEENT: She has a slightly pale conjunctivae. Anicteric sclerae. No neck mass. No carotid bruits. No JVD. CHEST: No deformities. LUNGS: Clear breath sounds. HEART: Normal sinus rhythm. No murmurs. No gallops. No rubs. ABDOMEN: Globular. Soft, nontender. No masses. EXTREMITIES: No edema. No deformities. MEDICATIONS: November 26, 2020, was reviewed. LABORATORY DATA: November 26, 2020, white count 9.9, hemoglobin 8.4, sodium 140, potassium 4, chloride 103, carbon dioxide 23, BUN 33, creatinine 2.97, glucose 104, calcium 7. ASSESSMENT AND PLAN: 1. Anemia, status post blood transfusion. She received 1 unit of packed RBC with dialysis. In addition, she is on her weekly Epogen regimen. 2. Chronic renal failure. Continue current hemodialysis regimen. No evidence of renal recovery. Continue supportive care. 3. Supraventricular tachycardia, spontaneously resolved. The patient is currently on metoprolol succinate at 75 mg p.o. b.i.d. Adjust as needed. Overall prognosis remains guarded. Recheck CBC, basic met again in a.m. Job ID: [id number]
--- NOTE | 2020-11-26 07:43 | PDOC.FM ---
- Subjective Subjective: Pt denies any complaints this morning. No further arrhythmic events overnight. States her appetite continues to improve. - Objective Vital Signs & Weight: Vital Signs (12 hours) Temp Pulse Resp BP BP Pulse Ox 11/26/20 04:52 98 11/26/20 03:20 97.8 F 76 22 H 122/56 L 97 11/26/20 01:38 83 20 11/25/20 20:00 99 11/25/20 19:55 99.1 F 96 20 127/61 99 Weight Admit Weight 93.599 kg Weight 95.4 kg Most Recent Monitor Data Heart Rate from ECG 98 NIBP 91/42 NIBP BP-Mean 105 Respiration from ECG 17 SpO2 100 I&O: 11/25/20 11/26/20 11/27/20 06:59 06:59 06:59 Intake Total 440 980 Output Total 630 220 Balance -190 760 Result Diagrams: 11/26/20 04:07 11/26/20 04:07 Phys Exam - Physical Examination Constitutional: NAD HEENT: moist MMs Respiratory: clear to auscultation bilateral Cardiovascular: RRR, no significant murmur Gastrointestinal: soft, non-tender Musculoskeletal: edema present (trace lower extremity) palpable thrill in left upper extremity fristula site Neurological: moves all 4 limbs Continues to primarily respond with head gestures If I ask specific questions she will give short appropriate verbal answers Psychiatric: A&O x 3 Deviation from normal: flat affect Skin: cap refill <2 seconds Dx/Plan - Plan Plan: Afib/Aflutter - brief, intermittent - Dr. Diaz added metoprolol - Additional event yesterday with HR up to 180 - Metoprolol increased to 75mg BID Multifactorial metabolic encephalopathy vs Unspecified depressive mood disorder - mental status seems leveled out - pt does not like to converse much but is always able to follow commands - refusing meds intermittently - zoloft 50mg started Poor PO intake - speech consulted - Crop Specialist consulted: puree, nectar thick diet. Renal high protein and CC. - Added Glucerna TID. - Needs assist with meals Acute Renal Failure with Superimposed ATN - Dialysis 3x week regimen, last dialysis yesterday - Has progressively became more oliguric, showing no signs of recovery - Dr. Dover, nephro, appreciate recs DKA resolved - lantus 30 U HS. - aggressive SSI. Glucose ACHS Candiduria - s/p treatment Hx of HTN: - continue home meds. - cardiac monitoring Vaginal bleeding, setting of uterine mass - bleeding has ceased - etiology fibroid vs endometrial cancer vs other - outpt workup as long as it remains mild Microcytic anemia, iron deficient - Nephro started epogen and transfused 1 u PRBC yesterday - Hgb: 8.4 Thrombocytopenia - Resolved - Consulted heme/onc Dr. Perkins, Appreciate recs, believes multifactorial and multisystem organ failure as etiology Levophed induced skin necrosis - Dry necrosis - Left distal toes 1-4 - Wound care Antimicrobials - fluconazole x14 days, completed - cefepime x7 days, flagyl 7 days completed. - vancomycin DCd, 11/09-11/12 - final Blood cultures no growth Code: FULL, confirmed w/ family. DIET: puree, nectar thick liquid. Renal high protein for dialysis, CC. Supp Glucerna IVF: SL DVT ppx: SCDs only GI ppx: protonix PO Activity: Up to chair. PT / OT /Speech. Dispo: inpatient, tele. worsening oliguria with no signs of renal function improvement. no further arrhythmic events overnight. Addendum - Attending - Attending Attestation Date/Time: 11/26/20 5146 I personally evaluated the patient and discussed the management with Dr. Curiel. I agree with the History, Examination, Assessment and Plan documented above with any addition or exceptions noted below. approved for rehab. working on HD chair. Will discuss with cards and nephro to see when stable for d/c. She has had recurrent episodes of SVT/A-fib w/ RVR that have resolved spontaneously during HD. she could possibly d/c today.
[2020-11-26] MEDS: Losartan 25 MG TAB PO SCH (09:29)
[2020-11-26] MEDS: Atorvastatin Calcium 20 MG TAB PO SCH (09:29)
[2020-11-26] MEDS: Metoclopramide HCl 10 MG/2 ML VIAL IVP SCH ×2 (09:30→21:56)
[2020-11-26] MEDS: Lactinex Tablet PO SCH (09:30)
[2020-11-26] MEDS: Calcium Acetate 667 MG CAP PO SCH ×3 (09:30→17:22)
[2020-11-26] MEDS: Acetaminophen 500 MG TAB PO PRN (15:22)
[2020-11-26] MEDS: Fluconazole In NaCl,Iso-Osm 100 MG in Admixture Fee 1 EACH IVPB SCH (17:22)
[2020-11-26] MEDS: Dronedarone HCl 400 MG TAB PO SCH (17:22)
[2020-11-26] MEDS: HumaLOG 300 UNITS/3 ML VIAL SC PRN (17:23)
--- NOTE | 2020-11-26 20:34 | EKG ---
Test Reason : Blood Pressure : / mmHG Vent. Rate : 103 BPM Atrial Rate : 103 BPM P-R Int : 120 ms QRS Dur : 088 ms QT Int : 368 ms P-R-T Axes : 069 029 127 degrees QTc Int : 482 ms Sinus tachycardia Abnormal ECG When compared with ECG of 23-NOV-2020 05:55, No significant change was found Confirmed by Can VASQUEZ ([id number]) on 11/26/2020 8:34:33 PM Referred By: CHRISTOPHER Confirmed By:Can VASQUEZ
--- NOTE | 2020-11-26 20:38 | EKG ---
Test Reason : Blood Pressure : / mmHG Vent. Rate : 076 BPM Atrial Rate : 076 BPM P-R Int : 106 ms QRS Dur : 090 ms QT Int : 434 ms P-R-T Axes : 045 011 124 degrees QTc Int : 488 ms Sinus rhythm with short AR Prolonged QT Abnormal ECG When compared with ECG of 23-NOV-2020 05:55, No significant change was found Confirmed by Can VASQUEZ ([id number]) on 11/26/2020 8:37:48 PM Referred By: GABBIE Confirmed By:Can VASQUEZ
[2020-11-26] MEDS: Insulin Glargine 30 UNITS in Pre-Filled Syringe 1 EACH SC SCH (21:54)
[2020-11-27 05:17] LABS: #Basophils 0.1 thou/uL (0.0-0.2); #Eosinphils 0.1 thou/uL (0.0-0.7); #Lymphocytes 1.4 thou/uL (1.20-3.40); #Monocytes 0.5 thou/uL (0.11-0.59); #Neutrophils 6.1 thou/uL (1.40-6.50); %Basophils 0.8 % (0.0-1.0); %Eosinophils 0.7 % (0.0-10.0); %Lymphocytes 17.5 % (21.0-51.0); %Monocytes 6.6 % (0.0-10.0); %Neutrophils 74.4 % (42.0-75.0); Hemoglobin 8.2 g/dL (12.0-16.0); Mean Corpuscular HGB CONC 32.4 g/dL (32.0-36.0); Mean Corpuscular Hemoglobin 25.2 pg (27.0-31.0); Mean Corpuscular Volume 77.9 fL (78.0-98.0); Mean Platelet Volume 9.2 fL (7.4-10.4); Platelet Count 157 thou/uL (130-400); RBC Distribution Width 15.2 % (11.5-14.5); Red Blood Cell (RBC) Count 3.25 mill/uL (4.20-5.40); White Blood Cell (WBC) Count 8.2 thou/uL (4.8-10.8)
[2020-11-27 05:41] LABS: Anion Gap 18 mmol/L (10-20); BUN (Urea Nitrogen) 49 mg/dL (9.8-20.1); Calc. Creatinine Clearance 26 mL/min (70-130); Calcium 7.6 mg/dL (7.8-10.44); Carbon Dioxide 24 mmol/L (22-29); Chloride 104 mmol/L (98-107); Glucose 165 mg/dL (70-105); Sodium 142 mmol/L (136-145)
--- NOTE | 2020-11-27 05:56 | PDOC.FM ---
- Subjective Subjective: No acute overnight events. Endorses stable toe pain this AM. No new complaints. Awaiting arrangement of outpatient dialysis chair. - Objective Vital Signs & Weight: Vital Signs (12 hours) Temp Pulse Resp BP Pulse Ox 11/27/20 03:36 98 11/27/20 03:15 99.5 F 83 20 123/57 L 98 Weight Admit Weight 93.599 kg Weight 95.4 kg Most Recent Monitor Data Heart Rate from ECG 98 NIBP 91/42 NIBP BP-Mean 105 Respiration from ECG 17 SpO2 100 I&O: 11/25/20 11/26/20 11/27/20 06:59 06:59 06:59 Intake Total 440 980 310 Output Total 630 220 303 Balance -190 760 7 Result Diagrams: 11/27/20 05:00 11/27/20 05:00 Phys Exam - Physical Examination Constitutional: NAD HEENT: moist MMs Neck: supple Respiratory: clear to auscultation bilateral Cardiovascular: RRR, no significant murmur Gastrointestinal: soft, non-tender, no distention dry necrosis of 1st-4th toes on L foot, foot warm Neurological: moves all 4 limbs Psychiatric: A&O x 3 Deviation from normal: flat affect Skin: cap refill <2 seconds Dx/Plan - Plan Plan: Afib/Aflutter - brief, intermittent - Dr. Diaz added metoprolol - Metoprolol increased to 75mg BID due to acute event with HR to 180 - No further events on tele Multifactorial metabolic encephalopathy vs Unspecified depressive mood disorder - mental status seems leveled out - pt does not like to converse much but is always able to follow commands - refusing meds intermittently - zoloft 50mg started Poor PO intake - speech consulted - Hand Tufter consulted: puree, nectar thick diet. Renal high protein and CC. - Added Glucerna TID. - Needs assist with meals Acute Renal Failure with Superimposed ATN - Dialysis 3x week regimen - Has progressively became more oliguric, showing no signs of recovery - Dr. Dover, nephro, appreciate recs DKA resolved - lantus 30 U HS. - aggressive SSI. Glucose ACHS Candiduria - s/p treatment Hx of HTN: - continue home meds. - cardiac monitoring Vaginal bleeding, setting of uterine mass - bleeding has ceased - etiology fibroid vs endometrial cancer vs other - outpt workup as long as it remains mild Microcytic anemia, iron deficient - Nephro started epogen and transfused 1 u PRBC yesterday - Hgb: 8.4 Thrombocytopenia - Resolved - Consulted heme/onc Dr. Perkins, Appreciate recs, believes multifactorial and multisystem organ failure as etiology Levophed induced skin necrosis - Dry necrosis - Left distal toes 1-4 - Wound care Antimicrobials - fluconazole x14 days, completed - cefepime x7 days, flagyl 7 days completed. - vancomycin DCd, 11/09-11/12 - final Blood cultures no growth Code: FULL, confirmed w/ family. DIET: puree, nectar thick liquid. Renal high protein for dialysis, CC. Supp Glucerna IVF: SL DVT ppx: SCDs only GI ppx: protonix PO Activity: Up to chair. PT / OT /Speech. Dispo: inpatient, tele. no further arrhythmic events overnight. plan for DC to inpatient rehab after outpatient dialysis chair arranged, PPD pending. Addendum - Attending - Attending Attestation Date/Time: 11/27/20 7126 I personally evaluated the patient and discussed the management with Dr. Perry. I agree with the History, Examination, Assessment and Plan documented above with any addition or exceptions noted below. placement pending.
--- NOTE | 2020-11-27 08:18 | PRG ---
DATE OF SERVICE: 11/27/2020 SUBJECTIVE: Ms. Leon is a 60-year-old black female followed up by the Renal Service for her chronic renal failure/ESRD. Last dialysis session was shortened due to development of SVT. Adjustment of her beta arian has been done. The patient voices no new complaints today. However, she also mentions about decreased appetite. No complaints of chest pain or shortness of breath. OBJECTIVE: VITAL SIGNS: Blood pressure 123/57, heart rate 83, respiratory rate 20, temperature 99.5, O2 saturation 98%. GENERALL: Awake. Flat affect. Not in distress. SKIN: Adequate turgor. HEENT: Slightly pale conjunctivae, anicteric sclerae. NECK: No neck mass. No carotid bruits. No JVD. CHEST: No deformities. LUNGS: Clear breath sounds. No wheezing. No crackles. HEART: Normal sinus rhythm. No murmur. No gallops. No rubs. ABDOMEN: Globular, soft, nontender. No masses. EXTREMITIES: No edema, no deformities. MEDICATIONS: From November 27, 2020, was reviewed. LABORATORY DATA: From November 27, 2020; sodium 142, potassium 4, chloride 104, carbon dioxide 24, BUN 49, creatinine 3.48, calcium 7.6. Hemoglobin 8.2. ASSESSMENT AND PLAN: 1. Anemia. Continuing weekly Epogen regimen with this patient. P.r.n. blood transfusion for hemoglobin less than 7. 2. Supraventricular tachycardia - on beta arian and currently on Multaq. 3. End-stage renal disease/chronic renal failure. Hemodialysis today for 3 hours. We will use 2.0 potassium bath. Fluid removal will only be done as tolerated by the patient. We are awaiting outpatient dialysis placement with this patient. Job ID: [id number]
[2020-11-27] MEDS ORDERED: Heparin 10,000 UNITS/ 10 ML VIAL ONE (11:11)
[2020-11-27] MEDS: Atorvastatin Calcium 20 MG TAB PO SCH (11:33)
[2020-11-27] MEDS: Lactinex Tablet PO SCH (11:34)
[2020-11-27] MEDS: Calcium Acetate 667 MG CAP PO SCH ×3 (11:34→16:35)
[2020-11-27] MEDS: Dronedarone HCl 400 MG TAB PO SCH ×2 (11:34→16:35)
[2020-11-27] MEDS: Losartan 25 MG TAB PO SCH (11:35)
[2020-11-27] MEDS: Metoclopramide HCl 10 MG/2 ML VIAL IVP SCH ×2 (11:35→20:26)
[2020-11-27] MEDS: Insulin Regular 300 UNITS/3 ML VIAL SC SCH ×2 (11:39→16:37)
[2020-11-27] MEDS: READ PPD TEST SITE PO SCH (14:43)
--- NOTE | 2020-11-27 15:29 | PDOC.CPN ---
- Subjective Date: 11/27/20 Time: 15:27 Interval history: No new issues. - Objective Allergies/Adverse Reactions: Allergies Allergy/AdvReac Type Severity Reaction Status Date / Time Penicillins Allergy Verified 08/17/19 16:28 Visit Medications: Current Medications Acetaminophen (Acetaminophen 500 Mg Tab) 1,000 mg PO Q6H PRN PRN Reason: Moderate to Severe Pain (6-10) Last Admin: 11/26/20 15:22 Dose: 1,000 mg Documented by: Acidophilus (Lactinex Tablet) 1 tab PO DAILY [facility] Last Admin: 11/27/20 11:34 Dose: 1 tab Documented by: Alteplase, Recombinant (Activase 2 Mg Vial) 2 mg CATH ASDIR [facility] Atorvastatin Calcium (Atorvastatin Calcium 20 Mg Tab) 20 mg PO DAILY [facility] Last Admin: 11/27/20 11:33 Dose: 20 mg Documented by: Calcium Acetate (Calcium Acetate 667 Mg Cap) 1,334 mg PO TID-[facility] Last Admin: 11/27/20 11:40 Dose: Not Given Documented by: Dextrose/Water (Dextrose 50% Abboject 50 Ml Syringe) 25 gm SLOW IVP PRN PRN PRN Reason: Hypoglycemia Dronedarone (Dronedarone Hcl 400 Mg Tab) 400 mg PO BID-[facility] Last Admin: 11/27/20 11:34 Dose: 400 mg Documented by: Epoetin Chad-epbx (Epoetin Chad-Epbx (Esrd) 4,000 Unit/Ml Vial) 7,500 unit SC Q7D [facility] Last Admin: 11/20/20 17:47 Dose: 7,500 unit Documented by: Glucagon (Glucagon 1 Mg/Ml Vial) 1 mg IM PRN PRN PRN Reason: Hypoglycemia Hydrocortisone Sodium Succinate (Hydrocortisone Sod Succ/Pf 100 Mg/2 Ml Vial) 50 mg IVP 0200,0800,1400,2000 [facility] Last Admin: 11/15/20 19:49 Dose: Not Given Documented by: Vasopressin 20 unit/ Sodium (Chloride) 51 mls @ 6 mls/hr IV INF [facility] Last Admin: 11/11/20 16:56 Dose: 51 mls Documented by: Levofloxacin 500 mg/ Device 100 mls @ 100 mls/hr IVPB ONCALL-OR [facility] Insulin Glargine 30 units/ (Miscellaneous Medication) 0.3 mls @ 0 mls/hr SC HS [facility] Last Admin: 11/26/20 21:54 Dose: Not Given Documented by: Insulin Human Lispro (Humalog 300 Units/3 Ml Vial) 0 units SC .AGGRESSIVE SLID ING PRN PRN Reason: Aggressive Correctional Scale Last Admin: 11/26/20 17:23 Dose: 3 unit Documented by: Insulin Human Lispro (Humalog 300 Units/3 Ml Vial) 0 units SC .BEDTIME SLIDING SC PRN PRN Reason: Bedtime Correctional Scale Last Admin: 11/21/20 21:09 Dose: 2 unit Documented by: Insulin Human Regular (Insulin Regular 300 Units/3 Ml Vial) 5 units SC [facility] Last Admin: 11/27/20 11:39 Dose: Not Given Documented by: Loperamide HCl (Loperamide Hcl 2 Mg Cap) 2 mg PO Q4H PRN PRN Reason: Diarrhea/Loose Stools Last Admin: 11/22/20 00:51 Dose: 2 mg Documented by: Losartan Potassium (Losartan 25 Mg Tab) 100 mg PO DAILY [facility] Last Admin: 11/27/20 11:35 Dose: 100 mg Documented by: Metoclopramide HCl (Metoclopramide Hcl 10 Mg/2 Ml Vial) 5 mg IVP BID [facility] Last Admin: 11/27/20 11:35 Dose: 5 mg Documented by: Metoprolol Succinate (Metoprolol Succinate Xl 50 Mg Tab) 50 mg PO DAILY [facility] Last Admin: 11/27/20 11:34 Dose: 50 mg Documented by: Mirtazapine (Mirtazapine 15 Mg Soltab) 7.5 mg PO [facility] Read Ppd Test Site 0 each PO 1400 [facility] Stop: 11/28/20 14:01 Last Admin: 11/27/20 14:43 Dose: Not Given Documented by: Ondansetron HCl (Ondansetron Pf 4 Mg/2 Ml Vial) 4 mg IVP Q6H PRN PRN Reason: Nausea/Vomiting Pantoprazole Sodium (Pantoprazole 40 Mg Tab) 40 mg PO DAILY [facility] Last Admin: 11/27/20 11:33 Dose: 40 mg Documented by: Sertraline HCl (Sertraline Hcl 100 Mg Tab) 50 mg PO DAILY [facility] Last Admin: 11/27/20 11:34 Dose: 50 mg Documented by: Sodium Chloride (Flush - Normal Saline 10 Ml Syringe) 10 ml IVF PRN PRN PRN Reason: Saline Flush Last Admin: 11/26/20 09:31 Dose: 10 ml Documented by: Tramadol HCl (Tramadol Hcl 50 Mg Tab) 50 mg PO Q4H PRN PRN Reason: Moderate Pain (4-6) Vital Signs & Weight: Vital Signs Temp Pulse Resp BP BP Pulse Ox 11/27/20 11:30 98.7 F 94 18 135/66 97 11/27/20 08:00 98.9 F 86 18 135/63 97 11/27/20 03:36 98 Admit Weight 206 lb 5.6 oz Weight 210 lb 12.191 oz - Physical Exam General: no apparent distress HEENT: mucus membranes moist Neck: supple neck Cardiac: regular rate and rhythm Lungs: clear to auscultation Neuro: no lateralizing findings Abdomen: active bowel sounds Extremities: no edema Skin: clear Musculoskeletal: no pain - Labs Result Diagrams: 11/27/20 05:00 11/27/20 05:00 Troponin/CKMB CK-MB (CK-2) 6.5 ng/mL (0-6.6) 11/09/20 07:02 Troponin I 0.123 ng/mL (< 0.028) H 11/09/20 13:07 - Telemetry Sinus rhythms and dysrhythmias: sinus rhythm - Assessment/Plan Assessment/Plan: 1. Paroxysmal afib 2. ESRD 3. DKA, resolved. PLAN: - Continue BB and Multaq. - High risk for bleeding due to history of vaginal bleeding. - ASA alone for stroke prophylaxis.
[2020-11-27] MEDS ORDERED: Aspirin 81 mg Enteric Coated Tablet PO SCH (15:45)
[2020-11-27] MEDS: EPOETIN ALFA-EPBX (ESRD) 4,000 UNIT/ML VIAL SC SCH (16:35)
[2020-11-27] MEDS: Insulin Glargine 30 UNITS in Pre-Filled Syringe 1 EACH SC SCH (20:26)
[2020-11-27] MEDS: Mirtazapine 15 MG Soltab PO SCH (20:26)
[2020-11-28 06:43] LABS: #Basophils 0.1 thou/uL (0.0-0.2); #Lymphocytes 1.5 thou/uL (1.20-3.40); #Monocytes 0.8 thou/uL (0.11-0.59); #Neutrophils 4.6 thou/uL (1.40-6.50); %Basophils 0.8 % (0.0-1.0); %Eosinophils 0.5 % (0.0-10.0); %Lymphocytes 21.9 % (21.0-51.0); %Monocytes 11.8 % (0.0-10.0); Hemoglobin 8.6 g/dL (12.0-16.0); Mean Corpuscular HGB CONC 33.5 g/dL (32.0-36.0); Mean Corpuscular Hemoglobin 26.3 pg (27.0-31.0); Mean Corpuscular Volume 78.4 fL (78.0-98.0); Mean Platelet Volume 9.2 fL (7.4-10.4); Platelet Count 140 thou/uL (130-400); RBC Distribution Width 15.2 % (11.5-14.5); Red Blood Cell (RBC) Count 3.25 mill/uL (4.20-5.40); White Blood Cell (WBC) Count 7.1 thou/uL (4.8-10.8)
[2020-11-28 07:02] LABS: Anion Gap 19 mmol/L (10-20); BUN (Urea Nitrogen) 41 mg/dL (9.8-20.1); Calc. Creatinine Clearance 28 mL/min (70-130); Calcium 8.3 mg/dL (7.8-10.44); Carbon Dioxide 26 mmol/L (22-29); Chloride 101 mmol/L (98-107); Glucose 155 mg/dL (70-105); Potassium 3.8 mmol/L (3.5-5.1); Sodium 142 mmol/L (136-145)
[2020-11-28] MEDS: Losartan 25 MG TAB PO SCH (08:30)
[2020-11-28] MEDS: Dronedarone HCl 400 MG TAB PO SCH ×2 (08:30→16:02)
[2020-11-28] MEDS: Calcium Acetate 667 MG CAP PO SCH ×3 (08:31→16:02)
[2020-11-28] MEDS: Lactinex Tablet PO SCH (08:31)
[2020-11-28] MEDS: Aspirin 81 mg Enteric Coated Tablet PO SCH (08:31)
[2020-11-28] MEDS: Metoclopramide HCl 10 MG/2 ML VIAL IVP SCH ×2 (08:31→22:42)
[2020-11-28] MEDS: Atorvastatin Calcium 20 MG TAB PO SCH (08:31)
[2020-11-28] MEDS: Insulin Regular 300 UNITS/3 ML VIAL SC SCH ×3 (08:32→16:29)
--- NOTE | 2020-11-28 09:48 | PDOC.FM ---
- Subjective Subjective: No tele events overnight. Denies abdominal pain, chest pain, SOB, cough, chills. Continues to endorse toe pain. - Objective Vital Signs & Weight: Vital Signs (12 hours) Temp Pulse Resp BP BP Pulse Ox 11/28/20 08:00 99.0 F 95 16 129/61 95 11/28/20 04:00 100.4 F H 95 20 135/63 93 L 11/28/20 00:00 87 128/58 L Weight Admit Weight 93.599 kg Weight 95.6 kg Most Recent Monitor Data Heart Rate from ECG 98 NIBP 91/42 NIBP BP-Mean 105 Respiration from ECG 17 SpO2 100 I&O: 11/27/20 11/28/20 11/29/20 06:59 06:59 06:59 Intake Total 430 240 Output Total 303 0 Balance 127 240 Result Diagrams: 11/28/20 06:10 11/28/20 06:10 Phys Exam - Physical Examination Constitutional: NAD HEENT: moist MMs line in R subclavian, L IJ Neck: supple Respiratory: no wheezing, no rales, clear to auscultation bilateral Cardiovascular: RRR, no significant murmur Gastrointestinal: soft, non-tender Musculoskeletal: pulses present dry necrosis L 1st-4th toes Neurological: moves all 4 limbs Psychiatric: A&O x 3 Deviation from normal: flat affect Skin: cap refill <2 seconds Dx/Plan - Plan Plan: Afib/Aflutter - brief, intermittent - Dr. Diaz added metoprolol - Metoprolol increased to 75mg BID due to acute event with HR to 180 - No further events on tele Fever, resolved Fever of 100.4F this AM, resolved without intervention. - CXR, blood cultures - if no overt signs of infection on initial workup, may still be discharged to inpatient rehab later today Multifactorial metabolic encephalopathy vs Unspecified depressive mood disorder - mental status seems leveled out - pt does not like to converse much but is always able to follow commands - refusing meds intermittently - zoloft 50mg started Poor PO intake - speech consulted - Administrative Liaison consulted: puree, nectar thick diet. Renal high protein and CC. - Added Glucerna TID. - Needs assist with meals Acute Renal Failure with Superimposed ATN - Dialysis 3x week regimen - Has progressively became more oliguric, showing no signs of recovery - Dr. Dover, nephro, appreciate recs DKA resolved - lantus 30 U HS. - aggressive SSI. Glucose ACHS Candiduria - s/p treatment Hx of HTN: - continue home meds. - cardiac monitoring Vaginal bleeding, setting of uterine mass - bleeding has ceased - etiology fibroid vs endometrial cancer vs other - outpt workup as long as it remains mild Microcytic anemia, iron deficient - Nephro started epogen and transfused 1 u PRBC yesterday - Hgb: 8.4 Thrombocytopenia - Resolved - Consulted heme/onc Dr. Perkins, Appreciate recs, believes multifactorial and multisystem organ failure as etiology Levophed induced skin necrosis - Dry necrosis - Left distal toes 1-4 - Wound care Antimicrobials - fluconazole x14 days, completed - cefepime x7 days, flagyl 7 days completed. - vancomycin DCd, 11/09-11/12 - final Blood cultures no growth Code: FULL, confirmed w/ family. DIET: puree, nectar thick liquid. Renal high protein for dialysis, CC. Supp Glucerna IVF: SL DVT ppx: SCDs only GI ppx: protonix PO Activity: Up to chair. PT / OT /Speech. Dispo: inpatient, tele. no further arrhythmic events overnight. plan for DC to inpatient rehab after outpatient dialysis chair arranged, PPD negative. Addendum - Attending - Attending Attestation Date/Time: 11/28/20 8911 I personally evaluated the patient and discussed the management with Dr. Perry. I agree with the History, Examination, Assessment and Plan documented above with any addition or exceptions noted below. Hopefully d/c to rehab today if she can receive HD at rehab.
--- NOTE | 2020-11-28 09:53 | PRG ---
DATE OF SERVICE: 11/28/2020 SUBJECTIVE: Ms. Leon is a 60-year-old black female, followed up by the Renal Service for her chronic renal failure/ESRD. She was initiated dialysed due to volume overload, progressive azotemia. She has been tolerating dialysis. Yesterday during dialysis treatment, she had some transient confusion. This morning, she voices no new complaints. She is sleepy, but arousable and can answer my questions. OBJECTIVE: VITAL SIGNS: Blood pressure 135/63, temp is 100.4, heart rate 95, respiratory rate 20, O2 saturation 93%. GENERAL: Patient is sleepy, but arousable, comfortable, not in overt distress. SKIN: Adequate turgor. HEENT: Pale conjunctivae. Anicteric sclerae. NECK: No neck mass. No carotid bruits. No JVD. CHEST: No deformities. LUNGS: Clear breath sounds. No wheezing. No crackles. HEART: Normal sinus rhythm. No murmurs, gallops, or rubs. ABDOMEN: Globular, soft, nontender. No masses. EXTREMITIES: No edema. MEDICATIONS: November 28, 2020, was reviewed. LABORATORY DATA: November 28, 2020, white count 7.1, hemoglobin 8.6. Sodium 142, potassium 4.8, chloride 101, carbon dioxide 26, BUN 41, creatinine 3.24, glucose 155, calcium 8.3. ASSESSMENT AND PLAN: 1. End-stage renal disease. Continue current hemodialysis regimen. We will continue Sunday, , Sunday dialysis. There is no indication for any emergent dialysis with this patient today. Her potassium is noted to be within normal. In addition, she is not in volume overload. Continue supportive care. 2. Paroxysmal atrial fibrillation, currently on amiodarone. Cardiology is following. The patient is hemodynamically stable. 3. Anemia. Continuing weekly Epogen regimen with this patient. 4. Low-grade fever - continue to observe. Currently on p.o. antibiotics. 5. Overall prognosis remains guarded with this patient. 6. Recheck CBC, basic met in morning. Job ID: [id number]
[2020-11-28] MEDS: READ PPD TEST SITE PO SCH (13:50)
--- NOTE | 2020-11-28 16:25 | RAD ---
Exam: Chest one view HISTORY:Fever Comparison: 11/24/2019 FINDINGS: Lines and tubes: Stable right-sided HemoSplit osseous catheter. Stable left-sided internal jugular va scular catheter, terminating overlying the aortic knob. Cardiac silhouette: Normal Aorta: Unremarkable Pulmonary vessels: Normal Costophrenic angles: Clear LUNGS: No masses or consolidation. Chronic changes. Pneumothorax: None Osseous abnormalities: None IMPRESSION: No significant interval change
--- NOTE | 2020-11-28 17:23 | PDOC.CPN ---
- Subjective Date: 11/28/20 Time: 17:22 Interval history: No new issues. - Review of Systems ROS unobtainable: due to mental status - Objective Allergies/Adverse Reactions: Allergies Allergy/AdvReac Type Severity Reaction Status Date / Time Penicillins Allergy Verified 08/17/19 16:28 Visit Medications: Current Medications Acetaminophen (Acetaminophen 500 Mg Tab) 1,000 mg PO Q6H PRN PRN Reason: Moderate to Severe Pain (6-10) Last Admin: 11/26/20 15:22 Dose: 1,000 mg Documented by: Acidophilus (Lactinex Tablet) 1 tab PO DAILY [facility] Last Admin: 11/28/20 08:31 Dose: 1 tab Documented by: Alteplase, Recombinant (Activase 2 Mg Vial) 2 mg CATH ASDIR [facility] Aspirin (Aspirin 81 Mg Enteric Coated Tablet) 81 mg PO DAILY [facility] Last Admin: 11/28/20 08:31 Dose: 81 mg Documented by: Atorvastatin Calcium (Atorvastatin Calcium 20 Mg Tab) 20 mg PO DAILY [facility] Last Admin: 11/28/20 08:31 Dose: 20 mg Documented by: Calcium Acetate (Calcium Acetate 667 Mg Cap) 1,334 mg PO TID-[facility] Last Admin: 11/28/20 16:02 Dose: 1,334 mg Documented by: Dextrose/Water (Dextrose 50% Abboject 50 Ml Syringe) 25 gm SLOW IVP PRN PRN PRN Reason: Hypoglycemia Dronedarone (Dronedarone Hcl 400 Mg Tab) 400 mg PO BID-[facility] Last Admin: 11/28/20 16:02 Dose: 400 mg Documented by: Epoetin Chad-epbx (Epoetin Chad-Epbx (Esrd) 4,000 Unit/Ml Vial) 7,500 unit SC Q7D [facility] Last Admin: 11/27/20 16:35 Dose: 7,500 unit Documented by: Glucagon (Glucagon 1 Mg/Ml Vial) 1 mg IM PRN PRN PRN Reason: Hypoglycemia Hydrocortisone Sodium Succinate (Hydrocortisone Sod Succ/Pf 100 Mg/2 Ml Vial) 50 mg IVP 0200,0800,1400,2000 [facility] Last Admin: 11/15/20 19:49 Dose: Not Given Documented by: Vasopressin 20 unit/ Sodium (Chloride) 51 mls @ 6 mls/hr IV INF [facility] Last Admin: 11/11/20 16:56 Dose: 51 mls Documented by: Insulin Glargine 30 units/ (Miscellaneous Medication) 0.3 mls @ 0 mls/hr SC [facility] Last Admin: 11/27/20 20:26 Dose: Not Given Documented by: Insulin Human Lispro (Humalog 300 Units/3 Ml Vial) 0 units SC .AGGRESSIVE SLIDING PRN PRN Reason: Aggressive Correctional Scale Last Admin: 11/26/20 17:23 Dose: 3 unit Documented by: Insulin Human Lispro (Humalog 300 Units/3 Ml Vial) 0 units SC .BEDTIME SLIDING SC PRN PRN Reason: Bedtime Correctional Scale Last Admin: 11/21/20 21:09 Dose: 2 unit Documented by: Insulin Human Regular (Insulin Regular 300 Units/3 Ml Vial) 5 units SC [facility] Last Admin: 11/28/20 16:29 Dose: Not Given Documented by: Loperamide HCl (Loperamide Hcl 2 Mg Cap) 2 mg PO Q4H PRN PRN Reason: Diarrhea/Loose Stools Last Admin: 11/22/20 00:51 Dose: 2 mg Documented by: Losartan Potassium (Losartan 25 Mg Tab) 100 mg PO DAILY [facility] Last Admin: 11/28/20 08:30 Dose: 100 mg Documented by: Metoclopramide HCl (Metoclopramide Hcl 10 Mg/2 Ml Vial) 5 mg IVP BID [facility] Last Admin: 11/28/20 08:31 Dose: 5 mg Documented by: Metoprolol Succinate (Metoprolol Succinate Xl 50 Mg Tab) 50 mg PO DAILY [facility] Last Admin: 11/28/20 08:31 Dose: 50 mg Documented by: Mirtazapine (Mirtazapine 15 Mg Soltab) 7.5 mg PO [facility] Last Admin: 11/27/20 20:26 Dose: 7.5 mg Documented by: Ondansetron HCl (Ondansetron Pf 4 Mg/2 Ml Vial) 4 mg IVP Q6H PRN PRN Reason: Nausea/Vomiting Pantoprazole Sodium (Pantoprazole 40 Mg Tab) 40 mg PO DAILY [facility] Last Admin: 11/28/20 08:30 Dose: 40 mg Documented by: Sertraline HCl (Sertraline Hcl 100 Mg Tab) 50 mg PO DAILY [facility] Last Admin: 11/28/20 08:30 Dose: 50 mg Documented by: Sodium Chloride (Flush - Normal Saline 10 Ml Syringe) 10 ml IVF PRN PRN PRN Reason: Saline Flush Last Admin: 11/26/20 09:31 Dose: 10 ml Documented by: Tramadol HCl (Tramadol Hcl 50 Mg Tab) 50 mg PO Q4H PRN PRN Reason: Moderate Pain (4-6) Vital Signs & Weight: Vital Signs Temp Pulse Pulse Pulse Resp BP BP 11/28/20 16:00 98.3 F 87 16 11/28/20 13:50 88 86 136/63 137/65 11/28/20 11:54 98.9 F 88 16 11/28/20 08:00 99.0 F 95 16 BP BP Pulse Ox 11/28/20 16:00 118/56 L 94 L 11/28/20 13:50 11/28/20 11:54 147/68 H 95 11/28/20 08:00 129/61 95 Admit Weight 206 lb 5.6 oz Weight 210 lb 12.191 oz - Physical Exam General: no apparent distress HEENT: normocephaly Neck: supple neck Cardiac: regular rate and rhythm Lungs: normal breath sounds Neuro: no lateralizing findings Abdomen: active bowel sounds Extremities: no edema Skin: clear Musculoskeletal: no pain - Labs Result Diagrams: 11/28/20 06:10 11/28/20 06:10 Troponin/CKMB CK-MB (CK-2) 6.5 ng/mL (0-6.6) 11/09/20 07:02 Troponin I 0.123 ng/mL (< 0.028) H 11/09/20 13:07 - Telemetry Sinus rhythms and dysrhythmias: sinus rhythm - Assessment/Plan Assessment/Plan: 1. Paroxysmal afib, in sinus now. 2. ESRD 3. DKA, resolved. PLAN: - Continue BB and Multaq. - High risk for bleeding due to history of vaginal bleeding. - ASA alone for stroke prophylaxis.
[2020-11-28] MEDS: Insulin Glargine 30 UNITS in Pre-Filled Syringe 1 EACH SC SCH (22:41)
[2020-11-28] MEDS: Mirtazapine 15 MG Soltab PO SCH (22:41)
[2020-11-29 04:38] LABS: #Basophils 0.1 thou/uL (0.0-0.2); #Eosinphils 0.1 thou/uL (0.0-0.7); #Lymphocytes 1.6 thou/uL (1.20-3.40); #Monocytes 0.9 thou/uL (0.11-0.59); #Neutrophils 5.1 thou/uL (1.40-6.50); %Eosinophils 0.8 % (0.0-10.0); %Monocytes 11.4 % (0.0-10.0); %Neutrophils 65.8 % (42.0-75.0); Hemoglobin 8.7 g/dL (12.0-16.0); Mean Corpuscular HGB CONC 32.7 g/dL (32.0-36.0); Mean Corpuscular Hemoglobin 26.1 pg (27.0-31.0); Mean Corpuscular Volume 79.9 fL (78.0-98.0); Mean Platelet Volume 9.4 fL (7.4-10.4); Platelet Count 148 thou/uL (130-400); RBC Distribution Width 15.6 % (11.5-14.5); Red Blood Cell (RBC) Count 3.34 mill/uL (4.20-5.40); White Blood Cell (WBC) Count 7.7 thou/uL (4.8-10.8)
[2020-11-29 04:59] LABS: Anion Gap 19 mmol/L (10-20); BUN (Urea Nitrogen) 60 mg/dL (9.8-20.1); Calc. Creatinine Clearance 23 mL/min (70-130); Calcium 8.6 mg/dL (7.8-10.44); Carbon Dioxide 26 mmol/L (22-29); Chloride 103 mmol/L (98-107); Glucose 162 mg/dL (70-105); Sodium 144 mmol/L (136-145)
--- NOTE | 2020-11-29 07:18 | PDOC.FM ---
- Subjective Subjective: No complaints this morning. No acute events overnight. Discussed possible DC to rehab and pt is agreeable. - Objective Vital Signs & Weight: Vital Signs (12 hours) Temp Pulse Resp BP Pulse Ox 11/29/20 04:36 96 11/29/20 04:00 98.7 F 98 20 125/58 L 96 11/28/20 22:42 97 Weight Admit Weight 93.599 kg Weight 95.6 kg Most Recent Monitor Data Heart Rate from ECG 98 NIBP 91/42 NIBP BP-Mean 105 Respiration from ECG 17 SpO2 100 I&O: 11/28/20 11/29/20 11/30/20 06:59 06:59 06:59 Intake Total 240 140 Output Total 0 2 Balance 240 138 Result Diagrams: 11/29/20 04:00 11/29/20 03:30 Phys Exam - Physical Examination Constitutional: NAD HEENT: moist MMs Respiratory: clear to auscultation bilateral Cardiovascular: RRR Gastrointestinal: soft, non-tender Musculoskeletal: no edema Neurological: moves all 4 limbs Deviation from normal: Flat affect Skin: no rash Deviation from normal: dry necrosis left toes 1-4 Dx/Plan - Plan Plan: Afib/Aflutter - paroxysmal - Cardiology consulted, multaq and metoprolol - Remains NSR Fever, resolved Fever of 100.4F this AM, resolved without intervention. - CXR, blood cultures - if no overt signs of infection on initial workup, may still be discharged to inpatient rehab later today Multifactorial encephalopathy - mental status seems leveled out - pt does not like to converse much but is always able to follow commands - refusing meds intermittently - zoloft 50mg started Poor PO intake - speech consulted - Environmental Technician consulted: puree, nectar thick diet. Renal high protein and CC. - Added Glucerna TID. - Needs assist with meals Acute Renal Failure with Superimposed ATN - Dialysis 3x week regimen - Now essentially anuric - Dr. Dover, nephro, appreciate recs DKA resolved - lantus 30 U HS. - aggressive SSI. Glucose ACHS Candiduria - s/p treatment Hx of HTN: - continue home meds. - cardiac monitoring Vaginal bleeding, setting of uterine mass - bleeding has ceased - etiology fibroid vs endometrial cancer vs other - outpt workup Microcytic anemia, iron deficient - Nephro started epogen - Required 1u PRBC since admission - Hgb: 8.7 Thrombocytopenia - Resolved - Consulted heme/onc Dr. Perkins, Appreciate recs, believes multifactorial and multisystem organ failure as etiology Levophed induced skin necrosis - Dry necrosis - Left distal toes 1-4 - Wound care Antimicrobials - fluconazole x14 days, completed - cefepime x7 days, flagyl 7 days completed. - vancomycin DCd, 11/09-11/12 - final Blood cultures no growth Code: FULL, confirmed w/ family. DIET: puree, nectar thick liquid. Renal high protein for dialysis, CC. Supp Glucerna IVF: SL DVT ppx: SCDs only GI ppx: protonix PO Activity: Up to chair. PT / OT /Speech. Dispo: inpatient, tele. no further arrhythmic events overnight. plan for DC to inpatient rehab once bed available. Addendum - Attending - Attending Attestation Date/Time: 11/29/20 2471 I personally evaluated the patient and discussed the management with Dr. Curiel. I agree with the History, Examination, Assessment and Plan documented above with any addition or exceptions noted below.
[2020-11-29] MEDS: Calcium Acetate 667 MG CAP PO SCH ×3 (08:52→16:49)
[2020-11-29] MEDS: Aspirin 81 mg Enteric Coated Tablet PO SCH (08:52)
[2020-11-29] MEDS: Atorvastatin Calcium 20 MG TAB PO SCH (08:53)
[2020-11-29] MEDS: Losartan 25 MG TAB PO SCH (08:53)
[2020-11-29] MEDS: Dronedarone HCl 400 MG TAB PO SCH ×2 (08:54→16:49)
[2020-11-29] MEDS: Lactinex Tablet PO SCH (08:55)
[2020-11-29] MEDS: Metoclopramide HCl 10 MG/2 ML VIAL IVP SCH ×2 (08:55→21:28)
[2020-11-29] MEDS: Insulin Regular 300 UNITS/3 ML VIAL SC SCH ×3 (08:56→16:51)
--- NOTE | 2020-11-29 09:11 | PRG ---
DATE OF SERVICE: 11/29/2020 SUBJECTIVE: Ms. Leon is a 60-year-old black female, followed up by the [facility]al Service for her ESRD/chronic renal failure. She continues to be on a three times a week hemodialysis. She said to be tolerating said treatment. No acute events noted last night. This morning, patient voices no new complaints. She is still feeling tired. OBJECTIVE: VITAL SIGNS: Blood pressure 125/58, heart rate 98, respiratory rate 20, temperature 98.7, O2 saturation 96%. GENERAL: Patient is awake, supine, lethargic, flat affect, not in distress. SKIN: Adequate turgor. HEENT: Slightly pale conjunctivae. Anicteric sclerae. NECK: No neck mass. No carotid bruits. No JVD. CHEST: No deformities. LUNGS: Clear breath sounds. HEART: Normal sinus rhythm. No murmur. No gallops. No rubs. ABDOMEN: Globular, soft, nontender. No masses. EXTREMITIES: No edema. No deformities. MEDICATIONS: Of November 29, 2020, was reviewed. LABORATORY DATA: Of November 29, 2020, white count 7.7, hemoglobin 8.7. Sodium 144, potassium 4, chloride 103, carbon dioxide 26, BUN 68, creatinine 3.86, glucose 162, calcium 8.6. ASSESSMENT AND PLAN: 1. End-stage renal disease/chronic renal failure, continuing three times a week hemodialysis. Patient undergoes hemodialysis Sunday, , Sunday. Patient has no indication for any emergency dialysis today. Potassium was noted to be acceptable at 4.0. In addition, patient is euvolemic. I have scheduled her for tomorrow's regular dialysis. 2. Flat affect/depression. We will increase Zoloft from 50 to 100 mg tablet once a day. 3. Chronic anemia. Continuing weekly Epogen with this patient. Again recheck CBC, basic met in a.m. Awaiting rehab placement. Job ID: [id number]
[2020-11-29] MEDS ORDERED: traMADol HCl 50 MG TAB PO PRN (10:54)
[2020-11-29 12:48] VITALS: BMI 35.0
[2020-11-29] MEDS: Insulin Glargine 30 UNITS in Pre-Filled Syringe 1 EACH SC SCH (21:28)
[2020-11-29] MEDS: Mirtazapine 15 MG Soltab PO SCH (21:29)
--- NOTE | 2020-11-30 06:47 | PDOC.FM ---
- Subjective Subjective: Denies any complaints today. Discussed DC to rehab today and pt in agreement. No events overnight. - Objective Vital Signs & Weight: Vital Signs (12 hours) Temp Pulse Resp BP Pulse Ox 11/30/20 03:06 98.6 F 87 17 115/55 L 94 L 11/30/20 00:55 93 L 11/30/20 00:00 16 106/52 L 11/29/20 19:20 93 L 11/29/20 19:18 98.9 F 79 17 110/59 L 93 L Weight Admit Weight 93.599 kg Weight 95.6 kg Most Recent Monitor Data Heart Rate from ECG 98 NIBP 91/42 NIBP BP-Mean 105 Respiration from ECG 17 SpO2 100 I&O: 11/28/20 11/29/20 11/30/20 06:59 06:59 06:59 Intake Total 240 140 110 Output Total 0 2 Balance 240 138 110 Result Diagrams: 11/30/20 07:00 11/30/20 07:00 Phys Exam - Physical Examination Constitutional: NAD HEENT: moist MMs Neck: full ROM Respiratory: clear to auscultation bilateral Cardiovascular: RRR, no significant murmur Gastrointestinal: soft, non-tender Musculoskeletal: edema present (trace) Neurological: moves all 4 limbs Deviation from normal: Flat affect, not conversational, responds with shakes and nods Skin: cap refill <2 seconds Deviation from normal: Dry necrosis to left foot toes 1-4 Dx/Plan - Plan Plan: Afib/Aflutter - paroxysmal - Cardiology consulted, multaq and metoprolol - Remains NSR Multifactorial encephalopathy - mental status stable - minimally conversation - refusing meds intermittently - zoloft increased to 100mg Poor PO intake - speech consulted - Cattle Producers consulted: puree, nectar thick diet. Renal high protein and CC. - Added Glucerna TID. - Needs assist with meals Acute Renal Failure - Dialysis 3x week regimen - Now essentially anuric - Dr. Dover, nephro, appreciate recs DKA resolved - lantus 30 U HS. - aggressive SSI. Glucose ACHS Candiduria - s/p treatment Hx of HTN: - continue home meds. - cardiac monitoring Vaginal bleeding, setting of uterine mass - bleeding has ceased - etiology fibroid vs endometrial cancer vs other - outpt workup Microcytic anemia, iron deficient - Nephro started epogen - Required 1u PRBC since admission - Hgb: 8.7 Thrombocytopenia - Resolved - Consulted heme/onc Dr. Perkins, Appreciate recs, believes multifactorial and multisystem organ failure as etiology Levophed induced skin necrosis - Dry necrosis - Left distal toes 1-4 - Wound care Antimicrobials - fluconazole x14 days, completed - cefepime x7 days, flagyl 7 days completed. - vancomycin DCd, 11/09-11/12 - final Blood cultures no growth Code: FULL, confirmed w/ family. DIET: puree, nectar thick liquid. Renal high protein for dialysis, CC. Supp Glucerna IVF: SL DVT ppx: SCDs only GI ppx: protonix PO Activity: Up to chair. PT / OT /Speech. Dispo: Plan for DC today to inpatient rehab. Outpt dialysis being set up - can continue at rehab until then. Will pull right subclavian prior to DC. Addendum - Attending - Attending Attestation Date/Time: 11/30/20 1214 I personally evaluated the patient and discussed the management with Dr. Curiel. I agree with the History, Examination, Assessment and Plan documented above with any addition or exceptions noted below. Patient stable. Hoping to transition to inpatient rehab today.
[2020-11-30 07:20] LABS: #Basophils 0.1 thou/uL (0.0-0.2); #Eosinphils 0.1 thou/uL (0.0-0.7); #Lymphocytes 1.4 thou/uL (1.20-3.40); #Monocytes 0.9 thou/uL (0.11-0.59); #Neutrophils 4.9 thou/uL (1.40-6.50); %Basophils 0.9 % (0.0-1.0); %Eosinophils 1.6 % (0.0-10.0); %Lymphocytes 19.3 % (21.0-51.0); %Monocytes 11.8 % (0.0-10.0); %Neutrophils 66.4 % (42.0-75.0); Hemoglobin 8.7 g/dL (12.0-16.0); Mean Corpuscular HGB CONC 32.5 g/dL (32.0-36.0); Mean Corpuscular Hemoglobin 26.2 pg (27.0-31.0); Mean Corpuscular Volume 80.6 fL (78.0-98.0); Mean Platelet Volume 9.1 fL (7.4-10.4); Platelet Count 143 thou/uL (130-400); RBC Distribution Width 15.8 % (11.5-14.5); Red Blood Cell (RBC) Count 3.33 mill/uL (4.20-5.40); White Blood Cell (WBC) Count 7.4 thou/uL (4.8-10.8)
[2020-11-30 07:33] LABS: Anion Gap 20 mmol/L (10-20); BUN (Urea Nitrogen) 74 mg/dL (9.8-20.1); Calc. Creatinine Clearance 23 mL/min (70-130); Calcium 8.4 mg/dL (7.8-10.44); Carbon Dioxide 25 mmol/L (22-29); Chloride 106 mmol/L (98-107); Glucose 184 mg/dL (70-105); Potassium 4.1 mmol/L (3.5-5.1); Sodium 147 mmol/L (136-145)
[2020-11-30] MEDS: Lactinex Tablet PO SCH ×2 (08:12→13:44)
[2020-11-30] MEDS: Atorvastatin Calcium 20 MG TAB PO SCH ×2 (08:13→13:44)
[2020-11-30] MEDS: Calcium Acetate 667 MG CAP PO SCH ×4 (08:13→16:48)
[2020-11-30] MEDS: Aspirin 81 mg Enteric Coated Tablet PO SCH ×2 (08:13→13:44)
[2020-11-30] MEDS: Metoclopramide HCl 10 MG/2 ML VIAL IVP SCH (08:13)
[2020-11-30] MEDS: Dronedarone HCl 400 MG TAB PO SCH ×2 (08:14→13:44)
[2020-11-30] MEDS: Insulin Regular 300 UNITS/3 ML VIAL SC SCH ×2 (09:07→13:58)
--- NOTE | 2020-11-30 09:16 | PRG ---
DATE OF SERVICE: 11/30/2020 SUBJECTIVE: Ms. Leon is a 60-year-old black female, followed up by the Renal Service for her ESRD/chronic renal failure. She is continuing her 3 times a week hemodialysis regimen. She is due for dialysis today. We will do a 3-hour hemodialysis with this patient with fluid removal only as tolerated. She voices no new complaints. She denies any chest pain or shortness of breath. OBJECTIVE: VITAL SIGNS: Blood pressure 138/60, heart rate 81, respiratory rate 18, temperature 97.7, and O2 saturation is 95%. GENERAL: The patient is awake, alert, comfortable, not in overt distress. SKIN: Adequate turgor. HEENT: She has a slightly pale conjunctivae. Anicteric sclerae. NECK: No neck mass. No carotid bruits. No JVD. CHEST: No deformities. LUNGS: Clear breath sounds. HEART: Normal sinus rhythm. No murmur. No gallops. No rubs. ABDOMEN: Globular, soft, nontender. No masses. EXTREMITIES: No edema. No deformities. MEDICATIONS: Of November 30, 2020, reviewed. LABORATORY DATA: Of November 30, 2020, white count 7.4, hemoglobin 8.7. Sodium 147, potassium 4.1, chloride 106, carbon dioxide 25, BUN 74, creatinine 3.88, glucose 184, calcium 8.4. ASSESSMENT AND PLAN: 1. End-stage renal disease/chronic renal failure, continuing 3 times a week hemodialysis regimen. My plan is to do only a 3-hour hemodialysis with this patient with fluid removal as tolerated. 2. Anemia, continuing weekly Epogen. P.r.n. blood transfusion for hemoglobin less than 7. 3. Flat affect/depression, Zoloft recently increased to 50 mg tablet once a day. 4. Paroxysmal atrial fibrillation, currently on amiodarone. Currently, the patient is noted to be in normal sinus rhythm. Cardiology is following. We are awaiting rehab placement with this patient. Job ID: [id number]
[2020-11-30 13:24] VITALS: BP 145/65; TEMP 98.7
[2020-11-30] MEDS: Losartan 25 MG TAB PO SCH (13:45)
[2020-11-30] MEDS: Acetaminophen 500 MG TAB PO PRN (16:45)
[2020-11-30] MEDS ORDERED: Insulin Glargine 34 UNITS in Pre-Filled Syringe 1 EACH SC SCH (21:00)
--- NOTE | 2020-12-01 08:51 | DIS ---
DATE OF ADMISSION: 11/09/2020 DATE OF DISCHARGE: 11/30/2020 ADMITTING ATTENDING: Dr. Manish Beyer. DISCHARGE ATTENDING: Dr. Antonio Daniels. RESIDENT: Dr. Tyler Curiel. CONSULTS: 1. Cardiology, Dr. Tristen Diaz. 2. General Surgery, Dr. Ashwin Williamson. 3. Nephrology, Dr. Kwadwo Dover. 4. Neurology, Dr. Dick. 5. Oncology, Dr. Asad Perkins. 6. Pulmonology, Dr. Warner Ramirez. PROCEDURES: Right subclavian tunneled catheter by Dr. David Cabrera on 11/25/2020-no complications. PRIMARY DIAGNOSES: Diabetic ketoacidosis, hypernatremia, acute renal failure, atrial fibrillation/atrial flutter. SECONDARY DIAGNOSES: Acute encephalopathy secondary to metabolic acidosis, urinary yeast infection, hypertension, hyperlipidemia, anemia. DISCHARGE MEDICATIONS: 1. Cozaar 100 mg daily. 2. Atorvastatin 20 mg daily. 3. Amlodipine 10 mg daily. 4. Gabapentin 300 mg t.i.d. 5. Aspirin 81 mg daily. 6. Floranex one tablet daily. 7. Loperamide 2 mg p.o. q.4 hours p.r.n. 8. Multaq 400 mg p.o. b.i.d. 9. PhosLo 1334 mg t.i.d. with meals. 10. Reglan 5 mg b.i.d. 11. Remeron 7.5 mg p.o. at bedtime. 12. Epoetin 7500 units subcu q.7 days. 13. Toprol-XL 50 mg daily. 14. Lantus 34 units subcu at bedtime. 15. Tramadol 50 mg p.o. q.12 hours p.r.n. 16. Sertraline 50 mg p.o. daily. DISCONTINUED MEDICATIONS: 1. Glucotrol 5 mg daily. 2. Metformin 1000 mg b.i.d. 3. Spironolactone 50 mg daily. 4. Trulicity 0.75 mg subcu q.7 days. HISTORY OF PRESENT ILLNESS AND HOSPITAL COURSE: This is an updated stay summary from previous progress notes placed by Dr. Vivian Ellis on 11/21/2020. For events prior to that date, please refer to that progress note. Since the patient was transferred to the telemetry floor, she continued to receive dialysis 3 times a week as directed by Dr. Dover. She had a tunneled catheter placed via her right subclavian by Dr. David Cabrera as well as the left upper arm fistula placed at the same time. There were no complications during this procedure. However, afterwards she became slightly more anemic below transfusion threshold, so she received 1 unit of packed red blood cells. She continued to receive Epogen with subsequent stabilization in her hemoglobin. The patient's metabolic encephalopathy stabled out and she remained at a consistent level of alertness and orientation. She did, however, continue to display a significant flat affect with decreased conversation and was subsequently started on Zoloft for likely underlying mood disorder. The patient also had intermittent events of atrial fibrillation and atrial flutter, for which cardiology Dr. Tristen Diaz was consulted. He started her on metoprolol as well as Multaq with subsequent improvement in the patient's arrhythmia. During this time, the patient also continued to develop worsening oliguria to the point that she was anuric by the time of discharge. She continued to receive PT and OT services and was eventually discharged to inpatient rehab at [facility]. At the time of discharge, the patient was continuing to have quite poor p.o. intake regardless of starting Reglan and mirtazapine. The patient would continually refuse medications and meals intermittently all the way up to discharge. She was continually instructed the importance of maintaining adequate p.o. intake; however, she said she just never had appetite to do so. Dietitians were consulted to assist in adequate supplementation. We recommend that she continue to follow a supplemented diet after discharge. DISCHARGE INSTRUCTIONS: 1. Location: Inpatient health at [facility]. 2. Diet: Heart healthy and carb-conscious. 3. Activity: As tolerated by cardiopulmonary limits. 4. Followup: Follow up with PCP within 7 days. Job ID: [id number]
== END 2020-11-30 17:45 | DRG 853 ==
LOC: ERS 06:08 → ERHOLD 09:08 → CCU 19:41 → 3SE 11-19 11:45 → 2NO 11-22 22:21
PROVIDERS: ADMIT Family Medicine; ATTEND Family Medicine
PROC: 5A1955Z Respiratory Ventilation, Greater than 96 Consecutive Hours (ICD-10-PCS; 2020-11-09)
PROC: 3E033XZ Introduction of Vasopressor into Peripheral Vein, Percutaneous Approach (ICD-10-PCS; 2020-11-09)
PROC: 0T9B70Z Drainage of Bladder with Drainage Device, Via Natural or Artificial Opening (ICD-10-PCS; 2020-11-09)
PROC: 0BH17EZ Insertion of Endotracheal Airway into Trachea, Via Natural or Artificial Opening (ICD-10-PCS; 2020-11-09)
PROC: 5A1D70Z Performance of Urinary Filtration, Intermittent, Less than 6 Hours Per Day (ICD-10-PCS; principal; 2020-11-11)
PROC: 02HV33Z Insertion of Infusion Device into Superior Vena Cava, Percutaneous Approach (ICD-10-PCS; 2020-11-11)
PROC: 02HV33Z Insertion of Infusion Device into Superior Vena Cava, Percutaneous Approach (ICD-10-PCS; 2020-11-11)
PROC: 04HY32Z Insertion of Monitoring Device into Lower Artery, Percutaneous Approach (ICD-10-PCS; 2020-11-11)
PROC: 8E0ZXY6 Isolation (ICD-10-PCS; 2020-11-17)
PROC: 03180ZD Bypass Left Brachial Artery to Upper Arm Vein, Open Approach (ICD-10-PCS; 2020-11-24)
PROC: 0JH63XZ Insertion of Tunneled Vascular Access Device into Chest Subcutaneous Tissue and Fascia, Percutaneous Approach (ICD-10-PCS; 2020-11-24)
PROC: 02HV33Z Insertion of Infusion Device into Superior Vena Cava, Percutaneous Approach (ICD-10-PCS; 2020-11-24)
PROC: B518ZZA Fluoroscopy of Superior Vena Cava, Guidance (ICD-10-PCS; 2020-11-24)
PROC: 02HV33Z Insertion of Infusion Device into Superior Vena Cava, Percutaneous Approach (ICD-10-PCS; 2020-11-24)
PROC: B548ZZA Ultrasonography of Superior Vena Cava, Guidance (ICD-10-PCS; 2020-11-24)
PROC: 30233N1 Transfusion of Nonautologous Red Blood Cells into Peripheral Vein, Percutaneous Approach (ICD-10-PCS; 2020-11-25)
DX: A41.9 Sepsis, unspecified organism (principal); E11.10 Type 2 diabetes mellitus with ketoacidosis without coma; G93.41 Metabolic encephalopathy; J96.01 Acute respiratory failure with hypoxia; N17.0 Acute kidney failure with tubular necrosis; D65 Disseminated intravascular coagulation [defibrination syndrome]; J18.9 Pneumonia, unspecified organism; K72.00 Acute and subacute hepatic failure without coma; R65.21 Severe sepsis with septic shock; N18.6 End stage renal disease; E87.0 Hyperosmolality and hypernatremia; I48.92 Unspecified atrial flutter; B37.49 Other urogenital candidiasis; E87.3 Alkalosis; E87.1 Hypo-osmolality and hyponatremia; K62.5 Hemorrhage of anus and rectum; F05 Delirium due to known physiological condition; K56.7 Ileus, unspecified; E11.52 Type 2 diabetes mellitus with diabetic peripheral angiopathy with gangrene; I96 Gangrene, not elsewhere classified; I12.0 Hypertensive chronic kidney disease with stage 5 chronic kidney disease or end stage renal disease; I82.613 Acute embolism and thrombosis of superficial veins of upper extremity, bilateral; T82.868A Thrombosis due to vascular prosthetic devices, implants and grafts, initial encounter; I47.1 Supraventricular tachycardia; Z20.822 Contact with and (suspected) exposure to COVID-19; E78.5 Hyperlipidemia, unspecified; F39 Unspecified mood [affective] disorder; I45.81 Long QT syndrome; E87.5 Hyperkalemia; N93.9 Abnormal uterine and vaginal bleeding, unspecified; E83.39 Other disorders of phosphorus metabolism; E11.43 Type 2 diabetes mellitus with diabetic autonomic (poly)neuropathy; K31.84 Gastroparesis; E87.6 Hypokalemia; R13.10 Dysphagia, unspecified; D50.9 Iron deficiency anemia, unspecified; I48.0 Paroxysmal atrial fibrillation; E83.51 Hypocalcemia; E66.01 Morbid (severe) obesity due to excess calories; E11.22 Type 2 diabetes mellitus with diabetic chronic kidney disease; D63.1 Anemia in chronic kidney disease; R50.9 Fever, unspecified; Y84.8 Other medical procedures as the cause of abnormal reaction of the patient, or of later complication, without mention of misadventure at the time of the procedure; T44.4X5A Adverse effect of predominantly alpha-adrenoreceptor agonists, initial encounter; Z78.1 Physical restraint status; Z68.35 Body mass index [BMI] 35.0-35.9, adult; Z88.0 Allergy status to penicillin; Z79.899 Other long term (current) drug therapy; Z79.4 Long term (current) use of insulin
CPT/HCPCS: 31500; 36415; 36416; 36430; 36600; 51702; 70450; 71045; 74176; 76000; 76770; 80048; 80053; 80061; 80202; 81001; 81003; 81015; 82010; 82271; 82274; 82330; 82553; 82570; 82607; 82728; 82747; 82803; 82805; 83010; 83036; 83540; 83550; 83605; 83615; 83630; 83735; 83970; 84100; 84134; 84145; 84443; 84466; 84484; 85025; 85049; 85060; 85300; 85362; 85379; 85384; 85610; 85730; 86580; 86704; 86706; 86803; 86850; 86900; 86901; 87040; 87045; 87046; 87077; 87086; 87324; 87328; 87329; 87340; 87427; 87449; 87798; 90935; 93005; 93010; 93306; 93970; 94002; 94003; 94640; 95712; 95819; 95957; 96365; 96366; 96368; A4217; C1752; C9113; G0257; J0692; J0883; J1200; J1450; J1642; J1644; J1720; J1815; J1956; J2001; J2060; J2250; J2270; J2405; J2704; J2720; J2765; J3010; J3370; J3475; J3480; J3490; J7050; J7070; J7120; J7608; J7620; L8670; P9016; P9045; P9047; Q5105; S0020; U0002

== ENCOUNTER 2020-12-22 11:13 | Emergency (ER) | payer MEDICARE, OTHER ==
[2020-12-22] MEDS ORDERED: Lidocaine 1% PF 5 ML VIAL ONE (11:57)
== END 2020-12-22 12:33 | disposition home or self-care (01) ==
LOC: ERS 11:13
DX: T82.838A Hemorrhage due to vascular prosthetic devices, implants and grafts, initial encounter (principal); E11.9 Type 2 diabetes mellitus without complications; E78.5 Hyperlipidemia, unspecified; I10 Essential (primary) hypertension; Z79.4 Long term (current) use of insulin; Z79.899 Other long term (current) drug therapy
CPT/HCPCS: 99283

== ENCOUNTER 2021-02-05 04:15 | Emergency (ER) | payer MEDICARE, OTHER ==
[2021-02-05 04:57] LABS: #Basophils 0.1 thou/uL (0.0-0.2); #Lymphocytes 1.8 thou/uL (1.20-3.40); #Monocytes 0.3 thou/uL (0.11-0.59); #Neutrophils 2.7 thou/uL (1.40-6.50); %Basophils 1.9 % (0.0-1.0); %Eosinophils 0.7 % (0.0-10.0); %Lymphocytes 36.4 % (21.0-51.0); %Monocytes 6.4 % (0.0-10.0); %Neutrophils 54.7 % (42.0-75.0); Hemoglobin 11.9 g/dL (12.0-16.0); Mean Corpuscular HGB CONC 30.8 g/dL (32.0-36.0); Mean Corpuscular Hemoglobin 25.2 pg (27.0-31.0); Mean Corpuscular Volume 81.9 fL (78.0-98.0); Mean Platelet Volume 8.3 fL (7.4-10.4); Platelet Count 210 thou/uL (130-400); RBC Distribution Width 15.2 % (11.5-14.5); Red Blood Cell (RBC) Count 4.72 mill/uL (4.20-5.40)
[2021-02-05 05:21] LABS: ALT (SGPT) 21 U/L (8-55); AST (SGOT) 30 U/L (5-34); Albumin 2.8 g/dL (3.5-5.0); Alkaline Phosphatase 115 U/L (40-110); Anion Gap 13 mmol/L (10-20); BUN (Urea Nitrogen) 17 mg/dL (9.8-20.1); Bilirubin, Total 0.4 mg/dL (0.2-1.2); Calc. Creatinine Clearance 0 mL/min (70-130); Calcium 8.5 mg/dL (7.8-10.44); Carbon Dioxide 30 mmol/L (22-29); Chloride 97 mmol/L (98-107); Globulin 3.6 g/dL (2.4-3.5); Glucose 143 mg/dL (70-105); Potassium 3.2 mmol/L (3.5-5.1); Protein, Total 6.4 g/dL (6.0-8.3); Sodium 137 mmol/L (136-145)
== END 2021-02-05 09:20 | disposition home or self-care (01) ==
LOC: ERS 04:15
DX: E11.649 Type 2 diabetes mellitus with hypoglycemia without coma (principal); E78.5 Hyperlipidemia, unspecified; J42 Unspecified chronic bronchitis; I10 Essential (primary) hypertension; Z79.4 Long term (current) use of insulin; Z79.899 Other long term (current) drug therapy
CPT/HCPCS: 36415; 36416; 80053; 85025; 99285

== ENCOUNTER 2021-04-27 10:10 | Emergency (ER) | payer MEDICARE, MEDICAID ==
[2021-04-27] MEDS ORDERED: Iopamidol-370 76% 500 ML 1 ML ONE (10:47)
[2021-04-27 11:49] LABS: Hemoglobin 7.9 g/dL (12.0-16.0); Mean Corpuscular HGB CONC 32.6 g/dL (32.0-36.0); Mean Corpuscular Hemoglobin 25.8 pg (27.0-31.0); Mean Corpuscular Volume 79.1 fL (78.0-98.0); Red Blood Cell (RBC) Count 3.05 mill/uL (4.20-5.40); White Blood Cell (WBC) Count 10.5 thou/uL (4.8-10.8)
[2021-04-27 12:00] LABS: Lactic Acid 1.7 mmol/L (0.5-2.2)
[2021-04-27 12:03] LABS: Troponin I 0.014 ng/mL (< 0.028)
[2021-04-27 12:05] LABS: ALT (SGPT) 47 U/L (8-55); AST (SGOT) 52 U/L (5-34); Alkaline Phosphatase 271 U/L (40-110); Anion Gap 14 mmol/L (10-20); BUN (Urea Nitrogen) 13 mg/dL (9.8-20.1); Bilirubin, Total 1.3 mg/dL (0.2-1.2); Calc. Creatinine Clearance 0 mL/min (70-130); Calcium 7.7 mg/dL (7.8-10.44); Carbon Dioxide 27 mmol/L (22-29); Chloride 98 mmol/L (98-107); Globulin 3.5 g/dL (2.4-3.5); Glucose 83 mg/dL (70-105); Lipase Less than 4 U/L (8-78); Potassium 3.2 mmol/L (3.5-5.1); Protein, Total 5.5 g/dL (6.0-8.3); Sodium 136 mmol/L (136-145)
[2021-04-27 12:27] LABS: #Basophils 0.1 thou/uL (0.0-0.2); #Lymphocytes 1.7 thou/uL (1.20-3.40); #Monocytes 0.7 thou/uL (0.11-0.59); %Eosinophils 0.1 % (0.0-10.0); %Lymphocytes 15.9 % (21.0-51.0); %Monocytes 6.9 % (0.0-10.0); Burr Cells SLIGHT = 2-5 cells (100X) (0-1/hpf); MDiff Complete? YES; Mean Platelet Volume 8.8 fL (7.4-10.4); Platelet Count 277 thou/uL (130-400); Platelet Morphology Comment Appears Adequate; Polychromasia SLIGHT = 2-3 cells (100X) (0-2/hpf); RBC Distribution Width 24.6 % (11.5-14.5); Reflex for Review?? NO; Target Cells MARKED = >16 cells (100X) (0-1/hpf)
== END 2021-04-27 17:09 | disposition home or self-care (01) ==
LOC: ERS 10:10
DX: H10.89 Other conjunctivitis (principal); I12.0 Hypertensive chronic kidney disease with stage 5 chronic kidney disease or end stage renal disease; N18.6 End stage renal disease; E11.22 Type 2 diabetes mellitus with diabetic chronic kidney disease; E78.5 Hyperlipidemia, unspecified; J42 Unspecified chronic bronchitis; Z99.2 Dependence on renal dialysis; Z87.19 Personal history of other diseases of the digestive system; Z79.899 Other long term (current) drug therapy; Z79.82 Long term (current) use of aspirin; Z79.4 Long term (current) use of insulin
CPT/HCPCS: 36415; 36416; 70450; 70496; 70498; 71045; 80053; 83605; 83690; 83880; 84484; 85025; 87040; 87077; 87149; 87186; Q9967

== ENCOUNTER 2021-05-08 11:52 | Emergency (ER) | payer MEDICARE, MEDICAID ==
[2021-05-08 12:32] LABS: Hemoglobin 7.8 g/dL (12.0-16.0); Mean Corpuscular HGB CONC 33.1 g/dL (32.0-36.0); Mean Corpuscular Hemoglobin 28.5 pg (27.0-31.0); Mean Corpuscular Volume 86.1 fL (78.0-98.0); Mean Platelet Volume 8.1 fL (7.4-10.4); Platelet Count 354 thou/uL (130-400); RBC Distribution Width 23.8 % (11.5-14.5); Red Blood Cell (RBC) Count 2.72 mill/uL (4.20-5.40)
[2021-05-08 12:39] LABS: PTT 36.4 sec (22.9-36.1); Prothrombin Time 15.8 sec (12.0-14.7)
[2021-05-08 12:41] LABS: INR-International Normal Ratio 1.3
[2021-05-08 12:42] LABS: ALT (SGPT) 44 U/L (8-55); AST (SGOT) 43 U/L (5-34); Alkaline Phosphatase 223 U/L (40-110); Anion Gap 18 mmol/L (10-20); BUN (Urea Nitrogen) 4 mg/dL (9.8-20.1); Bilirubin, Total 1.1 mg/dL (0.2-1.2); CK (CPK) 46 U/L (29-168); Calc. Creatinine Clearance 0 mL/min (70-130); Calcium 7.9 mg/dL (7.8-10.44); Carbon Dioxide 25 mmol/L (22-29); Chloride 98 mmol/L (98-107); Globulin 3.7 g/dL (2.4-3.5); Glucose 102 mg/dL (70-105); Potassium 3.3 mmol/L (3.5-5.1); Protein, Total 5.7 g/dL (6.0-8.3); Sodium 138 mmol/L (136-145)
[2021-05-08] MEDS ORDERED: Lidocaine 1% PF 5 ML VIAL ONE (12:45)
[2021-05-08] MEDS ORDERED: cefTRIAXone\\ROCEPHIN 250 MG VIAL ONE (12:45)
[2021-05-08] MEDS ORDERED: Azithromycin 250 MG TAB ONE (12:46)
[2021-05-08 12:47] LABS: Anisocytosis MODERATE=16-30 cells (100X) (0-5/hpf); Band 1 % (5-11); Lymphocytes 22 % (21-51); MDiff Complete? YES; Monocytes 3 % (0-10); Neutrophil 74 % (42-75); Nucleated RBC 3 % (0); Platelet Morphology Comment Appears Adequate; Polychromasia MODERATE = 3-4 cells (100X) (0-2/hpf); Target Cells MODERATE= 6-15 cells (100X) (0-1/hpf)
== END 2021-05-08 14:12 | disposition home or self-care (01) ==
LOC: ERS 11:52
DX: H10.023 Other mucopurulent conjunctivitis, bilateral (principal); D50.9 Iron deficiency anemia, unspecified; E78.5 Hyperlipidemia, unspecified; I10 Essential (primary) hypertension; J42 Unspecified chronic bronchitis; I12.0 Hypertensive chronic kidney disease with stage 5 chronic kidney disease or end stage renal disease; N18.6 End stage renal disease; E11.22 Type 2 diabetes mellitus with diabetic chronic kidney disease; Z99.2 Dependence on renal dialysis; Z87.19 Personal history of other diseases of the digestive system; Z86.73 Personal history of transient ischemic attack (TIA), and cerebral infarction without residual deficits; Z79.82 Long term (current) use of aspirin; Z79.899 Other long term (current) drug therapy; Z79.4 Long term (current) use of insulin
CPT/HCPCS: 70450; 80053; 82550; 84484; 85025; 85610; 85730; 86140; 87070; 87205; 96372; J0696